=== PATIENT | male | born 1980 | race African-American/Black ===

== ENCOUNTER 2018-10-12 12:09 | Emergency (ER) | payer MEDICAID, SELFPAY ==
[2018-10-12 12:11] VITALS: BP 127/88; PULSE 78; RESP 18; TEMP 36.3; O2SAT 99; BMI 25.3
--- NOTE | 2018-10-12 12:33 | CT_ITS ---
STUDY: CT ABDOMEN AND PELVIS WITH CONTRAST REASON FOR EXAM: Male, 37 years old. Right lower quadrant pain. Diarrhea. RADIATION DOSAGE (If Supplied By Facility): CTDIvol = ( 13.66 ) mGy, DLP = ( 925.99 ) mGycm TECHNIQUE: Transaxial images were obtained from the dome of the diaphragm to the symphysis pubis with oral contrast. 100 IV/Oral Isovue 300 was administered. Sagittal and coronal images were reconstructed. Individualized dose optimization techniques were used for this CT. COMPARISON: None. FINDINGS: The visualized lung bases are unremarkable. The visualized portions of the heart are within normal limits. Normal liver. Normal gallbladder and extrahepatic biliary system. Normal spleen. Normal pancreas. Normal bilateral adrenal glands. Normal right kidney. Normal left kidney. Although oral contrast was given, only a few loops of small bowel are opacified and grossly normal. No opacification of the stomach which is grossly normal, and no opacification of the large bowel which is markedly limited in evaluation since it is not opacified. There is extensive diverticulosis as there was previously. There is an inflammatory process in the right lower quadrant primarily involving the cecum where there is probable wall thickening. The appendix is seen and is within normal limits. The findings could represent diverticulitis of the cecum. There is adjacent edema and mild fluid. Marked diverticulosis of the sigmoid colon is also noted with marked wall thickening, and low grade diverticulitis is not excluded and sigmoid. No definite abscess or perforation. Normal abdominal aorta. Normal inferior vena cava. Normal retroperitoneum. Normal urinary bladder. There is enlargement of the prostate gland. Normal abdominal wall. Normal osseous structures. CT/Abdomen/Pelvis WITH Contrast IMPRESSION: Inflammatory process in the right lower quadrant appears to be related primarily to the cecum and may be diverticulitis. The appendix is grossly normal. Marked diverticulosis and possible low-grade diverticulitis of the sigmoid. Note that evaluation of the colon is limited because it is not opacified by oral contrast. Recommend colonoscopy. Electronically Signed: Hi Gale MD at 14:38 EDT , Service support ,
--- NOTE | 2018-10-12 12:35 | ED.VISSUMM ---
- ER Visit Summary Date of Service: 10/12/18 Chief Complaint: Abdominal pain History of Present Illness: The patient is a 37 M presenting with abdominal pain. Patient states this started last Saturday. He has right lower quadrant and right lower back pain. He states he has had previous right-sided diverticulitis. He states this feels similar. He complains of nausea with no vomiting. He has had diarrhea. He denies blood in his stool. Denies fever. Denies other complaints. Physical Examination: Vitals are stable. Patient is afebrile. Alert no acute distress. HEENT exam is unremarkable. Neck is supple. Lungs are clear and equal bilaterally. Heart is regular rate and rhythm. Abdomen is soft right lower quadrant tenderness with no rebound or guarding Extremities are unremarkable. Skin is warm and dry. Remainder of exam is unremarkable. Emergency Department Course and Treatment: Patient was given IV fluids, morphine, Zofran. CBC normal except for hemoglobin 12.8. Chemistries unremarkable. Total bili 1.6. Lipase 138. Urinalysis unremarkable. CT abdomen pelvis with IV and oral contrast shows inflammatory process in the right lower quadrant appears to be related primarily to the cecum and may be diverticulitis. The appendix is grossly normal. Marked diverticulosis and possible low-grade diverticulitis of the sigmoid. Note that evaluation of the colon is limited because it is not opacified by oral contrast. Recommend colonoscopy. Patient is advised of these findings. He has had colonoscopy in the past. He is advised to follow-up with Dr. Jenkins magnetic resonance imaging coordinator for no doc. He was offered admission and declined. He was given Cipro and Flagyl. Advised return to ED for worsening complaints. Disposition: Discharge home Impression: Diverticulitis This note was generated with [employer] dictation software. It may contain incorrect words, spelling, and punctuation that were not noted in review of the chart prior to signing ED Disposition - Plan for ED Patient: Instructions: ED Diverticulitis Prescriptions: metroNIDAZOLE [Flagyl] 500 mg PO Q8H #21 tablet Ciprofloxacin [Cipro] 500 mg PO BID #14 tablet Referrals: Ludin Jenkins MD [STAFF PHYSICIAN] -
[2018-10-12 12:49] LABS: Absolute Lymphocyte Count 1.87 X10^3/ul (0.83-4.51); Absolute Neutrophil Count 6.2 X10^3/uL (2.0-7.7); Basophil# 0.02 X10^3/uL; Basophil% 0.2 % (0-1); Eosinophil# 0.23 X10^3/uL; Eosinophils% 2.6 % (0-5); Hematocrit 37.8 % (40-54); Hemoglobin 12.8 g/dl (13.0-16.5); Lymphocyte # 1.87 X10^3/ul (4.0); Lymphocyte % 21.3 % (19-41); Mean Corp Hgb Conc 33.9 g/gl (32-36); Mean Corpuscular Hgb 32.8 pg (27.0-32.0); Mean Corpuscular Volume 96.9 fL (80-94); Mean Platelet Vol. 11.7 fl (6.2-12.0); Monocyte# 0.47 X10^3/uL; Monocyte% 5.4 % (0-10); Neutrophil # 6.17 X10^3/uL (2.7-7.7); Neutrophil % 70.4 % (47-70); Platelet Count 242 K/mm3 (150-450); RBC Distribution Width CV 12.2 % (11.6-14.6); RBC Distribution Width SD 43.3 fl (35.1-43.9); White Blood Count 8.8 K/mm3 (4.4-11.0)
[2018-10-12] MEDS: Ondansetron 4 MG/2 ML Vial IV (12:49)
[2018-10-12 12:50] LABS: POSITIVE COUNT NO; POSITIVE DIFFERENTIAL NO; POSITIVE MORPHOLOGY NO
[2018-10-12] MEDS: Morphine 4 MG/ML Syringe IV (12:50)
[2018-10-12] MEDS: 0.9% Normal Saline 1,000 ML 1000 ML IV (12:50)
[2018-10-12 13:13] LABS: ALB/GLOB Ratio 0.9 RATIO (0.9-2.4); AST(SGOT) 14 U/L (15-37); Alanine Aminotransfer ALT/SGPT 34 U/L (16-61); Albumin, Serum 3.6 g/dL (3.2-5.0); Alkaline Phosphatase 88 U/L (45-117); Anion Gap 8 (5-15); BUN 11 mg/dL (7-18); BUN/Creat Ratio 10.8 RATIO (10-20); Calcium,Total 8.9 mg/dL (8.5-10.1); Chloride 106 mmol/L (98-107); Creatinine, Serum 1.02 mg/dL (0.70-1.30); EST Glomerular Filtration Rate 86 mL/min (>60); Est Glom Filt Rate - Afr Amer 104 mL/min (>60); Estimated Creatinine Clearance 106.72 ml/min; Globulin 3.8 g/dL (2.2-4.2); Glucose 104 mg/dL (74-106); Lipase 138 U/L (73-393); Potassium 3.8 mmol/L (3.5-5.1); Protein, Total 7.4 g/dL (6.4-8.2); Sodium Level 141 mmol/L (136-145)
[2018-10-12 13:58] LABS: Bacteria 0 SEEN /hpf (None Seen); Mucous, Urine 0 SEEN /hpf (<or=2+); Red Blood Cells-Urine 0 SEEN /hpf (0-5); Squamous Epithelial Cells - UA 0 SEEN /hpf (0-5); White Blood Cells 0 SEEN /hpf (0-5)
[2018-10-12 14:10] LABS: Color, Urine Yellow (Yellow); Glucose, Dipstick Normal (Normal); Ketone-Dipstick Negative (Negative); Leukocyte Esterase-Dipstick Negative /ul (Negative); Nitrite-Dipstick Negative (Negative); Occult Blood-Urine Negative /ul (Negative); Protein-Dipstick Negative (Negative); Urine Bilirubin Dipstick Negative (Negative); Urine Clarity Clear (Clear); Urine Urobilinogen Normal (Normal)
[2018-10-12 14:21] VITALS: BP 132/91; PULSE 66
--- NOTE | 2018-10-12 15:54 | ED.DEP ---
ED Disposition - Plan for ED Patient: Instructions: ED Diverticulitis Prescriptions: metroNIDAZOLE [Flagyl] 500 mg PO Q8H #21 tablet Ciprofloxacin [Cipro] 500 mg PO BID #14 tablet Referrals: Ludin Jenkins MD [STAFF PHYSICIAN] -
[2018-10-12] MEDS: metroNIDAZOLE 500 MG Tablet PO (16:08)
[2018-10-12] MEDS: HYDROmorphone 1 MG/ML Syringe IV (16:08)
[2018-10-12] MEDS: Ciprofloxacin 500 MG Tablet PO (16:08)
[2018-10-12 16:47] VITALS: BP 131/77; PULSE 81; RESP 14; O2SAT 99
== END 2018-10-12 16:48 | disposition home or self-care (01) ==
PROVIDERS: Emergency Provider Emergency Medicine
DX: K57.92 Diverticulitis of intestine, part unspecified, without perforation or abscess without bleeding (principal)
CPT/HCPCS: 74177; 80053; 81001; 83690; 85025; 96361; 96374; 96375; 99284; J7030; Q9967; A4216; J2405

== ENCOUNTER 2021-08-12 18:13 | Emergency (ER) | payer BC, MEDICAID, SELFPAY ==
[2021-08-12 18:14] VITALS: BP 131/88; PULSE 93; RESP 18; TEMP 36.9; O2SAT 98; BMI 23.7
--- NOTE | 2021-08-12 18:23 | CT_ITS ---
STUDY: CT ABDOMEN AND PELVIS WITHOUT CONTRAST REASON FOR EXAM: Male, 40 years old. Flank pain RADIATION DOSAGE (If Supplied By Facility): CTDIvol = ( 6.37 ) mGy, DLP = ( 335.63 ) mGycm TECHNIQUE: Transaxial images were obtained from the dome of the diaphragm to the symphysis pubis without oral contrast, and without intravenous contrast. Sagittal and coronal images were reconstructed. Individualized dose optimization techniques were used for this CT. COMPARISON: None. FINDINGS: The visualized lung bases are unremarkable. The visualized portions of the heart are within normal limits. Normal liver. Normal gallbladder and extrahepatic biliary system. Normal spleen. Normal pancreas. Normal bilateral adrenal glands. Normal right kidney. Normal left kidney. Normal visualized stomach. Normal small intestine. Normal colon. The appendix is visualized and appears normal. Normal abdominal aorta. Normal inferior vena cava. Normal retroperitoneum. Normal urinary bladder. Normal abdominal wall. Normal osseous structures. CT/Abdomen/Pelvis without Cont IMPRESSION: No hydronephrosis or urinary tract calcifications. Electronically Signed: Maik Hall MD (Brooks) at 19:55 EDT Reading Location ID and State: [facility] / [place] , Service support ,
[2021-08-12 18:37] LABS: Absolute Lymphocyte Count 2.65 X10^3/uL (0.83-4.51); Absolute Neutrophil Count 5.2 X10^3/uL (2.0-7.7); Basophil# 0.06 X10^3/uL; Basophil% 0.7 % (0-1); Eosinophils% 5.4 % (0-5); Hematocrit 40.5 % (40-54); Hemoglobin 13.4 g/dL (13.0-16.5); Lymphocyte # 2.65 X10^3/ul (0.83-4.51); Lymphocyte % 28.8 % (19-41); Mean Corp Hgb Conc 33.1 g/dL (32-36); Mean Corpuscular Hgb 33.7 pg (27.0-32.0); Mean Corpuscular Volume 101.8 fL (80-94); Mean Platelet Vol. 11.5 fl (6.2-12.0); Monocyte# 0.77 X10^3/uL; Monocyte% 8.4 % (0-10); NRBC Flagged by Analyzer 0 % (0-5); Neutrophil # 5.16 X10^3/uL (2.7-7.7); Neutrophil % 56.2 % (47-70); POSITIVE MORPHOLOGY YES; Platelet Count 285 K/mm3 (150-450); RBC Distribution Width SD 45.6 fl (35.1-43.9); Red Blood Count 3.98 M/mm3 (4.6-6.2); White Blood Count 9.2 K/mm3 (4.4-11.0)
[2021-08-12] MEDS: Ketorolac 30 MG/ML Syringe IV (18:39)
[2021-08-12] MEDS: Ondansetron 4 MG/2 ML Vial IV (18:39)
[2021-08-12] MEDS: 0.9% Normal Saline 1,000 ML 1000 ML IV (18:40)
[2021-08-12 18:46] LABS: Bacteria 0 SEEN /hpf (None Seen); Mucous, Urine 0 SEEN /hpf (<or=2+); Red Blood Cells-Urine 0 SEEN /hpf (0-5)
[2021-08-12 18:47] LABS: Color, Urine Yellow (Yellow); Glucose, Dipstick Normal (Normal); Ketone-Dipstick Negative (Negative); Leukocyte Esterase-Dipstick 25 /ul (Negative); Nitrite-Dipstick Negative (Negative); Occult Blood-Urine Negative /ul (Negative); Protein-Dipstick Negative (Negative); Urine Bilirubin Dipstick Negative (Negative); Urine Clarity Clear (Clear); Urine Urobilinogen Normal (Normal)
[2021-08-12 18:56] LABS: Differential Indicated SCAN CRITERIA MET
[2021-08-12 18:58] LABS: ALB/GLOB Ratio 1.1 RATIO (0.9-2.4); AST(SGOT) 14 U/L (15-37); Alanine Aminotransfer ALT/SGPT 34 U/L (16-61); Albumin, Serum 4.1 g/dL (3.2-5.0); Alkaline Phosphatase 94 U/L (45-117); Anion Gap 2 (5-15); BUN 14 mg/dL (7-18); BUN/Creat Ratio 12.3 RATIO (10-20); Calcium,Total 9.3 mg/dL (8.5-10.1); Chloride 106 mmol/L (98-107); Creatinine, Serum 1.14 mg/dL (0.70-1.30); EST Glomerular Filtration Rate 75 mL/min (>60); Est Glom Filt Rate - Afr Amer 90 mL/min (>60); Estimated Creatinine Clearance 92.65 ml/min; Globulin 3.8 g/dL (2.2-4.2); Glucose 112 mg/dL (74-106); Lipase 193 U/L (73-393); Potassium 3.9 mmol/L (3.5-5.1); Protein, Total 7.9 g/dL (6.4-8.2); Sodium Level 140 mmol/L (136-145)
[2021-08-12 19:00] LABS: Squamous Epithelial Cells - UA 0-5 SEEN /hpf (0-5); White Blood Cells 0-5 SEEN /hpf (0-5)
[2021-08-12 19:02] LABS: Hyaline Cast 0-5 SEEN /lpf (0-5)
[2021-08-12 19:13] LABS: Differential Comment SCANNED
--- NOTE | 2021-08-12 20:04 | EX.ED.DYSGE1 ---
HPI History of Present Illness Chief Complaint: Flank Pain Informant: patient Onset/Context/Timing Onset: Today Timing: Continuous Location: Left flank Current Severity: Severe Worsened by: Nothing Relieved by: Nothing Associated Symptoms Associated Symptoms: None Narrative Narrative: Patient presents for left flank pain. Pain started earlier today, suddenly at rest. No urinary symptoms. No history of his pain, kidney stones, or kidney infections. No GI symptoms or problems. No chest pain or shortness of breath. No history of heart disease, aortic disease, DVT, or PE. No recent illnesses or traumas. No recent instrumentation or surgery. Prior similar symptoms: No Recent Illness/Hospitalization: No PFSH PFSH Home Medications cyclobenzaprine 10 mg PO TID PRN #20 tablet 08/12/21 [Rx Last Taken Unknown] naproxen 500 mg PO BID #20 tab 08/12/21 [Rx Last Taken Unknown] Allergy/AdvReac Type Severity Reaction Status Date / Time tomato Allergy Hives Verified 08/12/21 18:14 Social History Smoking Status: Former smoker ROS ROS ED Constitutional Constitutional ED: Denies fever(s) Eyes Eyes: Denies change in vision ENT ENT ED: Denies ear pain Cardiovascular Cardiovascular: Denies chest pain Respiratory/Chest Respiratory/Chest: Denies dyspnea Gastrointestinal Gastrointestinal: Denies abdominal pain, constipation, diarrhea, melena, nausea or vomiting Genitourinary Genitourinary ED: Reports other Details: Left flank pain ; Denies dysuria or urinary frequency Musculoskeletal Musculoskeletal: Denies arthralgias or myalgias Integumentary Denies rash Neurologic Neurologic: Denies headache(s), paresthesias or weakness Psychiatric Psychiatric: Denies depression Endocrine Endocrinology: Denies polyuria Allergic/Immunologic Allergic/Immunologic ED: Denies urticaria EXAM Physical Exam Const Vital Signs: 08/12/21 18:14 Temperature 98.5 F Temperature Source Temporal Pulse Rate 93 Respiratory Rate 18 Blood Pressure 131/88 H Blood Pressure Mean 102 Pulse Ox 98 Oxygen Delivery Method Room Air Positive well nourished and well developed General Appearance ED: well developed HEENT Negative for trauma or tenderness Eyes EOMs intact bilaterally Neck supple Chest Wall inspection of chest normal Resp normal respiratory effort and clear to auscultation bilaterally Cardio regular rate and regular rhythm GI normal to inspection, nondistended, normoactive bowel sounds and non-tender Palpation: soft Back/Spine Negative for no CVA tenderness General Back: CVA tenderness Thoracic Spine / Upper Back: Negative for paraspinal muscle tenderness Lumbar Spine / Lower Back: Negative for lumbar spinal tenderness Extremity normal to inspection Neuro oriented x3 and no sensory deficits noted Sensorium / Orientation: alert Motor Exam: strength 5/5 throughout Psych mental status grossly normal Skin no rashes or lesions noted and no wounds MDM MDM MDM Narrative Medical decision making narrative: Patient has left flank pain. Sudden onset. No other corroborating symptoms or anything really to narrow down a diagnosis. He was treated with Toradol and fluids while awaiting results. His labs were all fairly unremarkable. Urinalysis showed no sign of infection or blood. CT was unremarkable. Patient had some improvement on reevaluation. His vitals are reassuring. He has mild hypertension 131/88. I suspect this could be myofascial pain. He has no cardiac, respiratory symptoms. No symptoms or GI symptoms. Nothing to suggest a vascular etiology. Patient will be discharged home to follow-up with primary care. Return for any new or worsening issues. Impression #1 left flank pain Disposition is discharged home in stable condition. Lab Data Attestation: I reviewed the patient's lab results. Labs: Laboratory Results - last 24 hr 08/12/21 08/12/21 08/12/21 18:30 18:30 18:35 WBC 9.2 RBC 3.98 L Hgb 13.4 Hct 40.5 MCV 101.8 H MCH 33.7 H MCHC 33.1 RDW Std Deviation 45.6 H RDW Coeff of Jamar 12.0 Plt Count 285 MPV 11.5 Immature Gran % (Auto) 0.500 Neut % (Auto) 56.2 Lymph % (Auto) 28.8 [place] % (Auto) 8.4 Eos % (Auto) 5.4 H Baso % (Auto) 0.7 Absolute Neuts (auto) 5.2 Absolute Lymphs (auto) 2.65 Nucleated RBC % 0 Differential Comment SCANNED Sodium 140 Potassium 3.9 Chloride 106 Carbon Dioxide 32.0 Anion Gap 2 L BUN 14 Creatinine 1.14 Estim Creat Clear Calc 92.65 Est GFR (MDRD) Af Amer 90 Est GFR (MDRD) Non-Af 75 BUN/Creatinine Ratio 12.3 Glucose 112 H Calcium 9.3 Total Bilirubin 0.90 AST 14 L ALT 34 Alkaline Phosphatase 94 Total Protein 7.9 Albumin 4.1 Globulin 3.8 Albumin/Globulin Ratio 1.1 Lipase 193 Urine Color Yellow Urine Clarity Clear Urine pH 5.0 Ur Specific [place] 1.020 Urine Protein Negative Urine Glucose (UA) Normal Urine Ketones Negative Urine Occult Blood Negative Urine Nitrite Negative Urine Bilirubin Negative Urine Urobilinogen Normal Ur Leukocyte Esterase 25 H Urine RBC 0 SEEN Urine WBC 0-5 SEEN Ur Squamous Epith Cells 0-5 SEEN Urine Bacteria 0 SEEN Hyaline Casts 0-5 SEEN Urine Mucus 0 SEEN Radiography Diagnostic Testing: Clinical Impression(s) from Imaging Studies Abdomen/Pelvis CT 08/12/21 18:23 IMPRESSION: No hydronephrosis or urinary tract calcifications. Electronically Signed: Maik Hall MD (Brooks) at 19:55 EDT Reading Location ID and State: [facility] / [place] , Service support , Discharge Plan Triage Chief Complaint: Flank Pain ED Provider: Santi Ferrari Dx/Rx/DC Orders Instructions: ED Flank Pain, Uncertain Cause Prescriptions: New cyclobenzaprine 10 mg tablet 10 mg PO TID PRN (Reason: Muscle Spasm) Qty: 20 RF: 0 naproxen 500 mg tablet 500 mg PO BID Qty: 20 RF: 0 Primary Care Provider: Care Physician,No Primary Referrals: Ludin Martinez DO [STAFF PHYSICIAN] - Disposition Disposition: Home, Self Care
[2021-08-12] MEDS: cycloBENZAPRine HCl 10 MG Tablet PO (20:07)
[2021-08-12 20:31] VITALS: PULSE 74; RESP 18
== END 2021-08-12 20:32 | disposition home or self-care (01) ==
PROVIDERS: Emergency Provider Emergency Medicine; Visit Provider Emergency Medicine
DX: R10.9 Unspecified abdominal pain (principal); Z87.891 Personal history of nicotine dependence
CPT/HCPCS: 74176; 80053; 81001; 83690; 85025; 96361; 96374; 96375; 99283; J7030; A4216; J2405

== ENCOUNTER 2021-08-14 15:21 | Emergency (ER) | payer BC, MEDICAID, SELFPAY ==
[2021-08-14] VITALS (7 sets, daily range): BP systolic 132–151; BP diastolic 73–95; PULSE 86–109; RESP 18–24; TEMP 37.1; O2SAT 90–98; BMI 23.7
--- NOTE | 2021-08-14 15:47 | EDS_ITS ---
HPI History of Present Illness Chief Complaint: Chest Pain Informant: patient Onset/Context/Timing Onset: Days (3) Activity at onset: gradual Timing: Continuous Quality: Positive for Sharp Location: Left Chest Worsened By: Nothing Relieved By: Nothing Associated Symptoms: Positive for Nausea and Dyspnea; Negative for Vomiting, Diaphoresis, Cough, Fever, Lightheadedness, Acid Reflux and Palpitations Narrative Narrative: Patient presents with chest pain that has been getting progressively worse over the past 3 days. Patient states it became worse again today. Patient describes his pain as sharp. Patient states the pain is over the left chest and radiates into his left shoulder. Patient states nothing makes it better nothing makes it worse. Patient admits to nausea but denies any vomiting. Patient admits to some shortness of breath where he states like he feels he cannot catch his breath. Patient denies any cough or fever. Patient denies any lightheadedness or dizziness. Patient denies any cardiac or PE risk factors. CVD Risk Factors: Negative for Hypertension, Diabetes, Hypercholesterolemia, Family History 1' </=55 and Smoking PE Risk Factors: Negative for Recent Travel/Surgery, Recent Immobilization, Prior DVT or PE, Cancer and OCP + Smoking + >/=35 PFSH PFSH Medical History Alcohol abuse Medical History no medical history no medical history Home Medications cyclobenzaprine 10 mg PO TID PRN #20 tablet 08/12/21 [Rx Last Taken Unknown] naproxen 500 mg PO BID #20 tab 08/12/21 [Rx Last Taken Unknown] azithromycin 250 mg PO DAILY #4 tablet 08/14/21 [Rx Last Taken Unknown] hydrocodone-acetaminophen 1 tab PO Q6H PRN PRN 3 Days #10 tablet 08/14/21 [Rx Last Taken Unknown] Allergy/AdvReac Type Severity Reaction Status Date / Time tomato Allergy Hives Verified 08/14/21 15:24 Surgical History no surgical history no surgical history Social History Smoking Status: Former smoker ROS ROS ED Constitutional Constitutional ED: Denies chills or fever(s) Eyes Eyes: Denies blurry vision or change in vision ENT ENT ED: Denies rhinorrhea or sore throat Cardiovascular Cardiovascular: Reports chest pain; Denies palpitations Respiratory/Chest Respiratory/Chest: Reports dyspnea; Denies cough Gastrointestinal Gastrointestinal: Reports nausea; Denies abdominal pain or vomiting Genitourinary Genitourinary ED: Denies dysuria or hematuria Musculoskeletal Musculoskeletal: Reports neck pain; Denies back pain Integumentary Denies abscess or rash Neurologic Neurologic: Denies headache(s) or weakness Allergic/Immunologic Allergic/Immunologic ED: Denies mouth swelling or urticaria EXAM Physical Exam Const Vital Signs: 08/14/21 15:21 08/14/21 15:42 08/14/21 15:51 Temperature 98.8 F Temperature Source Temporal Pulse Rate 108 H Respiratory Rate 18 Respiratory Effort Short of Breath Blood Pressure 151/93 H Blood Pressure Mean 112 Pulse Ox 96 Oxygen Delivery Method Room Air Room Air 08/14/21 16:18 08/14/21 16:35 08/14/21 16:56 Temperature Temperature Source Pulse Rate 109 H 108 H 99 Respiratory Rate Respiratory Effort Blood Pressure 137/90 H 137/95 H 134/89 H Blood Pressure Mean Pulse Ox Oxygen Delivery Method 08/14/21 17:24 08/14/21 18:53 08/14/21 19:29 Temperature Temperature Source Pulse Rate 97 91 86 Respiratory Rate 21 H 24 H 23 H Respiratory Effort Blood Pressure 132/78 H 145/75 H 135/73 H Blood Pressure Mean 96 98 93 Pulse Ox 90 97 98 Oxygen Delivery Method Room Air Room Air Positive well nourished and well developed General Appearance ED: well developed and NAD HEENT normocephalic and atraumatic Eyes PERRL and EOMs intact bilaterally Neck supple and no JVD Chest Wall Chest Narrative: There is tenderness to palpation over the left anterior chest wall. There is no bony crepitance or step-off. There is no edema or ecchymosis. Resp normal respiratory effort and clear to auscultation bilaterally Effort and Inspection: Negative for respiratory distress Cardio regular rate, regular rhythm and no murmurs GI normal to inspection, nondistended, normoactive bowel sounds, soft to palpation, non-tender and non-distended Extremity normal to inspection General Extremety ED: Negative for edema or tenderness General Extremity: Negative for edema Neuro oriented x3, CN's II-XII intact bilaterally and no sensory deficits noted Sensorium / Orientation: awake and alert Motor Exam: strength 5/5 throughout Psych mental status grossly normal Heart Score History: Slightly/Non-Suspicious ECG: Nonspecific Repolarization Age: </= 45 years Risk Factors: No Risk Factors Troponin: </= Normal Limit Score: 1 MDM MDM MDM Narrative Medical decision making narrative: EKG was obtained. On my interpretation, it showed a sinus tachycardia with a rate of 107. GA interval, QRS interval, and QTc intervals were all normal. [place] was normal. There is left ventricular hypertrophy with nonspecific ST-T wave changes. Portable 1 view chest x-ray was obtained. On my interpretation, lung le are clear. There is normal cardiac silhouette. Bony thorax shows a nondisplaced left lateral sixth rib fracture. There is no acute process noted. Radiologist also interpreted the x-ray and agrees. CBC was within normal limits. PT PT with INR and PTT were within normal limits. D-dimer was elevated at 1.13. Basic metabolic profile was within normal limits. High-sensitivity troponin was normal. Because of the elevated D-dimer, CTA scan of the chest was obtained. There is no evidence of pulmonary embolism. There is mild left lower lobar infiltrate with mild ate lectasis. This was interpreted by the radiologist and reviewed by myself. Patient was advised of his findings. Patient was given a dose of Zithromax here. Patient was given a prescription for Zithromax. Patient was also given a prescription for a short course of [place]. Patient was instructed to take 10-15 deep breaths while awake to prevent worsening pneumonia. Patient was instructed to follow-up with his primary care physician in 5 to 7 days. Patient understood and was agreeable with plan. All questions were answered. Lab Data Attestation: I reviewed the patient's lab results. Labs: Laboratory Results - last 24 hr 08/14/21 08/14/21 08/14/21 15:54 15:54 15:54 WBC 10.2 RBC 3.79 L Hgb 12.9 L Hct 39.3 L MCV 103.7 H MCH 34.0 H MCHC 32.8 RDW Std Deviation 45.1 H RDW Coeff of Jamar 11.9 Plt Count 252 MPV 12.3 H Immature Gran % (Auto) 0.400 Neut % (Auto) 73.9 H Lymph % (Auto) 15.9 L [place] % (Auto) 6.9 Eos % (Auto) 2.6 Baso % (Auto) 0.3 Absolute Neuts (auto) 7.5 Absolute Lymphs (auto) 1.63 Nucleated RBC % 0 PT 13.3 INR 1.1 APTT 34.5 D-Dimer Quant (PE/DVT) 1.13 H* Sodium 139 Potassium 3.8 Chloride 105 Carbon Dioxide 32.0 Anion Gap 2 L BUN 15 Creatinine 1.03 Estim Creat Clear Calc 102.55 Est GFR (MDRD) Af Amer 102 Est GFR (MDRD) Non-Af 84 BUN/Creatinine Ratio 14.6 Glucose 109 H Calcium 9.2 Troponin I High Sens 08/14/21 08/14/21 15:54 19:05 WBC RBC Hgb Hct MCV MCH MCHC RDW Std Deviation RDW Coeff of Jamar Plt Count MPV Immature Gran % (Auto) Neut % (Auto) Lymph % (Auto) [place] % (Auto) Eos % (Auto) Baso % (Auto) Absolute Neuts (auto) Absolute Lymphs (auto) Nucleated RBC % PT INR APTT D-Dimer Quant (PE/DVT) Sodium Potassium Chloride Carbon Dioxide Anion Gap BUN Creatinine Estim Creat Clear Calc Est GFR (MDRD) Af Amer Est GFR (MDRD) Non-Af BUN/Creatinine Ratio Glucose Calcium Troponin I High Sens < 3 L < 3 L Radiography Chest X-Ray - ED: 1 View, Read by ED Physician, Read by Radiologist, No Acute Disease and Left Rib Fx CTA PE Study: No Evidence of PE, No Evidence of Dissection and - (Left lower lobe pneumonia with atelectasis) Diagnostic Testing: Clinical Impression(s) from Imaging Studies Chest X-Ray 08/14/21 16:07 IMPRESSION: 6th left lateral rib fracture. There is no pneumothorax. Electronically Signed: Tejas Coburn MD at 16:24 EDT , Chest CTA 08/14/21 17:35 IMPRESSION: 1. Mild left lower lobe interstitial pneumonia with mild atelectasis. 2. No evidence of active cardiopulmonary disease. 3. No evidence of pulmonary thromboembolism. 4. No evidence of a thoracic aortic dissection or aneurysm. Electronically Signed: Abram Torrez MD at 18:40 EDT , EKG Initial EKG: Attestation: I personally reviewed and interpreted this EKG as follows: Interpretation: Sinus Tachycardia (107) and Non-Specific ST Changes Prior EKG tracings: not available for review Discharge Plan Triage Chief Complaint: Chest Pain Other Complaint: Back ED Provider: Edgar Avery Dx/Rx/DC Orders Clinical Impression: Pneumonia, Left rib fracture Instructions: ED Rib Fracture, ED Pneumonia (Adult) Prescriptions: New hydrocodone-acetaminophen [hydrocodone-acetaminophen] 1 TABLET tablet 1 tab PO Q6H PRN PRN (Reason: Pain) 3 Days Qty: 10 RF: 0 azithromycin [azithromycin] 250 MG tablet 250 mg PO DAILY Qty: 4 RF: 0 No Action cyclobenzaprine 10 mg tablet 10 mg PO TID PRN (Reason: Muscle Spasm) Qty: 20 RF: 0 naproxen 500 mg tablet 500 mg PO BID Qty: 20 RF: 0 Primary Care Provider: Care Physician,No Primary Referrals: Loida Washington MD [STAFF PHYSICIAN] - 5-7 Days Care Physician,No Primary [Primary Care Provider] - Disposition Disposition: Home, Self Care
--- NOTE | 2021-08-14 15:51 | EKG12_ITS ---
Test Reason : CP Blood Pressure : / mmHG Vent. Rate : 107 BPM Atrial Rate : 107 BPM P-R Int : 136 ms QRS Dur : 076 ms QT Int : 316 ms P-R-T Axes : 061 040 033 degrees QTc Int : 421 ms Sinus tachycardia Nonspecific T wave abnormality Abnormal ECG Confirmed by DILCIA DIGGS, WILFREDO ([id number]), editorial director NEHA BURKS ([id number]) on 08/16/2021 11:42:20 AM Referred By: GRIS Confirmed By:WILFREDO HA MD
[2021-08-14 16:03] LABS: Absolute Lymphocyte Count 1.63 X10^3/uL (0.83-4.51); Absolute Neutrophil Count 7.5 X10^3/uL (2.0-7.7); Basophil# 0.03 X10^3/uL; Basophil% 0.3 % (0-1); Eosinophil# 0.27 X10^3/uL; Eosinophils% 2.6 % (0-5); Hematocrit 39.3 % (40-54); Hemoglobin 12.9 g/dL (13.0-16.5); Lymphocyte # 1.63 X10^3/ul (0.83-4.51); Lymphocyte % 15.9 % (19-41); Mean Corp Hgb Conc 32.8 g/dL (32-36); Mean Corpuscular Volume 103.7 fL (80-94); Mean Platelet Vol. 12.3 fl (6.2-12.0); Monocyte# 0.71 X10^3/uL; Monocyte% 6.9 % (0-10); NRBC Flagged by Analyzer 0 % (0-5); Neutrophil # 7.54 X10^3/uL (2.7-7.7); Neutrophil % 73.9 % (47-70); Platelet Count 252 K/mm3 (150-450); RBC Distribution Width CV 11.9 % (11.6-14.6); RBC Distribution Width SD 45.1 fl (35.1-43.9); Red Blood Count 3.79 M/mm3 (4.6-6.2); White Blood Count 10.2 K/mm3 (4.4-11.0)
--- NOTE | 2021-08-14 16:07 | RAD_ITS ---
STUDY: X-RAY CHEST REASON FOR EXAM: Male, 40 years old. PT C/O BACK PAIN STARTING 2 DAYS AGO. NOW C/O CHEST PAIN X 1 HR chest pain TECHNIQUE: XR Chest 1 View COMPARISON: Yesterday FINDINGS: 6th left lateral rib fracture. There is no pneumothorax. Normal size heart. Normal mediastinum and claire. Normal visualized pulmonary arteries. Normal visualized aortic arch and descending thoracic aorta. Normal visualized thoracic spine. Normal visualized ribs, clavicles, and shoulders. There is no demonstrated abnormality of the visualized soft tissue structures of the upper abdomen. RAD/Chest 1 View (Portable) IMPRESSION: 6th left lateral rib fracture. There is no pneumothorax. Electronically Signed: Tejas Coburn MD at 16:24 EDT ,
[2021-08-14 16:15] LABS: Anion Gap 2 (5-15); BUN 15 mg/dL (7-18); BUN/Creat Ratio 14.6 RATIO (10-20); Calcium,Total 9.2 mg/dL (8.5-10.1); Chloride 105 mmol/L (98-107); Creatinine, Serum 1.03 mg/dL (0.70-1.30); EST Glomerular Filtration Rate 84 mL/min (>60); Est Glom Filt Rate - Afr Amer 102 mL/min (>60); Estimated Creatinine Clearance 102.55 ml/min; Glucose 109 mg/dL (74-106); Potassium 3.8 mmol/L (3.5-5.1); Sodium Level 139 mmol/L (136-145)
[2021-08-14] MEDS: Aspirin 81 MG TAB.CHEW 324 MG PO (16:17)
[2021-08-14] MEDS: Nitroglycerin SL (ED/IMG/CATH) 0.4 MG TABLET SL ×3 (16:18→16:56)
[2021-08-14 17:23] LABS: D-Dimer Quantitative (DVT/PE) 1.13 FEU/ug/m (0.27-0.49)
[2021-08-14 17:24] LABS: International Normalized Ratio 1.1; Partial Thromboplast Time 34.5 Seconds (24.1-36.2); Prothrombin Time (Protime)PT. 13.3 SECONDS (11.7-14.9)
--- NOTE | 2021-08-14 17:35 | CT_ITS ---
STUDY: PULMONARY AND CHEST CT ANGIOGRAPHY OF 1739 HOURS ON 08/14/2021 REASON FOR EXAM: 40-year-old male with an elevated d-dimer and chest pain. RADIATION DOSAGE (If Supplied By Facility): CTDIvol = ( 14.4 ) mGy, DLP = ( 315.48 ) mGycm TECHNIQUE: The examination was performed with the intravenous administration of IV 100mL Isovue-300. Post-processing of the angiographic images was performed, with multiplanar reformation and 3D reconstruction. Individualized dose optimization techniques were used for this CT. COMPARISON: None. FINDINGS: No cardiomegaly. No hilar or mediastinal lymphadenopathy. There is a mild left lower lobe interstitial/atelectatic process compatible with a mild left lower lobe pneumonia. There is no evidence of pulmonary thromboembolism. There is no evidence of any thoracic aortic dissection or aneurysm. The pleura is normal in appearance. The osseous and surrounding soft tissue structures are without abnormalities. CT/CTA Chest W/WO Contrast IMPRESSION: 1. Mild left lower lobe interstitial pneumonia with mild atelectasis. 2. No evidence of active cardiopulmonary disease. 3. No evidence of pulmonary thromboembolism. 4. No evidence of a thoracic aortic dissection or aneurysm. Electronically Signed: Abram Torrez MD at 18:40 EDT ,
[2021-08-14 18:39] LABS: Troponin-I HS (w/2H Reflex) < 3 pg/mL (3.0-78.0)
[2021-08-14 18:40] LABS: Reflex Troponin-HS? (from REC) Y
[2021-08-14 19:27] LABS: Troponin-I HS < 3 pg/mL (3.0-78.0)
[2021-08-14] MEDS: HYDROcodone Bitartrate/Apap 5/325 Tablet PO (20:12)
[2021-08-14] MEDS: Azithromycin 250 MG Tablet 500 MG PO (20:12)
== END 2021-08-14 20:23 | disposition home or self-care (01) ==
PROVIDERS: Emergency Provider Emergency Medicine; Visit Provider Emergency Medicine
DX: S22.32XA Fracture of one rib, left side, initial encounter for closed fracture (principal); X58.XXXA Exposure to other specified factors, initial encounter; J18.9 Pneumonia, unspecified organism; Z87.891 Personal history of nicotine dependence
CPT/HCPCS: 71045; 71275; 80048; 84484; 85025; 85379; 85610; 85730; 93005; 99285

== ENCOUNTER → 2021-10-16 | Outpatient (CLI) | payer BC, OTHER, MEDICAID, SELFPAY ==
[2021-10-16 12:11] LABS: Absolute Lymphocyte Count 2.23 X10^3/uL (0.83-4.51); Absolute Neutrophil Count 2.9 X10^3/uL (2.0-7.7); Basophil# 0.09 X10^3/uL; Basophil% 1.5 % (0-1); Eosinophil# 0.35 X10^3/uL; Eosinophils% 5.9 % (0-5); Hematocrit 40.9 % (40-54); Lymphocyte # 2.23 X10^3/ul (0.83-4.51); Lymphocyte % 37.3 % (19-41); Mean Corp Hgb Conc 31.8 g/dL (32-36); Mean Corpuscular Hgb 32.8 pg (27.0-32.0); Mean Corpuscular Volume 103.3 fL (80-94); Mean Platelet Vol. 12.2 fl (6.2-12.0); Monocyte# 0.35 X10^3/uL; Monocyte% 5.9 % (0-10); NRBC Flagged by Analyzer 0 % (0-5); Neutrophil # 2.93 X10^3/uL (2.7-7.7); Neutrophil % 48.9 % (47-70); Platelet Count 285 K/mm3 (150-450); RBC Distribution Width CV 12.5 % (11.6-14.6); RBC Distribution Width SD 47.6 fl (35.1-43.9); Red Blood Count 3.96 M/mm3 (4.6-6.2)
[2021-10-16 12:30] LABS: ALB/GLOB Ratio 1.1 RATIO (0.9-2.4); AST(SGOT) 31 U/L (15-37); Alanine Aminotransfer ALT/SGPT 43 U/L (16-61); Albumin, Serum 3.9 g/dL (3.2-5.0); Alkaline Phosphatase 72 U/L (45-117); Anion Gap 1 (5-15); BUN 16 mg/dL (7-18); BUN/Creat Ratio 14.8 RATIO (10-20); Chloride 107 mmol/L (98-107); Cholesterol 182 mg/dL (200); Creatinine, Serum 1.08 mg/dL (0.70-1.30); EST Glomerular Filtration Rate 79 mL/min (>60); Est Glom Filt Rate - Afr Amer 96 mL/min (>60); Globulin 3.4 g/dL (2.2-4.2); Glucose 96 mg/dL (74-106); High Density Lipoprotein 74 mg/dL; Potassium 4.7 mmol/L (3.5-5.1); Protein, Total 7.3 g/dL (6.4-8.2); Sodium Level 138 mmol/L (136-145); Triglycerides 71 mg/dL; Very Low Density Lipoprotein 14 mg/dL (5-40)
== END | disposition home or self-care (01) ==
LOC: BIMLAB 09:50
PROVIDERS: PCP Internal Medicine; Referring Provider Internal Medicine; Visit Provider Internal Medicine
DX: Z00.00 Encounter for general adult medical examination without abnormal findings (principal)
CPT/HCPCS: 36415; 80053; 80061; 85025

== ENCOUNTER → 2023-01-24 | Outpatient (CLI) | payer BC, OTHER, MEDICAID, SELFPAY ==
[2023-01-24 15:21] LABS: Absolute Lymphocyte Count 1.64 X10^3/uL (0.83-4.51); Basophil# 0.05 X10^3/uL; Basophil% 0.9 % (0-1); Eosinophils% 5.6 % (0-5); Hematocrit 36.9 % (40-54); Hemoglobin 12.2 g/dL (13.0-16.5); Lymphocyte # 1.64 X10^3/ul (0.83-4.51); Lymphocyte % 30.8 % (19-41); Mean Corp Hgb Conc 33.1 g/dL (32-36); Mean Corpuscular Volume 99.7 fL (80-94); Monocyte# 0.32 X10^3/uL; NRBC Flagged by Analyzer 0 % (0-5); Neutrophil # 3.01 X10^3/uL (2.7-7.7); Neutrophil % 56.5 % (47-70); Platelet Count 286 K/mm3 (150-450); RBC Distribution Width CV 11.8 % (11.6-14.6); RBC Distribution Width SD 42.9 fl (35.1-43.9); White Blood Count 5.3 K/mm3 (4.4-11.0)
[2023-01-24 15:55] LABS: ALB/GLOB Ratio 1.1 RATIO (0.9-2.4); AST(SGOT) 19 U/L (15-37); Alanine Aminotransfer ALT/SGPT 46 U/L (16-61); Albumin, Serum 3.8 g/dL (3.2-5.0); Alkaline Phosphatase 69 U/L (45-117); Anion Gap 3 (5-15); BUN 13 mg/dL (7-18); BUN/Creat Ratio 13.5 RATIO (10-20); Calcium,Total 8.5 mg/dL (8.5-10.1); Chloride 108 mmol/L (98-107); Cholesterol 163 mg/dL (200); Creatinine, Serum 0.96 mg/dL (0.70-1.30); EST Glomerular Filtration Rate 90 mL/min (>60); Est Glom Filt Rate - Afr Amer 109 mL/min (>60); Globulin 3.4 g/dL (2.2-4.2); Glucose 119 mg/dL (74-106); High Density Lipoprotein 61 mg/dL; PSA,Total - Annual Screen 0.47 ng/mL (0.00-4.00); Potassium 3.9 mmol/L (3.5-5.1); Protein, Total 7.2 g/dL (6.4-8.2); Sodium Level 139 mmol/L (136-145); Triglycerides 71 mg/dL; Very Low Density Lipoprotein 14 mg/dL (5-40)
[2023-01-25 13:23] LABS: Ferritin 189 ng/mL (26-388); Iron 70 ug/dL (65-175); Iron Binding Capacity,Total 310 ug/dL (250-450)
== END | disposition home or self-care (01) ==
LOC: BIMLAB 14:27
PROVIDERS: PCP Internal Medicine; Referring Provider Internal Medicine; Visit Provider Internal Medicine
DX: Z00.00 Encounter for general adult medical examination without abnormal findings (principal); D64.9 Anemia, unspecified
CPT/HCPCS: 36415; 80053; 80061; 82728; 83540; 83550; 84153; 85025; G0103

== ENCOUNTER → 2023-06-17 | Outpatient (CLI) | payer BC, OTHER, SELFPAY ==
--- NOTE | 2023-06-17 10:16 | RAD_ITS ---
STUDY: X-RAY - LUMBAR SPINE REASON FOR EXAM: Male, 42 years old. Low back Pain TECHNIQUE: 4 view(s) of the lumbar spine were obtained. COMPARISON: None FINDINGS: Normal lumbar lordosis. There is no substantial scoliosis. There is a normal alignment of the vertebrae. Normal vertebral bodies and endplates. Normal disc space heights. There is no demonstrated fracture. The soft tissue structures are unremarkable. RAD/L/S Spine Min 4 Views IMPRESSION: Normal x-ray examination of the lumbar spine. Electronically Signed: Hi Gale MD at 17:40 EST ,
--- OUTSIDE RECORDS SUMMARY | 2023-06-17 10:22 | XMS RPT_ITS | CCD ---
Author Name Unknown Address [id number] [place] [address] Organization [facility] Care Team Providers Care Manager Electronic Name Role Phone Unavailable Primary Care Provider KIRA Villa Referring LEIGHA Mosley Referring Unavailable Allergies Allergy Classification Reported Allergen(s) Allergy Type Date of Onset Reaction(s) Facility (1 source) tomato allergenic extract Drug Allergy 10-12-2018 [facility] Medications Current Medications Medication Drug Class(es) Dates Sig (Normalized) Sig (Original) predniSONE 20 mg oral tablet (1 source) Start: 07-05-2022 End: 07-10-2022 take 2 tablets by mouth once daily predniSONE (DELTASONE) 20 mg tablet Indications: Throat pain Take 2 tablets by mouth once daily for 5 days. 10 tablet 0 07/05/2022 07/10/2022 Active Completed/Discontinued Medications Medication Drug Class(es) Dates Sig (Normalized) Sig (Original) acetaminophen 300 mg / codeine phosphate 30 mg oral tablet (3 sources) Opioid Agonist Start: 09-16-2014 take 1 tablet by mouth every four hours as needed acetaminophen-codei ne (TYLENOL-CODEINE #3) 300-30 mg per tablet Indications: Sterilization Take 1 tablet by mouth every 4 hours as needed. 10 tablet 0 09/16/2014 Active Problems Active Problems Problem Classification Problem Date Documented Date Episodic/Chronic Diverticulosis and diverticulitis (6 sources) Diverticulitis of large intestine without perforation or abscess without bleeding; Translations: [Diverticulitis of colon (without mention of hemorrhage)] Onset: 03-14-2007 05-13-2007 Chronic Immunizations and screening for infectious disease (1 source) Exposure to Streptococcus; Translations: [Contact with and (suspected) exposure to other bacterial communicable diseases] Episodic Nonspecific chest pain (1 source) Chest pain; Translations: [Chest pain, unspecified] Episodic Other connective tissue disease (1 source) Pain in right hand; Translations: [Pain in right hand] Episodic Other upper respiratory disease (1 source) Pain in throat; Translations: [Pain in throat] Episodic Other upper respiratory infections (1 source) Acute upper respiratory infection; Translations: [Acute upper respiratory infection, unspecified] Episodic Unclassified (1 source) Encounter for screening for COVID-19; Translations: [Encounter for screening for COVID-19] Onset: 12-27-2021 Past or Other Problems Problem Classification Problem Date Documented Da te Episodic/Chronic Abdominal pain (3 sources) Right upper quadrant pain; Translations: [Right upper quadrant pain] Onset: 05-08-2007 05-08-2007 Episodic Contraceptive and procreative management (3 sources) Patient encounter status; Translations: [Encounter for sterilization] Onset: 10-08-2014 10-08-2014 Episodic Deficiency and other anemia (3 sources) Anemia; Translations: [Anemia, unspecified] Onset: 03-14-2007 03-14-2007 Episodic Other connective tissue disease (3 sources) Radicular pain; Translations: [Neuralgia and neuritis, unspecified] Onset: 07-13-2020 07-13-2020 Episodic Other connective tissue disease (1 source) Pain in right hand; Translations: [Pain of right hand] Onset: 09-11-2021 Episodic Spondylosis; intervertebral disc disorders; other back problems (9 sources) Brachial neuritis; Translations: [Radiculopathy, cervical region] Onset: 01-25-2012 01-25-2012 Episodic Results Test Name Value Interpretation Reference Range Facil ity Vital Signs Date Time Vital Sign Value Performing Clinician Polii katharina 07-05-2022 08:57-0500 Body temperature 98.71 [degF] Shashi Melara APRN.CNP Work Phone: [facility] 07-05-2022 08:57-0500 Body weight 77.38 kg Shashi Melara APRN.CNP Work Phone: [facility] 07-05-2022 08:57-0500 Diastolic blood pressure 66 mm[Hg] Shashi Melara APRN.CNP Work Phone: [facility] 07-05-2022 08:57-0500 Heart rate 78 /min Shashi Melara APRN.MAINTENANCE PARTS TECHNICIAN Work Phone: [facility] 07-05-2022 08:57-0500 Respiratory rate 16 /min Shashi Melara APRN.MAINTENANCE PARTS TECHNICIAN Work Phone: [facility] 07-05-2022 08:57-0500 SaO2% (BldA) [Mass fraction] 100 % Shashi Melara APRN.MAINTENANCE PARTS TECHNICIAN Work Phone: [facility] 07-05-2022 08:57-0500 Systolic blood pressure 122 mm[Hg] Shashi Melara COILED COIL INSPECTOR.MAINTENANCE PARTS TECHNICIAN Work Phone: [facility] 09-11-2021 08:57-0400 Body temperature 97.7 [degF] Leigha Marquez APRN.MAINTENANCE PARTS TECHNICIAN Work Phone: [facility] 09-11-2021 08:57-0400 Body weight 77.84 kg Leigha Marquez APRN.MAINTENANCE PARTS TECHNICIAN Work Phone: [facility] 09-11-2021 08:57-0400 Diastolic blood pressure 70 mm[Hg] Leigha Marquez APRN.MAINTENANCE PARTS TECHNICIAN Work Phone: [facility] 09-11-2021 08:57-0400 Heart rate 76 /min Leigha Marquez APRN.MAINTENANCE PARTS TECHNICIAN Work Phone: [facility] 09-11-2021 08:57-0400 Respiratory rate 16 /min Leigha Marquez APRN.MAINTENANCE PARTS TECHNICIAN Work Phone: [facility] 09-11-2021 08:57-0400 SaO2% (BldA) [Mass fraction] 98 % Leigha Marquez APRN.MAINTENANCE PARTS TECHNICIAN Work Phone: [facility] 09-11-2021 08:57-0400 Systolic blood pressure 126 mm[Hg] Leigha Marquez APRN.MAINTENANCE PARTS TECHNICIAN Work Phone: [facility] Encounters Encounter Date Encounter Type Care Provider Facility Start: 07-05-2022 End: 07-05-2022 [facility] Facility:[facility] Start: 07-05-2022 End: 07-05-2022 Patient encounter procedure Shashi King JAZ Work Phone: [facility] Procedures Date Procedure Procedure Detail Performing Clinician Start: 07-05-2022 STREP A MOLECULAR (POC) Shashi Melara APRN.CNP Work Phone: Start: 12-21-2015 Colonoscopy Radha Farias PA-C Work Phone: Plan of Treatment Date Care Activity Detail Author Start: 12-20-2025 Colonoscopy COLONOSCOPY [facility] Start: 12-20-2025 COLORECTAL CANCER SCREENING COLORECTAL CANCER SCREENING [facility] Start: 05-06-2022 DEPRESSION ASSESSMENT DEPRESSION ASS ESSMENT [facility] Start: 01-04-2022 Influenza vaccination INFLUENZA (Sea son Ended) [facility] Start: 03-04-2021 COVID-19 VACCINE (3 - Booster for Pfizer series) COVID-19 VACCINE (3 - Booster for Pfizer series) [facility] Start: 07-29-2016 Urine microalbumin profile DTAP,TDAP ,TD (2 - Tdap) [facility] Start: 2013 LIPID SCREEN LIPID SCREEN [facility] Start: 1996 HEPATITIS C SCREENING HEPATITIS C SC REENING [facility] Start: 1996 HIV SCREENING HIV SCREENING [facility] Start: 1990 Adult depression [facility] assessment DEPRESSION SCREENING [facility] Start: 1978 HEPATITIS B (1 of 3 - 3-dose series) HEPATITIS B (1 of 3 - 3-dose series) [facility] Immunizations Immunization Date Immunization Notes Care Provider Tianna knowles 10-02-2020 COVID-19 vaccine, ag e 12+ yr (PFIZER-BIONTECH - PURPLE TOP) Radha Farias PA-C Work Phone: [facility] 09-11-2020 COVID-19 vaccine, ag e 12+ yr (PFIZER-BIONTECH - PURPLE TOP) Radha Farias PA-C Work Phone: [facility] 07-29-2006 diphtheria and tetan us toxoids, adsorbed for pediatric use Radha Farias PA-C Work Phone: [facility] Work Phone: Payers Date Payer Category Payer Medicaid [employer] [id number] 2022-Present [phone] [address] [place] [address] Medicaid [id number] 2021 Private Health Insurance AETNA A ETNA CHOICE POS II [id number] 2021-Present [phone] [address] [place] [address] POS [id number] 2021 Private Health Insurance AETNA A ETNA CHOICE POS II [id number] 2021-Present [phone] [address] [place] [address] POS [id number] 2021 Private Health Insurance [id number] 2021 Unknown [employer]M BLUE CARD PPO OOS [id number] 2021-Present [phone] [address] [place] [address] PPO [id number] 2021 Unknown [id number] 2014 Medicaid [employer] [id number] 2014-Present [phone] [address] [place] [address] Medicaid [id number] 2014 Medicaid [id number] Social History Date Type Detail Facility Start: 12-13-2015 End: 07-05-2022 Tobacco smoking status NHIS Ex-smoker [facility] End: 11-22-2015 History of tobacco use Current smoker [facility] Start: 12-13-2015 End: 07-05-2022 Tobacco use and exposure Smokeless tobacco non-user [facility] Start: 04-03-2021 End: 07-05-2022 Alcohol intake Current drinker of alcohol (finding) [facility] Start: 08-24-2014 History SDOH Alcohol Comment socially [facility] Start: 1978 Sex Assigned At Not on file [facility] Start: 09-01-2021 End: 09-11-2021 Exposure to SARS-CoV-2 (event) Not sure [facility] Work Phone: End: 11-22-2015 History of tobacco use Cigarette Smoker [facility] Clinical Notes 08-14-2021 to 07-05-2022 Shashi Melara APRN.YAMINI - 07/05/2022 9:30 AM ESTPatient InstructionsLeigha Marquez APRN.YAMINI - 09/11/2021 9:11 AM Kelly Farias PA-C - 08/14/2021 3:13 PM EDT Note Date & Type Note Facility 07-05-2022 Note HNO ID: [id number] Author: Shashi Melara APRN.MAINTENANCE PARTS TECHNICIAN Service: ? Author Type: Nurse Practitioner Type: Progress Notes Filed: 07/05/2022 9:36 AM Note Text: Subjective HPI HPI Ammon Bower is a 41 year old male who presents today for CC of sore throat, cough, congestion. This started 2 days ago. Has tried otc medication for relief. Symptoms are worsened by nothing. Risk factors strep exposures at home. .Patient presents with: Throat Problem: Pt reported +strep exposure throat pain x2 days. PAST MEDICAL HISTORY Diagnosis Date Colovesical fistula Diverticulosis of colon (without mention of hemorrhage) PAST SURGICAL HISTORY Procedure Laterality Date COLONOSCOPY FLX DX W/COLLJ SPEC WHEN PFRMD 05/13/2007 Colonoscopy SIGMOIDOSCOPY FLX W/BIOPSY SINGLE/MULTIPLE 08/08/2016 VASECTOMY UNI/BI SPX W/POSTOP SEMEN EXAMS 09/17/14 ALLERGIES Tomato (Solanum Lycopersicum) MEDICATIONS predniSONE (DELTASONE) 20 mg tablet Take 2 tablets by mouth once daily for 5 days. LIDOCAINE VISCOUS 2 % solution Take 5-10 mL by mouth as needed. cyclobenzaprine (FLEXERIL) 10 mg tablet Take 1 tablet by mouth three times daily as needed. (Patient not taking: Reported on 09/11/2021 ) acetaminophen-codeine (TYLENOL-CODEINE #3) 300-30 mg per tablet Take 1 tablet by mouth every 4 hours as needed. (Patient not taking: Reported on 07/04/2020) No family history on file. Social History Tobacco Use Smoking status: Former Types: Cigarettes Quit date: 11/22/2015 Years since quittin.6 Smokeless tobacco: Never Substance Use Topics Alcohol use: Yes Comment: socially Drug use: No Review of Systems Constitutional: Negative for fever. HENT: Positive for congestion and sore throat. Negative for ear pain and nosebleeds. Respiratory: Positive for cough. Negative for shortness of breath and wheezing. Musculoskeletal: Negative for neck pain. Objective Blood pressure 122/66, pulse 78, temperature 37.1 ?C (98.7 ?F), temperature source Tympanic, resp. rate 16, weight 77.4 kg (170 lb 9.6 oz), SpO2 100 %. Physical Exam Constitutional: General: He is not in acute distress. Appearance: He is not toxic-appearing or diaphoretic. HENT: Head: Normocephalic and atraumatic. Right Ear: Hearing, tympanic membrane, ear canal and external ear normal. Left Ear: Hearing, tympanic membrane, ear canal and external ear normal. Nose: Nose normal. Mouth/Throat: Pharynx: Uvula midline. Posterior oropharyngeal erythema present. No pharyngeal swelling, oropharyngeal exudate or uvula swelling. Eyes: General: Lids are normal. No scleral icterus. Right eye: No discharge. Left eye: No discharge. Conjunctiva/sclera: Conjunctivae normal. Pupils: Pupils are equal, round, and reactive to light. Neck: Trachea: Trachea normal. Cardiovascular: Rate and Rhythm: Normal rate and regular rhythm. Heart sounds: Normal heart sounds. Pulmonary: Effort: Pulmonary effort is normal. Breath sounds: Normal breath sounds. Musculoskeletal: Cervical back: Normal range of motion and neck supple. Lymphadenopathy: Cervical: No cervical adenopathy. Right cervical: No superficial cervical adenopathy. Left cervical: No superficial cervical adenopathy. Skin: Findings: No rash. Neurological: Mental Status: He is alert and oriented to person, place, and time. ASSESSMENT/PLAN: 1. URI, acute - ICD9: 465.9, ICD10: J06.9 (primary diagnosis) - Discussed viral etiology and rationale for treatment. - Symptomatic treatment with prn analgesia - Supportive care with fluids and rest - Follow up in 3-5 days if symptoms persist or sooner if worsening of symptoms 2. Throat pain - ICD9: 784.1, ICD10: R07.0 Strep negative, viral - STREP A MOLECULAR (POC) - PREDNISONE 20 MG TABLET - LIDOCAINE HCL 2 % MUCOSAL SOLUTION 3. Streptococcus exposure - ICD9: V01.89, ICD10: Z20.818 As above - STREP A MOLECULAR (POC) Shashi Melara APRN.[facility] 07-05-2022 History of Presen t illness Narrative Subjective HPI HPI Ammon Bower is a 41 year old male who presents today for CC of sore throat, cough, congestion. This started 2 days ago. Has tried otc medication for relief. Symptoms are worsened by nothing. Risk factors strep exposures at home. .Patient presents with: Throat Problem: Pt reported +strep exposure throat pain x2 days. PAST MEDICAL HISTORY Diagnosis Date Colovesical fistula Diverticulosis of colon (without mention of hemorrhage) PAST SURGICAL HISTORY Procedure Laterality Date COLONOSCOPY FLX DX W/COLLJ SPEC WHEN PFRMD 05/13/2007 Colonoscopy SIGMOIDOSCOPY FLX W/BIOPSY SINGLE/MULTIPLE 08/08/2016 VASECTOMY UNI/BI SPX W/POSTOP SEMEN EXAMS 09/17/14 ALLERGIES Tomato (Solanum Lycopersicum) MEDICATIONS predniSONE (DELTASONE) 20 mg tablet Take 2 tablets by mouth once daily for 5 days. LIDOCAINE VISCOUS 2 % solution Take 5-10 mL by mouth as needed. cyclobenzaprine (FLEXERIL) 10 mg tablet Take 1 tablet by mouth three times daily as needed. (Patient not taking: Reported on 09/11/2021 ) acetaminophen-codeine (TYLENOL-CODEINE #3) 300-30 mg per tablet Take 1 tablet by mouth every 4 hours as needed. (Patient not taking: Reported on 07/04/2020) No family history on file. Social History Tobacco Use Smoking status: Former Types: Cigarettes Quit date: 11/22/2015 Years since quittin.6 Smokeless tobacco: Never Substance Use Topics Alcohol use: Yes Comment: socially Drug use: No Review of Systems Constitutional: Negative for fever. HENT: Positive for congestion and sore throat. Negative for ear pain and nosebleeds. Respiratory: Positive for cough. Negative for shortness of breath and wheezing. Musculoskeletal: Negative for neck pain. Objective Blood pressure 122/66, pulse 78, temperature 37.1 C (98.7 F), temperature source Tympanic, resp. rate 16, weight 77.4 kg (170 lb 9.6 oz), SpO2 100 %. Physical Exam Constitutional: General: He is not in acute distress. Appearance: He is not toxic-appearing or diaphoretic. HENT: Head: Normocephalic and atraumatic. Right Ear: Hearing, tympanic membrane, ear canal and external ear normal. Left Ear: Hearing, tympanic membrane, ear canal and external ear normal. Nose: Nose normal. Mouth/Throat: Pharynx: Uvula midline. Posterior oropharyngeal erythema present. No pharyngeal swelling, oropharyngeal exudate or uvula swelling. Eyes: General: Lids are normal. No scleral icterus. Right eye: No discharge. Left eye: No discharge. Conjunctiva/sclera: Conjunctivae normal. Pupils: Pupils are equal, round, and reactive to light. Neck: Trachea: Trachea normal. Cardiovascular: Rate and Rhythm: Normal rate and regular rhythm. Heart sounds: Normal heart sounds. Pulmonary: Effort: Pulmonary effort is normal. Breath sounds: Normal breath sounds. Musculoskeletal: Cervical back: Normal range of motion and neck supple. Lymphadenopathy: Cervical: No cervical adenopathy. Right cervical: No superficial cervical adenopathy. Left cervical: No superficial cervical adenopathy. Skin: Findings: No rash. Neurological: Mental Status: He is alert and oriented to person, place, and time. ASSESSMENT/PLAN: 1. URI, acute - ICD9: 465.9, ICD10: J06.9 (primary diagnosis) - Discussed viral etiology and rationale for treatment. - Symptomatic treatment with prn analgesia - Supportive care with fluids and rest - Follow up in 3-5 days if symptoms persist or sooner if worsening of symptoms 2. Throat pain - ICD9: 784.1, ICD10: R07.0 Strep negative, viral - STREP A MOLECULAR (POC) - PREDNISONE 20 MG TABLET - LIDOCAINE HCL 2 % MUCOSAL SOLUTION 3. Streptococcus exposure - ICD9: V01.89, ICD10: Z20.818 As above - STREP A MOLECULAR (POC) Shashi Melara APRN.CNP documented in this encounter [facility] 09-11-2021 Note HNO ID: [id number] Author: RT Yifan(R) Service: Nuclear Medicine Author Type: Technologist Type: Progress Notes Filed: 09/11/2021 9:41 AM Note Text: Radiology Service Progress Note PATIENT NAME: Ammon Bower DATE OF SERVICE: September 11, 2021 TIME: 9:33 AM PATIENT IDENTITY VERIFICATION COMPLETED USING TWO (2) IDENTIFIERS: Name and Date of confirmed by patient verbally. FALL SCREENING: Has the patient had 2 falls in the last year or 1 fall with injury or currently using an Ambulatory Assistive Device (Walker, Cane, Wheelchair, Crutches, etc.)? No PATIENT GENDER DATA: Male PATIENT RELEVANT IMPLANT DATA REVIEWED: Yes RADIOLOGY DEPARTMENT: General X-ray: Exam(s) Completed: Upper Extremity X-Ray(s): Wrist, right and Hand, right PERIPHERAL IV DATA: Not applicable SIGNED BY: RT Yifan(R) September 11, 2021 9:33 AM [facility] 09-11-2021 Note HNO ID: [id number] Author: Leigha Marquez APRN.CNP Service: ? Author Type: Nurse Practitioner Type: Progress Notes Filed: 09/11/2021 9:57 AM Note Text: Subjective The history is provided by the patient. No foreign languages department chair was used. Hand Injury ROS Objective Physical Exam PAST MEDICAL HISTORY Diagnosis Date - Colovesical fistula - Diverticulosis of colon (without mention of hemorrhage) PAST SURGICAL HISTORY Procedure Laterality Date - COLONOSCOPY FLX DX W/COLLJ SPEC WHEN PFRMD 05/13/2007 Colonoscopy - SIGMOIDOSCOPY FLX W/BIOPSY SINGLE/MULTIPLE 08/08/2016 - VASECTOMY UNI/BI SPX W/POSTOP SEMEN EXAMS 09/17/14 ALLERGIES Patient has no known allergies. MEDICATIONS cyclobenzaprine (FLEXERIL) 10 mg tablet Take 1 tablet by mouth three times daily as needed. acetaminophen-codeine (TYLENOL-CODEINE #3) 300-30 mg per tablet Take 1 tablet by mouth every 4 hours as needed. No family history on file. Social History Tobacco Use - Smoking status: Former Smoker Quit date: 11/22/2015 Years since quittin.8 - Smokeless tobacco: Never Used Substance Use Topics - Alcohol use: Yes Comment: socially - Drug use: No ASSESSMENT/PLAN: 1. Pain of right hand - ICD9: 729.5, ICD10: M79.641 - XR HAND GENERAL 3V PA/LAT/OBL RIGHT - XR WRIST INJURY 4V PA/LAT/OBL/SCAPH RIGHT TECHNIQUE: ? 3 view radiographic study of the right hand and 4 view radiographic study of the right wrist ? COMPARISON: ? None ? FINDINGS: ? No acute fracture or dislocation identified. Mild remote posttraumatic bowing deformity of the fifth metacarpal. Joint spaces preserved. ? IMPRESSION IMPRESSION: ? No radiographic evidence of acute osseous abnormality. ? Gear Inspector: [facility] Transcribe Date/Time: Sep 11 2021 9:44A ? Dictated by : CARMENCITA MATOS MD TECHNIQUE: ? 3 view radiographic study of the right hand and 4 view radiographic study of the right wrist ? COMPARISON: ? None ? FINDINGS: ? No acute fracture or dislocation identified. Mild remote posttraumatic bowing deformity of the fifth metacarpal. Joint spaces preserved. ? IMPRESSION IMPRESSION: ? No radiographic evidence of acute osseous abnormality. ? Gear Inspector: [facility] Transcribe Date/Time: Sep 11 2021 9:44A ? Dictated by : CARMENCITA MATOS MD Patient instructed to rest, ice and alternate ibuprofen and tylenol. patient instructed to give it several more days and follow up with PCP if it does not seem to be getting better. Patient was okay with this care plan. Leigha Marquez APRN.MAINTENANCE PARTS TECHNICIAN [facility] 09-11-2021 Instructions Leigha Marquez APRN.[facility] - 09/11/2021 9:55 AM EDT - RICE therapy - see patient instructions for further recommendations. - F/U with PCP in 5-7 days or before if worse. - Discussed Red Flag signs and when to go to ER. - Reviewed plan of care and DC papers with patient. Verbalized understanding. documented in this encounter [facility] 09-11-2021 History of Presen t illness Narrative Subjective The history is provided by the patient. No foreign languages department chair was used. Hand Injury ROS Objective Physical Exam PAST MEDICAL HISTORY Diagnosis Date Colovesical fistula Diverticulosis of colon (without mention of hemorrhage) PAST SURGICAL HISTORY Procedure Laterality Date COLONOSCOPY FLX DX W/COLLJ SPEC WHEN PFRMD 05/13/2007 Colonoscopy SIGMOIDOSCOPY FLX W/BIOPSY SINGLE/MULTIPLE 08/08/2016 VASECTOMY UNI/BI SPX W/POSTOP SEMEN EXAMS 09/17/14 ALLERGIES Patient has no known allergies. MEDICATIONS cyclobenzaprine (FLEXERIL) 10 mg tablet Take 1 tablet by mouth three times daily as needed. acetaminophen-codeine (TYLENOL-CODEINE #3) 300-30 mg per tablet Take 1 tablet by mouth every 4 hours as needed. No family history on file. Social History Tobacco Use Smoking status: Former Smoker Quit date: 11/22/2015 Years since quittin.8 Smokeless tobacco: Never Used Substance Use Topics Alcohol use: Yes Comment: socially Drug use: No ASSESSMENT/PLAN: 1. Pain of right hand - ICD9: 729.5, ICD10: M79.641 - XR HAND GENERAL 3V PA/LAT/OBL RIGHT - XR WRIST INJURY 4V PA/LAT/OBL/SCAPH RIGHT TECHNIQUE: 3 view radiographic study of the right hand and 4 view radiographic study of the right wrist COMPARISON: None FINDINGS: No acute fracture or dislocation identified. Mild remote posttraumatic bowing deformity of the fifth metacarpal. Joint spaces preserved. IMPRESSION IMPRESSION: No radiographic evidence of acute osseous abnormality. Gear Inspector: ANNA Transcribe Date/Time: Sep 11 2021 9:44A Dictated by : CARMENCITA MATOS MD TECHNIQUE: 3 view radiographic study of the right hand and 4 view radiographic study of the right wrist COMPARISON: None FINDINGS: No acute fracture or dislocation identified. Mild remote posttraumatic bowing deformity of the fifth metacarpal. Joint spaces preserved. IMPRESSION IMPRESSION: No radiographic evidence of acute osseous abnormality. Gear Inspector: ANNA Transcribe Date/Time: Sep 11 2021 9:44A Dictated by : CARMENCITA MATOS MD Patient instructed to rest, ice and alternate ibuprofen and tylenol. patient instructed to give it several more days and follow up with PCP if it does not seem to be getting better. Patient was okay with this care plan. Leigha Marquez APRN.CNP documented in this encounter [facility] 08-14-2021 Note HNO ID: [id number] Author: Radha Farias PA-C Service: ? Author Type: Physician Seed Collector Type: Progress Notes Filed: 08/14/2021 3:16 PM Note Text: Patient presents with express care triage with chest pain and back pain. He was seen in the ED 2 days ago for similar complaints and had a ct flank done which was unremarkable per patient and . He is in severe pain here, recommended he be seen again in the ED. His will take him there across the street to [facility] by personal vehicle. [facility] 08-14-2021 History of Presen t illness Narrative Patient presents with express care triage with chest pain and back pain. He was seen in the ED 2 days ago for similar complaints and had a ct flank done which was unremarkable per patient and . He is in severe pain here, recommended he be seen again in the ED. His will take him there across the street to [facility] by personal vehicle. documented in this encounter [facility] Diagnosis Pain of right hand- Primary Pain in limb [facility] Diagnosis URI, acute- Primary Acute upper respiratory infections of unspecified site Throat pain Streptococcus exposure Contact with or exposure to other communicable diseases [facility] Diagnostic Procedure Only (Urgent) - Closed Specialty Diagnoses / Procedures Referred By Christin miller Referred To Contact XR IMAGING Diagnoses Pain of right hand Procedures XR WRIST INJURY 4V PA/LAT/OBL/SCAPH RIGHT RADEX WRIST COMPLETE MINIMUM 3 VIEWS Leigha Marquez APRN.MAINTENANCE PARTS TECHNICIAN [address] [place] [address] Xr Imaging Referral ID Status Reason Start Date Expiration Date V isits Requested Visits Authorized [id number] Closed Auto-Generate d Referral 09/11/2021 10/11/2022 1 1 * Diagnostic Procedure Only (Urgent) - Closed Specialty Diagnoses / Procedures Referred By Contac t Referred To Contact XR IMAGING Diagnoses Pain of right hand Procedures XR HAND GENERAL 3V PA/LAT/OBL RIGHT RADEX HAND MINIMUM 3 VIEWS Leigha Marquez APRN.MAINTENANCE PARTS TECHNICIAN [address] [place] [address] Xr Imaging Referral ID Status Reason Start Date Expiration Date V isits Requested Visits Authorized [id number] Closed Auto-Generate d Referral 09/11/2021 10/11/2022 1 1 [facility] Advance Directives No Advanced Directives Records FoundDocuments on File Type Date Recorded Patient 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 Inserter Expl anation Advance Directive(s) 12/21/2015 5:53 AM Advance Directive(s) 12/14/2015 10:43 AM Documents on File Type Date Recorded Patient Advertising Inserter Expl anation Advance Directive(s) 12/21/2015 5:53 AM Advance Directive(s) 12/14/2015 10:43 AM Summary Purpose Family History No Family History Records Found Additional Source Comments Source Comments (unrecognize d section and content) In the event this informatio n is protected by the Federal Confidentiality of Alcohol and Drug Abuse Patient Records regulations: The Federal rules restrict any use of the information to criminally investigate or prosecute any alcohol or drug abuse patient.[facility] the event this information is protected by the Federal Confidentiality of Alcohol and Drug Abuse Patient Records regulations: The Federal rules restrict any use of the information to criminally investigate or prosecute any alcohol or drug abuse patient.[facility] the event this information is protected by the Federal Confidentiality of Alcohol and Drug Abuse Patient Records regulations: The Federal rules restrict any use of the information to criminally investigate or prosecute any alcohol or drug abuse patient.[facility] Reason for Visit (unrecogniz ed section and content) Reason Comments Throat Problem Pt reported +strep e xposure throat pain x2 days. (unrecognized sect ion and content) No Status Records Found INFORMATION SOURCE (unrecogn ized section and content) FOR RECORDS PERTAINING TO PATIENTS WHO ARE OR HAVE BEEN ENROLLED IN A CHEMICAL DEPENDENCY/SUBSTANCEABUSE PROGRAM, SOME INFORMATION MAY BE OMITTED. This clinical summary was aggregated from multiple sources. Caution should be exercised in using it in the provision of clinical care. This summary normalizes information from multiple sources, and as a consequence, information in this document may materially change the coding, format and clinical context of patient data. In addition, data may be omitted in some cases. CLINICAL DECISIONS SHOULD BE BASED ON THE PRIMARY CLINICAL RECORDS. [employer] [facility]. provides no warranty or guarantee of the accuracy or completeness of information in this document.
[2023-06-17 12:00] LABS: Erythrocyte Sedimentation Rate 10 mm/hr (0-20)
[2023-06-17 12:34] LABS: CRP < 2.90 mg/L (0.0-3.0)
== END | disposition home or self-care (01) ==
PROVIDERS: PCP Internal Medicine; Referring Provider Internal Medicine; Visit Provider Internal Medicine
DX: M54.50 Low back pain, unspecified (principal); M19.90 Unspecified osteoarthritis, unspecified site
CPT/HCPCS: 36415; 72110; 85652; 86140

== ENCOUNTER → 2024-03-20 | Outpatient (CLI) | payer BC, OTHER, SELFPAY ==
[2024-03-20 15:23] LABS: Absolute Lymphocyte Count 1.77 X10^3/uL (0.83-4.51); Absolute Neutrophil Count 3.2 X10^3/uL (2.0-7.7); Basophil# 0.07 X10^3/uL; Basophil% 1.2 % (0-1); Eosinophil# 0.31 X10^3/uL; Eosinophils% 5.5 % (0-5); Hematocrit 38.4 % (40-54); Hemoglobin 12.7 g/dL (13.0-16.5); Lymphocyte # 1.77 X10^3/ul (0.83-4.51); Lymphocyte % 31.2 % (19-41); Mean Corp Hgb Conc 33.1 g/dL (32-36); Mean Corpuscular Hgb 32.9 pg (27.0-32.0); Mean Corpuscular Volume 99.5 fL (80-94); Mean Platelet Vol. 12.7 fl (6.2-12.0); Monocyte# 0.29 X10^3/uL; Monocyte% 5.1 % (0-10); NRBC Flagged by Analyzer 0 % (0-5); Neutrophil # 3.21 X10^3/uL (2.7-7.7); Neutrophil % 56.6 % (47-70); Platelet Count 220 K/mm3 (150-450); RBC Distribution Width CV 11.8 % (11.6-14.6); RBC Distribution Width SD 43.1 fl (35.1-43.9); Red Blood Count 3.86 M/mm3 (4.6-6.2); White Blood Count 5.7 K/mm3 (4.4-11.0)
[2024-03-20 15:40] LABS: ALB/GLOB Ratio 1.4 RATIO (0.9-2.4); AST(SGOT) 25 U/L (15-37); Alanine Aminotransfer ALT/SGPT 46 U/L (16-61); Albumin, Serum 4.2 g/dL (3.2-5.0); Alkaline Phosphatase 66 U/L (45-117); Anion Gap 4 (5-15); BUN 13 mg/dL (7-18); BUN/Creat Ratio 12.3 RATIO (10-20); Calcium,Total 8.4 mg/dL (8.5-10.1); Chloride 106 mmol/L (98-107); Cholesterol 179 mg/dL (200); Creatinine, Serum 1.06 mg/dL (0.70-1.30); EST Glomerular Filtration Rate 80 mL/min (>60); Est Glom Filt Rate - Afr Amer 97 mL/min (>60); Glucose 158 mg/dL (74-106); High Density Lipoprotein 74 mg/dL; Potassium 3.9 mmol/L (3.5-5.1); Protein, Total 7.2 g/dL (6.4-8.2); Sodium Level 140 mmol/L (136-145); Triglycerides 68 mg/dL; Very Low Density Lipoprotein 14 mg/dL (5-40)
[2024-03-20 18:21] LABS: Hemoglobin A1c 4.9 % (3.8-5.6)
== END | disposition home or self-care (01) ==
LOC: BIMLAB 13:43
PROVIDERS: PCP Internal Medicine; Referring Provider Internal Medicine; Visit Provider Internal Medicine
DX: Z00.00 Encounter for general adult medical examination without abnormal findings (principal); R73.9 Hyperglycemia, unspecified
CPT/HCPCS: 36415; 80053; 80061; 83036; 84153; 85025; G0103

== ENCOUNTER 2024-06-01 09:40 | Day surgery (SDC) | payer OTHER, SELFPAY ==
--- NOTE | 2024-05-28 17:41 | PAT.ANESEVAL ---
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 When Was Last Pacemaker Check QUESTION #4 FULL TEXT: You/Your Family Experience fever (hyperthermia) with Anesthesia Last Oral Intake Last Oral intake: Last Oral Intake NPO since Meds taken in AM with sips of water? 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 Has anyone observed you stop No 05/28/24 14:43 breathing during sleep? STOP Results Negative 05/28/24 14:43 QUESTION #5 FULL TEXT : Do you snore loudly (louder than talking or can be heard through closed doors)? 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 Specify any problems Hx of Preganancy in last 3 N/A 05/28/24 14:43 Months Nurse Filling Out Transfusion [facility] 05/28/24 14:43 & Questions: Date: 05/28/24 05/28/24 14:43 Time: 14:49 05/28/24 14:43 Patient unable to answer at this time (ie. 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 up operator Hx Now Gestational Age (in weeks): EDC: Hx Hx Para Hx Section SAB PFSH Medical History Eczema Former smoker Blood glucose elevated Colon cancer screening Arthritis Low back pain Anemia Encounter to establish care Preventative health care History of pneumonia Seasonal allergies Alcohol abuse Home Medications ?Medication ?Instructions ?Recorded ?Last Taken ?Type cholecalciferol (vitamin D3) 50 50 mcg PO DAILY 09/28/21 Unknown History mcg (2,000 unit) capsule Allergy/AdvReac Type Severity Reaction Status Date / Time tomato Allergy Hives Verified 05/28/24 14:42 Family History (Updated 03/26/24 @ 12:38 by Lorin Melara) Unknown Colon polyps Father Pancreatic cancer Other Cancer Diabetes Hypertension Surgical History (Updated 05/28/24 @ 14:43 by Gertrude Weller) History of wisdom tooth extraction Hx of colonoscopy Social History (Updated 03/26/24 @ 12:38 by Lorin Melara) household members: spouse current occupational status: employed Smoking Status: Former smoker alcohol intake: current substance use type: does not use what type of physical activity do you participate in: none Audit: Pertinent Findings Pertinent Findings EKG Perinent findings: August 14, 2021. Sinus tachycardia at 107 bpm. Nonspecific T wave abnormality. Recommendation Anesthesia Recommendation Anesthesia recommendation: OPTIMIZED for anesthesia
[2024-06-01] VITALS (8 sets, daily range): BP systolic 119–136; BP diastolic 76–93; PULSE 55–76; RESP 16; TEMP 36.3–36.9; O2SAT 97–100; BMI 23.9
--- NOTE | 2024-06-01 09:56 | HP.PCM_ITS ---
HPI - General General Date of Admission: 06/01/24 Date of Service: 06/01/24 Chief Complaint: Screening colonoscopy HPI Narrative EAMON BOWER, is a 43 M who presents today for screening colonoscopy. He is not having any abdominal pain, cramping, chest pain or shortness of breath. He does not take any medicines on daily basis. Overall he is in very good health. [facility] Eczema Former smoker Blood glucose elevated Colon cancer screening Arthritis Low back pain Anemia Encounter to establish care Preventative health care History of pneumonia Seasonal allergies Alcohol abuse Home Medications ?Medication ?Instructions ?Recorded ?Last Taken ?Type cholecalciferol (vitamin D3) 50 50 mcg PO DAILY 09/28/21 Unknown History mcg (2,000 unit) capsule Allergy/AdvReac Type Severity Reaction Status Date / Time tomato Allergy Hives Verified 06/01/24 09:55 Family History Unknown Colon polyps Father Pancreatic cancer Other Cancer Diabetes Hypertension Surgical History History of wisdom tooth extraction Hx of colonoscopy Social History household members: spouse current occupational status: employed Smoking Status: Former smoker alcohol intake: current substance use type: does not use what type of physical activity do you participate in: none ROS Constitutional Constitutional: Denies fatigue, fever(s), poor appetite, weight gain or weight loss Gastrointestinal Gastrointestinal: Denies belching, bloating, change in bowel habits, change in stool character, chewing difficulty, coffee ground emesis, constipation, cramping, diarrhea, dyspepsia, dysphagia, early satiety, excessive flatus, fecal incontinence, heartburn, hematemesis, hematochezia, hemorrhoids, loose stools, melena, nausea, odynophagia, rectal bleeding, tenesmus, vomiting or weight changes Assessment & Plan Assessment/Plan (1) Colon cancer screening: PLAN: He was explained alternatives, risk and benefits including not withstanding bleeding, infection, sepsis, perforation, need for emergent urgent . He will have an ASA of 3.
--- NOTE | 2024-06-01 10:25 | PCM.PRE.AN2 ---
ASA Classification* ASA Classification ASA Classification: 1 Assessment & Plan Anesthesia* Anesthesia Assessment Anesthesia Assessment: Discussed sedation and/or anesthesia options, risks, benefits, and alternatives with patient/parents/legal guardian/POA. Questions invited. The patient/parents/legal guardian/POA seems to understand and agrees to proceed with anesthesia plan. Reviewed the physical assessment, medical history, allergy history and patient home medications list prior to surgery/procedure/anesthetic and documented any changes. Performed airway and anesthesia risk assessments. Anesthesia Type Anesthesia Type: MAC Anesthesia Focused Assessment* Temperature: 98.2 F Pulse Rate: 76 Blood Pressure: 136/80 Respiratory Rate: 16 Pulse Ox: 98 Oxygen Delivery Method: Room Air Airway Assessment Mouth opens: >3 cm Mallampati Score: I Teeth Condition: Intact Neck Range of motion (ROM): Full ROM Focused Labs Anesthesia Preop lab: CBC WBC 5.7 K/mm3 (4.4-11.0) 03/20/24 13:43 RBC 3.86 M/mm3 (4.6-6.2) L 03/20/24 13:43 Hgb 12.7 g/dL (13.0-16.5) L 03/20/24 13:43 Hct 38.4 % (40-54) L 03/20/24 13:43 Plt Count 220 K/mm3 (150-450) 03/20/24 13:43 CHEMISTRY Potassium 3.9 mmol/L (3.5-5.1) 03/20/24 13:43 Sodium 140 mmol/L (136-145) 03/20/24 13:43 BUN 13 mg/dL (7-18) 03/20/24 13:43 Creatinine 1.06 mg/dL (0.70-1.30) 03/20/24 13:43 Glucose 158 mg/dL (74-106) H 03/20/24 13:43 COAG PT 13.3 SECONDS (11.7-14.9) 08/14/21 15:54 Pre-Assessment Diagnosis/Proposed Procedure Planned Operative Procedure(s): COLONOSCOPY Anesthesia History Anesthesia History - transport medic: Anesthesia History - transport medic Hx Hospitalization No 05/28/24 14:43 Any Problems With Anesthesia No 05/28/24 14:43 Cholinesterase deficiency No 05/28/24 14:43 You/Your Family Experience No 05/28/24 14:43 fever (hyperthermia) with Relationship Recent Exposure to Contagious No 06/01/24 10:01 Disease Does patient have nerve No 05/28/24 14:43 stimulator Patient instructed to have device shut off --Does patient have Pacemaker No 06/01/24 10:01 or ICD? When Was Last Pacemaker Check QUESTION #4 FULL TEXT: You/Your Family Experience fever (hyperthermia) with Anesthesia Last Oral Intake Last Oral intake: Last Oral Intake NPO since 08:00 06/01/24 10:01 Meds taken in AM with sips of No 06/01/24 10:01 water? Meds patient instructed to take am of surgery PONV PONV - transport medic: PONV - transport medic Female No 05/28/24 14:43 HX of Motion Sickness No 05/28/24 14:43 HX of N/V After Surgery No 05/28/24 14:43 Non-Smoker Yes 05/28/24 14:43 Duration of Surgery greater No 05/28/24 14:43 than 60 minutes Number of Risk Factors 1 05/28/24 14:43 PONV Score Low Risk 05/28/24 14:43 Height & Weight Height & Weight: Anesthesia: Height & Weight Height 6 ft 06/01/24 10:01 Weight: 80 kg 06/01/24 10:01 Body Mass Index (BMI) 23.9 06/01/24 10:01 Respiratory Assessment Respiratory Assessment - transport medic: Respiratory Tract Infection Hx - transport medic Hx Respiratory Tract Infection No 05/28/24 14:43 STOP Sleep Apnea STOP Sleep Apnea - transport medic: STOP Sleep Apnea - transport medic Hx Hypertension No 05/28/24 14:43 Hx Sleep Apnea No 05/28/24 14:43 CPAP No 08/10/16 10:10 BIPAP No 08/09/16 09:01 Do you snore loudly (louder No 05/28/24 14:43 than talking or can be heard Do you often feel tired/ No 05/28/24 14:43 fatigued/ sleepy during daytime? Has anyone observed you stop No 05/28/24 14:43 breathing during sleep? STOP Results Negative 05/28/24 14:43 QUESTION #5 FULL TEXT : Do you snore loudly (louder than talking or can be heard through closed doors)? 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 Specify any problems Hx of Preganancy in last 3 N/A 05/28/24 14:43 Months Nurse Filling Out Transfusion [facility] 05/28/24 14:43 & Questions: Date: 05/28/24 05/28/24 14:43 Time: 14:49 05/28/24 14:43 Patient unable to answer at this time (ie. confused, unrespo /Reproduction History /Reproductive History - transport medic: /Reproductive Hx- transport medic Hx Now Gestational Age (in weeks): EDC: Hx Hx Para Hx Section SAB PFSH Medical History Eczema Former smoker Blood glucose elevated Colon cancer screening Arthritis Low back pain Anemia Encounter to establish care Preventative health care History of pneumonia Seasonal allergies Alcohol abuse Home Medications ?Medication ?Instructions ?Recorded ?Last Taken ?Type cholecalciferol (vitamin D3) 50 50 mcg PO DAILY 09/28/21 Unknown History mcg (2,000 unit) capsule Allergy/AdvReac Type Severity Reaction Status Date / Time tomato Allergy Hives Verified 06/01/24 09:55 Family History Unknown Colon polyps Father Pancreatic cancer Other Cancer Diabetes Hypertension Surgical History History of wisdom tooth extraction Hx of colonoscopy Social History household members: spouse current occupational status: employed Smoking Status: Former smoker alcohol intake: current substance use type: does not use what type of physical activity do you participate in: none Review of Systems (Anesthesia) ROS Narrative System reviewed and no additional complaints, except as documented.
--- NOTE | 2024-06-01 11:00 | COLBX_PTH ---
PATIENT: EAMON BOWER LOC: EN U#:[id number] AGE/SX: 43/M ROOM: RE06/01/[address]: Dr. Kentrell Isbell DO : 1980 BED: DIS: 06/01/2024 SPEC #: [id number] RECD: 06/01/24 18:08 STATUS: BARBARA REJohnnie #: [id number] NOHEMY: 06/01/24 11:[address]: Kentrell Isbell DEPT: SURGICAL PATHOLOGY RECD BY: Keke Villalba ENTERED: 06/02/24 09:44 SP TYPE: COLON BX JEANNIE DR: Dr. Jass Ching MD Tissues: A - Ileum, NOS B - Sigmoid colon biopsy Procedures: Surgery Specimen Level IV HEADER OPERATION: Colonoscopy with biopsy PRE-OP DIAGNOSIS: Colon cancer screening TISSUE SUBMITTED: A- Terminal ileum biopsy, B- Sigmoid colon biopsy MICROSCOPIC DIAGNOSIS A. Terminal ileum, biopsy: Fragments of small intestinal mucosa, no pathologic diagnosis. B. Sigmoid colon, biopsy: Fragments of colonic mucosa, no pathologic diagnosis. MIKAYLA. 06/03/2024 MICROSCOPIC DESCRIPTION Slides are reviewed. GROSS DESCRIPTION A. Received in fixative is one container labeled with the patient's name and designated Terminal ileum biopsy. The specimen consists of multiple irregular fragments of light love soft tissue that in aggregate measure 1.2 x 0.3 x 0.2 cm. The specimen is totally submitted in one cassette. B. Received in fixative is one container labeled with the patient's name and designated Sigmoid colon biopsy. The specimen consists of two irregular fragments of light love soft tissue that in aggregate measure 1.1 x 0.3 x 0.2 cm. The specimen is totally submitted in one cassette. 06/02/2024 TC:4 CPT:78054b4
--- NOTE | 2024-06-01 11:51 | OP.COLON_ITS ---
Patient Name: Ammon Billy Procedure Date: 06/01/2024 11:21 AM Date of : 1980 Age: 43 Procedure: Colonoscopy Indications: Screening for colorectal malignant neoplasm Providers: Kentrell Isbell DO Referring MD: Jass Ching MD Medicines: Monitored Anesthesia Care Patient Profile: This is a 43 year old male. Refer to note in patient chart for documentation of history and physical. Last Colonoscopy: several years ago. Complications: No immediate complications. Procedure: Pre-Anesthesia Assessment: - Prior to the procedure, a History and Physical was performed, and patient medications and allergies were reviewed. The patient is competent. The risks and benefits of the procedure and the sedation options and risks were discussed with the patient. All questions were answered and informed consent was obtained. Patient identification and proposed procedure were verified by the physician in the pre-procedure area. Mental Status Examination: alert and oriented. Airway Examination: normal oropharyngeal airway and neck mobility. Respiratory Examination: clear to auscultation. CV Examination: normal. Prophylactic Antibiotics: The patient does not require prophylactic antibiotics. Prior Anticoagulants: The patient has taken no anticoagulant or antiplatelet agents except for NSAID medication. ASA Grade Assessment: II - A patient with mild systemic disease. After reviewing the risks and benefits, the patient was deemed in satisfactory condition to undergo the procedure. The anesthesia plan was to use monitored anesthesia care (MAC). Immediately prior to administration of medications, the patient was re-assessed for adequacy to receive sedatives. The heart rate, respiratory rate, oxygen saturations, blood pressure, adequacy of pulmonary ventilation, and response to care were monitored throughout the procedure. The physical status of the patient was re-assessed after the procedure. After I obtained informed consent, the scope was passed under direct vision. Throughout the procedure, the patient's blood pressure, pulse, and oxygen saturations were monitored continuously. The Colonoscope was introduced through the anus and advanced to the terminal ileum, with identification of the appendiceal orifice and IC valve. The colonoscopy was performed without difficulty. Scope In: 11:30:36 AM Scope Withdrawal Time 0 hours 7 minutes 48 seconds Scope Out: 11:44:03 AM Total Procedure Duration Time 0 hours 13 minutes 27 seconds Findings: The perianal and digital rectal examinations were normal. Stool was found in the rectum and in the recto-sigmoid colon. Multiple small and large-mouthed diverticula were found in the entire colon. Patchy moderate inflammation characterized by congestion (edema) and erythema was found in the recto-sigmoid colon and in the sigmoid colon. Biopsies were taken with a cold forceps for histology. Verification of patient identification for the specimen was done. Estimated blood loss was minimal. Patchy mild inflammation was found in the terminal ileum. Biopsies were taken with a cold forceps for histology. Verification of patient identification for the specimen was done. Estimated blood loss was minimal. Impression: - Stool in the rectum and in the recto-sigmoid colon. - Diverticulosis in the entire examined colon. - Patchy moderate inflammation was found in the recto-sigmoid colon and in the sigmoid colon secondary to left-sided colitis. Biopsied. - Mild inflammation was found in the ileum secondary to ileitis. Biopsied. Recommendation: - Discharge patient to home. - Resume previous diet. - Continue present medications. - Await pathology results. - Repeat colonoscopy in 5 years for surveillance based on pathology results. Procedure Code(s): --- Professional --- 94359, Colonoscopy, flexible; with biopsy, single or multiple CPT copyright 2021 [employer]. All rights reserved. The codes documented in this report are preliminary and upon foamite mixer review may be revised to meet current compliance requirements. Kentrell Isbell DO 06/01/2024 11:51:25 AM This report has been signed electronically. Number of Addenda: 0 Note Initiated On: 06/01/2024 11:21 AM
--- NOTE | 2024-06-01 11:52 | OP.CCLET_ITS ---
06/01/2024 Jass Ching MD [address] [place] [address] [place] [address] Re : Colonoscopy procedure for Ammon Billy Dear Dr. Ching This procedure was performed on Saturday, June 01, 2024. My impressions and recommendations are as follows: Impressions : - Stool in the rectum and in the recto-sigmoid colon. - Diverticulosis in the entire examined colon. - Patchy moderate inflammation was found in the recto-sigmoid colon and in the sigmoid colon secondary to left-sided colitis. Biopsied. - Mild inflammation was found in the ileum secondary to ileitis. Biopsied. Recommendations : - Discharge patient to home. - Resume previous diet. - Continue present medications. - Await pathology results. - Repeat colonoscopy in 5 years for surveillance based on pathology results. My findings are described in the full procedure note, which is enclosed. If I can be of further assistance, please feel free to contact me at . Sincerely, Kentrell Isbell, 06/01/2024 11:51:25 AM This report has been signed electronically.
--- NOTE | 2024-06-01 11:53 | PCM.POST.ANE ---
Anesthesia: Postop Eval I Current Vital Signs Temperature: 98.5 F Pulse Rate: 67 Blood Pressure: 126/76 Respiratory Rate: 16 Pulse Ox: 100 Oxygen Delivery Method: Room Air Assessment Airway patent: Yes Spontaneous unlabored respirations: Yes Mental status: Awake and Calm nausea: No Vomiting: No Anesthesia Complication: No Fluid Hydration Crystalloid volume administer (ml): 40 Total IV fluid infused: 40 Progress Note Anesthesia document: Postop Eval 1 completed: Yes
--- NOTE | 2024-06-01 12:46 | PCM.POSTANE2 ---
Anesthesia Postop Eval I Sum Postop Eval Completion status Anesthesia document: Postop Eval 1 completed: Yes Anesthesia Postop Eval I Summary Anesthesia Postop Eval I Summary: Anesthesia Postop Eval I: Assessment Summary Airway patent Yes 06/01/24 11:54 [email or web address] Spontaneous unlabored Yes 06/01/24 11:54 [email or web address] respirations Mental status Awake,Calm 06/01/24 11:54 [email or web address] nausea No 06/01/24 11:54 [email or web address] Vomiting No 06/01/24 11:54 [email or web address] Anesthesia Postop Eval I: Fluid Summary Crystalloid volume administer 40 06/01/24 11:54 [email or web address] (ml) Colloids volume administered ( ml) Blood Product volume administered (ml) Total IV fluid infused 40 06/01/24 11:54 [email or web address] Anesthesia Postop Eval I: Summary Notes Anesthesia Complication No 06/01/24 11:54 [email or web address] Anesthesia Complication Comment: Post-operative progress note Anesthesia: Postop Eval II Evaluation Mental status: Awake Pain Level: 0 nausea: No Vomiting: No Complications Anesthesia Complication: No
== END 2024-06-01 12:24 | disposition home or self-care (01) ==
LOC: EN 09:41 → AC 09:43
PROVIDERS: PCP Internal Medicine; Referring Provider Internal Medicine; Visit Provider Internal Medicine Gastroenterology
PROC: 0DJD8ZZ Inspection of Lower Intestinal Tract, Via Natural or Artificial Opening Endoscopic (ICD-10-PCS; CPT 45378; principal; 2024-06-01 10:55)
DX: Z12.11 Encounter for screening for malignant neoplasm of colon (principal); K52.9 Noninfective gastroenteritis and colitis, unspecified; K63.89 Other specified diseases of intestine; K57.30 Diverticulosis of large intestine without perforation or abscess without bleeding; Z87.891 Personal history of nicotine dependence; Z80.0 Family history of malignant neoplasm of digestive organs
CPT/HCPCS: 45380; 88305; J2405

== ENCOUNTER 2025-01-17 05:41 | Emergency (ER) | payer OTHER, SELFPAY ==
[2025-01-17] VITALS (13 sets, daily range): BP systolic 128–164; BP diastolic 71–94; PULSE 61–106; RESP 16–28; TEMP 36.7–37.2; O2SAT 96–100; BMI 24.3
--- NOTE | 2025-01-17 05:54 | CT_ITS ---
PROCEDURE: BRAIN/HEAD WITHOUT CONTRAST; SPINE CERVICAL WITHOUT CONTRAS 01/17/2025 REASON FOR EXAM: FIRST TIME SEIZURE TECHNIQUE: Procedure Code: CTBR; CTSPC Modality: CT Procedure: BRAIN/HEAD WITHOUT CONTRAST; SPINE CERVICAL WITHOUT CONTRAS Coronal and Sagittal reconstruction series were provided. One or more dose reduction techniques were used (e.g., Automated exposure control, adjustment of the mA and/or kV according to patient size, use of iterative reconstruction technique. COMPARISON: None available. FINDINGS: There is no extra-axial or intra-axial intracranial hemorrhage. No mass effect or midline shift is seen. The ventricles, sulci, and cisterns are normal in size and shape for the patient's age. There is normal fuentes-white matter differentiation. The posterior fossa is grossly unremarkable. The skull is unremarkable. Visualized paranasal sinuses are clear. The mastoid air cells show normal translucency. The cervical alignment is intact. No acute cervical spine fracture is identified. The vertebral body heights are intact. No suspicious osseous lesions are identified. The craniocervical junction appears intact. There is no prevertebral soft tissue swelling. No significant degenerative changes are identified. The visualized lung apices are unremarkable. CT/Brain/Head without Contrast IMPRESSION: No intracranial hemorrhage. No mass effect or midline shift. No evidence of acute cervical spine fracture or malalignment. Reading Location[facility]
--- NOTE | 2025-01-17 05:54 | CT_ITS ---
PROCEDURE: BRAIN/HEAD WITHOUT CONTRAST; SPINE CERVICAL WITHOUT CONTRAS 01/17/2025 REASON FOR EXAM: FIRST TIME SEIZURE TECHNIQUE: Procedure Code: CTBR; CTSPC Modality: CT Procedure: BRAIN/HEAD WITHOUT CONTRAST; SPINE CERVICAL WITHOUT CONTRAS Coronal and Sagittal reconstruction series were provided. One or more dose reduction techniques were used (e.g., Automated exposure control, adjustment of the mA and/or kV according to patient size, use of iterative reconstruction technique. COMPARISON: None available. FINDINGS: There is no extra-axial or intra-axial intracranial hemorrhage. No mass effect or midline shift is seen. The ventricles, sulci, and cisterns are normal in size and shape for the patient's age. There is normal fuentes-white matter differentiation. The posterior fossa is grossly unremarkable. The skull is unremarkable. Visualized paranasal sinuses are clear. The mastoid air cells show normal translucency. The cervical alignment is intact. No acute cervical spine fracture is identified. The vertebral body heights are intact. No suspicious osseous lesions are identified. The craniocervical junction appears intact. There is no prevertebral soft tissue swelling. No significant degenerative changes are identified. The visualized lung apices are unremarkable. CT/Spine Cervical without Contras IMPRESSION: No intracranial hemorrhage. No mass effect or midline shift. No evidence of acute cervical spine fracture or malalignment.
[2025-01-17] MEDS: fentaNYL 100 MCG/2 ML Ampul 50 MCG IV ×2 (05:59→06:28)
[2025-01-17 06:07] LABS: Hematocrit 39.2 % (40-54); Hemoglobin 12.8 g/dL (13.0-16.5); Immature Granulocytes Count 0.210 X10^3/uL (0.0-0.0); Mean Corp Hgb Conc 32.7 g/dL (32-36); Mean Corpuscular Volume 103.4 fL (80-94); Mean Platelet Vol. 12.4 fl (6.2-12.0); NRBC Flagged by Analyzer 0 % (0-5); POSITIVE DIFFERENTIAL YES; Platelet Count 275 K/mm3 (150-450); RBC Distribution Width CV 11.9 % (11.6-14.6); RBC Distribution Width SD 45.4 fl (35.1-43.9); Red Blood Count 3.79 M/mm3 (4.6-6.2); White Blood Count 13.8 K/mm3 (4.4-11.0)
[2025-01-17 06:16] LABS: Differential Indicated SCAN CRITERIA MET
--- NOTE | 2025-01-17 06:23 | RAD_ITS ---
PROCEDURE: SHOULDER MIN 2 VIEWS 01/17/2025 REASON FOR EXAM: DISLOCATION TECHNIQUE: Procedure Code: RADSH Modality: DX Procedure: SHOULDER MIN 2 VIEWS Laterality: Left COMPARISON: None. FINDINGS: Bones: Negative for fractures. Scapula otherwise negative. Proximal humerus negative. Clavicle negative. Joints: Intact. No joint effusion. Soft tissues: Adjacent structures negative. Other: Remainder of the exam negative. RAD/Shoulder min 2 Views IMPRESSION: Negative left shoulder. Reading Location: [id number]
[2025-01-17 06:30] LABS: Alcohol, Blood (Medical)-Serum < 10.1 mg/dL (<=10.0)
[2025-01-17 06:31] LABS: Anion Gap 29 (5-15); BUN 16 mg/dL (4-19); BUN/Creat Ratio 13.2 RATIO (10-20); Calcium,Total 9.1 mg/dL (7.6-11.0); Carbon Dioxide 11.5 mmol/L (21.0-32.0); Chloride 100 mmol/L (98-108); Estimated Creatinine Clearance 83.04 ml/min (50-250); Glucose 181 mg/dL (70-99); Magnesium 2.1 mg/dL (1.5-2.2); Potassium 3.5 mmol/L (3.3-5.1)
[2025-01-17 06:34] LABS: Differential Comment SCANNED; Reactive Lymphocyte 2+
--- OUTSIDE RECORDS SUMMARY | 2025-01-17 06:40 | XMS RPT_ITS | CCD ---
Author Organization [facility] Care Team Providers Care Resort Host Name Role Phone Unavailable Primary Care Provider UnavailKIRA Bustamante Referring UnavailLEIGHA Hernandez Referring Unavailable Dr. Jass Ching Primary Care Provider [phone] Dr. Jass Ching Referring Provider [phone] NEERAJ Clarke Attending Provider [phone] Dr. Jass Ching Attending Provider [phone] Primary Care Provider Unavailabl e Oleghe, Efewongbe Referring Unavailable Oleghe, Efewongbe Primary Care Unavailable Friend, Kentrell Consulting Unavailable Friend, Kentrell Attending Unavailable Lorin Melara Attending Unavailable Oleghe, Efewongbe Primary Care Unavailable Oleghe, Efewongbe Attending Unavailable Oleghe, Efewongbe Referring Unavailable Oleghe, Efewongbe Primary Care Unavailable Oleghe, Efewongbe Referring Unavailable Oleghe, Efewongbe Primary Care Unavailable Friend, Kentrell Attending Unavailable Oleghe, Efewongbe Attending Unavailable Oleghe, Efewongbe Referring Unavailable Oleghe, Efewongbe Primary Care Unavailable Oleghe, Efewongbe Attending Unavailable Oleghe, Efewongbe Referring Unavailable Oleghe, Efewongbe Primary Care Unavailable Oleghe, Efewongbe Attending Unavailable Oleghe, Efewongbe Referring Unavailable Oleghe, Efewongbe Primary Care Unavailable Oleghe, Efewongbe Attending Unavailable Oleghe, Efewongbe Referring Unavailable Oleghe, Efewongbe Primary Care Unavailable Allergies Allergy Classification Reported Allergen(s) Allergy Type Date of Onset Reaction(s) Facility (4 sources) tomato allergenic extract Drug Allergy 10-12-2018 [facility] (1 source) tomato allergenic extract Drug Allergy 06-01-2024 [facility] Repository Medications Current Medications Medication Drug Class(es) Dates Sig (Normalized) Sig (Original) acetaminophen 300 mg / codeine phosphate 30 mg oral tablet (5 sources) Opioid Agonist Start: 09-16-2014 take 1 tablet by mouth every four hours as needed acetaminophen-codein e (TYLENOL-CODEINE #3) 300-30 mg per tablet Indications: Sterilization Take 1 tablet by mouth every 4 hours as needed. 10 tablet 0 09/16/2014 Active Comment on above: Take 1 tablet by aston th every 4 hours as needed. acetaminophen 325 mg / HYDROcodone bitartrate 5 mg oral tablet (2 sources) Opioid Agonist Start: 08-14-2021 End: 09-28-2021 take 1 tablet by mouth every six hours as needed Hydrocodone-Acetamin ophen Active 1 TABLET PO EVERY 6 HOURS NEEDED 10 August 14, 2021 7:54pm azithromycin 250 mg oral tablet (2 sources) Macrolide Antimicrobial Start: 08-14-2021 End: 09-28-2021 take 250 mg by mouth once daily Azithromycin Active 250 MG PO DAILY August 14, 2021 7:55pm cholecalciferol 0.05 mg oral capsule (1 source) Vitamin D Start: 09-28-2021 take 50 ug by mouth once daily Cholecalciferol (Vitamin D3) Active 50 MCG PO DAILY September 27, 2021 11:00pm cyclobenzaprine hydrochloride 10 mg oral tablet (8 sources) Muscle Relaxant Start: 07-04-2020 End: 09-28-2021 Cyclobenzaprine Active 10 MG PO BEDTIME May 10, 2023 12:00am may cause drowsniess take at night do not drive or operate machinery Comment on above: Take 1 tablet by aston th three times daily as needed. diclofenac sodium 0.01 mg/mg topical gel (1 source) Nonsteroidal Anti-inflammatory Drug Start: 05-10-2023 apply 2 g topically once daily as needed for pain Diclofenac Sodium Active 2 GM TOPICAL ONCE May 10, 2023 12:00am apply to lower back as needed once daily for back pain wash hands after use meloxicam 15 mg oral tablet (1 source) Nonsteroidal Anti-inflammatory Drug Start: 06-17-2023 Meloxicam Active 15 MG PO DAILY June 17, 2023 12:00am Take daily for 7 days then as needed. naproxen 500 mg oral tablet (3 sources) Nonsteroidal Anti-inflammatory Drug Start: 08-12-2021 End: 09-28-2021 take 500 mg by mouth twice daily Naproxen Active 500 MG PO TWICE A DAY August 12, 2021 8:02pm Completed/Discontinued Medications Medication Drug Class(es) Dates Sig (Normalized) Sig (Original) ciprofloxacin 500 mg oral tablet (3 sources) Quinolone Antimicrobial Start: 05-15-2016 End: 08-08-2016 take 500 mg by mouth twice daily Ciprofloxacin Hcl Discontinued 500 MG PO TWICE A DAY May 15, 2016 8:35pm August 08, 2016 2:56pm lidocaine hydrochloride 20 mg/ml mucous membrane topical solution (1 source) Antiarrhythmic, Amide Local Anesthetic Start: 07-05-2022 LIDOCAINE VISCOUS 2 % solution Indications: Throat pain Take 5-10 mL by mouth as needed. 100 mL 1 07/05/2022 Active Comment on above: Take 5-10 mL by mout h as needed. predniSONE 20 mg oral tablet (2 sources) Start: 05-10-2023 End: 05-15-2023 take 40 mg by mouth once daily Prednisone Discontinued 40 MG PO DAILY 10 May 10, 2023 12:00am May 15, 2023 12:05am Start: 07-05-2022 End: 07-10-2022 take 2 tablets by mouth once daily predniSONE (DELTASONE) 20 mg tablet Indications: Throat pain Take 2 tablets by mouth once daily for 5 days. 10 tablet 0 07/05/2022 07/10/2022 Active Comment on above: Take 2 tablets by mo uth once daily for 5 days. Problems Active Problems Problem Classification Problem Date Documented Date Episodic/Chronic Diverticulosis and diverticulitis (10 sources) Diverticulitis of large intestine without perforation or abscess without bleeding; Translations: [Diverticulitis of colon (without mention of hemorrhage)] Onset: 03-14-2007 05-13-2007 Chronic Genitourinary symptoms and ill-defined conditions (3 sources) Dysuria; Translations: [Dysuria] 08-06-2016 Episodic Immunizations and screening for infectious disease (2 sources) Exposure to Streptococcus; Translations: [Contact with and (suspected) exposure to other bacterial communicable diseases] Onset: 03-20-2024 Episodic Nonspecific chest pain (1 source) Chest pain; Translations: [Chest pain, unspecified] Episodic Osteoarthritis (3 sources) Arthritis; Translations: [Unspecified osteoarthritis, unspecified site] Onset: 06-17-2023 06-17-2023 Chronic Other connective tissue disease (5 sources) Radicular pain; Translations: [Neuralgia and neuritis, unspecified] Onset: 07-13-2020 07-13-2020 Episodic Other connective tissue disease (2 sources) Pain in right hand; Translations: [Pain in right hand] Episodic Other fractures (1 source) Fracture of rib; Translations: [Fracture of one rib, left side, initial encounter for closed fracture] Episodic Other fractures (1 source) Fracture of left rib; Translations: [Fracture of one rib, left side, initial encounter for closed fracture] 08-22-2021 Episodic Other male genital disorders (3 sources) Pain in penis; Translations: [Other specified disorders of penis] 08-06-2016 Chronic Other screening for suspected conditions (not mental disorders or infectious disease) (2 sources) Encounter for screening for malignant neoplasm of colon; Translations: [Encounter for screening for malignant neoplasm of colon] Onset: 06-08-2024 Episodic Other upper respiratory disease (1 source) Seasonal allergy; Translations: [Other seasonal allergic rhinitis] 09-28-2021 Chronic Other upper respiratory disease (1 source) Pain in throat; Translations: [Pain in throat] Episodic Other upper respiratory infections (1 source) Acute upper respiratory infection; Translations: [Acute upper respiratory infection, unspecified] Episodic Pneumonia (except that caused by tuberculosis or sexually transmitted disease) (2 sources) Pneumonia; Translations: [Pneumonia, unspecified organism] 08-22-2021 Episodic Spondylosis; intervertebral disc disorders; other back problems (2 sources) Inflammation of sacroiliac joint; Translations: [Sacroiliitis, not elsewhere classified] 05-10-2023 Chronic Unclassified (1 source) Encounter for screening for COVID-19; Translations: [Encounter for screening for COVID-19] Onset: 12-27-2021 Unclassified (1 source) Low back pain, unspecified; Translations: [Low back pain, unspecified] Onset: 06-21-2023 Past or Other Problems Problem Classification Problem Date Documented Da te Episodic/Chronic Abdominal pain (8 sources) Abdominal pain; Translations: [Unspecified abdominal pain] Onset: 05-08-2007 05-08-2007 Episodic Contraceptive and procreative management (6 sources) Patient encounter status; Translations: [Encounter for sterilization] Onset: 10-08-2014 10-08-2014 Episodic Deficiency and other anemia (6 sources) Anemia; Translations: [Anemia, unspecified] Onset: 03-14-2007 03-14-2007 Episodic Other connective tissue disease (1 source) Pain in right hand; Translations: [Pain of right hand] Onset: 09-11-2021 Episodic Spondylosis; intervertebral disc disorders; other back problems (20 sources) Brachial neuritis; Translations: [Radiculopathy, cervical region] Onset: 01-25-2012 01-25-2012 Episodic Results Test Name Value Interpretation Reference Range Facility Colonoscopy Reporton 025 Colonoscopy Report [facility] Medical Records Department [address] [place] [id number] Colonoscopy Report MR#: [id number] Acct: [id number] Name: AMMON BOWER Rep #: [id number] : 1980 43 From: Kentrell Isbell DO PCP: Dr. Jass Ching MD Status:[facility] Patient Name: Ammon Bower Procedure Date: 06/01/2024 11:21 AM Date of : 1980 Age: 43 Procedure: Colonoscopy Indications: Screening for colorectal malignant neoplasm Providers: Kentrell Isbell DO Referring MD: Jass Ching MD Medicines: Monitored Anesthesia Care Patient Profile: This is a 43 year old male. Refer to note in patient chart for documentation of history and physical. Last Colonoscopy: several years ago. Complications: No immediate complications. Procedure: Pre-Anesthesia Assessment: - Prior to the procedure, a History and Physical was performed, and patient medications and allergies were reviewed. The patient is competent. The risks and benefits of the procedure and the sedation options and risks were discussed with the patient. All questions were answered and informed consent was obtained. Patient identification and proposed procedure were verified by the physician in the pre-procedure area. Mental Status Examination: alert and oriented. Airway Examination: normal oropharyngeal airway and neck mobility. Respiratory Examination: clear to auscultation. CV Examination: normal. Prophylactic Antibiotics: The patient does not require prophylactic antibiotics. Prior Anticoagulants: The patient has taken no anticoagulant or antiplatelet agents except for NSAID medication. ASA Grade Assessment: II - A patient with mild systemic disease. After reviewing the risks and benefits, the patient was deemed in satisfactory condition to undergo the procedure. The anesthesia plan was to use monitored anesthesia care (MAC). Immediately prior to administration of medications, the patient was re-assessed for adequacy to receive sedatives. The heart rate, respiratory rate, oxygen saturations, blood pressure, adequacy of pulmonary ventilation, and response to care were monitored throughout the procedure. The physical status of the patient was re-assessed after the procedure. After I obtained informed consent, the scope was passed under direct vision. Throughout the procedure, the patient's blood pressure, pulse, and oxygen saturations were monitored continuously. The Colonoscope was introduced through the anus and advanced to the terminal ileum, with identification of the appendiceal orifice and IC valve. The colonoscopy was performed without difficulty. Scope In: 11:30:36 AM Scope Withdrawal Time 0 hours 7 minutes 48 seconds Scope Out: 11:44:03 AM Total Procedure Duration Time 0 hours 13 minutes 27 seconds Findings: The perianal and digital rectal examinations were normal. Stool was found in the rectum and in the recto-sigmoid colon. Multiple small and large-mouthed diverticula were found in the entire colon. Patchy moderate inflammation characterized by congestion (edema) and erythema was found in the recto-sigmoid colon and in the sigmoid colon. Biopsies were taken with a cold forceps for histology. Verification of patient identification for the specimen was done. Estimated blood loss was minimal. Patchy mild inflammation was found in the terminal ileum. Biopsies were taken with a cold forceps for histology. Verification of patient identification for the specimen was done. Estimated blood loss was minimal. Impression: - Stool in the rectum and in the recto-sigmoid colon. - Diverticulosis in the entire examined colon. - Patchy moderate inflammation was found in the recto-sigmoid colon and in the sigmoid colon secondary to left-sided colitis. Biopsied. - Mild inflammation was found in the ileum secondary to ileitis. Biopsied. Recommendation: - Discharge patient to home. - Resume previous diet. - Continue present medications. - Await pathology results. - Repeat colonoscopy in 5 years for surveillance based on pathology results. Procedure Code(s): --- Professional --- 16784, Colonoscopy, flexible; with biopsy, single or multiple CPT copyright 2021 [employer]. All rights reserved. The codes documented in this report are preliminary and upon cinder pit worker review may be revised to meet current compliance requirements. Kentrell Isbell DO 06/01/2024 11:51:25 AM This report has been signed electronically. Number of Addenda: 0 Note Initiated On: 06/01/2024 11:21 AM 06/01/24 1151 Date Kentrell Isbell DO Cosigner Signature: Date (if indicated) CC: Dr. Jass Ching MD; Kentrell Isbell DO Date Dictated: 06/01/24 1121 Date Trans (more content not included)... [facility] Medical Records Department [address] [place] [address] Anesthesia Postop Eval I 06/01/24 1153 MR#: [id number] Acct: [id number] Name: AMMON BOWER Rep #: [id number] : 1980 43 From: Brandon Morales PCP: Dr. Jass Ching MD Status:REG SDC Y Race: AA Location: [place] [address] Anesthesia: Postop Eval I Current Vital Signs Temperature: 98.5 F Pulse Rate: 67 Blood Pressure: 126/76 Respiratory Rate: 16 Pulse Ox: 100 Oxygen Delivery Method: Room Air Assessment Airway patent: Yes Spontaneous unlabored respirations: Yes Mental status: Awake and Calm nausea: No Vomiting: No Anesthesia Complication: No Fluid Hydration Crystalloid volume administer (ml): 40 Total IV fluid infused: 40 Progress Note Anesthesia document: Postop Eval 1 completed: Yes 06/01/24 1154 Date Brandon Obrien Signature: Date CC: Signed Normal [facility] MR/[id number] 06-01-2024 [facility] Medical Records Department [address] [place] [address] Anesthesia Postop Eval II 06/01/24 1246 MR#: [id number] Acct: [id number] Name: AMMON BOWER Rep #: [id number] : 1980 43 From: Calvin Dillard MD PCP: Dr. Jass Ching MD Status:[facility] Y Race: AA Location: [place] Anesthesia Postop Eval I Sum Postop Eval Completion status Anesthesia document: Postop Eval 1 completed: Yes Anesthesia Postop Eval I Summary Anesthesia Postop Eval I Summary: Anesthesia Postop Eval I: Assessment Summary Airway patent Yes 06/01/24 11:54 [email or web address] Spontaneous unlabored Yes 06/01/24 11:54 [email or web address] respirations Mental status Awake,Calm 06/01/24 11:54 [email or web address] nausea No 06/01/24 11:54 [email or web address] Vomiting No 06/01/24 11:54 [email or web address] Anesthesia Postop Eval I: Fluid Summary Crystalloid volume administer 40 06/01/24 11:54 [email or web address] (ml) Colloids volume administered ( ml) Blood Product volume administered (ml) Total IV fluid infused 40 06/01/24 11:54 [email or web address] Anesthesia Postop Eval I: Summary Notes Anesthesia Complication No 06/01/24 11:54 [email or web address] Anesthesia Complication Comment: Post-operative progress note Anesthesia: Postop Eval II Evaluation Mental status: Awake Pain Level: 0 nausea: No Vomiting: No Complications Anesthesia Complication: No 06/01/24 1247 Date Calvin Casiano Signature: Date CC: Signed Normal [facility] Surgery Specimen Level Gemini 06-01-2024 Surgery Specimen Level IV Patient Age/Sex Location Account Attending Physician AMMON BOWER/M EN [id number] Kentrell Isbell DO Specimen: [id number] Received: 06/01/24 Status: BARBARA Salazar Num: [id number] Spec Type: COLON BX Subm Dr: Kentrell Isbell DO HEADER OPERATION: Colonoscopy with biopsy PRE-OP DIAGNOSIS: Colon cancer screening TISSUE SUBMITTED: A- Terminal ileum biopsy, B- Sigmoid colon biopsy MICROSCOPIC DIAGNOSIS A. Terminal ileum, biopsy: Fragments of small intestinal mucosa, no pathologic diagnosis. B. Sigmoid colon, biopsy: Fragments of colonic mucosa, no pathologic diagnosis. 06/03/2024 MICROSCOPIC DESCRIPTION Slides are reviewed. GROSS DESCRIPTION A. Received in fixative is one container labeled with the patient's name and designated Terminal ileum biopsy. The specimen consists of multiple irregular fragments of light love soft tissue that in aggregate measure 1.2 x 0.3 x 0.2 cm. The specimen is totally submitted in one cassette. B. Received in fixative is one container labeled with the patient's name and designated Sigmoid colon biopsy. The specimen consists of two irregular fragments of light love soft tissue that in aggregate measure 1.1 x 0.3 x 0.2 cm. The specimen is totally submitted in one cassette. 06/02/2024 TC:4 CPT:68814v5 Patient Age/Sex Location Account Attending Physician AMMON BOWER 43/M EN [id number] Kentrell DO Akilah Signed (signature on file) Dr. Duran Nj MD 06/03/24 1206 Normal [facility] Comment on above: Performed By: #### P SUIV ####[facility] [id number] [place], [place], [address] /Jung 05-28-2024 MR/PAT.[facility] Medical Records Department [address] [place] [address] PAT - Anesthesia 05/28/24 1741 MR#: [id number] Acct: [id number] Name: AMMON BOWER Rep #: [id number] : 1980 43 From: Best Parker MD PCP: Dr. Jass Ching MD Status:PRE [facility] Y Race: AA Location: EN Pre-Assessment Diagnosis/Proposed Procedure Planned Operative Procedure(s): COLONOSCOPY Anesthesia History Anesthesia History - manager nc: Anesthesia History - manager nc Hx Hospitalization No 05/28/24 14:43 Any Problems With Anesthesia No 05/28/24 14:43 Cholinesterase deficiency No 05/28/24 14:43 You/Your Family Experience No 05/28/24 14:43 fever (hyperthermia) with Relationship Recent Exposure to Contagious No 08/10/16 07:49 Disease Does patient have nerve No 05/28/24 14:43 stimulator Patient instructed to have device shut off --Does patient have Pacemaker or ICD? When Was Last Pacemaker Check QUESTION #4 FULL TEXT: You/Your Family Experience fever (hyperthermia) with Anesthesia Last Oral Intake Last Oral intake: Last Oral Intake NPO since Meds taken in AM with sips of water? Meds patient instructed to take am of surgery PONV PONV - manager nc: PONV - manager nc Female No 05/28/24 14:43 HX of Motion Sickness No 05/28/24 14:43 HX of N/V After Surgery No 05/28/24 14:43 Non-Smoker Yes 05/28/24 14:43 Duration of Surgery greater No 05/28/24 14:43 than 60 minutes Number of Risk Factors 1 05/28/24 14:43 PONV Score Low Risk 05/28/24 14:43 Height Weight Height Weight: Anesthesia: Height Weight Height 6 ft 03/26/24 12:46 Respiratory Assessment Respiratory Assessment - manager nc: Respiratory Tract Infection Hx - manager nc Hx Respiratory Tract Infection No 05/28/24 14:43 STOP Sleep Apnea STOP Sleep Apnea - manager nc: STOP Sleep Apnea - manager nc Hx Hypertension No 05/28/24 14:43 Hx Sleep Apnea No 05/28/24 14:43 CPAP No 08/10/16 10:10 BIPAP No 08/09/16 09:01 Do you snore loudly (louder No 05/28/24 14:43 than talking or can be heard Do you often feel tired/ No 05/28/24 14:43 fatigued/ sleepy during daytime? Has anyone observed you stop No 05/28/24 14:43 breathing during sleep? STOP Results Negative 05/28/24 14:43 QUESTION #5 FULL TEXT : Do you snore loudly (louder than talking or can be heard through closed doors)? 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 Specify any problems Hx of Preganancy in last 3 N/A 05/28/24 14:43 Months Nurse Filling Out Transfusion [facility] 05/28/24 14:43 Questions: Date: 05/28/24 05/28/24 14:43 Time: 14:49 05/28/24 14:43 Patient unable to answer at this time (ie. confused, unrespo /Reproduction History /Reproductive History - manager nc: /Reproductive Hx- manager nc Hx Now Gestational Age (in weeks): EDC: Hx Hx Para Hx Section SAB PFSH Medical History Eczema Former smoker Blood glucose elevated Colon cancer screening Arthritis Low back pain Anemia Encounter to establish care Preventative health care History of pneumonia Seasonal allergies Alcohol abuse Home Medications ???Medication ???Instructions ???Recorded ???Last Taken ???Type cholecalciferol (vitamin D3) 50 50 mcg PO DAILY 09/28/21 Unknown History mcg (2,000 unit) capsule Allergy/AdvReac Type Severity Reaction Status Date / Time tomato Allergy Hives Verified 05/28/24 14:42 Family History (Updated 03/26/24 @ 12:38 by Lorin Melara) Unknown Colon polyps Father Pancreatic cancer Other Cancer Diabetes Hypertension Surgical History (Updated 05/28/24 @ 14:43 by Gertrude Weller) History of wisdom tooth extraction Hx of colonoscopy Social History (Updated 03/26/24 @ 12:38 by Lorin Melara) household members: sp (more content not included)... Normal [facility] CBC W/Diff, Automatedon 03-06 Absolute Lymph 1.77 X10 3/uL Normal 0.83-4.51 [facility] Comment on above: Performed By: #### L 100.0100, L500.4100, L500.4050, L501.9910 #### [facility] [address] [place], [address] Absolute Neut 3.2 X10 3/uL Normal 2.0-7.7 [facility] Comment on above: Performed By: #### L 100.0100, L500.4100, L500.4050, L501.9910 #### [facility] [address] [place], [address] Basophils/100 WBC (Bld) 1.2 % High 0-1 [facility] Comment on above: Performed By: #### L 100.0100, L500.4100, L500.4050, L501.9910 #### [facility] [address] [place], [address] Eosinophils/100 WBC (Bld) 5.5 % High 0-5 [facility] Comment on above: Performed By: #### L 100.0100, L500.4100, L500.4050, L501.9910 #### [facility] [address] [place], [address] Erythrocyte distribution width (RBC) [Ratio] 11.8 % Normal 11.6-14.6 [facility] Comment on above: Performed By: #### L 100.0100, L500.4100, L500.4050, L501.9910 #### [facility] [address] [place], [address] Hematocrit (Bld) [Volume fraction] 38.4 % Low 40-54 [facility] Comment on above: Performed By: #### L 100.0100, L500.4100, L500.4050, L501.9910 #### [facility] [address] [place], [address] Hemoglobin (Bld) [Mass/Vol] 12.7 g/dL Low 13.0-16.5 [facility] Comment on above: Performed By: #### L 100.0100, L500.4100, L500.4050, L501.9910 #### [facility] [address] [place], [address] IG% 0.400 Normal 0.0-0.9 [facility] Comment on above: Result Comment: IG% - Immature Granulocytes (promyelocytes, myelocytes and metamyelocytes) > 1% indicates that a LEFT SHIFT is Present. Performed By: #### L 100.0100, L500.4100, L500.4050, L501.9910 #### [facility] [address] [place], [address] Lymphocytes/100 WBC (Bld) 31.2 % Normal 19-41 [facility] Comment on above: Performed By: #### L 100.0100, L500.4100, L500.4050, L501.9910 #### [facility] [address] [place], [address] MCH (RBC) [Entitic mass] 32.9 pg High 27.0-32.0 [facility] Comment on above: Performed By: #### L 100.0100, L500.4100, L500.4050, L501.9910 #### [facility] [address] [place], [address] MCHC (RBC) [Mass/Vol] 33.1 g/dL Normal 32-36 [facility] Comment on above: Performed By: #### L 100.0100, L500.4100, L500.4050, L501.9910 #### [facility] [address] [place], [address] MCV (RBC) [Entitic vol] 99.5 fL High 80-94 [facility] Comment on above: Performed By: #### L 100.0100, L500.4100, L500.4050, L501.9910 #### [facility] [address] [place], [address] Monocytes/100 WBC (Bld) 5.1 % Normal 0-10 [facility] Comment on above: Performed By: #### L 100.0100, L500.4100, L500.4050, L501.9910 #### [facility] [address] [place], [address] Neutrophils/100 WBC (Bld) 56.6 % Normal 47-70 [facility] Comment on above: Performed By: #### L 100.0100, L500.4100, L500.4050, L501.9910 #### [facility] [address] [place], [address] Nucleated RBC (Bld) [#/Vol] 0 10*3/uL Normal 0-5 [facility] Comment on above: Performed By: #### L 100.0100, L500.4100, L500.4050, L501.9910 #### [facility] [address] [place], [address] Platelet mean volume (Bld) [Entitic vol] 12.7 fL High 6.2-12.0 [facility] Comment on above: Performed By: #### L 100.0100, L500.4100, L500.4050, L501.9910 #### [facility] [address] [place], [address] Platelets (Bld) [#/Vol] 220 10*3/uL Normal 150-450 [facility] Comment on above: Performed By: #### L 100.0100, L500.4100, L500.4050, L501.9910 #### [facility] [address] [place], [address] RBC (Bld) [#/Vol] 3.86 10*6/uL Low 4.6-6.2 [facility] Comment on above: Performed By: #### L 100.0100, L500.4100, L500.4050, L501.9910 #### [facility] [address] [place], [address] RDW SD 43.1 fl Normal 35.1-43.9 [facility] Comment on above: Performed By: #### L 100.0100, L500.4100, L500.4050, L501.9910 #### [facility] [address] [place], [address] WBC (Bld) [#/Vol] 5.7 10*3/uL Normal 4.4-11.0 [facility] Comment on above: Performed By: #### L 100.0100, L500.4100, L500.4050, L501.9910 #### [facility] [address] [place], [address] Comprehensive Metabolic [facility] 03-20-2024 Albumin [Mass/Vol] 4.2 g/dL Normal 3.2-5.0 [facility] Comment on above: Performed By: #### L 100.0100, L500.4100, L500.4050, L501.9910 #### [facility] [address] [place], [address] Albumin/Globulin [Mass ratio] 1.4 {ratio} Normal 0.9-2.4 [facility] Comment on above: Performed By: #### L 100.0100, L500.4100, L500.4050, L501.9910 #### [facility] [address] [place], [address] ALK P 66 U/L Normal 45-117 [facility] Comment on above: Performed By: #### L 100.0100, L500.4100, L500.4050, L501.9910 #### [facility] [address] [place], [address] ALT [Catalytic activity/Vol] 46 U/L Normal 16-61 [facility] Comment on above: Performed By: #### L 100.0100, L500.4100, L500.4050, L501.9910 #### [facility] [address] [place], [address] AST [Catalytic activity/Vol] 25 U/L Normal 15-37 [facility] Comment on above: Performed By: #### L 100.0100, L500.4100, L500.4050, L501.9910 #### [facility] [address] [place], [address] Bilirubin [Mass/Vol] 1.90 mg/dL High 0.20-1.00 [facility] Comment on above: Result Comment: For patients on eltrombopag therapy, use of Dimension [place] TBIL is not recommended. Performed By: #### L 100.0100, L500.4100, L500.4050, L501.9910 #### [facility] [address] [place], [address] BUN/CRE 12.3 RATIO Normal 10-20 [facility] Comment on above: Performed By: #### L 100.0100, L500.4100, L500.4050, L501.9910 #### [facility] [address] [place], [address] CA,Total 8.4 mg/dL Low 8.5-10.1 [facility] Comment on above: Performed By: #### L 100.0100, L500.4100, L500.4050, L501.9910 #### [facility] [address] [place], [address] Chloride [Moles/Vol] 106 mmol/L Normal 98-107 [facility] Comment on above: Performed By: #### L 100.0100, L500.4100, L500.4050, L501.9910 #### [facility] [address] [place], [address] CO2 [Moles/Vol] 30.0 mmol/L Normal 21.0-32.0 [facility] Comment on above: Performed By: #### L 100.0100, L500.4100, L500.4050, L501.9910 #### [facility] [address] [place], [address] Creatinine [Mass/Vol] 1.06 mg/dL Normal 0.70-1.30 [facility] Comment on above: Result Comment: The validity of the calculated GFR GFRAA in patients over 70 years has not been determined. Clinical correlation is essential. Performed By: #### L 100.0100, L500.4100, L500.4050, L501.9910 #### [facility] [address] [place], [address] EST GFR - AA 97 mL/min Normal >60 [facility] Comment on above: Result Comment: Afri can [place] GFR Calc Performed By: #### L 100.0100, L500.4100, L500.4050, L501.9910 #### [facility] [address] [place], [address] GAP 4 Low 5-15 [facility] Comment on above: Performed By: #### L 100.0100, L500.4100, L500.4050, L501.9910 #### [facility] [address] [place], [address] GFR/1.73 sq M.predicted among non-blacks MDRD (S/P/Bld) [Vol rate/Area] 80 mL/min/{1.73_m2} Normal >60 [facility] Comment on above: Result Comment: Non- GFR Calc Performed By: #### L 100.0100, L500.4100, L500.4050, L501.9910 #### [facility] [address] [place], [address] Globulin (S) [Mass/Vol] 3.0 g/dL Normal 2.2-4.2 [facility] Comment on above: Performed By: #### L 100.0100, L500.4100, L500.4050, L501.9910 #### [facility] [address] [place], [address] Glucose [Mass/Vol] 158 mg/dL High 74-106 [facility] Comment on above: Result Comment: Fast ing Glucose result greater than or equal to 126 mg/dL suggests DIABETES MELLITUS per A.D.A. criteria. Performed By: #### L 100.0100, L500.4100, L500.4050, L501.9910 #### [facility] [address] [place], [address] Potassium [Moles/Vol] 3.9 mmol/L Normal 3.5-5.1 [facility] Comment on above: Performed By: #### L 100.0100, L500.4100, L500.4050, L501.9910 #### [facility] [address] [place], [address] Sodium [Moles/Vol] 140 mmol/L Normal 136-145 [facility] Comment on above: Performed By: #### L 100.0100, L500.4100, L500.4050, L501.9910 #### [facility] [address] [place], [address] T PROT 7.2 g/dL Normal 6.4-8.2 [facility] Comment on above: Performed By: #### L 100.0100, L500.4100, L500.4050, L501.9910 #### [facility] [address] [place], [address] Urea nitrogen [Mass/Vol] 13 mg/dL Normal 7-18 [facility] Comment on above: Performed By: #### L 100.0100, L500.4100, L500.4050, L501.9910 #### [facility] [address] [place], [place], [id number] Hemoglobin A1con 03-20-2024 HbA1c (Bld) [Mass fraction] 4.9 % Normal 3.8-5.6 [facility] Comment on above: Result Comment: Norm al < 5.7 % Prediabetic 5.7 - 6.4 % Diabetic >or= 6.5 % Please note range changes. Performed By: #### L 540.9975 #### [facility] [address] [place], [place], [address] Internal Medicine Office Vis itoelena 03-20-2024 Internal Medicine Office Visit [facility] [address] [place], [place] [address] OFFICE VISIT Date of Service: 03/20/24 MR#: [id number] Acct: [id number] Name: AMMON BOWER Rep #: [id number] : 1980 Provider: Dr. Jass ceballos MD Age/Sex: 43/M [place] [facility] Status: Signed Intake Vital Signs 06/17/23 09:13 03/20/24 13:19 Height 6 ft 6 ft Weight: 181 lb BMI 24.5 BP 126/80 H Blood Pressure Location Lt brachial Position Sitting Respiration 16 Pulse 92 Pulse Source Monitor Temp 97.1 F L Temp Source Temporal Pulse Oximetry (%) 97 Oxygen Delivery Method room air Intake Visit Reasons: YEARLY Chief Complaint: yearly Ruling Machine Set Up Operator Required: No Accompanied by: Self Is patient in pain?: No Allergies tomato Allergy (Verified 03/20/24 13:15) Hives Medications ???Medication ???Instructions ???Recorded ???Confirmed ???Type cholecalciferol (vitamin D3) 50 50 mcg PO DAILY 09/28/21 03/20/24 History mcg (2,000 unit) capsule [place] PO 03/20/24 History PFSH Medical History Colon cancer screening Arthritis Low back pain Anemia Encounter to establish care Preventative health care History of pneumonia Seasonal allergies Alcohol abuse Family History Other Cancer Diabetes Hypertension Social History Smoking Status: Never smoker alcohol intake: current substance use type: does not use what type of physical activity do you participate in: none HPI HPI Chief Complaint: yearly Details: AMMON BOWER, is a 43 M who presents to the office today for yearly visit. No acute concerns at this time. No significant changes in personal or family history since his last visit. States that he stays active. Currently at a BMI of 24.5. Positive family history of pancreatic cancer, no known family history of colon cancer. He believes he had a colonoscopy a few years ago due to abdominal concerns. No tobacco abuse, occasional alcohol use. ROS Const Constitutional: No body ache, chills, excessive sweating, fatigue, fever(s), frequent falls, headache(s), snoring, weakness or change in appetite Eyes Eyes: No blurry vision, change in vision, bulging eyes, floaters, visual disturbances, eye pain or Light sensitivity ENT ENT: No abnormal hearing, ear or mastoid pain, tinnitus, balance problems, nosebleed/epistaxis, nasal congestion, headache(s), neck pain or sore throat Resp Respiratory: No cough, excessive phlegm production, pain on inspiration, shortness of breath, snoring or wheezing Cardio Cardiology: No chest pain at rest, chest pain with exertion, excessive sweating, dyspnea on exertion, lightheadedness, orthopnea or palpitations Gastro GI: No abdominal pain, change in bowel habits, constipation, cramping, diarrhea, nausea/dyspepsia or vomiting Genitourinary Male: No burning urination, painful urination, urinary incontinence, urinary frequency, suprapubic fullness or side pain Musc Musculoskeletal: No abnormal gait, joint pain, back pain, limited range of motion, muscle cramps, muscle weakness, neck pain or numbness Skin Skin: No dry skin, redness, excessive hair growth, yellowing of the eye, lesions, itchy eyes, rash or wounds Neuro Neurology: No abnormal gait, abnormal hearing, behavioral changes, unsteady gait/balance, weakness, frequent falls, headache(s), memory loss, numbness or visual disturbances Psych Psychiatric: No anxiety, No behavioral changes, No change in appetite, No depression, No memory loss and No Thoughts of harming yourself/Others Endo Endocrine: No cold intolerance, excessive sweating, fatigue, flushing, heat intolerance, increased thirst/drinking or increased hunger Aller/Imm Allergy/Immunologic: No itchy eyes, seasonal allergy symptoms, hives or wheezing Dave/Lymp Hematologic/Lymphatic: No easy bleeding or easy bruising Exam Const General: cooperative, comfortable and no acute distress Orientation: alert, awake and oriented x3 HENTN Head: normal to inspection, normocephalic and atraumatic Ears: hearing grossly normal bilaterally Neck Neck: normal visual inspection, full ROM, no lymphadenopathy and supple Neck mass: No Thyroid: thyroid normal Resp Effort Inspection: normal respiratory effort and able to speak in complete sentences Auscultation: Bilateral: Clear to Auscultation Cardio Rate: regular rate Rhythm: regular rhythm Heart Sounds: S1 normal and S2 normal GI Palpation: soft (Nontender, no palpable organomegaly) Neuro General: patient alert, patient awake, patient oriented x3, moves all extremities and CN's II-XI intact bilaterally Extrem General: no clubbing, cyanosis or edema Psych Appearance: grossly normal Mental (more content not included)... Normal [facility] Lipid Profileon 03-20-2024 Cholesterol [Mass/Vol] 179 mg/dL Normal 200 [facility] Comment on above: Result Comment: <200 mg/dL Desirable 200-240 mg/dL Borderline >240 mg/dL High Risk Performed By: #### L 100.0100, L500.4100, L500.4050, L501.9910 #### [facility] [address] [place], [address] Cholesterol in HDL [Mass/Vol] 74 mg/dL Normal [facility] Comment on above: Result Comment: The drugs N-Acetylcysteine and Metamizole may falsely depress this assay. Reference Range HDL <40 mg/dL Low HDL Cholesterol HDL >or= 60 mg/dL High HDL Cholesterol Performed By: #### L 100.0100, L500.4100, L500.4050, L501.9910 #### [facility] [address] [place], [address] Cholesterol in LDL [Mass/Vol] 91 mg/dL Normal 0-130 [facility] Comment on above: Performed By: #### L 100.0100, L500.4100, L500.4050, L501.9910 #### [facility] [address] [place], [address] Cholesterol in VLDL [Mass/Vol] 14 mg/dL Normal 5-40 [facility] Comment on above: Performed By: #### L 100.0100, L500.4100, L500.4050, L501.9910 #### [facility] [address] [place], [address] Triglyceride [Mass/Vol] 68 mg/dL Normal [facility] Comment on above: Result Comment: The drugs N-Acetylcysteine and Metamizole may falsely depress this assay. Serum Triglycerides Reference Interval Normal <150 mg/dL Borderline high 150 - 199 mg/dL High 200 - 499 mg/dL Very High > or = 500 mg/dL Performed By: #### L 100.0100, L500.4100, L500.4050, L501.9910 #### [facility] [address] [place], [address] PSA,Total - Annual Screenon 03-20-2024 PSA,TOT SCREEN 0.50 ng/mL Normal 0.00-4.00 [facility] Comment on above: Result Comment: This test was performed using the TPSA assay method for the [employer] chemistry system. Values obtained with different assay methods cannot be used interchangably. When changing PSA assays in the course of monitoring a patient, additional sequential testing should be carried out to confirm baseline values. Performed By: #### L 100.0100, L500.4100, L500.4050, L501.9910 #### [facility] [address] [place], [address] CRPon 06-17-2023 C-REACTIVE PROT < 2.90 Normal 0.0-3.0 [facility] Comment on above: Result Comment: C-Re active Protein (CRP) provides useful information for the diagnosis, therapy and monitoring of inflammatory processes and associated diseases. For the evaluation of Relative Risk for Cardiovascular Disease, a High Sensitivity CRP (HSCRP) should be ordered. Performed By: #### L 501.6710, L101.9900 #### [facility] [address] [place], [place], [address] Erythrocyte Sed Rateon 06-17 SED RATE 10 mm/hr Normal 0-20 [facility] Comment on above: Performed By: #### L 501.6710, L101.9900 #### [facility] [address] [place], [place], [address] Erythrocyte sedimentation ra teOrdered By: Jass Ching on 06-17-2023 ESR (Bld) [Velocity] 10 mm/h 0-20 [facility] Internal Medicine Office Vis iton 06-17-2023 Internal Medicine Office Visit [facility] [place], [place] [address] OFFICE VISIT Date of Service: 06/17/23 MR#: [id number] Acct: [id number] Name: AMMON BOWER Rep #: [id number] : 1980 Provider: Dr. Jass ceballos MD Age/Sex: 42/M Location[place] [facility] Status: Signed Intake Vital Signs 05/10/23 13:31 06/17/23 09:13 Height 6 ft 6 ft Weight: 181 lb 2 oz BMI 24.5 BP 138/80 H Blood Pressure Location Lt brachial Position Sitting Respiration 16 Pulse 87 Pulse Source Monitor Temp 97.4 F L Temp Source Temporal Pulse Oximetry (%) 97 Oxygen Delivery Method room air Intake Visit Reasons: CONTINUED BACK ISSUES Chief Complaint: LOWER BACK PAIN Ruling Machine Set Up Operator Required: No Accompanied by: Self Is patient in pain?: Yes (low back pain ) Pain scale (1-10): 9 Allergies tomato Allergy (Verified 06/17/23 09:08) Hives Medications cholecalciferol (vitamin D3) 50 mcg (2,000 unit) capsule 50 mcg PO DAILY 09/28/21 [History Confirmed 06/17/23] cyclobenzaprine 10 mg tablet 10 mg PO HS PRN muscle spasm #10 tabs 05/10/23 [Rx Confirmed 06/17/23] diclofenac sodium 1 % topical gel 2 g topical ONCE PRN back pain #100 grams 05/10/23 [Rx Confirmed 06/17/23] meloxicam 15 mg tablet 15 mg PO DAILY PRN pain #90 tabs 06/17/23 [Rx Confirmed 06/17/23] [facility] History (Updated 06/17/23 @ 12:[address] Jass Ching MD) Alcohol abuse Anemia Arthritis Encounter to establish care History of pneumonia Low back pain Preventative health care Seasonal allergies Family History Other Cancer Diabetes Hypertension Social History Smoking Status: Never smoker alcohol intake: current substance use type: does not use what type of physical activity do you participate in: none HPI HPI Chief Complaint: LOWER BACK PAIN Details: AMMON BOWER, is a 42 M who presents to the office today due to ongoing concerns. Was seen about a month ago for an acute visit due to back pain. Managed with oral steroids and muscle relaxant but symptoms have persisted. Sharp, left-sided low back pain which now cuts across both sides and radiates to both legs. He states that it started all of a sudden in the morning and the last major thing he remembers was picking his daughter up/carrying her for some time. Sharp pain radiating down but no numbness or tingling. No change in bowel or bladder habit. Has not had imaging. ROS Const Constitutional: No body ache, chills, excessive sweating, fatigue, fever(s), frequent falls, headache(s), snoring, weakness or change in appetite Eyes Eyes: No blurry vision, change in vision, bulging eyes, floaters, eye pain or Light sensitivity ENT ENT: No abnormal hearing, ear or mastoid pain, tinnitus, balance problems, nosebleed/epistaxis, nasal congestion, headache(s), neck pain or sore throat Resp Respiratory: No cough, excessive phlegm production, pain on inspiration, shortness of breath, snoring or wheezing Cardio Cardiology: No chest pain at rest, chest pain with exertion, excessive sweating, dyspnea on exertion, lightheadedness, orthopnea or palpitations Gastro GI: No abdominal pain, change in bowel habits, constipation, cramping, diarrhea, nausea/dyspepsia or vomiting Genitourinary Male: No burning urination, painful urination, urinary incontinence or urinary frequency Musc Musculoskeletal: Positive for abnormal gait, joint pain, back pain, limited range of motion and radiating pain into limb; No muscle weakness, neck pain or numbness Skin Skin: No dry skin, redness, lesions, itchy eyes, rash or wounds Neuro Neurology: Positive for abnormal gait; No abnormal hearing, behavioral changes, confusion, weakness, frequent falls, headache(s), memory loss or numbness Psych Psychiatric: No anxiety, No behavioral changes, No change in appetite, No confusion, No depression, No memory loss and No Thoughts of harming yourself/Others Endo Endocrine: No cold intolerance, excessive sweating, fatigue, flushing, heat intolerance, increased thirst/drinking or increased hunger Aller/Imm Allergy/Immunologic: No itchy eyes, seasonal allergy symptoms, hives or wheezing Dave/Lymp Hematologic/Lymphatic: No easy bleeding or easy bruising Exam Const General: cooperative, comfortable and no acute distress Orientation: alert, awake and oriented x3 HENMT Head: normal to inspection, normocephalic and atraumatic Ears: hearing grossly normal bilaterally Neck Neck: normal visual inspection, full ROM, no lymphadenopathy and supple Neck mass: No Thyroid: thyroid normal Resp Effort Inspection: normal respiratory effort and able to speak in complete sentences Auscultation: Bilateral: Clear to Auscultation Ca (more content not included)... Normal [facility] L/S Spine Min 4 Viewson 06-06 L/S Spine Min 4 Views [facility] [address] [place] [address] L/S Spine Min 4 Views MR#: [id number] Acct: [id number] Name: AMMON BOWER Rep #: [id number] : 1980 M 42 From: Hi belle MD PCP: Dr. Jass Ching MD Status: REG CLI Study: L/S Spine Min 4 Views Date of Exam: 06/17/23 Exam# [id number] Ordering [place]: [place] [id number] STUDY: X-RAY - LUMBAR SPINE REASON FOR EXAM: Male, 42 years old. Low back Pain TECHNIQUE: 4 view(s) of the lumbar spine were obtained. COMPARISON: None FINDINGS: Normal lumbar lordosis. There is no substantial scoliosis. There is a normal alignment of the vertebrae. Normal vertebral bodies and endplates. Normal disc space heights. There is no demonstrated fracture. The soft tissue structures are unremarkable. RAD/L/S Spine Min 4 Views IMPRESSION: Normal x-ray examination of the lumbar spine. Electronically Signed: Hi Gale MD at 17:40 EST , CC: Dr. Jass Ching MD Event Attendant: Signed Normal [facility] No Panel InformationOrdered By: Jass Ching on 06-17-2023 C-Reactive Protein Extended Range < 2.90 mg/L 0.0-3.0 [facility] Comment on above: C-Reactive Protein ( CRP) provides useful information for thediagnosis, therapy and monitoring of inflammatory processesand associated diseases. For the evaluation of Relative Riskfor Cardiovascular Disease, a High Sensitivity CRP (HSCRP)should be ordered. Laboratory - Chemistry and C hemistry - challengeon 05-10-2023 Bilirubin Ql (U) Negative [facility] Glucose Ql (U) Negative [facility] Ketones Ql (U) Negative [facility] pH (U) 7.5 [pH] [facility] Specific gravity (U) [Rel density] 1.010 [facility] Urobilinogen (U) [Mass/Vol] 0.3617424 mg/dL [facility] - Hematology and Cell countson 05-10-2023 Hemoglobin Ql (U) Negative [facility] - Specimen inform ationon 05-10-2023 Clarity (U) Clear [facility] Color (U) Colorless [facility] - Urinalysison Nitrite Ql (U) Negative [facility] Protein Ql (U) Negative [facility] No Panel Informationon 05-10 Urine Leukocytes Negatve [facility] Urine Non-Hemolyzed Blood [facility] CNOVon 07-05-2022 CNOV Office Visit (UCWSTR ) BOWERAMMON DODD ([id number]) 1980 M Date Time Provider Department 07/05/22 9:00 AM HUGO MELARA [facility] During your visit today, we recorded the following information about you: Temperature Pulse Respiration Blood pressure 98.7 degrees 78/minute 16/minute 122/66 Weight 77.4 kg Hugo Melara APRN.CNP 07/05/2022 9:36 AM Signed Subjective HPI HPI Ammon Avila Bower is a 41 year old male [...] As above - STREP A MOLECULAR (POC) Hugo Melara APRN.INSTALLATION COORDINATOR Allergies As of Date: 07/05/2022 Noted Allergy Reaction TOMATO (SOLANUM LYCOPERSICUM) 10/12/2018 4 - Hives Date Reviewed: 07/05/2022 Reviewed by: Hugo Melara APRN.INSTALLATION COORDINATOR - Fully Assessed Reason for Visit: Throat Problem [109] Cmt: Pt reported +strep exposure throat pain x2 days. Primary Visit Diagnosis:URI, acute [J06.9] Other Visit Diagnoses:Throat pain [R07.0] Streptococcus exposure [Z20.818] Order(s):STREP A MOLECULAR (POC) [1849205] Order #: [id number]. #:[id number] [facility]-LAB predniSONE (DELTASONE) 20 mg tabletTake 2 tablets by mouth once daily for 5 days.Disp: 10 tabletRfl: 0 LIDOCAINE VISCOUS 2 % solutionTake 5-10 mL by mouth as needed.Disp: 100 mLRfl: 1 Prescriptions as of (more content not included)... Normal [facility] STREP A MOLECULAR (POC)on Procedural Control Valid [facility] Strep A (POCT) Negative Negative [facility] SARS-CoV-2 RNA Resp Ql ALYSSA+p robeon 12-27-2021 SARS-CoV-2 (COVID-19) RNA ALYSSA+probe Ql (Resp) SARS-CoV-2 (Agent of COVID-19) Detected by RT-PCR or equivalent method. Abnormal Not Detected [facility] Comment on above: Order Comment: Speci men Type: SWAB OF INTERNAL NOSE Ordering Facility: [facility] Address: [address] [place], [place] [id number] Result Comment: This test was developed and its performance characteristics determined by [facility]'s [facility] Pathology and Laboratory Medicine [place]. This test has been authorized by FDA under an Emergency Use Authorization (EUA). This test has been validated in accordance with the FDA's Guidance Document Policy for Diagnostics Testing in Laboratories Certified to Perform High Complexity Testing under CLIA prior to Emergency use Authorization for Coronavirus Disease 2019 during the Public Health Emergency issued on July 04, 2019. Test performed by [facility], [facility] and Laboratory Medicine [place], [address] [place] [address]. Performed By: #### [id number] #### [facility] CLIA [id number] [address] [place] [address] OF [facility] CNOVon 09-11-2021 CNOV Office Visit (UCWSTR ) AMMON BOWER ([id number]) 1980 M Date Time Provider Department 09/11/21 9:15 AM LEIGHA NELSON [facility] During your visit today, we recorded the following information about you: Temperature Pulse Respiration Blood pressure 97.7 degrees 76/minute 16/minute 126/70 Weight 77.8 kg Leigha Nelson APRN.INSTALLATION COORDINATOR 09/11/2021 9:57 AM Signed Subjective The history is provided by the patient. No sign language translator was used. Hand Injury ROS Objective Physical [...] radiographic evidence of acute osseous abnormality. ? Event Attendant[facility] Transcribe Date/Time: Sep 11 2021 9:44A ? [...] radiographic evidence of acute osseous abnormality. ? Event Attendant: [facility] Transcribe Date/Time: Sep 11 2021 9:44A ? Dictated by : CARMENCITA MATOS MD Patient instructed to rest, ice and alternate ibuprofen and tylenol. patient instructed to give it several more days and follow up with PCP if it does not seem to be getting better. Patient was okay with this care plan. Leigha Nelson APRN.YAMINI Nelson APRN.CNP 09/11/2021 9:55 AM Signed - RICE therapy - see patient instructions for further recommendations. - F/U with PCP in 5-7 days or before if worse. - Discussed Red Flag signs and when to go to ER. - Reviewed plan of care and DC papers with patient. Verbalized understanding. Referring Provider: SELF [[id number]] Allergies As of Date: 09/11/2021 (No Known Allergies) Date Reviewed: 09/11/2021 Reviewed by: Karlene Hernandez - Fully Assessed Reason for Visit: Hand Injury [1974] Cmt: right, hit on dish satellite while starting mower x 1 day Primary Visit Diagnosis:Pain of right hand [M79.641] Order(s):XR HAND GENERAL 3V PA/LAT/OBL RIGHT [1221129] Order #: [id number] FUTURE XR WRIST INJURY 4V PA/LAT/OBL/SCAPH RIGHT [[id number]] Order #: [id number] FUTURE Prescriptions as of 09/11/2021 - cyclobenzaprine (FLEXERIL) 10 mg tablet Take 1 tablet by mouth three times daily as needed. - acetaminophen-codeine (TYLENOL-CODEINE #3) 300-30 mg per tablet Take 1 tablet by mouth every 4 hours as needed. Problem List As Of Date 09/11/2021 Noted Resolved DIVERTICULITIS OF COLON W/O BLEED [K57.32] 03/14/2007 ANEMIA NOS [D64.9] 03/14/2007 DIVERTICULOSIS OF COLON W/O BLEED [K57.30] ABDOMINAL PAIN RUQ [R10.11] 05/08/2007 Brachial neuritis or radiculitis NOS [M54.12] 01/25/2012 Cervicalgia [M54.2] 01/25/2012 Sterilization [Z30.2] 10/08/2014 Upper back pain on right side [M54.9] 07/13/2020 Radicular pain in right arm [M79.2] 07/13/2020 Other instructions from your clinician: - RICE therapy - see patient instructions for further recommendations. - F/U with PCP in 5-7 days or before if worse. - Discussed Red Flag signs and when to go to ER. - Reviewed plan of care and DC papers with patient. Verbalized understanding. Encounter Status:Closed by LEIGHA NELSON on 5/9/22 [facility] No Panel Informationon 09-11 IMPRESSION: No radiographic evidence of acute osseous abnormality. Event Attendant: [facility] Transcribe Date/Time: Sep 11 2021 9:44A Dictated by : CARMENCITA MATOS MD This examination was interpreted and the report reviewed and electronically signed by: CARMENCITA MATOS MD on Sep 11 2021 9:46AM EST ZZZ_DO_NOT_U SE_DIVISION OF RADIOLOGY Radiology Study observation (narrative) [facility] No Panel InformationOrdered By: Ccf Provider on 09-11-[address] [facility] XR HAND 3V PA/LAT/OBL RTon 0 09-11-2021 XR HAND 3V PA/LAT/OBL RT * * *Final Report* * * DATE OF EXAM: Sep 11 2021 9:41AM WOX 5346 - XR HAND 3V PA/LAT/OBL RT / PROCEDURE REASON: Pain of right hand * * * * Physician Interpretation * * * * CLINICAL INDICATION: Pain TECHNIQUE: 3 view radiographic study of the right hand and 4 view radiographic study of the right wrist COMPARISON: None FINDINGS: No acute fracture or dislocation identified. Mild remote posttraumatic bowing deformity of the fifth metacarpal. Joint spaces preserved. IMPRESSION: No radiographic evidence of acute osseous abnormality. Event Attendant: [facility] Transcribe Date/Time: Sep 11 2021 9:44A Dictated by : CARMENCITA MATOS MD This examination was interpreted and the report reviewed and electronically signed by: CARMENCITA MATOS MD on Sep 11 2021 9:46AM EST [id number] Normal [facility] XR Hand - right PA and Later al and Obliqueon 09-11-2021 * * *Final Report* * * DATE OF EXAM: Sep 11 2021 9:41AM WOX 5346 - XR HAND 3V PA/LAT/OBL RT / PROCEDURE REASON: Pain of right hand * * * * Physician Interpretation * * * * CLINICAL INDICATION: Pain TECHNIQUE: 3 view radiographic study of the right hand and 4 view radiographic study of the right wrist COMPARISON: None FINDINGS: No acute fracture or dislocation identified. Mild remote posttraumatic bowing deformity of the fifth metacarpal. Joint spaces preserved. ZZZ_DO_NOT_U SE_DIVISION OF RADIOLOGY [facility] * * *Final Report* * * DATE OF EXAM: Sep 11 2021 9:41AM WOX 5346 - XR HAND 3V PA/LAT/OBL RT / PROCEDURE REASON: Pain of right hand * * * * Physician Interpretation * * * * CLINICAL INDICATION: Pain TECHNIQUE: 3 view radiographic study of the right hand and 4 view radiographic study of the right wrist COMPARISON: None FINDINGS: No acute fracture or dislocation identified. Mild remote posttraumatic bowing deformity of the fifth metacarpal. Joint spaces preserved. IMPRESSION IMPRESSION: No radiographic evidence of acute osseous abnormality. Event Attendant: [facility] Transcribe Date/Time: Sep 11 2021 9:44A Dictated by : CARMENCITA MATOS MD This examination was interpreted and the report reviewed and electronically signed by: CARMENCITA MATOS MD on Sep 11 2021 9:46AM EST [facility] XR WRIST 4V PA/LAT/OBL/SCAPH RTon 09-11-2021 XR WRIST 4V PA/LAT/OBL/SCAPH RT * * *Final Report* * * DATE OF EXAM: Sep 11 2021 9:41AM WOX 5273 - XR WRIST 4V PA/LAT/OBL/SCAPH RT / PROCEDURE REASON: Pain of right hand * * * * Physician Interpretation * * * * CLINICAL INDICATION: Pain TECHNIQUE: 3 view radiographic study of the right hand and 4 view radiographic study of the right wrist COMPARISON: None FINDINGS: No acute fracture or dislocation identified. Mild remote posttraumatic bowing deformity of the fifth metacarpal. Joint spaces preserved. IMPRESSION: No radiographic evidence of acute osseous abnormality. Event Attendant: [facility] Transcribe Date/Time: Sep 11 2021 9:44A Dictated by : CARMENCITA MATOS MD This examination was interpreted and the report reviewed and electronically signed by: CARMENCITA MATOS MD on Sep 11 2021 9:46AM EST [id number] Normal [facility] XR Wrist - right 4 Viewson 0 09-11-2021 * * *Final Report* * * DATE OF EXAM: Sep 11 2021 9:41AM WOX 5273 - XR WRIST 4V PA/LAT/OBL/SCAPH RT / PROCEDURE REASON: Pain of right hand * * * * Physician Interpretation * * * * CLINICAL INDICATION: Pain TECHNIQUE: 3 view radiographic study of the right hand and 4 view radiographic study of the right wrist COMPARISON: None FINDINGS: No acute fracture or dislocation identified. Mild remote posttraumatic bowing deformity of the fifth metacarpal. Joint spaces preserved. ZZZ_DO_NOT_U _DIVISION OF RADIOLOGY Provider, [facility] - 09/11/2021 * * *Final Report* * * DATE OF EXAM: Sep 11 2021 9:41AM WOX 5273 - XR WRIST 4V PA/LAT/OBL/SCAPH RT / PROCEDURE REASON: Pain of right hand * * * * Physician Interpretation * * * * CLINICAL INDICATION: Pain TECHNIQUE: 3 view radiographic study of the right hand and 4 view radiographic study of the right wrist COMPARISON: None FINDINGS: No acute fracture or dislocation identified. Mild remote posttraumatic bowing deformity of the fifth metacarpal. Joint spaces preserved. IMPRESSION IMPRESSION: No radiographic evidence of acute osseous abnormality. Event Attendant: [facility] Transcribe Date/Time: Sep 11 2021 9:44A Dictated by : CARMENCITA MATOS MD This examination was interpreted and the report reviewed and electronically signed by: CARMENCITA MATOS MD on Sep 11 2021 9:46AM [facility] Absolute lymphocyte counton 08-14-2021 Lymphocytes Auto (Unsp spec) [#/Vol] 1.63 10*3/uL 0.83-4.51 [facility] Work Phone: Activated partial thrombopla stin time (aPTT) in platelet poor plasma by coagulation aon 08-14-2021 aPTT Coag (PPP) [Time] 34.5 s 24.1-36.2 Wo [facility] Work Phone: Basophil percentageon 2021 Basophils/100 WBC (Bld) 0.3 % 0-1 [facility] Work Phone: Chloride [Moles/Vol] 105 mmol/L 98-107 [facility] Work Phone: Eosinophils/100 WBC (Bld) 2.6 % 0-5 [facility] Work Phone: Glucose [Mass/Vol] 109 mg/dL 74-106 [facility] Work Phone: Comment on above: Fasting Glucose resu lt from 100 to 125 mg/dL suggests IMPAIRED HOMEOSTASIS per A.D.A. criteria. Neutrophils (Bld) [#/Vol] 7.5 10*3/uL 2.0-7.7 [facility] Work Phone: Neutrophils/100 WBC (Bld) 73.9 % 47-70 [facility] Work Phone: Potassium [Moles/Vol] 3.8 mmol/L 3.5-5.1 [facility] Work Phone: Sodium [Moles/Vol] 139 mmol/L 136-145 [facility] Work Phone: WBC (Bld) [#/Vol] 10.2 10*3/uL 4.4-11.0 [facility] Work Phone: Blood erythrocytes count (nu mber/volume)on 08-14-2021 RBC (Bld) [#/Vol] 3.79 10*6/uL 4.6-6.2 [facility] Work Phone: Blood hemoglobin measurement (mass/volume)on 08-14-2021 Hemoglobin (Bld) [Mass/Vol] 12.9 g/dL 13.0-16.5 [facility] Work Phone: Blood lymphocytes/100 leukoc yteson 08-14-2021 Lymphocytes/100 WBC (Bld) 15.9 % 19-41 [facility] Work Phone: Blood monocytes/100 leukocyt eson 08-14-2021 Monocytes/100 WBC (Bld) 6.9 % 0-10 [facility] Work Phone: Blood platelet mean volumeon 08-14-2021 Platelet mean volume (Bld) [Entitic vol] 12.3 fL 6.2-12.0 [facility] Work Phone: Tay 08-14-2021 CNOV Office Visit (UCWSTR ) AMMON BOWER ([id number]) 1980 M Date Time Provider Department 08/14/21 3:15 PM VICTOR HUGO GUERRERO UCWSTR During your visit today, we recorded the following information about you: Victor Hugo Guerrero PA-C 08/14/2021 3:16 PM Signed Patient presents with [facility] care triage with chest pain and back pain. He was seen in the ED 2 days ago for similar complaints and had a ct flank done which was unremarkable per patient and . He is in severe pain here, recommended he be seen again in the ED. His will take him there across the street to [facility] by personal vehicle. Referring Provider: SELF [200] Allergies As of Date: 08/14/2021 (No Known Allergies) Date Reviewed: 04/03/2021 Reviewed by: Galilea Jackson MA - Fully Assessed Primary Visit Diagnosis:Chest pain, unspecified type [R07.9] Prescriptions as of 08/14/2021 - cyclobenzaprine (FLEXERIL) 10 mg tablet Take 1 tablet by mouth three times daily as needed. - acetaminophen-codeine (TYLENOL-CODEINE #3) 300-30 mg per tablet Take 1 tablet by mouth every 4 hours as needed. Problem List As Of Date 08/14/2021 Noted Resolved DIVERTICULITIS OF COLON W/O BLEED [K57.32] 03/14/2007 ANEMIA NOS [D64.9] 03/14/2007 DIVERTICULOSIS OF COLON W/O BLEED [K57.30] ABDOMINAL PAIN RUQ [R10.11] 05/08/2007 Brachial neuritis or radiculitis NOS [M54.12] 01/25/2012 Cervicalgia [M54.2] 01/25/2012 Sterilization [Z30.2] 10/08/2014 Upper back pain on right side [M54.9] 07/13/2020 Radicular pain in right arm [M79.2] 07/13/2020 Encounter Status:Closed by VICTOR HUGO GUERRERO on 08/14/21 [facility] Determination of erythrocyte mean corpuscular volume (MCV)on 08-14-2021 MCV (RBC) [Entitic vol] 103.7 fL 80-94 [facility] Work Phone: Hematocrit Auto (Bld) [Volum e fraction]on 08-14-2021 Hematocrit (Bld) [Volume fraction] 39.3 % 40-54 [facility] Work Phone: INR in Blood by Coagulation assayon 08-14-2021 INR Coag (Bld) [Relative time] 1.1 {INR} [facility] Work Phone: Laboratory - Chemistry and C hemistry - challengeon 08-14-2021 CO2 [Moles/Vol] 32.0 mmol/L 21.0-32.0 [facility] Work Phone: Urea nitrogen/Creatinine [Mass ratio] 14.6 mg/mg 10-20 [facility] Work Phone: Laboratory - Coagulationon 0 08-14-2021 PT Coag (PPP) [Time] 13.3 s 11.7-14.9 [facility] Work Phone: Laboratory - Hematology and Cell countson 08-14-2021 Erythrocyte distribution width (RBC) [Entitic vol] 45.1 fL 35.1-43.9 [facility] Work Phone: Erythrocyte distribution width (RBC) [Ratio] 11.9 % 11.6-14.6 [facility] Work Phone: Immature granulocytes/100 WBC (Bld) 0.400 % 0.0-0.9 [facility] Work Phone: Comment on above: IG% - Immature Granu locytes (promyelocytes, myelocytes and metamyelocytes) > 1% indicates that a LEFT SHIFT is Present. MCH (RBC) [Entitic mass] 34.0 pg 27.0-32.0 [facility] Work Phone: [phone] Nucleated RBC/100 WBC (Bld) [Ratio] 0 % 0-5 [facility] Work Phone: [phone] MCHC Auto (RBC) [Mass/Vol]on 08-14-2021 MCHC (RBC) [Mass/Vol] 32.8 g/dL 32-36 [facility] Work Phone: [phone] No Panel Informationon 08-14 Troponin I High Sensitivity < 3 pg/mL 3.0-78.0 [facility] Work Phone: Comment on above: Please Note: New Leidy t Units and Gender Specific Reference Ranges. For more information see Policy Stat Procedure [place] High Sensitivity Troponin (TNIH) and attachments. D-Dimer Quantitative (PE/DVT) 1.13 FEU/ug/m 0.27-0.49 [facility] Work Phone: [phone] Comment on above: D-Dimer ELEVATED (>0 .49): Additional studies and clinicalassessments are indicated to conclude diagnosis of:Deep Vein Thrombosis (DVT) or Pulmonary Embolism (PE)CRITICAL VALUE VERIFIED. CALLED TO CAMILA RONDON08/14/21 1723 Nick Alcazar.RESULTS READ BACK BY SAME . Estimated Creatinine Clearance Calc 102.55 ml/min [facility] Work Phone: [phone] Estimated GFR (MDRD) Amer 102 mL/min >60 [facility] Work Phone: [phone] Comment on above: GFR Calc Estimated GFR (MDRD) Non-Af Amer 84 mL/min >60 [facility] Work Phone: [phone] Comment on above: Non- GFR Calc Platelets bldon 08-14-2021 Platelets (Bld) [#/Vol] 252 10*3/uL 150-450 [facility] Work Phone: [phone] Serum or plasma calcium klarissa urement (mass/volume)on 08-14-2021 Calcium [Mass/Vol] 9.2 mg/dL 8.5-10.1 [facility] Work Phone: Serum or plasma creatinine m easurement (mass/volume)on 08-14-2021 Creatinine [Mass/Vol] 1.03 mg/dL 0.70-1.30 [facility] Work Phone: Comment on above: The validity of the calculated GFR & GFRAA in patients over 70 years has not been determined. Clinical correlation is essential. Serum or plasma urea nitroge n measurement (mass/volume)on 08-14-2021 Urea nitrogen [Mass/Vol] 15 mg/dL 7-18 [facility] Work Phone: Thin prep Papanicolaou smear with manual screeningon 08-14-2021 Thin prep Papanicolaou smear with manual screening 2 5-15 [facility] Work Phone: Absolute lymphocyte counton 08-12-2021 Lymphocytes Auto (Unsp spec) [#/Vol] 2.65 10*3/uL 0.83-4.51 [facility] Work Phone: Basophil percentageon 2021 Basophil percentage 0-5 SEEN /hpf [facility] Work Phone: Basophils/100 WBC (Bld) 0.7 % 0-1 [facility] Work Phone: Bilirubin [Mass/Vol] 0.90 mg/dL 0.20-1.00 [facility] Work Phone: Comment on above: For patients on eltr ombopag therapy, use of Dimension [place] TBIL is not recommended. Chloride [Moles/Vol] 106 mmol/L 98-107 [facility] Work Phone: Eosinophils/100 WBC (Bld) 5.4 % 0-5 [facility] Work Phone: Glucose [Mass/Vol] 112 mg/dL 74-106 [facility] Work Phone: Comment on above: Fasting Glucose resu lt from 100 to 125 mg/dL suggests IMPAIRED HOMEOSTASIS per A.D.A. criteria. Neutrophils (Bld) [#/Vol] 5.2 10*3/uL 2.0-7.7 [facility] Work Phone: Neutrophils/100 WBC (Bld) 56.2 % 47-70 [facility] Work Phone: Potassium [Moles/Vol] 3.9 mmol/L 3.5-5.1 [facility] Work Phone: Protein [Mass/Vol] 7.9 g/dL 6.4-8.2 [facility] Work Phone: Sodium [Moles/Vol] 140 mmol/L 136-145 [facility] Work Phone: WBC (Bld) [#/Vol] 9.2 10*3/uL 4.4-11.0 [facility] Work Phone: [phone] Bilirubin Test strip Ql (U)o n 08-12-2021 Bilirubin Ql (U) Negative Negative [facility] Work Phone: Blood erythrocytes count (nu mber/volume)on 08-12-2021 RBC (Bld) [#/Vol] 3.98 10*6/uL 4.6-6.2 [facility] Work Phone: Blood hemoglobin measurement (mass/volume)on 08-12-2021 Hemoglobin (Bld) [Mass/Vol] 13.4 g/dL 13.0-16.5 [facility] Work Phone: Blood lymphocytes/100 leukoc yteson 08-12-2021 Lymphocytes/100 WBC (Bld) 28.8 % 19-41 [facility] Work Phone: Blood manual differential co mment interpretation (narrative result)on 08-12-2021 Manual differential comment Luis (Bld) [Interp] SCANNED [facility] Work Phone: Comment on above: AUTO DIFF OK Blood monocytes/100 leukocyt eson 08-12-2021 Monocytes/100 WBC (Bld) 8.4 % 0-10 [facility] Work Phone: Blood platelet mean volumeon 08-12-2021 Platelet mean volume (Bld) [Entitic vol] 11.5 fL 6.2-12.0 [facility] Work Phone: Determination of erythrocyte mean corpuscular volume (MCV)on 08-12-2021 MCV (RBC) [Entitic vol] 101.8 fL 80-94 [facility] Work Phone: Hematocrit Auto (Bld) [Volum e fraction]on 08-12-2021 Hematocrit (Bld) [Volume fraction] 40.5 % 40-54 [facility] Work Phone: Hyaline casts LM.LPF (Urine sed) [#/Area]on 08-12-2021 Hyaline casts (Urine sed) [#/Area] 0 /[LPF] [facility] Work Phone: Ketones Test strip Ql (U)on 08-12-2021 Ketones Ql (U) Negative Negative [facility] Work Phone: Laboratory - Chemistry and C hemistry - challengeon 08-12-2021 ALP [Catalytic activity/Vol] 94 U/L 45-117 [facility] Work Phone: ALT [Catalytic activity/Vol] 34 U/L 16-61 [facility] Work Phone: CO2 [Moles/Vol] 32.0 mmol/L 21.0-32.0 [facility] Work Phone: Globulin (S) [Mass/Vol] 3.8 g/dL 2.2-4.2 [facility] Work Phone: Lipase [Catalytic activity/Vol] 193 U/L 73-393 [facility] Work Phone: Urea nitrogen/Creatinine [Mass ratio] 12.3 mg/mg 10-20 [facility] Work Phone: Laboratory - Hematology and Cell countson 08-12-2021 Erythrocyte distribution width (RBC) [Entitic vol] 45.6 fL 35.1-43.9 [facility] Work Phone: Erythrocyte distribution width (RBC) [Ratio] 12.0 % 11.6-14.6 [facility] Work Phone: [phone] Immature granulocytes/100 WBC (Bld) 0.500 % 0.0-0.9 [facility] Work Phone: [phone] Comment on above: IG% - Immature Granu locytes (promyelocytes, myelocytes and metamyelocytes) > 1% indicates that a LEFT SHIFT is Present. MCH (RBC) [Entitic mass] 33.7 pg 27.0-32.0 [facility] Work Phone: [phone] Nucleated RBC/100 WBC (Bld) [Ratio] 0 % 0-5 [facility] Work Phone: [phone] MCHC Auto (RBC) [Mass/Vol]on 08-12-2021 MCHC (RBC) [Mass/Vol] 33.1 g/dL 32-36 [facility] Work Phone: [phone] Mucus LM Ql (Urine sed)on Mucus Ql (Urine sed) 0 SEEN /hpf [facility] Work Phone: [phone] Nitrite Test strip Ql (U)on 08-12-2021 Nitrite Ql (U) Negative Negative [facility] Work Phone: [phone] No Panel Informationon 08-12 Estimated Creatinine Clearance Calc 92.65 ml/min [facility] Work Phone: [phone] Estimated GFR (MDRD) Amer 90 mL/min >60 [facility] Work Phone: [phone] Comment on above: GFR Calc Estimated GFR (MDRD) Non-Af Amer 75 mL/min >60 [facility] Work Phone: [phone] Comment on above: Non- GFR Calc Platelets bldon 08-12-2021 Platelets (Bld) [#/Vol] 285 10*3/uL 150-450 [facility] Work Phone: [phone] Protein Test strip Ql (U)on 08-12-2021 Protein Ql (U) Negative Negative [facility] Work Phone: [phone] Serum or plasma albumin klarissa urement (mass/volume)on 08-12-2021 Albumin [Mass/Vol] 4.1 g/dL 3.2-5.0 [facility] Work Phone: Serum or plasma albumin/glob ulin mass ratioon 08-12-2021 Albumin/Globulin [Mass ratio] 1.1 {ratio} 0.9-2.4 [facility] Work Phone: Serum or plasma calcium klarissa urement (mass/volume)on 08-12-2021 Calcium [Mass/Vol] 9.3 mg/dL 8.5-10.1 [facility] Work Phone: [phone] Serum or plasma creatinine m easurement (mass/volume)on 08-12-2021 Creatinine [Mass/Vol] 1.14 mg/dL 0.70-1.30 [facility] Work Phone: Comment on above: The validity of the calculated GFR & GFRAA in patients over 70 years has not been determined. Clinical correlation is essential. Serum or plasma urea nitroge n measurement (mass/volume)on 08-12-2021 Urea nitrogen [Mass/Vol] 14 mg/dL 7-18 [facility] Work Phone: Squamous epithelial cells de tection in urine sediment by light microscopyon 08-12-2021 Epithelial cells.squamous LM Ql (Urine sed) 0-5 SEEN /hpf [facility] Work Phone: Thin prep Papanicolaou smear with manual screeningon 08-12-2021 Thin prep Papanicolaou smear with manual screening 14 U/L 15-37 [facility] Work Phone: [phone] Thin prep Papanicolaou smear with manual screening 2 5-15 [facility] Work Phone: Urine blood detectionon RBC Ql (U) Negative Negative [facility] Work Phone: [phone] RBC Ql (U) 0 SEEN /hpf [facility] Work Phone: Urine clarityon 08-12-2021 Clarity (U) Clear Clear [facility] Work Phone: Urine color determinationon 08-12-2021 Color (U) Yellow Yellow [facility] Work Phone: Urine glucose detectionon Glucose Ql (U) Normal mg/dl Normal [facility] Work Phone: Urine leukocyte esterase det ection by dipstickon 08-12-2021 Leukocyte esterase Test strip Ql (U) 25 /ul Negative [facility] Work Phone: Urine pHon 08-12-2021 pH (U) 5.0 [pH] [facility] Work Phone: Urine sediment bacteria coun t by microscopy (number/high power field)on 08-12-2021 Bacteria LM.HPF (Urine sed) [#/Area] 0 /[HPF] None Seen [facility] Work Phone: Urine specific gravity measu rementon 08-12-2021 Specific gravity (U) [Rel density] 1.020 [facility] Work Phone: Urobilinogen Auto test strip Ql (U)on 08-12-2021 Urobilinogen Ql (U) Normal mg/dl Normal [facility] Work Phone: XR Cervical spine AP and Lat eral and obliqueon 07-04-2020 IMPRESSION: Mild spondylosis of the cervical spine. Event Attendant: ANNA Transcribe Date/Time: Jul 04 2020 3:06P Dictated by : CAPO STRICKLAND MD This examination was interpreted and the report reviewed and electronically signed by: CAPO STRICKLAND MD on Jul 04 2020 3:07PM [facility] DIVISION OF RADIOLOGY * * *Final Report* * * DATE OF EXAM: Jul 04 2020 11:21AM WOX 5311 - XR CERVICAL 4V AP/LAT/OBL / PROCEDURE REASON: multiple diagnoses * * * * Physician Interpretation * * * * Cervical spine radiographs HISTORY: 39 years old Clinical information: Upper back pain on right side Radicular pain in right arm upper back, right shoulder, and neck pain after lifting a trashcan 1 week ago TECHNIQUE: Images: XR CERVICAL 4V AP/LAT/OBL Comparison: Upper back pain on right side Radicular pain in right arm. RESULT: Findings: No gross malalignment. Endplate osteophytes at multiple levels in the cervical spine. No fracture. No neural foraminal stenosis. The prevertebral soft tissues are within normal limits. Imaged lung apices are clear. DIVISION OF RADIOLOGY Provider, Luciano Connolly - 07/04/2020 * * *Final Report* * * DATE OF EXAM: Jul 04 2020 11:21AM WOX 5311 - XR CERVICAL 4V AP/LAT/OBL / PROCEDURE REASON: multiple diagnoses * * * * Physician Interpretation * * * * Cervical spine radiographs HISTORY: 39 years old Clinical information: Upper back pain on right side Radicular pain in right arm upper back, right shoulder, and neck pain after lifting a trashcan 1 week ago TECHNIQUE: Images: XR CERVICAL 4V AP/LAT/OBL Comparison: Upper back pain on right side Radicular pain in right arm. RESULT: Findings: No gross malalignment. Endplate osteophytes at multiple levels in the cervical spine. No fracture. No neural foraminal stenosis. The prevertebral soft tissues are within normal limits. Imaged lung apices are clear. IMPRESSION IMPRESSION: Mild spondylosis of the cervical spine. Event Attendant: PSCB Transcribe Date/Time: Jul 04 2020 3:06P Dictated by : CAPO STRICKLAND MD This examination was interpreted and the report reviewed and electronically signed by: CAPO STRICKLAND MD on Jul 04 2020 3:07PM EST [facility] Radiology Study observation (narrative) [facility] XR Cervical spine AP and Lat eral and obliqueOrdered By: Ccf Provider on 07-04-[address] [facility] Vital Signs Date Time Vital Sign Value Performing Clinician Facility 06-17-2023 09:13-0500 Body height 182.[address] Jass Ching Work Phone: [facility] 06-17-2023 09:130500 Body mass index (BMI) [Ratio] 24.5 kg/m2 Dr. Jass Ching Work Phone: [facility] 06-17-2023 09:13-0500 Body temperature 97.4 [degF] Dr. Jass Ching Work Phone: [facility] 06-17-2023 09:13-0500 Body weight 82.[address] Jass Ching Work Phone: [facility] 06-17-2023 09:13-0500 Diastolic blood pressure 80 mm[Hg] Dr. Jass Ching Work Phone: [facility] 06-17-2023 09:13-0500 Heart rate 87 /min Dr. Jass Ching Work Phone: [facility] 06-17-2023 09:13-0500 Respiratory rate 16 /min Dr. Jass Ching Work Phone: [facility] 06-17-2023 09:13-0500 SaO2% (BldA) [Mass fraction] 97 % Dr. Jass Ching Work Phone: [facility] 06-17-2023 09:13-0500 Systolic blood pressure 138 mm[Hg] Dr. Jass Ching Work Phone: [facility] 05-10-2023 13:31-0500 Body mass index (BMI) [Ratio] 24.8 kg/m2 Dr. Jass Ching Work Phone: [facility] 05-10-2023 13:31-0500 Body temperature 98 [degF] Dr. Jass Ching Work Phone: [facility] 05-10-2023 13:31-0500 Body weight [address] Jass Ching Work Phone: [facility] 05-10-2023 13:31-0500 Diastolic blood pressure 78 mm[Hg] Dr. Jass Ching Work Phone: [facility] 05-10-2023 13:31-0500 Heart rate 87 /min Dr. Jass Ching Work Phone: [facility] 05-10-2023 13:31-0500 Respiratory rate 16 /min Dr. Jass Ching Work Phone: [facility] 05-10-2023 13:31-0500 SaO2% (BldA) [Mass fraction] 97 % Dr. Jass Ching Work Phone: [facility] 05-10-2023 13:31-0500 Systolic blood pressure 118 mm[Hg] Dr. Jass Ching Work Phone: [facility] 07-05-2022 08:57-0500 Body temperature 98.71 [degF] Hugo Melara GUEST SERVICES OFFICER.INSTALLATION COORDINATOR Work Phone: [facility] 07-05-2022 08:57-0500 Body weight 77.38 kg Hugo Melara GUEST SERVICES OFFICER.INSTALLATION COORDINATOR Work Phone: [facility] 07-05-2022 08:57-0500 Diastolic blood pressure 66 mm[Hg] Hugo Melara GUEST SERVICES OFFICER.INSTALLATION COORDINATOR Work Phone: [facility] 07-05-2022 08:57-0500 Heart rate 78 /min Hugo Kelton GUEST SERVICES OFFICER.INSTALLATION COORDINATOR Work Phone: [facility] 07-05-2022 08:57-0500 Respiratory rate 16 /min Hugo Kelton GUEST SERVICES OFFICER.INSTALLATION COORDINATOR Work Phone: [facility] 07-05-2022 08:57-0500 SaO2% (BldA) [Mass fraction] 100 % Hugo Melara GUEST SERVICES OFFICER.INSTALLATION COORDINATOR Work Phone: [facility] 07-05-2022 08:57-0500 Systolic blood pressure 122 mm[Hg] Hugo Melara GUEST SERVICES OFFICER.INSTALLATION COORDINATOR Work Phone: [facility] 09-11-2021 08:57-0400 Body temperature 97.7 [degF] Leigha Nelson APRN.INSTALLATION COORDINATOR Work Phone: [facility] 09-11-2021 08:57-0400 Body weight 77.84 kg Leigha Nelson GUEST SERVICES OFFICER.INSTALLATION COORDINATOR Work Phone: [facility] 09-11-2021 08:57-0400 Diastolic blood pressure 70 mm[Hg] Leigha Nelson APRN.INSTALLATION COORDINATOR Work Phone: [facility] 09-11-2021 08:57-0400 Heart rate 76 /min Leigha Nelson APRN.INSTALLATION COORDINATOR Work Phone: [facility] 09-11-2021 08:57-0400 Respiratory rate 16 /min Leigha Nelson APRN.INSTALLATION COORDINATOR Work Phone: [facility] 09-11-2021 08:57-0400 SaO2% (BldA) [Mass fraction] 98 % Leigha Nelson APRN.INSTALLATION COORDINATOR Work Phone: [facility] 09-11-2021 08:57-0400 Systolic blood pressure 126 mm[Hg] Leigha Nelson APRN.INSTALLATION COORDINATOR Work Phone: [facility] 08-14-2021 19:29-0400 Diastolic blood pressure 73 mm[Hg] [facility] Work Phone: 08-14-2021 19:29-0400 Heart rate 86 /min [facility] Work Phone: 08-14-2021 19:29-0400 Respiratory rate 23 /min [facility] Work Phone: 08-14-2021 19:29-0400 SaO2% (BldA) [Mass fraction] 98 % [facility] Work Phone: 08-14-2021 19:29-0400 Systolic blood pressure 135 mm[Hg] [facility] Work Phone: 08-14-2021 15:21-0400 Body height 182.88 cm [facility] Work Phone: 08-14-2021 15:21-0400 Body mass index (BMI) [Ratio] 23.7 kg/m2 [facility] Work Phone: 08-14-2021 15:21-0400 Body temperature 98.8 [degF] [facility] Work Phone: 08-14-2021 15:21-0400 Body weight 79.37 kg [facility] Work Phone: 08-12-2021 20:31-0400 Heart rate 74 /min [facility] Work Phone: 08-12-2021 20:31-0400 Respiratory rate 18 /min [facility] Work Phone: 08-12-2021 18:14-0400 Body height 182.88 cm [facility] Work Phone: 08-12-2021 18:14-0400 Body mass index (BMI) [Ratio] 23.7 kg/m2 [facility] Work Phone: 08-12-2021 18:14-0400 Body temperature 98.5 [degF] [facility] Work Phone: 08-12-2021 18:14-0400 Body weight 79.37 kg [facility] Work Phone: 08-12-2021 18:14-0400 Diastolic blood pressure 88 mm[Hg] [facility] Work Phone: 08-12-2021 18:14-0400 SaO2% (BldA) [Mass fraction] 98 % [facility] Work Phone: 08-12-2021 18:14-0400 Systolic blood pressure 131 mm[Hg] [facility] Work Phone: Encounters Encounter Date Encounter Type Care Provider Facility Start: 06-01-2024 End: 06-01-2024 ambulatory [facility] Facility:[facility] Start: 05-01-2024 Encounter for genera l adult medical examination without abnormal findings [facility] Start: 03-26-2024 ambulatory Lorin Melara Facility:[facility] Start: 03-20-2024 End: 03-20-2024 ambulatory [facility] Facility:[facility] Start: 03-20-2024 End: 03-20-2024 ambulatory [facility] Facility:[facility] Start: 01-27-2024 ambulatory Jass Ching Facili ty:[facility] Start: 06-17-2023 End: 06-17-[address] Jass Ching Work Phone: [facility] Work Phone: Start: 06-17-2023 End: 06-17-[address] Jass Ching Work Phone: [facility] Work Phone: Start: 06-17-2023 End: 06-17-[facility] Start: 05-10-2023 End: 05-10-[address] Jass Ching Work Phone: [facility] Work Phone: Start: 07-05-2022 End: 07-05-2022 ambulatory [facility] Facility:[facility] Start: 07-05-2022 End: 07-05-2022 Patient encounter procedure Hugo Melara APRN.INSTALLATION COORDINATOR Work Phone: [facility] Comment on above: URI, acute (Primary Dx); Throat pain; Streptococcus exposure Start: 12-27-2021 End: 12-27-2021 ambulatory [facility] Tony DENTON Facility:[facility] Start: 10-16-[address] Jass Ching Work Phone: [facility] Start: 09-11-2021 End: 09-11-2021 ambulatory LEIGHA LESLIE Facility:[facility] Start: 09-11-2021 End: 09-11-2021 Subsequent hospital visit by physician Ayah [facility] Work Phone: Radiology Comment on above: Pain of right hand [ M79.641] Start: 09-11-2021 End: 09-11-2021 Patient encounter procedure Leigha Nelson APRN.INSTALLATION COORDINATOR Work Phone: [facility] Comment on above: Pain of right hand ( Primary Dx) Start: 08-14-2021 End: 08-14-2021 ambulatory KIRA PARISH Facility:[facility] Start: 08-14-2021 End: 08-14-2021 [facility] Start: 08-14-2021 End: 08-14-2021 Patient encounter procedure Victor Hugo Guerrero PA-C Work Phone: [facility] Comment on above: Chest pain, unspecif ied type (Primary Dx) Start: 08-12-2021 End: 08-12-2021 [facility] Start: 07-04-2020 End: 07-04-2020 Subsequent hospital visit by physician Xr [facility] Work Phone: Radiology Comment on above: Upper back pain on r ight side [M54.9] Procedures Date Procedure Procedure Detail Performing Clinician Start: 06-17-2023 X-ray of lumbosacral spine Dr. Jass Ching Work Phone: Start: 07-05-2022 STREP A MOLECULAR (POC) Hugo Melara APRN.INSTALLATION COORDINATOR Work Phone: Start: 09-11-2021 Radex hand minimum 3 views Leigha Nelson APRN.INSTALLATION COORDINATOR Work Phone: Start: 08-14-2021 CT angiography of ch est with contrast Start: 08-14-2021 Plain chest X-ray Start: 08-12-2021 CT of abdomen and pe lvis without contrast Start: 07-04-2020 Radex spine cervical 4 or 5 views Matthieu Clark MD Work Phone: Start: 12-21-2015 Colonoscopy Victor Hugo Guerrero PA-C Work Phone: Plan of Treatment Date Care Activity Detail Author Start: 12-20-2025 Colonoscopy COLONOSCOPY [facility] Start: 12-20-2025 COLORECTAL CANCER SCREENING COLORECTAL CANCER SCREENING [facility] Start: 12-20-2025 Screening for malign ant neoplasm of colon [facility] Start: 01-05-2024 Covid-19 Vaccine ( season) Covid-19 Vaccine ( season) [facility] Start: 01-05-2024 Influenza vaccination Influenza Vacc ine (#1) [facility] Start: 12-30-2023 Diabetes Screening Diabetes Screenin g [facility] Start: 12-30-2023 Screening for malign ant neoplasm of colon [facility] Start: 05-06-2022 DEPRESSION ASSESSMENT DEPRESSION ASS ESSMENT [facility] Start: 01-04-2022 Influenza vaccination INFLUENZ A (Season Ended) [facility] Start: 03-04-2021 COVID-19 VACCINE (3 - Booster for Pfizer series) COVID-19 VACCINE (3 - Booster for Pfizer series) [facility] Start: 07-29-2016 Urine microalbumin profile [facility] Start: 2013 Lipid panel Lipid Screening [facility] Start: 2013 LIPID SCREEN LIPID SCREEN [facility] Start: 1997 Hepatitis B Vaccine (1 of 3 - 19+ 3-dose series) Hepatitis B Vaccine (1 of 3 - 19+ 3-dose series) [facility] Start: 1996 Anxiety Screening Anxiety Screening [facility] Start: 1996 Depression Screening Depression Scre ening [facility] Start: 1996 HEPATITIS C SCREENING HEPATITIS C [facility] Start: 1996 Hepatitis C screening Hepatitis C [facility] Start: 1996 HIV SCREENING HIV SCREENING [facility] Start: 1996 HIV screening HIV Screening [facility] Start: 1990 Adult depression screening assessment DEPRESSION SCREENING [facility] Start: 1978 HEPATITIS B (1 of 3 - 3-dose series) HEPATITIS B (1 of 3 - 3-dose series) [facility] Patient Education [facility] Work Phone: Patient referral [facility] Work Phone: Immunizations Immunization Date Immunization Notes Care Provider Tianna knowles 01-24-2023 influenza, injectabl e, quadrivalent, preservative free Dr. Jass Ching Work Phone: [facility] 04-11-2022 influenza virus vaccine, unspecified formulation [facility] Work Phone: [facility] 10-02-2020 COVID-19 vaccine, ag e 12+ yr (PFIZER-BIONTECH - PURPLE TOP) Victor Hugo Guerrero PA-C Work Phone: [facility] 09-11-2020 COVID-19 vaccine, ag e 12+ yr (PFIZER-BIONTECH - PURPLE TOP) Victor Hugo Guerrero PA-C Work Phone: [facility] 07-29-2006 diphtheria and tetan us toxoids, adsorbed for pediatric use Victor Hugo Guerrero PA-C Work Phone: [facility] Work Phone: Payers Date Payer Category Payer Private Health Insurance [id number] 2023 Private Health Insurance [id number] 2023 Self-pay [id number] 2021 Private Health Insurance [id number] 2021 Private Health Insurance AETNA A ETNA CHOICE POS II [id number] 2021-Present [phone] [address] [place] [address] POS [id number] 2021 Private Health Insurance 1.2 [id number] 2021 Unknown [employer] BLUE CARD PPO OOS [id number] 2021-Present [phone] [address] [place] [address] PPO [id number] 2021 Unknown [id number] 2014 Medicaid [employer] [facility] [id number] 2014-Present [phone] [address] [place] [address] Medicaid [id number] 2014 Medicaid [id number] 2014 Unknown [id number] Unknown [id number] Unknown [id number] Unknown [id number] Unknown [id number] Unknown [id number] Unknown [id number] Unknown [id number] Unknown [id number] Social History Date Type Detail Facility Start: 08-12-2021 End: 06-17-2023 Tobacco smoking status [facility] Unknown if ever smoked [facility] Start: 1980 Sex Assigned At Male [facility] Start: 12-13-2015 End: 07-04-2020 Tobacco smoking status [facility] Ex-smoker [facility] End: 11-22-2015 History of tobacco use Current smoker [facility] Start: 12-13-2015 End: 07-04-2020 Tobacco use and exposure Smokeless tobacco non-user [facility] Start: 07-04-2020 End: 04-03-2021 Alcohol intake Current drinker of alcohol (finding) [facility] Start: 08-24-2014 History SDOH Alcohol Comment socially [facility] Start: 1980 Sex Assigned At Not on file [facility] Start: 06-04-2020 End: 09-11-2021 Exposure to SARS-CoV-2 (event) Not sure [facility] Work Phone: End: 11-22-2015 History of tobacco use Cigarette Smoker [facility] Start: 07-04-2020 End: 09-11-2021 History of Social function [facility] Start: 07-04-2020 End: 09-11-2021 Tobacco use panel [facility] National Score (1-100), lower number is lower risk Not on file [facility] Mental Status Date Assessment Result Facility 08-14-2021 Cognitive function Awake;Alert;A ppropriate;Fol lows Commands [facility] Work Phone: Clinical Notes 07-04-2020 to 06-01-2024 Hugo Melara APRN.INSTALLATION COORDINATOR - 07/05/2022 9:30 AM ESTPatient InstructionsDaRachelle curtis, RT(R) - 09/11/2021 9:30 AM EDTLeigha Nelson APRN.INSTALLATION COORDINATOR - 09/11/2021 9:11 AM EDT Note Date & Type Note Facility 06-01-2024 Note [facility] Medical Records Department [address] [place] [address] History Physical Exam 06/01/24 0956 MR#: [id number] Acct: [id number] Name: AMMON BOWER Rep #: [id number] : 1980 43 From: Kentrell Friend DO PCP: Dr. Jass Ching MD Status:[facility] Location: [place] [address] HPI - General General Date of Admission: 06/01/24 Date of Service: 06/01/24 Chief Complaint: Screening colonoscopy HPI Niyah BOWER, is a 43 M who presents today for screening colonoscopy. He is not having any abdominal pain, cramping, chest pain or shortness of breath. He does not take any medicines on daily basis. Overall he is in very good health. [facility] Medical History Eczema Former smoker Blood glucose elevated Colon cancer screening Arthritis Low back pain Anemia Encounter to establish care Preventative health care History of pneumonia Seasonal allergies Alcohol abuse Home Medications ???Medication ???Instructions ???Recorded ???Last Taken ???Type cholecalciferol (vitamin D3) 50 50 mcg PO DAILY 09/28/21 Unknown History mcg (2,000 unit) capsule Allergy/AdvReac Type Severity Reaction Status Date / Time tomato Allergy Hives Verified 06/01/24 09:55 Family History Unknown Colon polyps Father Pancreatic cancer Other Cancer Diabetes Hypertension Surgical History History of wisdom tooth extraction Hx of colonoscopy Social History household members: spouse current occupational status: employed Smoking Status: Former smoker alcohol intake: current substance use type: does not use what type of physical activity do you participate in: none ROS Constitutional Constitutional: Denies fatigue, fever(s), poor appetite, weight gain or weight loss Gastrointestinal Gastrointestinal: Denies belching, bloating, change in bowel habits, change in stool character, chewing difficulty, coffee ground emesis, constipation, cramping, diarrhea, dyspepsia, dysphagia, early satiety, excessive flatus, fecal incontinence, heartburn, hematemesis, hematochezia, hemorrhoids, loose stools, melena, nausea, odynophagia, rectal bleeding, tenesmus, vomiting or weight changes Assessment Plan Assessment/Plan (1) Colon cancer screening: PLAN: He was explained alternatives, risk and benefits including not withstanding bleeding, infection, sepsis, perforation, need for emergent urgent . He will have an ASA of 3. 06/01/24 0957 Cosigner Signature (if applicable): CC: Dr. Jass Ching MD; Kentrell Isbell DO Signed [facility] 07-05-2022 Note HNO ID: [id number] Author: Hugo Melara APRN.INSTALLATION COORDINATOR Service: ? Author Type: Nurse Practitioner Type: [...] As above - STREP A MOLECULAR (POC) Hugo Melara APRN.[facility] 07-05-2022 History of Presen t illness [...] As above - STREP A MOLECULAR (POC) Hugo Melara APRN.YAMINI documented in this encounter [facility] 09-11-2021 Note HNO ID: [id number] Author: RT Yifan(R) Service: Nuclear Medicine Author [...] RT Yifan(R) September 11, 2021 9:33 AM [facility] 09-11-2021 Note HNO ID: [id number] Author: Leigha Nelson APRN.INSTALLATION COORDINATOR Service: ? Author Type: Nurse Practitioner Type: Progress Notes Filed: 09/11/2021 9:57 AM Note Text: Subjective The history is provided by the patient. No sign language translator was used. Hand Injury ROS Objective Physical [...] radiographic evidence of acute osseous abnormality. ? Event Attendant: ANNA Transcribe Date/Time: Sep 11 2021 9:44A ? [...] radiographic evidence of acute osseous abnormality. ? Event Attendant: PSCB Transcribe Date/Time: Sep 11 2021 9:44A ? Dictated by : CARMENCITA MATOS MD Patient instructed to rest, ice and alternate ibuprofen and tylenol. patient instructed to give it several more days and follow up with PCP if it does not seem to be getting better. Patient was okay with this care plan. Leigha Nelson APRN.CNP [facility] 09-11-2021 Instructions Leigha Nelson APRN.YAMINI - 09/11/2021 9:55 AM EDT - RICE therapy - see patient instructions for further recommendations. - F/U with PCP in 5-7 days or before if worse. - Discussed Red Flag signs and when to go to ER. - Reviewed plan of care and DC papers with patient. Verbalized understanding. documented in this encounter [facility] 09-11-2021 History of Presen t illness Narrative Radiology Service Progress Note PATIENT NAME: Ammon [...] RT Yifan(R) September 11, 2021 9:33 AM documented in this encounter [facility] 09-11-2021 History of Presen t illness Narrative Subjective The history is provided by the patient. No sign language translator was used. Hand Injury ROS Objective Physical [...] No radiographic evidence of acute osseous abnormality. Event Attendant: ANNA Transcribe Date/Time: Sep 11 2021 9:44A Dictated by : CARMENCITA MATOS MD TECHNIQUE: 3 view radiographic study of the right hand and 4 view radiographic study of the right wrist COMPARISON: None FINDINGS: No acute fracture or dislocation identified. Mild remote posttraumatic bowing deformity of the fifth metacarpal. Joint spaces preserved. IMPRESSION IMPRESSION: No radiographic evidence of acute osseous abnormality. Event Attendant: [facility] Transcribe Date/Time: Sep 11 2021 9:44A Dictated by : CARMENCITA MATOS MD Patient instructed to rest, ice and alternate ibuprofen and tylenol. patient instructed to give it several more days and follow up with PCP if it does not seem to be getting better. Patient was okay with this care plan. Leigha Nelson APRN.YAMINI documented in this encounter [facility] 08-14-2021 Note HNO ID: [id number] Author: Victor Hugo Guerrero PA-C Service: ? Author Type: Physician Seamer Type: Progress Notes Filed: 08/14/2021 3:16 PM [...] take him there across the street to [facility] by personal vehicle. [facility] 08-14-2021 History of Presen t illness Narrative [...] take him there across the street to [facility] by personal vehicle. documented in this encounter [facility] 07-04-2020 History of Presen t illness Narrative Radiology Service Progress Note PATIENT NAME: Ammon Bower DATE OF SERVICE: July 04, 2020 TIME: 11:04 AM PATIENT IDENTITY VERIFICATION COMPLETED USING TWO (2) IDENTIFIERS: Name and Date of confirmed by patient verbally. FALL SCREENING: Has the patient had 2 falls in the last year or 1 fall with injury or currently using an Ambulatory Assistive Device (Walker, Cane, Wheelchair, Crutches, etc.)? No PATIENT GENDER DATA: Male PATIENT RELEVANT IMPLANT DATA REVIEWED: Not Applicable RADIOLOGY DEPARTMENT: General X-ray: Exam(s) Completed: Spine X-Ray(s): Cervical AP / LAT / OBL PERIPHERAL IV DATA: Not applicable SIGNED BY: RT Bernardo July 04, 2020 11:04 AM documented in this encounter [facility] Evaluation note No assessment inform ation available [facility] Work Phone: Evaluation note Diagnosis Chest pain, unspecified type- Primary [facility] Diagnosis Pain of right hand- Primary Pain in limb [facility] Diagnosis URI, acute- Primary Acute upper respiratory infections of unspecified site Throat pain Streptococcus exposure Contact with or exposure to other communicable diseases documented [facility] Diagnosis Onset Date Resolution Status Back pain acute SI (sacroiliac) joint inflammation acute Arthritis acute Low back pain chronic [facility] Work Phone: Evaluation note* Diagnosis Pain of right hand Pain in limb [facility] Diagnosis Upper back pain on right side Pain in thoracic spine Radicular pain in right arm Neuralgia, neuritis, and radiculitis, unspecified [facility] Diagnostic Procedure Only (Urgent) - Closed Specialty Diagnoses / Procedures Referred By Contac t Referred To Contact XR IMAGING Diagnoses Pain of right hand Procedures XR WRIST INJURY 4V PA/LAT/OBL/SCAPH RIGHT RADEX WRIST COMPLETE MINIMUM 3 VIEWS Leigha Nelson APRN.INSTALLATION COORDINATOR [address] [place] [address] Xr Imaging Referral ID Status Reason Start Date Expiration Date V isits Requested Visits Authorized [id number] Closed Auto-Generate d Referral 09/11/2021 10/11/2022 1 1 * Diagnostic Procedure Only (Urgent) - Closed Specialty Diagnoses / Procedures Referred By Contac t Referred To Contact XR IMAGING Diagnoses Pain of right hand Procedures XR HAND GENERAL 3V PA/LAT/OBL RIGHT RADEX HAND MINIMUM 3 VIEWS Leigha Nelson APRN.CNP [address] [place] [address] Xr Imaging Referral ID Status Reason Start Date Expiration Date V isits Requested Visits Authorized [id number] Closed Auto-Generate d Referral 09/11/2021 10/11/2022 1 1 [facility] for referral (narrative)* Diagnostic Procedure Only (Urgent) - Closed Specialty Diagnoses / Procedures Referred By Contac t Referred To Contact XR IMAGING Diagnoses Pain of right hand Procedures XR WRIST INJURY 4V PA/LAT/OBL/SCAPH RIGHT RADEX WRIST COMPLETE MINIMUM 3 VIEWS Leigha Nelson APRN.INSTALLATION COORDINATOR [address] [place] [address] [place] [address] Referral ID Status Reason Start Date Expiration Date V isits Requested Visits Authorized [id number] Closed Auto-Generate d Referral 09/11/2021 10/11/2022 1 1 * Diagnostic Procedure Only (Urgent) - Closed Specialty Diagnoses / Procedures Referred By Contac t Referred To Contact XR IMAGING Diagnoses Pain of right hand Procedures XR HAND GENERAL 3V PA/LAT/OBL RIGHT RADEX HAND MINIMUM 3 VIEWS Leigha Nelson APRN.INSTALLATION COORDINATOR [address] [place] [address] [place] [address] Referral ID Status Reason Start Date Expiration Date V isits Requested Visits Authorized [id number] Closed Auto-Generate d Referral 09/11/2021 10/11/2022 1 1 [facility] for visit Narrative* Diagnostic Procedure Only (Urgent) - Closed Specialty Diagnoses / Procedures Referred By Contac t Referred To Contact XR IMAGING Diagnoses Pain of right hand Procedures XR WRIST INJURY 4V PA/LAT/OBL/SCAPH RIGHT RADEX WRIST COMPLETE MINIMUM 3 VIEWS Leigha Nelson APRN.INSTALLATION COORDINATOR [address] [place] [address] [place] [address] Referral ID Status Reason Start Date Expiration Date V isits Requested Visits Authorized [id number] Closed Auto-Generate d Referral 09/11/2021 10/11/2022 [address] [facility] Chief Complaint and Reason for Visit Chief Complaint FLANK/BACK PAIN Chief Complaint FLANK/BACK PAIN BACK Chief Complaint ACUTE - LOWER BACKPA IN CONTINUED BACK ISSUES Reason for Visit Back pain SI (sacroiliac) joint inflammation Arthritis Low back pain Family History No Family History Records Found Relationship Condition Age at Onset Recorded Date/T noel Unknown Family History?No pertinent history Unkno wn August 06, 2016 10:43pm Family History?No pertinent history Unkno wn August 06, 2016 10:43pm Relationship Condition Age at Onset Recorded Date/T noel Not Specified Diabetes mellitus Unknown Malignant neoplasm Unknown Hypertension Unknown Advance Directives No Advanced Directives Records Found Advance Directive Response Recorded Date/ Time Advance Directives No May 17, 2016 8:32pm Living Will No August 12, 2021 6:25pm Power of Bracer No August 12 6:25pm Documents on File Type Date Recorded 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 Advance Directive(s) 12/21/2015 5:53 AM Advance Directive(s) 12/14/2015 10:43 AM Advance Directive Response Recorded Date/ Time Advance Directives No May 17, 2016 8:32pm Living Will No August 14, 2021 3:42pm Power of Bracer No August 14 3:42pm Documents on File Type Date Recorded 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 Advance Directive(s) 12/21/2015 5:53 AM Advance Directive(s) 12/14/2015 10:43 AM Advance Directive Response Recorded Date/ Time Advance Directives No May 17, 2016 7:32pm Living Will No August 14, 2021 2:42pm Power of Bracer No August 14 2:42pm Summary Purpose Additional Source Comments Goals (unrecognized section and content) Goals may be documented in a n alternate sectionGoals may be documented in an alternate sectionGoals may be documented in an alternate section Source Comments (unrecognize d section and content) In the event this informatio n is protected by the Federal Confidentiality of Alcohol and Drug Abuse Patient Records regulations: The Federal rules restrict any use of the information to criminally investigate or prosecute any alcohol or drug abuse patient.[facility] the event this information is protected by the Federal Confidentiality of Alcohol and Drug Abuse Patient Records regulations: The Federal rules restrict any use of the information to criminally investigate or prosecute any alcohol or drug abuse patient.[facility] the event this information is protected by the Federal Confidentiality of Alcohol and Drug Abuse Patient Records regulations: The Federal rules restrict any use of the information to criminally investigate or prosecute any alcohol or drug abuse patient.[facility] the event this information is protected by the Federal Confidentiality of Alcohol and Drug Abuse Patient Records regulations: The Federal rules restrict any use of the information to criminally investigate or prosecute any alcohol or drug abuse patient.[facility] the event this information is protected by the Federal Confidentiality of Alcohol and Drug Abuse Patient Records regulations: The Federal rules restrict any use of the information to criminally investigate or prosecute any alcohol or drug abuse patient.[facility] Reason for Visit (unrecogniz ed section and content) Reason Comments Hand Injury right, hit on dish s atellite while starting mower x 1 day Reason Comments Throat Problem Pt reported +strep e xposure throat pain x2 days. (unrecognized sect ion and content) No Status Records FoundNo Status Records Found INFORMATION SOURCE (unrecogn ized section and content) DATE CREATED AUTHOR 07/06/2022 [facility] DATE CREATED AUTHOR AUTHOR'S ORGANIZ ATION 06/09/2024 [facility] Care Teams (unrecognized sec tion and content) Team Status: Active Member Role Status Dates No Primary Care Physician Family Provider Active Dr. Jass Ching MD Primary Care Provider Active Team Status: Inactive Member Role Status Dates Dr. Jass Ching MD Primary Care Provider, Refer ring Provider Active Sara Clarke NP-C Attending Provider Active Team Status: Inactive Member Role Status Dates Dr. Jass Ching MD Primary Care Kristen molina, Attending Provider, Referring Provider Active FOR RECORDS PERTAINING TO PATIENTS WHO ARE [...] BE BASED ON THE PRIMARY CLINICAL RECORDS. [employer] provides no warranty or guarantee of the accuracy or completeness of information in this document.
[2025-01-17 07:01] LABS: CPK Total, Creatine Kinase 451 U/L (24-195)
--- NOTE | 2025-01-17 07:45 | RAD_ITS ---
PROCEDURE: SHOULDER MIN 2 VIEWS 01/17/2025 REASON FOR EXAM: POSTERIOR DISLOCATION TECHNIQUE: Procedure Code: RADSH Modality: DX Procedure: SHOULDER MIN 2 VIEWS Laterality: Left COMPARISON: Earlier today's exam. FINDINGS: Bones: Hill-Sachs defect noted in the humerus. Negative for fractures. Scapula otherwise negative. Proximal humerusotherwise negative. Clavicle negative. Joints: Humeral head is posteriorly dislocated on the axillary view. Better seen than on the previous study Soft tissues: Adjacent structures negative. Other: Remainder of the exam negative. RAD/Shoulder min 2 Views IMPRESSION: Hill-Sachs defect and probable posterior dislocation of the humerus Reading Location: [id number]
[2025-01-17 08:49] LABS: Barbiturate Urine NEGATIVE (< 200 ng/mL); Benzodiazepine Urine NEGATIVE (< 200 ng/mL); PCP Urine NEGATIVE (< 25 ng/mL); THC Urine PRESUMPTIVE POSITIVE (< 50 ng/mL)
--- NOTE | 2025-01-17 08:50 | RAD_ITS ---
PROCEDURE: SHOULDER MIN 2 VIEWS 01/17/2025 REASON FOR EXAM: POST REDUCTION TECHNIQUE: Procedure Code: RADSH Modality: DX Procedure: SHOULDER MIN 2 VIEWS Laterality: Left COMPARISON: Multiple x-rays obtained earlier same day. FINDINGS: Bones: No acute fractures. Joints: Persistent posterior subluxation of the left shoulder. The acromioclavicular joint is unremarkable. Soft tissues: Soft tissues are unremarkable. Other: Visualized lung le are clear. No pneumothorax. RAD/Shoulder min 2 Views IMPRESSION: Persistent posterior subluxation of the left shoulder. No acute fractures. Reading Location[facility]
--- NOTE | 2025-01-17 08:51 | EDS_ITS ---
HPI <Dr. Sofiya Harper MD - Last Filed: 01/18/25 23:59> History of Present Illness Chief Complaint: Seizure Narrative Narrative: Patient is a 44-year-old male presenting to the emergency department for a reported seizure by . Patient has no past medical history of seizures. He states he does not remember the seizure. When arrives she provides history and states that the patient sat up in bed and began full body shaking. States it lasted about 10 minutes. She does report that the patient drinks daily but has never had any alcohol withdrawal symptoms or seizures. States that he last drink around 1 or 2 AM. Came to bed shortly after this. Patient is alert and oriented x 3 on arrival. Is complaining of left shoulder pain. Denies any other injuries. Denies any recent head trauma, fevers. Denies any drug use other than marijuana. PFSH <Dr. Sofiya Harper MD - Last Filed: 01/18/25 23:59> PFSH Medical History Eczema Former smoker Blood glucose elevated Colon cancer screening Arthritis Low back pain Anemia Encounter to establish care Preventative health care History of pneumonia Seasonal allergies Alcohol abuse Home Medications ?Medication ?Instructions ?Recorded ?Last Taken ?Type hydrocodone-acetaminophen 5-325mg 1 tab PO Q6H PRN PRN Pain 3 days 01/17/25 Unknown Rx 5mg-325mg #10 TABLETS Allergy/AdvReac Type Severity Reaction Status Date / Time tomato Allergy Hives Verified 06/01/24 09:55 Family History Unknown Colon polyps Father Pancreatic cancer Other Cancer Diabetes Hypertension Surgical History History of wisdom tooth extraction Hx of colonoscopy Social History household members: spouse current occupational status: employed Smoking Status: Former smoker alcohol intake: current substance use type: does not use what type of physical activity do you participate in: none ROS <Dr. Sofiya Harper MD - Last Filed: 01/18/25 23:59> ROS ED ROS Narrative see HPI EXAM <Dr. Sofiya Harper MD - Last Filed: 01/18/25 23:59> Physical Exam Narrative Exam Narrative: Vital signs: Reviewed General: Alert and orientedx3. No acute distress HEENT: Head is normocephalic and atraumatic, sinuses nontender, pupils equal round and reactive. Pupils 2 mm bilaterally. Nares are patent. Oropharynx and throat exams normal. No tongue lacerations. Neck: Supple without lymphadenopathy nontender. No midline cervical spinal tenderness palpation. No step-offs or deformities. Cardiovascular: Regular rate and rhythm, no murmurs. No rubs or gallops. Normal S1 and S2 Respiratory: Clear to auscultation bilaterally. No wheezes, rales, rhonchi Abdominal: Soft and nontender. Normal bowel sounds. No guarding or rebound. Nonsurgical abdomen Extremities: Left upper extremity with deformity of the shoulder with a divot felt anteriorly. Radial pulse intact. Sensation intact specifically over the axillary nerve. Patient holding his arm in a abducted and internally rotated position. Extremities are otherwise atraumatic and nontender to palpation with normal active range of motion. Skin: No rash or redness. Neurological: Cranial nerves II through XII are grossly intact. Normal strength and sensation. Normal cerebellar function The rest of the physical exam is unremarkable Const Vital Signs: 01/17/25 05:41 01/17/25 06:38 01/17/25 07:03 Temperature 98.0 F Temperature Source Oral Pulse Rate 106 H 75 65 Pulse Rate [1 (Initial Baseline)] Pulse Rate [2] Pulse Rate [3] Respiratory Rate 18 28 H 18 Respiratory Rate [1 (Initial Baseline)] Respiratory Rate [2] Respiratory Rate [3] Blood Pressure 138/81 H 144/89 H 146/76 H Blood Pressure [1 (Initial Baseline)] Blood Pressure [2] Blood Pressure [3] Blood Pressure Mean 100 107 99 Baseline BP Pulse Ox 98 99 98 Oxygen Delivery Method Room Air Room Air Room Air Oxygen Delivery Method [1 (Initial Baseline)] Oxygen Delivery Method [3] Oxygen Flow Rate (L/min) EtCo2 - Document during CPR and with ROSC EtCo2 - Document during CPR and with ROSC [1 (Initial Baseline)] EtCo2 - Document during CPR and with ROSC [2] EtCo2 - Document during CPR and with ROSC [3] 01/17/25 07:12 01/17/25 07:12 01/17/25 07:12 Temperature 98.9 F Temperature Source Pulse Rate 87 Pulse Rate [1 (Initial Baseline)] 64 Pulse Rate [2] 87 Pulse Rate [3] Respiratory Rate 18 Respiratory Rate [1 (Initial Baseline)] 18 Respiratory Rate [2] 18 Respiratory Rate [3] Blood Pressure 138/78 H Blood Pressure [1 (Initial Baseline)] 164/81 H Blood Pressure [2] 164/81 H Blood Pressure [3] Blood Pressure Mean Baseline BP 138/78 Pulse Ox 96 Oxygen Delivery Method Room Air Oxygen Delivery Method [1 (Initial Baseline)] Room Air Oxygen Delivery Method [3] Oxygen Flow Rate (L/min) EtCo2 - Document during CPR and with ROSC 35 35 EtCo2 - Document during CPR and with ROSC [1 (Initial Baseline)] 32 EtCo2 - Document during CPR and with ROSC [2] 35 EtCo2 - Document during CPR and with ROSC [3] 01/17/25 07:45 01/17/25 07:50 01/17/25 07:55 Temperature Temperature Source Pulse Rate 87 63 78 Pulse Rate [1 (Initial Baseline)] Pulse Rate [2] Pulse Rate [3] Respiratory Rate 16 22 H 22 H Respiratory Rate [1 (Initial Baseline)] Respiratory Rate [2] Respiratory Rate [3] Blood Pressure 148/78 H 151/88 H 147/81 H Blood Pressure [1 (Initial Baseline)] Blood Pressure [2] Blood Pressure [3] Blood Pressure Mean Baseline BP Pulse Ox 98 99 96 Oxygen Delivery Method Room Air Room Air Room Air Oxygen Delivery Method [1 (Initial Baseline)] Oxygen Delivery Method [3] Oxygen Flow Rate (L/min) 98 EtCo2 - Document during CPR and with ROSC 35 32 32 EtCo2 - Document during CPR and with ROSC [1 (Initial Baseline)] EtCo2 - Document during CPR and with ROSC [2] EtCo2 - Document during CPR and with ROSC [3] 01/17/25 08:43 01/17/25 08:43 01/17/25 08:43 Temperature 98.7 F Temperature Source Pulse Rate 68 Pulse Rate [1 (Initial Baseline)] Pulse Rate [2] Pulse Rate [3] 80 Respiratory Rate 18 Respiratory Rate [1 (Initial Baseline)] Respiratory Rate [2] Respiratory Rate [3] 22 H Blood Pressure 150/94 H Blood Pressure [1 (Initial Baseline)] Blood Pressure [2] Blood Pressure [3] 143/78 H Blood Pressure Mean Baseline BP 150/94 Pulse Ox 99 Oxygen Delivery Method Room Air Oxygen Delivery Method [1 (Initial Baseline)] Oxygen Delivery Method [3] Room Air Oxygen Flow Rate (L/min) EtCo2 - Document during CPR and with ROSC 34 34 EtCo2 - Document during CPR and with ROSC [1 (Initial Baseline)] EtCo2 - Document during CPR and with ROSC [2] EtCo2 - Document during CPR and with ROSC [3] 37 01/17/25 08:50 01/17/25 08:55 01/17/25 09:02 Temperature Temperature Source Pulse Rate 67 71 64 Pulse Rate [1 (Initial Baseline)] Pulse Rate [2] Pulse Rate [3] Respiratory Rate 18 21 H 18 Respiratory Rate [1 (Initial Baseline)] Respiratory Rate [2] Respiratory Rate [3] Blood Pressure 130/81 H 132/83 H 128/78 H Blood Pressure [1 (Initial Baseline)] Blood Pressure [2] Blood Pressure [3] Blood Pressure Mean 94 Baseline BP Pulse Ox 100 100 100 Oxygen Delivery Method Room Air Room Air Room Air Oxygen Delivery Method [1 (Initial Baseline)] Oxygen Delivery Method [3] Oxygen Flow Rate (L/min) 100 EtCo2 - Document during CPR and with ROSC 36 35 EtCo2 - Document during CPR and with ROSC [1 (Initial Baseline)] EtCo2 - Document during CPR and with ROSC [2] EtCo2 - Document during CPR and with ROSC [3] 01/17/25 09:02 Temperature Temperature Source Pulse Rate 78 Pulse Rate [1 (Initial Baseline)] Pulse Rate [2] Pulse Rate [3] Respiratory Rate 22 H Respiratory Rate [1 (Initial Baseline)] Respiratory Rate [2] Respiratory Rate [3] Blood Pressure 128/78 H Blood Pressure [1 (Initial Baseline)] Blood Pressure [2] Blood Pressure [3] Blood Pressure Mean Baseline BP Pulse Ox 100 Oxygen Delivery Method Room Air Oxygen Delivery Method [1 (Initial Baseline)] Oxygen Delivery Method [3] Oxygen Flow Rate (L/min) EtCo2 - Document during CPR and with ROSC 35 EtCo2 - Document during CPR and with ROSC [1 (Initial Baseline)] EtCo2 - Document during CPR and with ROSC [2] EtCo2 - Document during CPR and with ROSC [3] NIHSS NIHSS Initial: 1a Level of Consciousness: 0 1b LOC Questions (Score 2 if aphasic/stupor): 0 1c LOC Commands (Only score 1st attempt): 0 2 Best Gaze (If aphasic, use reflexive mvmts.): 0 3 Visual: 0 4 Facial Palsy: 0 5 Motor Arm Right (UN = amputation/fusion): 0 5 Motor Arm Left: 0 6 Motor Leg Right: 0 6 Motor Leg Left: 0 7 Limb ataxia (Only + if out of proportion): 0 8 Sensory (Aphasia/stupor=0 or 1, coma=2): 0 9 Best Language: 0 10 Dysarthria (mute, coma=2, intubated=UN): 0 11 Extinction and Inattention (only scored if +): 0 Total Score: 0 <Dr. Usman Trejo MD - Last Filed: 01/17/25 11:41> Physical Exam Const Vital Signs: 01/17/25 05:41 01/17/25 06:38 01/17/25 07:03 Temperature 98.0 F Temperature Source Oral Pulse Rate 106 H 75 65 Pulse Rate [1 (Initial Baseline)] Pulse Rate [2] Pulse Rate [3] Respiratory Rate 18 28 H 18 Respiratory Rate [1 (Initial Baseline)] Respiratory Rate [2] Respiratory Rate [3] Blood Pressure 138/81 H 144/89 H 146/76 H Blood Pressure [1 (Initial Baseline)] Blood Pressure [2] Blood Pressure [3] Blood Pressure Mean 100 107 99 Baseline BP Pulse Ox 98 99 98 Oxygen Delivery Method Room Air Room Air Room Air Oxygen Delivery Method [1 (Initial Baseline)] Oxygen Delivery Method [3] Oxygen Flow Rate (L/min) EtCo2 - Document during CPR and with ROSC EtCo2 - Document during CPR and with ROSC [1 (Initial Baseline)] EtCo2 - Document during CPR and with ROSC [2] EtCo2 - Document during CPR and with ROSC [3] 01/17/25 07:12 01/17/25 07:12 01/17/25 07:12 Temperature 98.9 F Temperature Source Pulse Rate 87 Pulse Rate [1 (Initial Baseline)] 64 Pulse Rate [2] 87 Pulse Rate [3] Respiratory Rate 18 Respiratory Rate [1 (Initial Baseline)] 18 Respiratory Rate [2] 18 Respiratory Rate [3] Blood Pressure 138/78 H Blood Pressure [1 (Initial Baseline)] 164/81 H Blood Pressure [2] 164/81 H Blood Pressure [3] Blood Pressure Mean Baseline BP 138/78 Pulse Ox 96 Oxygen Delivery Method Room Air Oxygen Delivery Method [1 (Initial Baseline)] Room Air Oxygen Delivery Method [3] Oxygen Flow Rate (L/min) EtCo2 - Document during CPR and with ROSC 35 35 EtCo2 - Document during CPR and with ROSC [1 (Initial Baseline)] 32 EtCo2 - Document during CPR and with ROSC [2] 35 EtCo2 - Document during CPR and with ROSC [3] 01/17/25 07:45 01/17/25 07:50 01/17/25 07:55 Temperature Temperature Source Pulse Rate 87 63 78 Pulse Rate [1 (Initial Baseline)] Pulse Rate [2] Pulse Rate [3] Respiratory Rate 16 22 H 22 H Respiratory Rate [1 (Initial Baseline)] Respiratory Rate [2] Respiratory Rate [3] Blood Pressure 148/78 H 151/88 H 147/81 H Blood Pressure [1 (Initial Baseline)] Blood Pressure [2] Blood Pressure [3] Blood Pressure Mean Baseline BP Pulse Ox 98 99 96 Oxygen Delivery Method Room Air Room Air Room Air Oxygen Delivery Method [1 (Initial Baseline)] Oxygen Delivery Method [3] Oxygen Flow Rate (L/min) 98 EtCo2 - Document during CPR and with ROSC 35 32 32 EtCo2 - Document during CPR and with ROSC [1 (Initial Baseline)] EtCo2 - Document during CPR and with ROSC [2] EtCo2 - Document during CPR and with ROSC [3] 01/17/25 08:43 01/17/25 08:43 01/17/25 08:43 Temperature 98.7 F Temperature Source Pulse Rate 68 Pulse Rate [1 (Initial Baseline)] Pulse Rate [2] Pulse Rate [3] 80 Respiratory Rate 18 Respiratory Rate [1 (Initial Baseline)] Respiratory Rate [2] Respiratory Rate [3] 22 H Blood Pressure 150/94 H Blood Pressure [1 (Initial Baseline)] Blood Pressure [2] Blood Pressure [3] 143/78 H Blood Pressure Mean Baseline BP 150/94 Pulse Ox 99 Oxygen Delivery Method Room Air Oxygen Delivery Method [1 (Initial Baseline)] Oxygen Delivery Method [3] Room Air Oxygen Flow Rate (L/min) EtCo2 - Document during CPR and with ROSC 34 34 EtCo2 - Document during CPR and with ROSC [1 (Initial Baseline)] EtCo2 - Document during CPR and with ROSC [2] EtCo2 - Document during CPR and with ROSC [3] 37 01/17/25 08:50 01/17/25 08:55 01/17/25 09:02 Temperature Temperature Source Pulse Rate 67 71 64 Pulse Rate [1 (Initial Baseline)] Pulse Rate [2] Pulse Rate [3] Respiratory Rate 18 21 H 18 Respiratory Rate [1 (Initial Baseline)] Respiratory Rate [2] Respiratory Rate [3] Blood Pressure 130/81 H 132/83 H 128/78 H Blood Pressure [1 (Initial Baseline)] Blood Pressure [2] Blood Pressure [3] Blood Pressure Mean 94 Baseline BP Pulse Ox 100 100 100 Oxygen Delivery Method Room Air Room Air Room Air Oxygen Delivery Method [1 (Initial Baseline)] Oxygen Delivery Method [3] Oxygen Flow Rate (L/min) 100 EtCo2 - Document during CPR and with ROSC 36 35 EtCo2 - Document during CPR and with ROSC [1 (Initial Baseline)] EtCo2 - Document during CPR and with ROSC [2] EtCo2 - Document during CPR and with ROSC [3] 01/17/25 09:02 Temperature Temperature Source Pulse Rate 78 Pulse Rate [1 (Initial Baseline)] Pulse Rate [2] Pulse Rate [3] Respiratory Rate 22 H Respiratory Rate [1 (Initial Baseline)] Respiratory Rate [2] Respiratory Rate [3] Blood Pressure 128/78 H Blood Pressure [1 (Initial Baseline)] Blood Pressure [2] Blood Pressure [3] Blood Pressure Mean Baseline BP Pulse Ox 100 Oxygen Delivery Method Room Air Oxygen Delivery Method [1 (Initial Baseline)] Oxygen Delivery Method [3] Oxygen Flow Rate (L/min) EtCo2 - Document during CPR and with ROSC 35 EtCo2 - Document during CPR and with ROSC [1 (Initial Baseline)] EtCo2 - Document during CPR and with ROSC [2] EtCo2 - Document during CPR and with ROSC [3] NIHSS NIHSS Initial: Total Score: 0 [facility] <Dr. Sofiya Harper MD - Last Filed: 01/18/25 23:59> [facility] Narrative Medical decision making narrative: Patient is a 44-year-old male presenting to the emergency department for a witnessed seizure at home by his . Patient was seen and examined. Vitals are stable. Patient resting bed comfortably no acute distress. Neurologically intact. Alert and oriented x 3. Given this is a first-time seizure, lab work and CT imaging of the brain will be ordered. X-ray of the left shoulder was ordered to evaluate for possible posterior dislocation given the physical exam findings. CBC with mild leukocytosis 13.8 and hemoglobin of 12.8. Lactate of 7.2. Anion gap of 29, bicarb of 11.5, consistent with a seizure. Glucose of 181. Initial x-ray of the left shoulder was read by radiology as negative. Given clinical concern for posterior shoulder dislocation, informed consent obtained for sedation and reduction. Patient initially given 10 mg of etomidate with little to no effect. Propofol then used for sedation and shoulder was reduced. Reduction x-rays were obtained and during this the shoulder dislocated again, repeat imaging showing a posterior dislocation. Conscious sedation was completed again with propofol and shoulder was reduced. Placed in a sling and swath. radial pulse intact after reduction. Sensation specifically over axillary nerve intact after reduction. Postreduction x-rays ordered. In terms of the patient's seizure I do not think this is alcohol withdrawal seizure. He drinks daily however last drink around 1 or 2 AM. Patient has had no seizures while here. CT brain and cervical spine pending. Patient signed out to Dr. Trejo pending CT imaging results and post reduction shoulder x-ray. Patient will likely be discharged home if CT imaging negative and no further seizures here. Clinical impression: first time seizure posterior shoulder dislocation History & Record Review Discussion w/independent historian: Patient and Family Lab Data Attestation: I reviewed the patient's lab results. Labs: Laboratory Results - last 24 hr 01/17/25 01/17/25 01/17/25 05:26 06:02 06:05 WBC 13.8 H RBC 3.79 L Hgb 12.8 L Hct 39.2 L MCV 103.4 H MCH 33.8 H MCHC 32.7 RDW Std Deviation 45.4 H RDW Coeff of Jamar 11.9 Plt Count 275 MPV 12.4 H Immature Gran % (Auto) 1.500 H Neut % (Auto) 47.3 Lymph % (Auto) 39.6 Loup % (Auto) 6.8 Eos % (Auto) 4.2 Baso % (Auto) 0.6 Absolute Neuts (auto) 6.5 Absolute Lymphs (auto) 5.44 H Nucleated RBC % 0 Differential Comment SCANNED Reactive Lymphocytes 2+ Sodium 140 Potassium 3.5 Chloride 100 Carbon Dioxide 11.5 L Anion Gap 29 H BUN 16 Creatinine 1.22 H Estim Creat Clear Calc 83.04 Est GFR (MDRD) Non-Af 74 BUN/Creatinine Ratio 13.2 Glucose 181 H Lactic Acid 7.2 H* Calcium 9.1 Magnesium 2.1 Total Creatine Kinase 451 H Urine Opiates Screen U Buprenorphine Qual Ur Oxycodone Screen Urine Methadone Screen Urine Fentanyl Screen Ur Barbiturates Screen Ur Phencyclidine Scrn Ur Amphetamines Screen U Benzodiazepines Scrn Urine Cocaine Screen U Cannabinoids Screen Ethyl Alcohol < 10.1 POC Glucose 169 H 01/17/25 01/17/25 07:43 10:18 WBC RBC Hgb Hct MCV MCH MCHC RDW Std Deviation RDW Coeff of Jamar Plt Count MPV Immature Gran % (Auto) Neut % (Auto) Lymph % (Auto) Loup % (Auto) Eos % (Auto) Baso % (Auto) Absolute Neuts (auto) Absolute Lymphs (auto) Nucleated RBC % Differential Comment Reactive Lymphocytes Sodium Potassium Chloride Carbon Dioxide Anion Gap BUN Creatinine Estim Creat Clear Calc Est GFR (MDRD) Non-Af BUN/Creatinine Ratio Glucose Lactic Acid 1.1 Calcium Magnesium Total Creatine Kinase Urine Opiates Screen NEGATIVE U Buprenorphine Qual NEGATIVE Ur Oxycodone Screen NEGATIVE Urine Methadone Screen NEGATIVE Urine Fentanyl Screen PRESUMPTIVE POSITIVE Ur Barbiturates Screen NEGATIVE Ur Phencyclidine Scrn NEGATIVE Ur Amphetamines Screen NEGATIVE U Benzodiazepines Scrn NEGATIVE Urine Cocaine Screen NEGATIVE U Cannabinoids Screen PRESUMPTIVE POSITIVE Ethyl Alcohol POC Glucose Radiography Diagnostic Testing: Clinical Impression(s) from Imaging Studies Brain CT 01/17/25 05:54 IMPRESSION: No intracranial hemorrhage. No mass effect or midline shift. No evidence of acute cervical spine fracture or malalignment. Reading Location: [facility] Cervical Spine CT 01/17/25 05:54 IMPRESSION: No intracranial hemorrhage. No mass effect or midline shift. No evidence of acute cervical spine fracture or malalignment. Reading Location: [facility] Shoulder X-Ray 01/17/25 06:23 IMPRESSION: Negative left shoulder. Reading Location: [facility] Shoulder X-Ray 01/17/25 07:45 IMPRESSION: Hill-Sachs defect and probable posterior dislocation of the humerus Reading Location: [facility] Shoulder X-Ray 01/17/25 08:50 IMPRESSION: Persistent posterior subluxation of the left shoulder. No acute fractures. Reading Location: [facility] Upper Extremity CT 01/17/25 10:33 IMPRESSION: 1. Adequate alignment of the left shoulder status post reduction. 2. Cortical depression of the anteromedial left humeral head compatible with compression fracture from recent posterior shoulder dislocation. 3. No acute new fractures. 4. Small left shoulder joint effusion. Reading Location: [facility] <Dr. Usman Trejo MD - Last Filed: 01/17/25 11:41> [facility] Lab Data Labs: Laboratory Results - last 24 hr 01/17/25 01/17/25 01/17/25 05:26 06:02 06:05 WBC 13.8 H RBC 3.79 L Hgb 12.8 L Hct 39.2 L MCV 103.4 H MCH 33.8 H MCHC 32.7 RDW Std Deviation 45.4 H RDW Coeff of Jamar 11.9 Plt Count 275 MPV 12.4 H Immature Gran % (Auto) 1.500 H Neut % (Auto) 47.3 Lymph % (Auto) 39.6 Loup % (Auto) 6.8 Eos % (Auto) 4.2 Baso % (Auto) 0.6 Absolute Neuts (auto) 6.5 Absolute Lymphs (auto) 5.44 H Nucleated RBC % 0 Differential Comment SCANNED Reactive Lymphocytes 2+ Sodium 140 Potassium 3.5 Chloride 100 Carbon Dioxide 11.5 L Anion Gap 29 H BUN 16 Creatinine 1.22 H Estim Creat Clear Calc 83.04 Est GFR (MDRD) Non-Af 74 BUN/Creatinine Ratio 13.2 Glucose 181 H Lactic Acid 7.2 H* Calcium 9.1 Magnesium 2.1 Total Creatine Kinase 451 H Urine Opiates Screen U Buprenorphine Qual Ur Oxycodone Screen Urine Methadone Screen Urine Fentanyl Screen Ur Barbiturates Screen Ur Phencyclidine Scrn Ur Amphetamines Screen U Benzodiazepines Scrn Urine Cocaine Screen U Cannabinoids Screen Ethyl Alcohol < 10.1 POC Glucose 169 H 01/17/25 01/17/25 07:43 10:18 WBC RBC Hgb Hct MCV MCH MCHC RDW Std Deviation RDW Coeff of Jamar Plt Count MPV Immature Gran % (Auto) Neut % (Auto) Lymph % (Auto) Loup % (Auto) Eos % (Auto) Baso % (Auto) Absolute Neuts (auto) Absolute Lymphs (auto) Nucleated RBC % Differential Comment Reactive Lymphocytes Sodium Potassium Chloride Carbon Dioxide Anion Gap BUN Creatinine Estim Creat Clear Calc Est GFR (MDRD) Non-Af BUN/Creatinine Ratio Glucose Lactic Acid 1.1 Calcium Magnesium Total Creatine Kinase Urine Opiates Screen NEGATIVE U Buprenorphine Qual NEGATIVE Ur Oxycodone Screen NEGATIVE Urine Methadone Screen NEGATIVE Urine Fentanyl Screen PRESUMPTIVE POSITIVE Ur Barbiturates Screen NEGATIVE Ur Phencyclidine Scrn NEGATIVE Ur Amphetamines Screen NEGATIVE U Benzodiazepines Scrn NEGATIVE Urine Cocaine Screen NEGATIVE U Cannabinoids Screen PRESUMPTIVE POSITIVE Ethyl Alcohol POC Glucose Radiography Diagnostic Testing: Clinical Impression(s) from Imaging Studies Brain CT 01/17/25 05:54 IMPRESSION: No intracranial hemorrhage. No mass effect or midline shift. No evidence of acute cervical spine fracture or malalignment. Reading Location: [facility] Cervical Spine CT 01/17/25 05:54 IMPRESSION: No intracranial hemorrhage. No mass effect or midline shift. No evidence of acute cervical spine fracture or malalignment. Reading Location: [facility] Shoulder X-Ray 01/17/25 06:23 IMPRESSION: Negative left shoulder. Reading Location: [facility] Shoulder X-Ray 01/17/25 07:45 IMPRESSION: Hill-Sachs defect and probable posterior dislocation of the humerus Reading Location: [facility] Shoulder X-Ray 01/17/25 08:50 IMPRESSION: Persistent posterior subluxation of the left shoulder. No acute fractures. Reading Location: [facility] Upper Extremity CT 01/17/25 10:33 IMPRESSION: 1. Adequate alignment of the left shoulder status post reduction. 2. Cortical depression of the anteromedial left humeral head compatible with compression fracture from recent posterior shoulder dislocation. 3. No acute new fractures. 4. Small left shoulder joint effusion. Reading Location: [facility] Management Discussion w/another healthcare provider: [employer] (Ofelia-Funmilayo) Treatment and Re-Evaluation Comments:: Patient checked out to me see above. With the second sedation and shoulder reduction that I assisted with, we confirmed clinically that the patient appears to be reduced. He woke up from sedation feeling much better without shoulder discomfort while in sling/swath. However we obtained post reduction AP and scapular Y views of the left shoulder with my interpretation appears to be showing successfully reduced posterior dislocation, however radiology is reading as persistent dislocation. I discussed with orthopedics Dr. Gilbert who reviewed the images and is in agreement with me, but given the fact that he has a Hill-Sachs lesion and possibly reverse Bankart, states that a CT would be recommended to look at these as an outpatient anyway and now would be indicated urgently to confirm that he is reduced. Therefore that was done, I reviewed the images and the report which I agree with now, confirming the Hill- Sachs compression fracture as well as confirming successful reduction. Given that I will offer to the patient prescription for analgesics, I do not think he needs to be put on antiepileptics at this time, and he can follow-up with neurology and orthopedics as an outpatient. The does state that he works at [employer] and recently was switching from night shifts back to morning shifts, it is possible that the sleep deprivation which he had recently since he was not able to sleep just after the switch, and I do not think this is an alcohol withdrawal seizure. She confirms that he does drink nightly, but it does not sound like a lot of alcohol, she suggests it is a beer or 2 and a little bit of tequila most nights. Discharge Plan Triage Chief Complaint: Seizure ED Provider: Sofiya Harper Dx/Rx/DC Orders Clinical Impression: Seizure, Closed posterior dislocation of left shoulder Instructions: ED Dislocation: Shoulder (Reduced), ED Sling and Swathe, ED Seizure New [facility] Adult Prescriptions: New hydrocodone-acetaminophen 5-325 mg tablet 1 tab PO Q6H PRN PRN (Reason: Pain) 3 Days Qty: 10 0RF Primary Care Provider: Jass Ching Referrals: Ralph Gilbert DO [Med Staff - Active Staff] - 3-5 Days Baddour,Medardo, MD [Non-Staff -Ordering Privileges] - As soon as possible Activity Restrictions/Additional Instructions: Wear the sling at all times. Follow up with the orthopedic doctor below in the next week. No driving until cleared by neurology. If you have another seizure prior to following up with neurology, return to the ER. Print Language: Cameroonian Disposition Disposition: Home, Self Care Discharge Date/Time: 01/17/25 12:05
[2025-01-17 10:05] LABS: Reflex Lactate? Y
--- NOTE | 2025-01-17 10:33 | CT_ITS ---
PROCEDURE: EXTREMITY UPPER WITHOUT CONTRA 01/17/2025 REASON FOR EXAM: SHOULDER INJURY POST REDUCTION TECHNIQUE: Procedure Code: CTEUWO Modality: CT Procedure: EXTREMITY UPPER WITHOUT CONTRA Coronal and Sagittal reconstruction series were provided. One or more dose reduction techniques were used (e.g., Automated exposure control, adjustment of the mA and/or kV according to patient size, use of iterative reconstruction technique. COMPARISON: Multiple shoulder x-rays obtained earlier same day. FINDINGS: Bones: The left humeral head appears anatomically aligned with the glenoid fossa status post reduction. Cortical depression of the anteromedial aspect of the humeral head compatible with an compression fracture from recent posterior shoulder dislocation. Tiny bony flake is noted between the humeral head and glenoid process with no significant bony injury to the glenoid process itself. No acute fractures identified. Joints: Small left shoulder joint effusion. No significant degenerative changes. Soft Tissues: No large hematoma. Muscles and tendons appear unremarkable. Visualized chest: Lung le are clear. No definite pneumothorax. CT/Extremity Upper without Contra IMPRESSION: 1. Adequate alignment of the left shoulder status post reduction. 2. Cortical depression of the anteromedial left humeral head compatible with co mpression fracture from recent posterior shoulder dislocation. 3. No acute new fractures. 4. Small left shoulder joint effusion. Reading Location: [facility]
== END 2025-01-17 12:05 | disposition home or self-care (01) ==
PROVIDERS: Emergency Provider Student in an Organized Health Care Education/Training Program; PCP Internal Medicine; Visit Provider Student in an Organized Health Care Education/Training Program
DX: S43.022A Posterior subluxation of left humerus, initial encounter (principal); R56.9 Unspecified convulsions; X58.XXXA Exposure to other specified factors, initial encounter; Z87.891 Personal history of nicotine dependence; F10.10 Alcohol abuse, uncomplicated
CPT/HCPCS: 23650; 70450; 72125; 73030; 73200; 80048; 80307; 82077; 82550; 82962; 83605; 83735; 85025; 96374; 96375; 96376; 99152; 99285; A4216

== ENCOUNTER 2025-02-26 21:04 | Observation (INO) | payer OTHER, SELFPAY ==
[2025-02-26 21:05] VITALS: BP 157/83; PULSE 83; RESP 16; TEMP 36.7; O2SAT 99; BMI 23.8
--- NOTE | 2025-02-26 21:14 | EX.ED.DYSGE1 ---
HPI History of Present Illness Chief Complaint: GI Bleed Detail of Chief Complaint: Dark red-black stool Informant: patient Onset/Context/Timing Onset: Days (First noted 2 to 3 days ago) Context: Sudden Onset Timing: Continuous Quality: Soft watery dark black stool Location: GI bleed due to ibuprofen Current Severity: Moderate Maximum Severity: Moderate Worsened by: Patient states he has been "taking a lot of ibuprofen". Relieved by: Not applicable Associated Symptoms Associated Symptoms: Lightheadedness Narrative Narrative: Patient is a 44-year-old male. He has been take ibuprofen due to a left AC separation. This occurred mid January. He denies history of peptic ulcers, reflux or hiatal hernia. He denies hematemesis or coffee-ground emesis. He denies vomiting. He reports dark black maroon-colored stool that he first noted to maybe 3 days ago. He does endorse lightheadedness with standing quickly. He denies bruising easily. He is on no anticoagulant. He has no significant past medical history. He denies tobacco use. He does not have an alcoholic beverage in greater than a month. He does smoke marijuana. Prior similar symptoms: No Recent Illness/Hospitalization: No PFSH PFSH Medical History Eczema Former smoker Blood glucose elevated Colon cancer screening Arthritis Low back pain Anemia Encounter to establish care Preventative health care History of pneumonia Seasonal allergies Alcohol abuse Home Medications Medication Instructions Recorded Last Taken Type ibuprofen 800 mg tablet 800 mg PO Q8H PRN PRN pain 02/26/25 02/26/25 History Allergy/AdvReac Type Severity Reaction Status Date / Time tomato Allergy Hives Verified 02/26/25 21:05 Family History Unknown Colon polyps Father Pancreatic cancer Other Cancer Diabetes Hypertension Surgical History History of wisdom tooth extraction Hx of colonoscopy Social History household members: spouse current occupational status: employed Smoking Status: Former smoker alcohol intake: current substance use type: does not use what type of physical activity do you participate in: none ROS ROS ED Constitutional Constitutional ED: Denies chills, fever(s), subjective or sweats Eyes Eyes: Denies blurry vision or change in vision ENT ENT ED: Denies ear pain, rhinorrhea or sore throat Cardiovascular Cardiovascular: Denies chest pain, orthopnea, palpitations, paroxysmal nocturnal dyspnea or racing heartbeat Respiratory/Chest Respiratory/Chest: Denies cough, dyspnea, dyspnea on exertion, orthopnea or paroxysmal nocturnal dyspnea Gastrointestinal Gastrointestinal: Reports melena; Denies abdominal pain, constipation, diarrhea, nausea or vomiting Genitourinary Genitourinary ED: Denies dysuria, hematuria or urinary frequency Musculoskeletal Musculoskeletal: Denies arthralgias or myalgias Integumentary Denies rash Neurologic Neurologic: Denies paresthesias or weakness Endocrine Endocrinology: Denies cold intolerance or heat intolerance Hematologic/Lymphatic Hematologic/Lymphatic: Reports systems reviewed and no addt'l complaints, except as documented EXAM Physical Exam Const Vital Signs: 02/26/25 21:05 02/26/25 21:23 Temperature 98.1 F Temperature Source Oral Pulse Rate 83 Pulse Rate [Lying] 72 Pulse Rate [Sitting (for 1 minute prior to obtaining)] 73 Pulse Rate [Standing (for 1 minute prior to obtaining)] 78 Respiratory Rate 16 Blood Pressure 157/83 H Blood Pressure [Lying] 126/80 H Blood Pressure [Sitting (for 1 minute prior to obtaining)] 121/84 H Blood Pressure [Standing (for 1 minute prior to obtaining)] 127/95 H Blood Pressure Mean 107 Blood Pressure Mean [Lying] 95 Blood Pressure Mean [Sitting (for 1 minute prior to obtaining)] 96 Blood Pressure Mean [Standing (for 1 minute prior to obtaining)] 105 Pulse Ox 99 Oxygen Delivery Method Room Air Positive well nourished and well developed General Appearance ED: well developed and NAD; Negative for cyanotic, diaphoretic or pallor HEENT Reports moist mucous membranes HEENT Narrative: Head is atraumatic normocephalic. Ears normal. Nares patent. Posterior pharynx is normal. Eyes PERRL and EOMs intact bilaterally General Eye ED: Negative for pale conjunctiva or scleral icterus Neck no lymphadenopathy, supple and no JVD Resp normal respiratory effort and clear to auscultation bilaterally Cardio regular rate, regular rhythm, S1 normal heart sound, S2 normal heart sound and no murmurs GI normal to inspection, nondistended, normoactive bowel sounds, non-tender, non-distended and no masses; Negative for hepatosplenomegaly GI Narrative: Rectal exam reveals no fissures, fistulas or hemorrhoids. Prostate is normal size. Patient has dark maroon and black stool. Back/Spine no CVA tenderness Extremity normal to inspection General Extremety ED: Negative for edema or tenderness General Extremity: Negative for edema Neuro oriented x3, CN's II-XII intact bilaterally and no sensory deficits noted Neuro Narrative: Gait is normal. Sensorium / Orientation: alert Motor Exam: strength 5/5 throughout Psych mental status grossly normal Skin no rashes or lesions noted, no wounds and skin turgor normal General Skin Exam: elasticity normal; Negative for jaundice or pallor MDM MDM MDM Narrative Medical decision making narrative: Based on history and physical patient has in all likelihood upper GI bleed due to ibuprofen use. He was typed and screened. Appropriate blood work was obtained. Orthostatic vital signs were obtained. Once laboratory tests are back we will contact hospitalist for admission. Dr. Isbell is on-call for no doc. History & Record Review Additional record(s) reviewed:: Prior outpatient record (Internal medicine office visit for preventative health and screening exam October 16, 2022.) and Prior ED visit (ED visit January 17. He had a closed posterior dislocation of his left shoulder not an AC separation. He had a visit August 2021 for left rib fracture.) Lab Data Attestation: I reviewed the patient's lab results. Lab results narrative: H&H 11.1 and 31.7. This is approximately 1.5 g drop from prior. Basic metabolic panel is unremarkable. CO2 and anion gap are normal. BUN to creatinine ratio is within normal limits at approximately 19-1. Patient has O+ blood. Labs: Laboratory Results - last 24 hr 02/26/25 02/26/25 21:31 21:32 WBC 10.1 RBC 3.21 L Hgb 11.1 L Hct 31.4 L MCV 97.8 H MCH 34.6 H MCHC 35.4 RDW Std Deviation 42.5 RDW Coeff of Jamar 11.9 Plt Count 270 MPV 11.7 Immature Gran % (Auto) 0.400 Neut % (Auto) 64.8 Lymph % (Auto) 24.4 [place] % (Auto) 4.9 Eos % (Auto) 4.9 Baso % (Auto) 0.6 Absolute Neuts (auto) 6.5 Absolute Lymphs (auto) 2.46 Nucleated RBC % 0 Sodium 139 Potassium 3.7 Chloride 105 Carbon Dioxide 23.0 Anion Gap 11 BUN 17 Creatinine 0.93 Estim Creat Clear Calc 108.94 Est GFR (MDRD) Non-Af 103 BUN/Creatinine Ratio 18.8 Glucose 173 H Lactic Acid 1.2 Calcium 8.7 Blood Type O POSITIVE Antibody Screen NEGATIVE Management Discussion w/another healthcare provider: Hospitalist (Hospitalist was paged for admission for acute GI bleed, 2019. Case discussed with Dr. Hutson. He requested admission to PCU) Treatment and Re-Evaluation :: Orthostatic vital signs were negative. Feel patient can be safely admitted to [facility]. Discharge Plan Dx/Rx/DC Orders Clinical Impression: GI bleed due to NSAIDs, Anemia due to blood loss, acute, Nondiabetic hyperglycemia, Elevated blood pressure reading without diagnosis of hypertension Disposition Disposition: Acute Care Hospital [facility]
--- OUTSIDE RECORDS SUMMARY | 2025-02-26 21:18 | XMS RPT_ITS | CCD ---
Author Organization [facility] Care Team Providers Care Literacy Coach Name Role Phone Unavailable Primary Care Provider Dr. Jass Hagen Primary Care Provider [phone] Dr. Jass Ching Referring Provider [phone] NEERAJ Clarke Attending Provider [phone] Dr. Jass Ching Attending Provider [phone] Unavailable Primary Care Provider Mark Ching MD, Dr. Regan Primary Care Provider Meredith DIGGS, Dr. Arriaza Emergency Provider Unavailab le Oleghe, Efewongbe Primary Care Unavailable Oleghe, Efewongbe Attending Unavailable Oleghe, Efewongbe Referring Unavailable Oleghe, Efewongbe Primary Care Unavailable Lorin Melara Attending Unavailable Oleghe, Efewongbe Primary Care Unavailable Oleghe, Efewongbe Attending Unavailable Oleghe, Efewongbe Referring Unavailable Friend, Kentrell Consulting Unavailable Friend, Kentrell Attending Unavailable Oleghe, Efewongbe Referring Unavailable Oleghe, Efewongbe Primary Care Unavailable Oleghe, Efewongbe Primary Care Unavailable Oleghe, Efewongbe Attending Unavailable Oleghe, Efewongbe Referring Unavailable Sofiya Harper Attending Unavailable Oleghe, Efewongbe Primary Care Unavailable Friend, Kentrell Attending Unavailable Oleghe, Efewongbe Referring Unavailable Oleghe, Efewongbe Primary Care Unavailable SELF Referring Unavailable VETOVITZ, KELLI Attending Unavailable VETOVITZ, KELLI Referring Unavailable VETOVITZ, KELLI Attending Unavailable Allergies Allergy Classification Reported Allergen(s) Allergy Type Date of Onset Reaction(s) Facility (5 sources) tomato allergenic extract Drug Allergy 10-12-2018 [facility] (1 source) tomato allergenic extract Drug Allergy 06-01-2024 [facility] Repository (1 source) tomato allergenic extract; Translations: [TOMATO (SOLANUM LYCOPERSICUM)] Drug Allergy 10-12-2018 [facility] Repository Medications Current Medications Medication Drug Class(es) [...] / HYDROcodone bitartrate 5 mg oral tablet (4 sources) Opioid Agonist Start: 01-17-2025 take 1 tablet by mouth every six hours as needed for pain Hydrocodone-Acetami nophen 5-325 mg tablet Active 1 {tbl} PO EVERY 6 HOURS NEEDED as needed for Pain 10 3 0 January 17, 2025 Closed posterior dislocation of left shoulder Posterior dislocation of left humerus, initial encounter Start: 08-14-2021 End: 09-28-2021 take 1 tablet by mouth every six hours as needed for pain Hydrocodone-Acetaminophen 1 TABLET table t Discontinued 1 {tbl} PO EVERY 6 HOURS NEEDED as needed for Pain 10 3 0 August 14, 2021 September 28, 2021 9:07am Fracture of rib of left side Fracture of one rib, left side, initial encounter for closed fracture Start: 08-14-2021 End: 09-28-2021 take 1 tablet by mouth every six hours as needed Hydrocodone-Acetaminophen Active 1 TABLE T PO EVERY 6 HOURS NEEDED 10 3 August 14, 2021 7:54pm Completed/Discontinued Medications Medication Drug Class(es) Dates Sig (Normalized) Sig (Original) azithromycin 250 mg oral tablet (3 sources) Macrolide Antimicrobial Start: 08-14-2021 End: 09-28-2021 take 1 tablet by mouth once daily Azithromycin 250 MG tablet Discontinued 250 mg PO DAILY 4 0 August 14, 2021 12:00am September 28, 2021 9:07am cholecalciferol 0.05 mg oral capsule (2 sources) Vitamin D Start: 09-28-2021 End: 01-17-2025 take 1 capsule by mouth once daily Cholecalciferol (Vitamin D3) 50 mcg (2,000 unit) capsule Discontinued 50 ug PO DAILY September 28, 2021 12:00am January 17, 2025 5:49am ciprofloxacin 500 mg oral tablet (4 sources) Quinolone Antimicrobial Start: 05-15-2016 End: 08-08-2016 take 1 tablet by mouth twice daily Ciprofloxacin Hcl 500 MG tablet Discontinued 500 mg PO TWICE A DAY 20 May 15, 2016 1:00am August 08, 2016 2:56pm cyclobenzaprine hydrochloride 10 mg oral tablet (10 sources) Muscle Relaxant Start: 05-10-2023 End: 03-20-2024 Cyclobenzaprine 10 mg tablet Discontinued 10 mg PO BEDTIME as needed for muscle spasm 10 May 10, 2023 1:00am March 20, 2024 2:18pm Back pain Dorsalgia, unspecified may cause drowsniess take at night do not drive or operate machinery Start: 07-04-2020 End: 09-28-2021 take 1 tablet by mouth three times daily as needed for muscle spasms Cyclobenzaprine 10 mg tablet Discontinued 10 mg PO THREE TIMES A DAY as needed for Muscle Spasm August 12, 2021 12:00am September 28, 2021 9:07am Comment on above: Take 1 tablet by aston three times daily as needed. diclofenac sodium 0.01 mg/mg topical gel (2 sources) Nonsteroidal Anti-inflammatory Drug Start: 05-10-19 End: 03-20-20 apply 2 g topically once daily as needed for pain Diclofenac Sodium 1 % gel Discontinued 2 g TOPICAL ONCE as needed for back pain 100 0 May 10, 2023 1:00am March 20, 2024 2:19pm Back pain Dorsalgia, unspecified apply to lower back as needed once daily for back pain wash hands after use Start: 05-10-2023 apply 2 g topically once daily as needed for pain Diclofenac Sodium Active 2 GM TOPICAL ONCE May 10, 2023 12:00am apply to lower back as needed once daily for back pain wash hands after use lidocaine hydrochloride 20 mg/ml mucous membrane topical solution (1 source) Antiarrhythmic, Amide Local Anesthetic Start: 07-05-2022 LIDOCAINE VISCOUS 2 % solution Indications: Throat pain Take 5-10 mL by mouth as needed. 100 mL 1 07/05/2022 Active Comment on above: Take 5-10 mL by mout h as needed. meloxicam 15 mg oral tablet (2 sources) Nonsteroidal Anti-inflammatory Drug Start: 06-17-2023 End: 03-20-2024 Meloxicam 15 mg tablet Discontinued 15 mg PO DAILY as needed for pain 90 June 17, 2023 1:00am March 20, 2024 2:19pm Take daily for 7 days then as needed. naproxen 500 mg oral tablet (4 sources) Nonsteroidal Anti-inflammatory Drug Start: 08-12-2021 End: 09-28-2021 take 1 tablet by mouth twice daily Naproxen 500 mg tablet Discontinued 500 mg PO TWICE A DAY 20 August 12, 2021 12:00am September 28, 2021 9:07am predniSONE 20 mg oral tablet (3 sources) Start: 05-10-2023 End: 05-15-2023 take 2 tablets by mouth once daily Prednisone 20 mg tablet Discontinued 40 mg PO DAILY 10 May 10, 2023 1:00am May 14, 2023 1:00am May 15, 2023 1:05am Inflammation of sacroiliac joint Sacroiliitis, not elsewhere classified Start: 05-10-2023 End: 05-15-2023 take 40 mg [...] mo uth once daily for 5 days. SEA GRANDE (1 source) Start: 03-20-2024 End: 05-28-2024 SEA GRANDE Discontinued PO March 20, 2024 1:00am May 28, 2024 3:42pm CAPS Problems Active Problems Problem Classification Problem Date Documented Date Episodic/Chronic Abdominal pain (9 sources) Abdominal pain; Translations: [Unspecified abdominal pain] Onset: 05-08-2007 05-08-2007 Episodic Administrative/social admission (1 source) First encounter by subject; Translations: [Persons encountering health services in other specified circumstances] 10-16-2021 Episodic Contraceptive and procreative management (7 sources) Patient encounter status; Translations: [Encounter for sterilization] Onset: 10-08-2014 10-08-2014 Episodic Deficiency and other anemia (7 sources) Anemia; Translations: [Anemia, unspecified] Onset: 03-14-2007 03-14-2007 Episodic Diabetes mellitus without complication (1 source) Hyperglycemia; Translations: [Hyperglycemia, unspecified] 03-20-2024 Episodic Diverticulosis and diverticulitis (10 sources) Diverticulitis of large intestine without perforation or abscess without bleeding; Translations: [Diverticulitis of colon (without mention of hemorrhage)] Onset: 03-14-2007 05-13-2007 Chronic Epilepsy; convulsions (1 source) Seizure; Translations: [Unspecified convulsions] 01-17-2025 Episodic Genitourinary symptoms and ill-defined conditions (4 sources) Dysuria; Translations: [Dysuria] 08-06-2016 Episodic Joint disorders and dislocations; trauma-related (2 sources) Posterior dislocation of left humerus, initial encounter; Translations: [Closed posterior dislocation of left shoulder] Onset: 02-08-2025 01-17-2025 Episodic Nonspecific chest pain (1 source) Chest pain; Translations: [Chest pain, unspecified] Episodic Osteoarthritis (3 sources) Arthritis; Translations: [Unspecified osteoarthritis, unspecified site] 06-17-2023 Chronic Other connective tissue disease (5 sources) Radicular pain; Translations: [Neuralgia and neuritis, unspecified] Onset: 07-13-2020 07-13-2020 Episodic Other connective tissue disease (2 sources) Pain in right hand; Translations: [Pain in right hand] Episodic Other fractures (1 source) Fracture of rib; Translations: [Fracture of one rib, left side, initial encounter for closed fracture] Episodic Other fractures (2 sources) Fracture of left rib; Translations: [Fracture of one rib, left side, initial encounter for closed fracture] 08-22-2021 Episodic Other male genital disorders (4 sources) Pain in penis; Translations: [Other specified disorders of penis] 08-06-2016 Chronic Other non-traumatic joint disorders (1 source) Pain in left shoulder; Translations: [Pain in left shoulder] Onset: 01-21-2025 Episodic Other upper respiratory disease (2 sources) Seasonal allergy; Translations: [Other seasonal allergic rhinitis] 09-28-2021 Chronic Other upper respiratory disease (1 source) Pain in throat; Translations: [Pain in throat] Episodic Other upper respiratory infections (1 source) Acute upper respiratory infection; Translations: [Acute upper respiratory infection, unspecified] Episodic Pneumonia (except that caused by tuberculosis or sexually transmitted disease) (3 sources) Pneumonia; Translations: [Pneumonia, unspecified organism] 08-22-2021 Episodic Spondylosis; intervertebral disc disorders; other back problems (3 sources) Inflammation of sacroiliac joint; Translations: [Sacroiliitis, not elsewhere classified] 05-10-2023 Chronic Spondylosis; intervertebral disc disorders; other back problems (20 sources) Brachial neuritis; Translations: [Radiculopathy, cervical region] Onset: 01-25-2012 01-25-2012 Episodic Comment on above: Tenderness on palpat ion to Right SI joint region without evidence of sciatica symptomsno red flag sx history of diverticulitis-states sx were previously to RLQ , no abdominal tenderness on exam and no GI sx, suscipion for recurrent diverticulitis is low at this time Unclassified (1 source) New Onset: 01-21-2025 Past or Other Problems Problem Classification Problem Date Documented Da te Episodic/Chronic Immunizations and screening for infectious disease (2 sources) Exposure to Streptococcus; Translations: [Contact with and (suspected) exposure to other bacterial communicable diseases] Onset: 03-20-2024 Episodic Other screening for suspected conditions (not mental disorders or infectious disease) (2 sources) Encounter for screening for malignant neoplasm of colon; Translations: [Encounter for screening for malignant neoplasm of colon] Onset: 06-08-2024 Episodic Results Test Name Value Interpretation Reference Range Facility CNOVon 02-08-2025 CNOV Office Visit (ORTHWS ) -------- AMMON BOWER ([id number]) 1980 M Date Time Provider Department 02/08/25 3:00 PM KELLI POPE During your visit today, we recorded the following information about you: Trista Quevedo MA 02/08/2025 3:17 PM Signed AMB ROOMING INTAKE FLOWSHEET DATA Pain Pain Level: 7 Pain Location: Shoulder-Left Description: Sharp, Radiating Duration Amount of Time: 3 Duration Units: Weeks Frequency: Intermittent Intervention/Comfort measure: Heat Kelli Pope PA-C 02/08/2025 3:17 PM Signed Kelli Pope PA-C Department of Orthopaedics Orthopaedics [address] [facility] [address] Dept: [phone] Dept February 08, 2025 CHIEF COMPLAINT: Shoulder dislocation Shoulder Dislocation: - Initial dislocation occurred 3 weeks ago, seizure in his sleep. - Reports improved mobility but still experiences stiffness and discomfort, particularly in the anterior shoulder. - Currently using a sling for support. - Taking ibuprofen 400 mg BID for pain management. - Denies attending neurology appointment due to financial constraints. Seizure: - Recent seizure event occurred during sleep. - Has not yet seen a neurologist due to high cost of appointment. ASSESSMENT: S43.005D Dislocation of left shoulder joint, subsequent encounter (primary encounter diagnosis) PLAN: 1. Dislocation of left shoulder joint, subsequent encounter (S43.005D) - 3 weeks post-initial dislocation; improved range of motion but significant stiffness and discomfort on exam. - Educated on high risk of re-dislocation in the first two weeks post-injury; now transitioning to gradual mobilization. - Advised to discontinue sling use except for light activities; avoid heavy lifting, pushing, or pulling. - Instructed on gentle home stretching exercises (table slides, wall walks) to perform several times daily to reduce stiffness and improve mobility. - Start ibuprofen 800 mg PO TID for pain and inflammation. - Physical therapy order placed. - Remain off work until February 14; then light duty for one month with restrictions: no lifting over 10 lbs, no overhead activity, restrictions in place for the next month. - If no improvement in mobility, will consider MRI of the shoulder. - Follow-up as needed for reassessment. Will continue to monitor patient for Dislocation of left shoulder joint, subsequent encounter (primary encounter diagnosis), patient to schedule visit as per follow up discussed. Mr. Ammon Bower was advised as to contrast therapies and/or to take analgesics/anti-inflamma tories as needed and all contraindications were reviewed. OBJECTIVE: Mr. Ammon Bower is a pleasant 44 year old in no apparent distress. Gen:There were no vitals taken for this visit. nl development, non obese, no deformities ENT: Normocephalic, normal hearing, moist mucosa CV: Pulses:Radial= 2+ and symmetric, capillary refill < 2 secs, no peripheral edema/varicosities Skin: no rash, bruising or lesions. Good turgor. Psych: cooperative and appropriate, alert and oriented x 3, good mood and affect. Musculoskeletal: Left shoulder with discomfort to palpation over the anterior aspect of the shoulder, biceps region and lateral clavicle. No tenderness posteriorly. Active forward elevation of about 80 degrees, passive forward elevation of about 140 degrees, range of motion limited by pain, passive external rotation of 50 degrees, limited by pain. No special testing or strength testing was performed. Imaging: Deferred today Supporting Subjective Information Below: Past Surgical History: PAST SURGICAL HISTORY Procedure Laterality Date COLONOSCOPY FLX DX W/COLLJ SPEC WHEN PFRMD 05/13/2007 Colonoscopy SIGMOIDOSCOPY FLX W/BIOPSY SINGLE/MULTIPLE 08/08/2016 VASECTOMY UNI/BI SPX W/POSTOP SEMEN EXAMS 09/17/14 Medications: Current Outpatient Medications Medication Sig ibuprofen (MOTRIN) 800 mg tablet Take 1 tablet by mouth every 8 hours as needed (for pain.). No current facility-administered medications for this visit. Allergies: Tomato (Solanum Lycopersicum) ROS: General (negative for fatigue, malaise, weight loss/gain) HEENT (negative for headache, earache, recent vision changes, sinus pain, sore throat) Respiratory (no recent shortness of breath, hemoptysis) CV (negative for chest tightness, palpitations) Musculoskeletal (see HPI) Psych (no depression, anxiety) This note was partially generated using [employer] voice recognition system, and there may be some incorrect words, spellings, and punctuation that were not noted in checking the note before saving. Kelli Pope PA-C Referring Provider: SELF [[id number]] Allergies As of Date: 02/08/2025 Noted Allergy Reaction TOMATO (SOLANUM LYCOPERSICUM) 10/12/2018 4 - Hives Date Reviewed: 02/08/2025 Reviewe (more content not included)... Normal [facility] 01-29-2025 CNPN Telephone (ORTHWS) -------- CHELIAMMON Gramajo ([id number]) 1980 M Date Time Provider Department 01/29/25 KELLI POPE During your visit today, we recorded the following information about you: Taryn Alvares MA 01/29/2025 3:26 PM Signed Type of form: FMLA Form received via walk in on 01/28/2025 When form is completed, Fax form to [employer] at [phone] Form has been completed and waiting for physician signature. Patient needs to come in and sign release so we can send information to [employer]. ZAHEER Cabello Amy M, MA 02/01/2025 4:06 PM Signed Forms signed and faxed back to [employer]. Confirmation received. Copy sent for scanning. Allergies As of Date: 01/29/2025 Noted Allergy Reaction TOMATO (SOLANUM LYCOPERSICUM) 10/12/2018 4 - Hives Date Reviewed: 01/21/2025 Reviewed by: Brianna Rucker MA - Fully Assessed Reason for Visit: FMLA Paperwork [3639] Prescriptions as of 02/01/2025 - LIDOCAINE VISCOUS 2 % solution Take 5-10 mL by mouth as needed. - cyclobenzaprine (FLEXERIL) 10 mg tablet Take 1 tablet by mouth three times daily as needed. - acetaminophen-codeine (TYLENOL-CODEINE #3) 300-30 mg per tablet Take 1 tablet by mouth every 4 hours as needed. Problem List As Of Date 01/29/2025 Noted Resolved DIVERTICULITIS OF COLON W/O BLEED [K57.32] 03/14/2007 ANEMIA NOS [D64.9] 03/14/2007 DIVERTICULOSIS OF COLON W/O BLEED [K57.30] ABDOMINAL PAIN RUQ [R10.11] 05/08/2007 Brachial neuritis or radiculitis NOS [M54.12] 01/25/2012 Cervicalgia [M54.2] 01/25/2012 Sterilization [Z30.2] 10/08/2014 Upper back pain on right side [M54.9] 07/13/2020 Radicular pain in right arm [M79.2] 07/13/2020 Encounter Status:Closed by TARYN ALVARES on 02/01/25 Normal [facility] CNCONon 01-22-2025 CNCON Consults (NE50MN) -------- AMMON BOWER ([id number]) 1980 M Date Time Provider Department 01/22/25 RAFAEL MADDEN NE50MN During your visit today, we recorded the following information about you: Luis Enrique Woo, MALACHI.MANAGER STATISTICAL PROGRAMMING 01/22/2025 2:12 PM Signed [facility] Review of Records Patient: Ammon Bower Address: [address] [place], [place] [id number] Impression: Review of records for Ammon Bower, a 44 year old male, being referred by [facility] [[facility]] to Any Epileptologist for further evaluation and treatment. Patient has previously diagnosed new onset seizure. EEG and MRI have not been reported. Patient has trialed 0 AEDs. Muna start with a long EEG and consultation with an Epileptologist. -- Summary: Onset: 01/16/2025 Recent Seizure Frequency: 1st and only episode Seizure Description(s) Available: Type A: No warning, occurred in sleep, shaking, foaming of the mouth, tongue bite, dislocated shoulder Duration: 15-30 minutes Current AED(s): None Previous AED(s): None PMH: eczema, pneumonia, arthritis, anemia, seasonal allergies, former smoker, ETOH abuse PRIOR EVALUATIONS: [address] [place] [address] EEG (-): MRI brain wo/w contrast (-): -- CINDY Recommendations: - Long EEG, consult with an Epileptologist - Additional testing to be considered by epilepsy clinicians Signed: Luis Enrique Woo APRN.CNP January 22, [address] Madden for review and recommendations. - Recommendations (as discussed with Dr. Madden): - Routine EEG and visit with an Epileptologist Allergies As of Date: 01/22/2025 Noted Allergy Reaction TOMATO (SOLANUM LYCOPERSICUM) 10/12/2018 4 - Hives Date Reviewed: 01/21/2025 Reviewed by: Brianna Rucker MA - Fully Assessed Primary Visit Diagnosis:New onset seizure (HCC) [R56.9] Order(s):EPIL EEG ROUTINE [[id number]] Order #: [id number]: 1 Prescriptions as of 01/22/2025 - HYDROcodone-acetaminophe n (NORCO) 5-325 mg per tablet Take 1 tablet by mouth every 8 hours as needed for pain for up to 7 days. - LIDOCAINE VISCOUS 2 % solution Take 5-10 mL by mouth as needed. - cyclobenzaprine (FLEXERIL) 10 mg tablet Take 1 tablet by mouth three times daily as needed. - acetaminophen-codeine (TYLENOL-CODEINE #3) 300-30 mg per tablet Take 1 tablet by mouth every 4 hours as needed. Problem List As Of Date 01/22/2025 Noted Resolved DIVERTICULITIS OF COLON W/O BLEED [K57.32] 03/14/2007 ANEMIA NOS [D64.9] 03/14/2007 DIVERTICULOSIS OF COLON W/O BLEED [K57.30] ABDOMINAL PAIN RUQ [R10.11] 05/08/2007 Brachial neuritis or radiculitis NOS [M54.12] 01/25/2012 Cervicalgia [M54.2] 01/25/2012 Sterilization [Z30.2] 10/08/2014 Upper back pain on right side [M54.9] 07/13/2020 Radicular pain in right arm [M79.2] 07/13/2020 Encounter Status:Closed by LUIS ENRIQUE WOO on 01/22/25 [facility] CNOVholly 01-21-2025 CNOV Office Visit (ORNA ) -------- AMMON BOWER ([id number]) 1980 M Date Time Provider Department 01/21/25 11:00 AM KELLI POPE During your visit today, we recorded the following information about you: Kelli Pope PA-C 01/21/2025 3:24 PM Signed Kelli Pope PA-C Department of Orthopaedics Orthopaedics [address] [address] Dept: [phone] January 21, 2025 CHIEF COMPLAINT: New and Pain of the Left Shoulder Left Shoulder Pain: - Severe left shoulder pain following a seizure on Saturday night, jake was sleeping. - Shoulder was dislocated during the seizure; Ammon was taken to the ER by EMS. - Shoulder was reduced in the ER but reportedly dislocated again during an x-ray. - Currently in a sling; experiencing pain on the outside of the shoulder. - No visible bruising noted. - Completed a 10-day course of Vicodin, with the last dose taken this morning. - Entire body is sore post-seizure, with pain in muscles and wrist. - Ammon is right-handed and has started a leave of absence from work at [employer] due to the injury. ASSESSMENT: S43.005A Dislocation of left shoulder joint, initial encounter (primary encounter diagnosis) PLAN: 1. Dislocation of left shoulder joint, initial encounter (S43.005A) - Acute left shoulder dislocation secondary to seizure on Saturday; reduction performed in ED. - CT scan post-reduction shows no fracture, shoulder joint well reduced. - Continue sling immobilization for 2 weeks to allow soft tissue healing. - Advised patient on safe removal of sling for comfort during sleep and to prevent elbow stiffness, with strict instructions to avoid shoulder movement. - Plan for light physical therapy after 2 weeks to restore strength and prevent stiffness. - Will order MRI if persistent pain or dysfunction to assess for rotator cuff or other soft tissue injury. - Provided prescription for additional Vicodin for pain management. - Discussed work restrictions and provided guidance on FMLA/short-term disability paperwork. 2. Seizure (HCC) (R56.9) - First seizure event on Saturday; witnessed by . - Referred to neurology for further evaluation. Will continue to monitor patient for Dislocation of left shoulder joint, initial encounter (primary encounter diagnosis) Seizure (hcc), patient to schedule visit as per follow up discussed. Mr. Ammon Bower was advised as to contrast therapies and/or to take analgesics/anti-inflamma tories as needed and all contraindications were reviewed. OBJECTIVE: Mr. Ammon Bower is a pleasant 44 year old in no apparent distress. Gen:There were no vitals taken for this visit. nl development, non obese, no deformities ENT: Normocephalic, normal hearing, moist mucosa CV: Pulses:Radial= 2+ and symmetric, capillary refill < 2 secs, no peripheral edema/varicosities Skin: no rash, bruising or lesions. Good turgor. Psych: cooperative and appropriate, alert and oriented x 3, good mood and affect. Musculoskeletal: Left shoulder is diffusely tender to palpation, range of motion of the shoulder was not tested. Patient is able to gently flex and extend the left elbow, sensation is intact to the left forearm and hand. Imaging: CT scan right upper extremity [facility] January 17, 2025 Adequate alignment of the left shoulder status post reduction. Cortical depression of the anterior medial humeral head compatible with a compression fracture from recent posterior shoulder dislocation. Supporting Subjective Information Below: Past Surgical History: PAST SURGICAL HISTORY Procedure Laterality Date COLONOSCOPY FLX DX W/COLLJ SPEC WHEN PFRMD 05/13/2007 Colonoscopy SIGMOIDOSCOPY FLX W/BIOPSY SINGLE/MULTIPLE 08/08/2016 VASECTOMY UNI/BI SPX W/POSTOP SEMEN EXAMS 09/17/14 Medications: Current Outpatient Medications Medication Sig HYDROcodone-acetaminophe n (NORCO) 5-325 mg per tablet Take 1 tablet by mouth every 8 hours as needed for pain for up to 7 days. LIDOCAINE VISCOUS 2 % solution Take 5-10 mL by mouth as needed. (Patient not taking: Reported on 01/21/2025) cyclobenzaprine (FLEXERIL) 10 mg tablet Take 1 tablet by mouth three times daily as needed. (Patient not taking: Reported on 01/21/2025) acetaminophen-codeine (TYLENOL-CODEINE #3) 300-30 mg per tablet Take 1 tablet by mouth every 4 hours as needed. (Patient not taking: Reported on 01/21/2025) No current facility-administered medications for this visit. Allergies: Tomato (Solanum Lycopersicum) ROS: General (negative for fatigue, malaise, weight loss/gain) HEENT (negative for headache, earache, recent vision changes, sinus pain, sore throat) Respiratory (no recent shortness of breath, hemoptysis) CV (negative for chest tightness, palpitations) Musculoskeletal (see HPI) Psych (n (more content not included)... Normal [facility] Absolute lymphocyte countOrd ered By: Sofiya Harper on 01-17-2025 Lymphocytes Auto (Unsp spec) [#/Vol] 5.44 10*3/uL High 0.83-4.51 [facility] Absolute neutrophil countOrd ered By: Sofiya Harper on 01-17-2025 Neutrophils (Bld) [#/Vol] 6.5 10*3/uL 2.0-7.7 [facility] Alcohol, Blood (Medical)-Ser umon 01-17-2025 SERUM ETOH < 10.1 Normal <=10.0 [facility] Comment on above: Result Comment: This test is for medical purposes only. The legal definition of intoxication varies according to local law. Performed By: #### L 503.6005, L500.2500, L505.5000, L501.9100, L100.0100, L501.5200, L501.3620 #### [facility] [address] [place] [address]. [place], [place], [address] Amphetamine detection with 1 000 ng/mL as cutoffOrdered By: Sofiya Harper on 01-17-2025 Amphetamines Screen method >1000 ng/mL Ql (U) Negative < 200 ng/mL [facility] Anion gap in Serum or Plasma Ordered By: Sofiya Harper on 01-17-2025 Anion gap [Moles/Vol] 29 mmol/L High 5-15 [facility] Automated lymphocyte count a s percentage of total leukocytesOrdered By: Sofiya Harper on 01-17-2025 Lymphocytes/100 WBC Auto (Unsp spec) 39.6 % 19- [facility] BUN/creatinine ratioOrdered By: Sofiya Harper on 01-17-2025 Urea nitrogen/Creatinine [Mass ratio] 13.2 mg/mg - [facility] Basic Metabolic Profile (BMP )on 01-17-2025 BUN/CRE 13.2 RATIO Normal 02-22 [facility] Comment on above: Performed By: #### L 503.6005, L500.2500, L505.5000, L501.9100, L100.0100, L501.5200, L501.3620 #### [facility] [address] [place], [address] Calcium [Mass/Vol] 9.1 mg/dL Normal 7.6-11.0 [facility] Comment on above: Performed By: #### L 503.6005, L500.2500, L505.5000, L501.9100, L100.0100, L501.5200, L501.3620 #### [facility] [address] [place], [address] Chloride [Moles/Vol] 100 mmol/L Normal 98-108 [facility] Comment on above: Performed By: #### L 503.6005, L500.2500, L505.5000, L501.9100, L100.0100, L501.5200, L501.3620 #### [facility] [address] [place], [address] CO2 [Moles/Vol] 11.5 mmol/L Low 21.0-32.0 [facility] Comment on above: Performed By: #### L 503.6005, L500.2500, L505.5000, L501.9100, L100.0100, L501.5200, L501.3620 #### [facility] [address] [place], [address] Creatinine [Mass/Vol] 1.22 mg/dL High 0.70-1.20 [facility] Comment on above: Performed By: #### L 503.6005, L500.2500, L505.5000, L501.9100, L100.0100, L501.5200, L501.3620 #### [facility] [address] [place], [address] ECRCL 83.04 ml/min Normal 50-250 [facility] Comment on above: Performed By: #### L 503.6005, L500.2500, L505.5000, L501.9100, L100.0100, L501.5200, L501.3620 #### [facility] [address] [place], [address] GAP 29 High 5-15 [facility] Comment on above: Performed By: #### L 503.6005, L500.2500, L505.5000, L501.9100, L100.0100, L501.5200, L501.3620 #### [facility] [address] [place], [address] GFR/1.73 sq M.predicted among non-blacks MDRD (S/P/Bld) [Vol rate/Area] 74 mL/min/{1.73_m2} Normal >60 [facility] Comment on above: Result Comment: mL/m in/1.73m2 CKD-EPI Creatinine Equation (2020) Performed By: #### L 503.6005, L500.2500, L505.5000, L501.9100, L100.0100, L501.5200, L501.3620 #### [facility] [address] [place], [address] Glucose [Mass/Vol] 181 mg/dL High 70-99 [facility] Comment on above: Performed By: #### L 503.6005, L500.2500, L505.5000, L501.9100, L100.0100, L501.5200, L501.3620 #### [facility] [address] [place], [address] Potassium [Moles/Vol] 3.5 mmol/L Normal 3.3-5.1 [facility] Comment on above: Performed By: #### L 503.6005, L500.2500, L505.5000, L501.9100, L100.0100, L501.5200, L501.3620 #### [facility] [address] [place], [address] Sodium [Moles/Vol] 140 mmol/L Normal 133-145 [facility] Comment on above: Performed By: #### L 503.6005, L500.2500, L505.5000, L501.9100, L100.0100, L501.5200, L501.3620 #### [facility] [address] [place], [address] Urea nitrogen [Mass/Vol] 16 mg/dL Normal 4-19 [facility] Comment on above: Performed By: #### L 503.6005, L500.2500, L505.5000, L501.9100, L100.0100, L501.5200, L501.3620 #### [facility] [address] [place], [address] Basophil percentageOrdered B y: Sofiya Harper on 01-17-2025 Basophils/100 WBC (Bld) 0.6 % 0-1 [facility] Bedside Glucoseon 01-17-2025 FINGERSTICK GLU 169 mg/dL High 74-106 [facility] Comment on above: Result Comment: ROBERT GEMENT OF PATIENT CARE PER NURSING PROTOCOL Performed By: #### L 501.080 ####[facility] [id number] [place], [address] Blood manual differential co mment interpretation (narrative result)Ordered By: Sofiya Harper on 01-17-2025 Manual differential comment Luis (Bld) [Interp] SCANNED [facility] Comment on above: LYMPHOCYTOSIS PRESEN T Brain/Head without Contrasto n 01-17-2025 Brain/Head without Contrast [facility] Imaging Services [address] [place] [address] Brain/Head without Contrast MR#: [id number] Acct: [id number] Name: AMMON BOWER Rep #: [id number] : 1980 M 44 From: Loi Garrett MD PCP: Dr. Jass Ching MD Status: REG ER Study: Brain/Head without Contrast Date of Exam: 01/04 08/28 Exam# [id number] Ordering Dr: Sofiya Harper MD PROCEDURE: BRAIN/HEAD WITHOUT CONTRAST; SPINE CERVICAL WITHOUT CONTRAS 01/17/2025 REASON FOR EXAM: FIRST TIME SEIZURE TECHNIQUE: Procedure Code: CTBR; CTSPC Modality: CT Procedure: BRAIN/HEAD WITHOUT CONTRAST; SPINE CERVICAL WITHOUT CONTRAS Coronal and Sagittal reconstruction series were provided. One or more dose reduction techniques were used (e.g., Automated exposure control, adjustment of the mA and/or kV according to patient size, use of iterative reconstruction technique. COMPARISON: None available. FINDINGS: There is no extra-axial or intra-axial intracranial hemorrhage. No mass effect or midline shift is seen. The ventricles, sulci, and cisterns are normal in size and shape for the patient's age. There is normal fuentes-white matter differentiation. The posterior fossa is grossly unremarkable. The skull is unremarkable. Visualized paranasal sinuses are clear. The mastoid air cells show normal translucency. The cervical alignment is intact. No acute cervical spine fracture is identified. The vertebral body heights are intact. No suspicious osseous lesions are identified. The craniocervical junction appears intact. There is no prevertebral soft tissue swelling. No significant degenerative changes are identified. The visualized lung apices are unremarkable. CT/Brain/Head without Contrast IMPRESSION: No intracranial hemorrhage. No mass effect or midline shift. No evidence of acute cervical spine fracture or malalignment. Reading Location: [facility] CC: Dr. Jass Ching MD; Dr. Sofiya Harper MD Skiving Machine Operator: Signed Normal [facility] CBC W/Diff, Automatedon 01-04 REACTIVE LYMPH 2+ Normal [facility] Comment on above: Performed By: #### L 503.6005, L500.2500, L505.5000, L501.9100, L100.0100, L501.5200, L501.3620 #### [facility] [address] [place], [place], [address] SMEAR COMMENT SCANNED Normal [facility] Comment on above: Result Comment: LYMP HOCYTOSIS PRESENT Performed By: #### L 503.6005, L500.2500, L505.5000, L501.9100, L100.0100, L501.5200, L501.3620 #### [facility] [address] [place], [address] CPK Total, Creatine Kinaseon 01-17-2025 CPK TOTAL 451 U/L High 24-195 [facility] Comment on above: Performed By: #### L 503.6005, L500.2500, L505.5000, L501.9100, L100.0100, L501.5200, L501.3620 ####[facility] [address] [place], [address] Carbon dioxide, total [Moles /volume] in Central venous bloodOrdered By: Sofiya Harper on 01-17-2025 CO2 [Moles/Vol] 11.5 mmol/L Low 21.0-32.0 [facility] Chloride assayOrdered By: Jose Harper on 01-17-2025 Chloride [Moles/Vol] 100 mmol/L 98-108 [facility] Emergency Department Summary on 01-17-2025 Emergency Department Summary [facility] Medical Records Department [address] [place] [address] Emergency Department Summary 01/17/25 MR#: [id number] Acct: [id number] Name: AMMON BOWER Rep #: [id number] : 1980 44 From: Sofiya Harper MD PCP: Dr. Jass Ching MD Status:DEP ER Location: ED HPI History of Present Illness Chief Complaint: Seizure Narrative Narrative: Patient is a 44-year-old male presenting to the emergency department for a reported seizure by . Patient has no past medical history of seizures. He states he does not remember the seizure. When arrives she provides history and states that the patient sat up in bed and began full body shaking. States it lasted about 10 minutes. She does report that the patient drinks daily but has never had any alcohol withdrawal symptoms or seizures. States that he last drink around 1 or 2 AM. Came to bed shortly after this. Patient is alert and oriented x 3 on arrival. Is complaining of left shoulder pain. Denies any other injuries. Denies any recent head trauma, fevers. Denies any drug use other than marijuana. PFSH PFSH Medical History Eczema Former smoker Blood glucose elevated Colon cancer screening Arthritis Low back pain Anemia Encounter to establish care Preventative health care History of pneumonia Seasonal allergies Alcohol abuse Home Medications ???Medication ???Instructions ???Recorded ???Last Taken ???Type hydrocodone-acetaminophe n 5-325mg 1 tab PO Q6H PRN PRN Pain 3 days 01/17/25 Unknown Rx 5mg-325mg #10 TABLETS Allergy/AdvReac Type Severity Reaction Status Date / [...] activity do you participate in: none ROS ROS ED ROS Narrative see HPI EXAM Physical Exam Narrative Exam Narrative: Vital signs: Reviewed General: Alert and orientedx3. No acute distress HEENT: Head is normocephalic and atraumatic, sinuses nontender, pupils equal round and reactive. Pupils 2 mm bilaterally. Nares are patent. Oropharynx and throat exams normal. No tongue lacerations. Neck: Supple without lymphadenopathy nontender. No midline cervical spinal tenderness palpation. No step-offs or deformities. Cardiovascular: Regular rate and rhythm, no murmurs. No rubs or gallops. Normal S1 and S2 Respiratory: Clear to auscultation bilaterally. No wheezes, rales, rhonchi Abdominal: Soft and nontender. Normal bowel sounds. No guarding or rebound. Nonsurgical abdomen Extremities: Left upper extremity with deformity of the shoulder with a divot felt anteriorly. Radial pulse intact. Sensation intact specifically over the axillary nerve. Patient holding his arm in a abducted and internally rotated position. Extremities are otherwise atraumatic and nontender to palpation with normal active range of motion. Skin: No rash or redness. Neurological: Cranial nerves II through XII are grossly intact. Normal strength and sensation. Normal cerebellar function The rest of the physical exam is unremarkable Const Vital Signs: 01/17/25 05:41 01/17/25 06:38 01/17/25 07:03 Temperature 98.0 F Temperature Source Oral Pulse Rate 106 H 75 65 Pulse Rate [1 (Initial Baseline)] Pulse Rate [2] Pulse Rate [3] Respiratory Rate 18 28 H 18 Respiratory Rate [1 (Initial Baseline)] Respiratory Rate [2] Respiratory Rate [3] Blood Pressure 138/81 H 144/89 H 146/76 H Blood Pressure [1 (Initial Baseline)] Blood Pressure [2] Blood Pressure [3] Blood Pressure Mean 100 107 99 Baseline BP Pulse Ox 98 99 98 Oxygen Delivery Method Room Air Room Air Room Air Oxygen Delivery Method [1 (Initial Baseline)] Oxygen Delivery Method [3] Oxygen Flow Rate (L/min) EtCo2 - Document during CPR and with ROSC EtCo2 - Document during CPR and with ROSC [1 (Initial Baseline)] EtCo2 - Document during CPR and with ROSC [2] EtCo2 - Document during CPR and with ROSC [3] 01/17/25 07:12 01/17/25 07:12 01/17/25 07:12 Temperature 98.9 F Temperature Source Pulse Rate 87 Pulse Rate [1 (Initial Baseline)] 64 Pulse Rate [2] 87 Pulse Rate [3] Respiratory Rate 18 Respiratory Rate [1 (Initial Baseline)] 18 Respiratory Rate [2] 18 Respiratory Rate [3] Blood P (more content not included)... Normal [facility] Eosinophil percentageOrdered By: Sofiya Harper on 01-17-2025 Eosinophils/100 WBC (Bld) 4.2 % 0-5 [facility] Erythrocyte distribution wid th ratioOrdered By: Sofiya Harper on 01-17-2025 Erythrocyte distribution width (RBC) [Ratio] 11.9 % 11.6-14.6 [facility] Erythrocyte distribution wid th standard deviationOrdered By: Sofiya Harper on 01-17-2025 Erythrocyte distribution width (RBC) [Ratio] 45.4 fl High 35.1-43.9 [facility] Extremity Upper without Cont raon 01-17-2025 Extremity Upper without [facility] Imaging Services [address] [address] Extremity Upper without Contra MR#: [id number] Acct: [id number] Name: AMMON BOWER Rep #: [id number] : 1980 M 44 From: Loi Garrett MD PCP: Dr. Jass Ching MD Status: REG ER Study: Extremity Upper without Contra Date of Exam: 0 01/17/25 Exam# [id number] Ordering Dr: Usman Trejo MD PROCEDURE: EXTREMITY UPPER WITHOUT CONTRA 01/17/2025 REASON FOR EXAM: SHOULDER INJURY POST REDUCTION TECHNIQUE: Procedure Code: CTEUWO Modality: CT Procedure: EXTREMITY UPPER WITHOUT CONTRA Coronal and Sagittal reconstruction series were provided. One or more dose reduction techniques were used (e.g., Automated exposure control, adjustment of the mA and/or kV according to patient size, use of iterative reconstruction technique. COMPARISON: Multiple shoulder x-rays obtained earlier same day. FINDINGS: Bones: The left humeral head appears anatomically aligned with the glenoid fossa status post reduction. Cortical depression of the anteromedial aspect of the humeral head compatible with an compression fracture from recent posterior shoulder dislocation. Tiny bony flake is noted between the humeral head and glenoid process with no significant bony injury to the glenoid process itself. No acute fractures identified. Joints: Small left shoulder joint effusion. No significant degenerative changes. Soft Tissues: No large hematoma. Muscles and tendons appear unremarkable. Visualized chest: Lung le are clear. No definite pneumothorax. CT/Extremity Upper without Contra IMPRESSION: 1. Adequate alignment of the left shoulder status post reduction. 2. Cortical depression of the anteromedial left humeral head compatible with compression fracture from recent posterior shoulder dislocation. 3. No acute new fractures. 4. Small left shoulder joint effusion. Reading Location: [facility] CC: Dr. Usman Trejo MD; Dr. Jass Ching MD Skiving Machine Operator: Signed Normal [facility] Glomerular filtration rate ( GFR) estimation/1.73 sq m using serum, plasma, or whole bOrdered By: Sofiya Harper on 01-17-2025 GFR/1.73 sq M.predicted among non-blacks MDRD (S/P/Bld) [Vol rate/Area] 74 mL/min/{1.73_m2} >60 [facility] Comment on above: mL/min/1.73m2 CKD-EP I Creatinine Equation (2020) [facility] deOrdered By: Sofiya Harper on 01-17-2025 Glucose [Mass/Vol] 169 mg/dL High 74-106 [facility] Comment on above: MANAGEMENT OF PATIEN T CARE PER NURSING PROTOCOL Hematocrit Auto (Bld) [Volum e fraction]Ordered By: Sofiya Harper on 01-17-2025 Hematocrit (Bld) [Volume fraction] 39.2 % Low 40-54 [facility] Hemoglobin measurementOrdere d By: Sofiya Harper on 01-17-2025 Hemoglobin (Bld) [Mass/Vol] 12.8 g/dL Low 13.0-16.5 [facility] Immature granulocytes/100 WB C Auto (Bld)Ordered By: Sofiya Harper on 01-17-2025 Immature granulocytes/100 WBC (Bld) 1.500 % High 0.0-0.9 [facility] Comment on above: IG% - Immature Granu locytes (promyelocytes, myelocytes and metamyelocytes) > 1% indicates that a LEFT SHIFT is Present. Lactic Acidon 01-17-2025 Lactate [Moles/Vol] 1.1 mmol/L Normal 0.0-2.0 [facility] Comment on above: Performed By: #### L 503.6005 ####[facility] [id number] [place], [place], [id number] Lactate [Moles/Vol] 7.2 mmol/L Invalid Interpretation Code 0.0-2.0 [facility] Comment on above: Order Comment: Y Result Comment: Crit ical Result(s) Called at 01/17/2025-06:40 by Jimmy Crooks to Rosina Truong.??Results read back by same. Performed By: #### L 503.6005, L500.2500, L505.5000, L501.9100, L100.0100, L501.5200, L501.3620 ####[facility] [address] [place], [place], [address] Lactic acid measurementOrder ed By: Sofiya Harper on 01-17-2025 Lactate [Moles/Vol] 1.1 mmol/L 0.0-2.0 [facility] MCV (mean corpuscular volume ) determinationOrdered By: Sofiya Harper on 01-17-2025 MCV (RBC) [Entitic vol] 103.4 fL High 80-94 [facility] Magnesiumon 01-17-2025 Magnesium [Mass/Vol] 2.1 mg/dL Normal 1.5-2.2 [facility] Comment on above: Performed By: #### L 503.6005, L500.2500, L505.5000, L501.9100, L100.0100, L501.5200, L501.3620 #### [facility] Laboratory [address] [place], [place], [address] Magnesium measurement (mass/ volume)Ordered By: Sofiya Harper on 01-17-2025 Magnesium (Unsp spec) [Mass/Vol] 2.1 mg/dL 1.5-2.2 [facility] Mean corpuscular hemoglobin (MCH) determinationOrdered By: Sofiya Harper on 01-17-2025 MCH (RBC) [Entitic mass] 33.8 pg High 27.0-32.0 [facility] Mean corpuscular hemoglobin concentration (MCHC) determinationOrdered By: Sofiya Harper on 01-17-2025 MCHC (RBC) [Mass/Vol] 32.7 g/dL 32-36 [facility] Mean platelet volume determi nationOrdered By: Sofiya Harper on 01-17-2025 Platelet mean volume (Bld) [Entitic vol] 12.4 fL High 6.2-12.0 [facility] Monocyte percentageOrdered B y: Sofiya Harper on 01-17-2025 Monocytes/100 WBC (Bld) 6.8 % 0-10 [facility] Neutrophil percentageOrdered By: Sofiya Harper on 01-17-2025 Neutrophils/100 WBC (Bld) 47.3 % 47-70 [facility] No Panel InformationOrdered By: Sofiya Campbeller on 01-17-2025 Urine Buprenorphine Qualitative Negative < 200 ng/mL [facility] Urine Oxycodone Screen Negative < 100 ng/mL [facility] Nucleated red blood cell per centageOrdered By: Sofiya Campbeller on 01-17-2025 Nucleated RBC/100 WBC (Bld) [Ratio] 0 % 0-5 [facility] Platelet countOrdered By: Jose Campbeller on 01-17-2025 Platelets (Bld) [#/Vol] 275 10*3/uL 150-450 [facility] Potassium measurement (mass/ volume)Ordered By: Sofiya Campbeller on 01-17-2025 Potassium (Unsp spec) [Mass/Vol] 3.5 mmol/L 3.3-5.1 [facility] Quantitative urine opiates m easurementOrdered By: Sofiya Meredith on 01-17-2025 Opiates Ql (U) Negative < 300 ng/mL [facility] RBC Auto (Bld) [#/Vol]Ordere d By: Sofiya Campbeller on 01-17-2025 RBC (Bld) [#/Vol] 3.79 10*6/uL Low 4.6-6.2 [facility] Screening urine fentanyl lacy surementOrdered By: Sofiya Campbeller on 01-17-2025 fentaNYL Screen Ql (U) Positive <5 ng/mL [facility] Comment on above: CONFIRMATORY TESTING FOR ALL POSITIVE URINE DRUG SCREENRESULTS WILL ONLY BE SENT OUT UPON PHYSICIAN ORDER. [facility] [employer] Urine Drug Screen methods provide only preliminaryanalytical test results. A more specific alternate chemicalmethod must be used in order to obtain a confirmedanalytical result. Gas chromatography/mass spectrometery(GC/MS) is the preferred confirmatory method. Clinicalconsideration and professional judgement should be appliedto any drug of abuse test result, particularly whenpreliminary positive results are used. Urine TCA testing must be ordered separately. Use test mnemonic: UTCA If confirmation testing is needed, a separate order will be required to send out testing to the reference laboratory. Serum creatinine measurement (mass/volume)Ordered By: Sofiya Meredith on 01-17-2025 Creatinine [Mass/Vol] 1.22 mg/dL High 0.70-1.20 [facility] Serum glucose measurement (m ass/volume)Ordered By: Sofiya Harper on 01-17-2025 Glucose [Mass/Vol] 181 mg/dL High 70-99 [facility] Serum or plasma calcium klarissa urement (mass/volume)Ordered By: Sofiya Harper on 01-17-2025 Calcium [Mass/Vol] 9.1 mg/dL 7.6-11.0 [facility] Serum or plasma creatine kin ase activityOrdered By: Sofiya Harper on 01-17-2025 CK [Catalytic activity/Vol] 451 U/L High 24-195 [facility] Serum or plasma ethanol klarissa urement (mass/volume)Ordered By: Sofiya Harper on 01-17-2025 Ethanol [Mass/Vol] mg/dL <10.1 [facility] Comment on above: This test is for med ical purposes only. The legal definition of intoxication varies according to local law. Serum or plasma urea nitroge n measurement (mass/volume)Ordered By: Sofiya Harper on 01-17-2025 Urea nitrogen [Mass/Vol] 16 mg/dL 4-19 [facility] Shoulder min 2 Viewson 01-17 Shoulder min 2 Views [facility] Imaging Services [address] [place], [place] [address] Shoulder min 2 Views MR#: [id number] Acct: [id number] Name: AMMON BOWER Rep #: [id number] : 1980 M 44 From: Loi Garrett MD PCP: Dr. Jass Ching MD Status: REG ER Study: Shoulder min 2 Views Date of Exam: 01/17/25 Exam# [id number] Ordering Dr: Sofiya Harper MD PROCEDURE: SHOULDER MIN 2 VIEWS 01/17/2025 REASON FOR EXAM: POST REDUCTION TECHNIQUE: Procedure Code: RADSH Modality: DX Procedure: SHOULDER MIN 2 VIEWS Laterality: Left COMPARISON: Multiple x-rays obtained earlier same day. FINDINGS: Bones: No acute fractures. Joints: Persistent posterior subluxation of the left shoulder. The acromioclavicular joint is unremarkable. Soft tissues: Soft tissues are unremarkable. Other: Visualized lung le are clear. No pneumothorax. RAD/Shoulder min 2 Views IMPRESSION: Persistent posterior subluxation of the left shoulder. No acute fractures. Reading [facility] CC: Dr. Jass Ching MD; Dr. Sofiya Harper MD Skiving Machine Operator: Signed Normal [facility] Shoulder min 2 Views [facility] Imaging Services [address] [place] [address] Shoulder min 2 Views MR#: [id number] Acct: [id number] Name: AMMON BOWER Rep #: [id number] : 1980 M 44 From: Janes Browne MD PCP: Dr. Jass Ching MD Status: [facility] ER Study: Shoulder min 2 Views Date of Exam: 01/17/25 Exam# [id number] Ordering Dr: Sofiya Harper MD PROCEDURE: SHOULDER MIN 2 VIEWS 01/17/2025 REASON FOR EXAM: POSTERIOR DISLOCATION TECHNIQUE: Procedure Code: [facility] Modality: DX Procedure: SHOULDER MIN 2 VIEWS Laterality: Left COMPARISON: Earlier today's exam. FINDINGS: Bones: Hill-Sachs defect noted in the humerus. Negative for fractures. Scapula otherwise negative. Proximal humerusotherwise negative. Clavicle negative. Joints: Humeral head is posteriorly dislocated on the axillary view. Better seen than on the previous study Soft tissues: Adjacent structures negative. Other: Remainder of the exam negative. RAD/Shoulder min 2 Views IMPRESSION: Hill-Sachs defect and probable posterior dislocation of the humerus Reading Location: [id number] CC: Dr. Jass Ching MD; Dr. Sofiya Harper MD Skiving Machine Operator: Signed Normal [facility] Shoulder min 2 Views [facility] Imaging Services [address] [place], [place] [id number] Shoulder min 2 Views MR#: [id number] Acct: [id number] Name: AMMON BOWER Rep #: [id number] : 1980 M 44 From: Janes Browne MD PCP: Dr. Jass Ching MD Status: REG ER Study: Shoulder min 2 Views Date of Exam: 01/17/25 Exam# [id number] Ordering Dr: Sofiya Harper MD PROCEDURE: SHOULDER MIN 2 VIEWS 01/17/2025 REASON FOR EXAM: DISLOCATION TECHNIQUE: Procedure Code: RADSH Modality: DX Procedure: SHOULDER MIN 2 VIEWS Laterality: Left COMPARISON: None. FINDINGS: Bones: Negative for fractures. Scapula otherwise negative. Proximal humerus negative. Clavicle negative. Joints: Intact. No joint effusion. Soft tissues: Adjacent structures negative. Other: Remainder of the exam negative. RAD/Shoulder min 2 Views IMPRESSION: Negative left shoulder. Reading Location: [id number] CC: Dr. Jass Ching MD; Dr. Sofiya Harper MD Skiving Machine Operator: Signed Normal [facility] Sodium levelOrdered By: Edgar Harper on 01-17-2025 Sodium [Moles/Vol] 140 mmol/L 133-145 [facility] Spine Cervical without Contr ason 01-17-2025 Spine Cervical without Contras [facility] Imaging Services [address] [place] [address] [id number] Spine Cervical without Contras MR#: [id number] Acct: [id number] Name: AMMON BOWER Rep #: [id number] : 1980 M 44 From: Loi Garrett MD PCP: Dr. Jass Ching MD Status: REG ER Study: Spine Cervical without Contras Date of Exam: 0 01/17/25 Exam# [id number] Ordering Dr: Sofiya Harper MD PROCEDURE: BRAIN/HEAD WITHOUT CONTRAST; SPINE CERVICAL WITHOUT CONTRAS 01/17/2025 REASON FOR EXAM: FIRST TIME SEIZURE TECHNIQUE: Procedure Code: CTBR; CTSPC Modality: CT Procedure: BRAIN/HEAD WITHOUT CONTRAST; SPINE CERVICAL WITHOUT CONTRAS Coronal and Sagittal reconstruction series were provided. One or more dose reduction techniques were used (e.g., Automated exposure control, adjustment of the mA and/or kV according to patient size, use of iterative reconstruction technique. COMPARISON: None available. FINDINGS: There is no extra-axial or intra-axial intracranial hemorrhage. No mass effect or midline shift is seen. The ventricles, sulci, and cisterns are normal in size and shape for the patient's age. There is normal fuentes-white matter differentiation. The posterior fossa is grossly unremarkable. The skull is unremarkable. Visualized paranasal sinuses are clear. The mastoid air cells show normal translucency. The cervical alignment is intact. No acute cervical spine fracture is identified. The vertebral body heights are intact. No suspicious osseous lesions are identified. The craniocervical junction appears intact. There is no prevertebral soft tissue swelling. No significant degenerative changes are identified. The visualized lung apices are unremarkable. CT/Spine Cervical without Contras IMPRESSION: No intracranial hemorrhage. No mass effect or midline shift. No evidence of acute cervical spine fracture or malalignment. Reading Location: [facility] CC: Dr. Jass Ching MD; Dr. Sofiya Harper MD Skiving Machine Operator: Signed Normal [facility] Urine Drug Screen (VISTA)on 01-17-2025 AMPHETAMINES Negative Normal <1000 ng/mL [facility] Comment on above: Performed By: #### L 503.6005, L500.2500, L505.5000, L501.9100, L100.0100, L501.5200, L501.3620 ####[facility] [address] [place], [address] BARBITIURATES Negative Normal < 200 ng/mL [facility] Comment on above: Performed By: #### L 503.6005, L500.2500, L505.5000, L501.9100, L100.0100, L501.5200, L501.3620 ####[facility] [address] [place], [address] BENZODIAZIPINE Negative Normal < 200 ng/mL [facility] Comment on above: Performed By: #### L 503.6005, L500.2500, L505.5000, L501.9100, L100.0100, L501.5200, L501.3620 ####[facility] [address] [place], [address] BUP Ur Drug Scr Negative Normal < 200 ng/mL [facility] Comment on above: Performed By: #### L 503.6005, L500.2500, L505.5000, L501.9100, L100.0100, L501.5200, L501.3620 ####[facility] [address] [place], [address] COCAINE Negative Normal < 300 ng/mL [facility] Comment on above: Performed By: #### L 503.6005, L500.2500, L505.5000, L501.9100, L100.0100, L501.5200, L501.3620 ####[facility] [address] [place], [place], [id number] Fentanyl Positive Normal <5 ng/mL [facility] Comment on above: Result Comment: CONF IRMATORY TESTING FOR ALL POSITIVE URINE DRUG SCREEN RESULTS WILL ONLY BE SENT OUT UPON PHYSICIAN ORDER. Naiya Pro Urine Drug Screen methods provide only preliminary analytical test results. A more specific alternate chemical method must be used in order to obtain a confirmed analytical result. Gas chromatography/mass spectrometery (GC/MS) is the preferred confirmatory method. Clinical consideration and professional judgement should be applied to any drug of abuse test result, particularly when preliminary positive results are used. Urine TCA testing must be ordered separately. Use test mnemonic: UTCA If confirmation testing is needed, a separate order will be required to send out testing to the reference laboratory. Performed By: #### L 503.6005, L500.2500, L505.5000, L501.9100, L100.0100, L501.5200, L501.3620 ####[facility] [address] [place], [place], [id number] METHADONE Negative Normal < 300 ng/mL [facility] Comment on above: Performed By: #### L 503.6005, L500.2500, L505.5000, L501.9100, L100.0100, L501.5200, L501.3620 ####[facility] [address] [place], [address] OPIATES Negative Normal < 300 ng/mL [facility] Comment on above: Performed By: #### L 503.6005, L500.2500, L505.5000, L501.9100, L100.0100, L501.5200, L501.3620 ####[facility] [address] [place], [address] OXYCODONE Negative Normal < 100 ng/mL [facility] Comment on above: Performed By: #### L 503.6005, L500.2500, L505.5000, L501.9100, L100.0100, L501.5200, L501.3620 ####[facility] [address] [place], [address] PCP Negative Normal < 25 ng/mL [facility] Comment on above: Performed By: #### L 503.6005, L500.2500, L505.5000, L501.9100, L100.0100, L501.5200, L501.3620 ####[facility] [address] [place], [address] THC Positive Normal < 50 ng/mL [facility] Comment on above: Result Comment: If c onfirmation testing is needed, a separate order will be required to send out testing to the reference laboratory. Performed By: #### L 503.6005, L500.2500, L505.5000, L501.9100, L100.0100, L501.5200, L501.3620 ####[facility] [address] [place], [address] Urine benzodiazepine levelOr dered By: Sofiya Harper on 01-17-2025 Benzodiazepines Ql (U) Negative < 200 ng/mL [facility] Urine cocaine levelOrdered B y: Sofiya Harper on 01-17-2025 Cocaine Ql (U) Negative < 300 ng/mL [facility] Urine hsxlf-9-ktusvosnsenbsq abinol (THC) measurementOrdered By: Sofiya Harper on 01-17-2025 Cannabinoids Screen Ql (U) Positive < 50 ng/mL [facility] Comment on above: If confirmation test ing is needed, a separate order will be required to send out testing to the reference laboratory. Urine phencyclidine (PCP) de tectionOrdered By: Sofiya Harper on 01-17-2025 Phencyclidine Ql (U) Negative < 25 ng/mL [facility] White blood cell (WBC) count Ordered By: Sofiya Harper on 01-17-2025 WBC (Bld) [#/Vol] 13.8 10*3/uL High 4.4-11.0 [facility] Colonoscopy Reporton 025 Colonoscopy Report [facility] Medical Records Department [address] [place] [address] Colonoscopy Report MR#: [id number] Acct: [id number] Name: AMMON BOWER Rep #: [id number] : 1980 43 From: Kentrell Isbell DO PCP: Dr. Jass Ching MD Status:[facility] Patient Name: Ammon Bower Procedure Date: 06/01/2024 [...] pathology results. Procedure Code(s): --- Professional --- 34541, Colonoscopy, flexible; with biopsy, single or multiple CPT copyright 2021 [employer]. All rights reserved. The codes documented in this report are preliminary and upon medical record coder review may be revised to meet current compliance requirements. Kentrell Isbell DO 06/01/2024 11:51:25 AM This report has been signed electronically. Number of Addenda: 0 Note Initiated On: 06/01/2024 11:21 AM 06/01/24 1151 Date Kentrell Izaguirreignjose Signature: Date (if indicated) CC: Dr. Jass Ching MD; Kentrell Isbell DO Date Dictated: 06/01/24 1121 Date Trans (more content not included)... [facility] MR/POSTOP.STAS 06-01-2024 MR/POSTOP.[facility] Medical Records Department [address] [place] [address] Anesthesia Postop Eval I 06/01/24 1153 MR#: [id number] Acct: [id number] Name: AMMON BOWER Rep #: [id number] : 1980 43 From: Brandon Morales PCP: Dr. Jass Ching MD Status:REG SDC Y Race: AA Location: [place] [address] Anesthesia: Postop Eval I Current Vital Signs [...] Brandon Obrien Signature: Date CC: Signed Normal [facility] MR/MYANORZF8sl 06-01-2024 MR/POSTOPAN2 [facility] Medical Records Department [address] [place] [address] Anesthesia Postop Eval II 06/01/24 1246 MR#: [id number] Acct: [id number] Name: AMMON BOWER Rep #: [id number] : 1980 43 From: Calvin Dillard MD PCP: Dr. Jass Ching MD Status:[facility] Y Race: AA Location: EN Anesthesia Postop [...] Anesthesia Complication: No 06/01/24 1247 Date Calvin Obrien Signature: Date CC: Signed Normal [facility] Surgery Specimen Level Gemini 06-01-2024 Surgery Specimen Level IV Patient Age/Sex Location Account Attending Physician AMMON BOWER/M EN [id number] Kentrell Isbell DO Specimen: [id number] Received: 06/01/24 Status: BARBARA Salaazr Num: [id number] Spec Type: COLON BX Subm Dr: Kentrell Isbell, DO HEADER OPERATION: Colonoscopy with biopsy PRE-OP DIAGNOSIS: Colon cancer screening TISSUE SUBMITTED: A- Terminal ileum biopsy, B- Sigmoid colon biopsy MICROSCOPIC DIAGNOSIS A. Terminal ileum, biopsy: Fragments of small intestinal mucosa, no pathologic diagnosis. B. Sigmoid colon, biopsy: Fragments of colonic mucosa, no pathologic diagnosis. . 06/03/2024 MICROSCOPIC DESCRIPTION Slides are reviewed. GROSS [...] specimen is totally submitted in one cassette. Laine 06/02/2024 TC:4 CPT:85504u5 Patient Age/Sex Location Account Attending Physician AMMON BOWER/Marcos EN [id number] Kentrell Friend, DO Signed (signature on file) Dr. Duran Nj MD 06/03/24 1206 Normal [facility] Comment on above: Performed By: #### P SUIV ####[facility] [address] [place], [place], [address] MR/Jung 05-28-2024 MR/[facility] Medical Records Department [address] [place] [address] PAT - Anesthesia 05/28/24 1741 MR#: [id number] Acct: [id number] Name: AMMON BOWER Rep #: [id number] : 1980 43 From: Best Parker MD PCP: Dr. Jass Ching MD Status:PRE [facility] [place] Y Race: AA Location: EN Pre-Assessment Diagnosis/Proposed Procedure Planned Operative Procedure(s): COLONOSCOPY Anesthesia History Anesthesia History - web operations administrator: Anesthesia History - web operations administrator Hx Hospitalization No 05/28/24 14:43 Any Problems [...] take am of surgery PONV PONV - web operations administrator: PONV - web operations administrator Female No 05/28/24 14:43 HX of Motion Sickness No 05/28/24 14:43 HX of N/V After Surgery No 05/28/24 14:43 Non-Smoker Yes 05/28/24 14:43 Duration of Surgery greater No 05/28/24 14:43 than 60 minutes Number of Risk Factors 1 05/28/24 14:43 PONV Score Low Risk 05/28/24 14:43 Height Weight Height Weight: Anesthesia: Height Weight Height 6 ft 03/26/24 12:46 Respiratory Assessment Respiratory Assessment - web operations administrator: Respiratory Tract Infection Hx - web operations administrator Hx Respiratory Tract Infection No 05/28/24 14:43 STOP Sleep Apnea STOP Sleep Apnea - web operations administrator: STOP Sleep Apnea - web operations administrator Hx Hypertension No 05/28/24 14:43 Hx Sleep [...] Tobacco Use History Tobacco Use History - web operations administrator: Tobacco Use History - web operations administrator Tobacco Use Smoking Status Former smoker 05/28/24 14:43 Hx Tobacco Use No 05/28/24 14:43 Years Smoking Packs Smoked per Day Smoking Cessation Date was Yes - quit smoking within 15 05/28/24 14:43 within the last 15 years years Hx Smoking Cessation Date 05/06/21 05/28/24 14:43 Hx Smoking Cessation Counseling Hematologic Medial History Hematologic Hx - web operations administrator: Hematologic Medical Hx - bundler seasonal greenery Hx of Blood Transfusion No 05/28/24 14:43 Hx of Transfusion in last 3 No 05/28/24 14:43 Months Date of Last Transfusion (if within last 3 months) Ever experience any problems No 05/28/24 14:43 with transfusion(s)? Specify any problems Hx of Preganancy in last 3 N/A 05/28/24 14:43 Months Nurse Filling Out Transfusion [facility] 05/28/24 14:43 Questions: Date: 05/28/24 05/28/24 14:43 Time: 14:49 05/28/24 14:43 Patient unable to answer at this time (ie. confused, unrespo /Reproduction History /Reproductive History - web operations administrator: /Reproductive Hx- web operations administrator Hx Now Gestational Age (in weeks): EDC: [...] members: sp (more content not included)... Normal [facility] CBC W/Diff, Automatedon 03-06 Absolute Lymph 1.77 X10 3/uL Normal 0.83-4.51 [facility] Comment on above: Performed By: #### L 500.4050, L501.9910, L100.0100, L500.4100 ####[facility] [address] [place], [address] Absolute Neut 3.2 X10 3/uL Normal 2.0-7.7 [facility] Comment on above: Performed By: #### L 500.4050, L501.9910, L100.0100, L500.4100 ####[facility] [address] [place], [address] Basophils/100 WBC (Bld) 1.2 % High 0-1 [facility] Comment on above: Performed By: #### L 500.4050, L501.9910, L100.0100, L500.4100 ####[facility] [address] [place], [address] Eosinophils/100 WBC (Bld) 5.5 % High 0-5 [facility] Comment on above: Performed By: #### L 500.4050, L501.9910, L100.0100, L500.4100 ####[facility] [address] [place], [address] Erythrocyte distribution width (RBC) [Ratio] 11.8 % Normal 11.6-14.6 [facility] Comment on above: Performed By: #### L 500.4050, L501.9910, L100.0100, L500.4100 ####[facility] [address] [place], [address] Hematocrit (Bld) [Volume fraction] 38.4 % Low 40-54 [facility] Comment on above: Performed By: #### L 500.4050, L501.9910, L100.0100, L500.4100 ####[facility] [address] [place], [address] Hemoglobin (Bld) [Mass/Vol] 12.7 g/dL Low 13.0-16.5 [facility] Comment on above: Performed By: #### L 500.4050, L501.9910, L100.0100, L500.4100 ####[facility] [address] [place], [address] IG% 0.400 Normal 0.0-0.9 [facility] Comment on above: Result Comment: IG% - Immature Granulocytes (promyelocytes, myelocytes and metamyelocytes) > 1% indicates that a LEFT SHIFT is Present. Performed By: #### L 500.4050, L501.9910, L100.0100, L500.4100 ####[facility] [address] [place], [address] Lymphocytes/100 WBC (Bld) 31.2 % Normal 19-41 [facility] Comment on above: Performed By: #### L 500.4050, L501.9910, L100.0100, L500.4100 ####[facility] [address] [place], [address] MCH (RBC) [Entitic mass] 32.9 pg High 27.0-32.0 [facility] Comment on above: Performed By: #### L 500.4050, L501.9910, L100.0100, L500.4100 ####[facility] [address] [place], [address] MCHC (RBC) [Mass/Vol] 33.1 g/dL Normal 32-36 [facility] Comment on above: Performed By: #### L 500.4050, L501.9910, L100.0100, L500.4100 ####[facility] [address] [place], [address] MCV (RBC) [Entitic vol] 99.5 fL High 80-94 [facility] Comment on above: Performed By: #### L 500.4050, L501.9910, L100.0100, L500.4100 ####[facility] [address] [place], [address] Monocytes/100 WBC (Bld) 5.1 % Normal 0-10 [facility] Comment on above: Performed By: #### L 500.4050, L501.9910, L100.0100, L500.4100 ####[facility] [address] [place], [address] Neutrophils/100 WBC (Bld) 56.6 % Normal 47-70 [facility] Comment on above: Performed By: #### L 500.4050, L501.9910, L100.0100, L500.4100 ####[facility] [address] [place], [address] Nucleated RBC (Bld) [#/Vol] 0 10*3/uL Normal 0-5 [facility] Comment on above: Performed By: #### L 500.4050, L501.9910, L100.0100, L500.4100 ####[facility] [address] [place], [address] Platelet mean volume (Bld) [Entitic vol] 12.7 fL High 6.2-12.0 [facility] Comment on above: Performed By: #### L 500.4050, L501.9910, L100.0100, L500.4100 ####[facility] [address] [place], [address] Platelets (Bld) [#/Vol] 220 10*3/uL Normal 150-450 [facility] Comment on above: Performed By: #### L 500.4050, L501.9910, L100.0100, L500.4100 ####[facility] [address] [place], [address] RBC (Bld) [#/Vol] 3.86 10*6/uL Low 4.6-6.2 [facility] Comment on above: Performed By: #### L 500.4050, L501.9910, L100.0100, L500.4100 ####[facility] [address] [place], [address] RDW SD 43.1 fl Normal 35.1-43.9 [facility] Comment on above: Performed By: #### L 500.4050, L501.9910, L100.0100, L500.4100 ####[facility] [address] [place], [address] WBC (Bld) [#/Vol] 5.7 10*3/uL Normal 4.4-11.0 [facility] Comment on above: Performed By: #### L 500.4050, L501.9910, L100.0100, L500.4100 ####[facility] [address] [place], [address] Comprehensive Metabolic [facility] 03-20-2024 Albumin [Mass/Vol] 4.2 g/dL Normal 3.2-5.0 [facility] Comment on above: Performed By: #### L 500.4050, L501.9910, L100.0100, L500.4100 ####[facility] [address] [place], [address] Albumin/Globulin [Mass ratio] 1.4 {ratio} Normal 0.9-2.4 [facility] Comment on above: Performed By: #### L 500.4050, L501.9910, L100.0100, L500.4100 ####[facility] [address] [place], [address] ALK P 66 U/L Normal 45-117 [facility] Comment on above: Performed By: #### L 500.4050, L501.9910, L100.0100, L500.4100 ####[facility] [address] [place], [address] ALT [Catalytic activity/Vol] 46 U/L Normal 16-61 [facility] Comment on above: Performed By: #### L 500.4050, L501.9910, L100.0100, L500.4100 ####[facility] [address] [place], [address] AST [Catalytic activity/Vol] 25 U/L Normal 15-37 [facility] Comment on above: Performed By: #### L 500.4050, L501.9910, L100.0100, L500.4100 ####[facility] [address] [place], [address] Bilirubin [Mass/Vol] 1.90 mg/dL High 0.20-1.00 [facility] Comment on above: Result Comment: For patients on eltrombopag therapy, use of Dimension [place] TBIL is not recommended. Performed By: #### L 500.4050, L501.9910, L100.0100, L500.4100 ####[facility] [address] [place], [address] BUN/CRE 12.3 RATIO Normal 10-20 [facility] Comment on above: Performed By: #### L 500.4050, L501.9910, L100.0100, L500.4100 ####[facility] [address] [place], [address] CA,Total 8.4 mg/dL Low 8.5-10.1 [facility] Comment on above: Performed By: #### L 500.4050, L501.9910, L100.0100, L500.4100 ####[facility] [address] [place], [address] Chloride [Moles/Vol] 106 mmol/L Normal 98-107 [facility] Comment on above: Performed By: #### L 500.4050, L501.9910, L100.0100, L500.4100 ####[facility] [address] [place], [address] CO2 [Moles/Vol] 30.0 mmol/L Normal 21.0-32.0 [facility] Comment on above: Performed By: #### L 500.4050, L501.9910, L100.0100, L500.4100 ####[facility] [address] [place], [address] Creatinine [Mass/Vol] 1.06 mg/dL Normal 0.70-1.30 [facility] Comment on above: Result Comment: The validity of the calculated GFR GFRAA in patients over 70 years has not been determined. Clinical correlation is essential. Performed By: #### L 500.4050, L501.9910, L100.0100, L500.4100 ####[facility] [address] [place], [address] EST GFR - AA 97 mL/min Normal >60 [facility] Comment on above: Result Comment: Afri can [place] GFR Calc Performed By: #### L 500.4050, L501.9910, L100.0100, L500.4100 ####[facility] [address] [place], [address] GAP 4 Low 5-15 [facility] Comment on above: Performed By: #### L 500.4050, L501.9910, L100.0100, L500.4100 ####[facility] [address] [place], [address] GFR/1.73 sq M.predicted among non-blacks MDRD (S/P/Bld) [Vol rate/Area] 80 mL/min/{1.73_m2} Normal >60 [facility] Comment on above: Result Comment: Non- GFR Calc Performed By: #### L 500.4050, L501.9910, L100.0100, L500.4100 ####[facility] [address] [place], [address] Globulin (S) [Mass/Vol] 3.0 g/dL Normal 2.2-4.2 [facility] Comment on above: Performed By: #### L 500.4050, L501.9910, L100.0100, L500.4100 ####[facility] [address] [place], [address] Glucose [Mass/Vol] 158 mg/dL High 74-106 [facility] Comment on above: Result Comment: Fast ing Glucose result greater than or equal to 126 mg/dL suggests DIABETES MELLITUS per A.D.A. criteria. Performed By: #### L 500.4050, L501.9910, L100.0100, L500.4100 ####[facility] [address] [place], [address] Potassium [Moles/Vol] 3.9 mmol/L Normal 3.5-5.1 [facility] Comment on above: Performed By: #### L 500.4050, L501.9910, L100.0100, L500.4100 ####[facility] [address] [place], [address] Sodium [Moles/Vol] 140 mmol/L Normal 136-145 [facility] Comment on above: Performed By: #### L 500.4050, L501.9910, L100.0100, L500.4100 ####[facility] [address] [place], [address] T PROT 7.2 g/dL Normal 6.4-8.2 [facility] Comment on above: Performed By: #### L 500.4050, L501.9910, L100.0100, L500.4100 ####[facility] [address] [place], [address] Urea nitrogen [Mass/Vol] 13 mg/dL Normal 7-18 [facility] Comment on above: Performed By: #### L 500.4050, L501.9910, L100.0100, L500.4100 ####[facility] [address] [place], [address] Hemoglobin A1con 03-20-2024 HbA1c (Bld) [Mass fraction] 4.9 % Normal 3.8-5.6 [facility] Comment on above: Result Comment: Norm al < 5.7 % Prediabetic 5.7 - 6.4 % Diabetic >or= 6.5 % Please note range changes. Performed By: #### L 340.9929 ####[facility] [address] [place], [address] Internal Medicine Office Vis iton 03-20-2024 Internal Medicine Office Visit [facility] [address] [place], [place] [address] OFFICE VISIT Date of Service: 03/20/24 MR#: [id number] Acct: [id number] Name: AMMON BOWER Rep #: [id number] Provider: Dr. 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 Normal [facility] Lipid Profileon 03-20-2024 Cholesterol [Mass/Vol] 179 mg/dL Normal 200 [facility] Comment on above: Result Comment: <200 mg/dL Desirable 200-240 mg/dL Borderline >240 mg/dL High Risk Performed By: #### L 500.4050, L501.9910, L100.0100, L500.4100 ####[facility] [address] [place], [place], [id number] Cholesterol in HDL [Mass/Vol] 74 mg/dL Normal [facility] Comment on above: Result Comment: The drugs N-Acetylcysteine and Metamizole may falsely depress this assay. Reference Range HDL <40 mg/dL Low HDL Cholesterol HDL >or= 60 mg/dL High HDL Cholesterol Performed By: #### L 500.4050, L501.9910, L100.0100, L500.4100 ####[facility] [address] [place], [address] Cholesterol in LDL [Mass/Vol] 91 mg/dL Normal 0-130 [facility] Comment on above: Performed By: #### L 500.4050, L501.9910, L100.0100, L500.4100 ####[facility] [address] [place], [address] Cholesterol in VLDL [Mass/Vol] 14 mg/dL Normal 5-40 [facility] Comment on above: Performed By: #### L 500.4050, L501.9910, L100.0100, L500.4100 ####[facility] [address] [place], [address] Triglyceride [Mass/Vol] 68 mg/dL Normal [facility] Comment on above: Result Comment: The drugs N-Acetylcysteine and Metamizole may falsely depress this assay. Serum Triglycerides Reference Interval Normal <150 mg/dL Borderline high 150 - 199 mg/dL High 200 - 499 mg/dL Very High > or = 500 mg/dL Performed By: #### L 500.4050, L501.9910, L100.0100, L500.4100 ####[facility] [address] [place], [address] PSA,Total - Annual Screenon 03-20-2024 PSA,TOT SCREEN 0.50 ng/mL Normal 0.00-4.00 [facility] Comment on above: Result Comment: This test was performed using the TPSA assay method for the [employer] chemistry system. Values obtained with different assay methods cannot be used interchangably. When changing PSA assays in the course of monitoring a patient, additional sequential testing should be carried out to confirm baseline values. Performed By: #### L 500.4050, L501.9910, L100.0100, L500.4100 ####[facility] [address] [place], [address] Erythrocyte sedimentation ra teOrdered By: Jass Ching on 06-17-2023 ESR (Bld) [Velocity] 10 mm/h 0-20 [facility] No Panel InformationOrdered By: Jass Ching on 06-17-2023 C-Reactive Protein Extended Range < 2.90 mg/L 0.0-3.0 [facility] Comment on above: C-Reactive Protein ( CRP) provides useful information for thediagnosis, therapy and monitoring of inflammatory processesand associated diseases. For the evaluation of Relative Riskfor Cardiovascular Disease, a High Sensitivity CRP (HSCRP)should be ordered. Laboratory - Chemistry and C hemistry - challengeon 05-10-2023 Bilirubin Ql (U) Negative [facility] Glucose Ql (U) Negative [facility] Ketones Ql (U) Negative [facility] pH (U) 7.5 [pH] [facility] Specific gravity (U) [Rel density] 1.010 [facility] Urobilinogen (U) [Mass/Vol] 0.0106402 mg/dL [facility] Laboratory - Hematology and Cell countson 05-10-2023 Hemoglobin Ql (U) Negative [facility] Laboratory - Specimen inform ationon 05-10-2023 Clarity (U) Clear [facility] Color (U) Colorless [facility] Laboratory - Urinalysison Nitrite Ql (U) Negative [facility] Protein Ql (U) Negative [facility] No Panel Informationon 05-10 Urine Leukocytes Negatve [facility] Urine Non-Hemolyzed Blood [facility] STREP A MOLECULAR (POC)on Procedural Control Valid [facility] Strep A (POCT) Negative Negative [facility] No Panel Informationon 09-11 IMPRESSION: No radiographic evidence of acute osseous abnormality. Skiving Machine Operator: PSCB Transcribe Date/Time: Sep 11 2021 9:44A Dictated by : CARMENCITA MATOS MD This examination was interpreted and the report reviewed and electronically signed by: CARMENCITA MATOS MD on Sep 11 2021 9:46AM EST ZZZ_DO_NOT_ USE_DIVISIO N OF RADIOLOGY Radiology Study observation (narrative) Luis Angel merchant [facility] No Panel InformationOrdered By: Ccf Provider on 09-11-2021 [facility] XR Hand - right PA and Later [...] of the fifth metacarpal. Joint spaces preserved. ZZZ_DO_NOT_ USE_DIVISIO N OF RADIOLOGY Provider, [facility] César crandall [place] - 09/11/2021 * * *Final Report* * [...] No radiographic evidence of acute osseous abnormality. Skiving Machine Operator: ANNA Transcribe Date/Time: Sep 11 2021 9:44A Dictated by : CARMENCITA MATOS MD This examination was interpreted and the report reviewed and electronically signed by: CARMENCITA MATOS MD on Sep 11 2021 9:46AM EST [facility] XR Wrist - right 4 Viewson 0 [...] of the fifth metacarpal. Joint spaces preserved. ZZZ_DO_NOT_ USE_DIVISIO N OF RADIOLOGY Provider, [facility] César crandall [place] - 09/11/2021 * * *Final Report* * [...] No radiographic evidence of acute osseous abnormality. Skiving Machine Operator: [facility] Transcribe Date/Time: Sep 11 2021 9:44A Dictated by : CARMENCITA MATOS MD This examination was interpreted and the report reviewed and electronically signed by: CARMENCITA MATOS MD on Sep 11 2021 9:46AM [facility] Absolute lymphocyte counton 08-14-2021 Lymphocytes Auto (Unsp spec) [#/Vol] 1.63 10*3/uL 0.83-4.51 [facility] Work Phone: [phone] Activated partial thrombopla stin time (aPTT) in platelet poor plasma by coagulation aon 08-14-2021 aPTT Coag (PPP) [Time] 34.5 s 24.1-36.2 [facility] Work Phone: Basophil percentageon 2021 Basophils/100 WBC (Bld) 0.3 % 0-1 [facility] Work Phone: Chloride [Moles/Vol] 105 mmol/L 98-107 [facility] Work Phone: Eosinophils/100 WBC (Bld) 2.6 % 0-5 [facility] Work Phone: [phone] Glucose [Mass/Vol] 109 mg/dL 74-106 [facility] Work Phone: [phone] Comment on above: Fasting Glucose resu lt from 100 to 125 mg/dL suggests IMPAIRED HOMEOSTASIS per A.D.A. criteria. Neutrophils (Bld) [#/Vol] 7.5 10*3/uL 2.0-7.7 [facility] Work Phone: Neutrophils/100 WBC (Bld) 73.9 % 47-70 [facility] Work Phone: [phone] Potassium [Moles/Vol] 3.8 mmol/L 3.5-5.1 [facility] Work Phone: Sodium [Moles/Vol] 139 mmol/L 136-145 [facility] Work Phone: WBC (Bld) [#/Vol] 10.2 10*3/uL 4.4-11.0 [facility] Work Phone: Blood erythrocytes count (nu mber/volume)on 08-14-2021 RBC (Bld) [#/Vol] 3.79 10*6/uL 4.6-6.2 [facility] Work Phone: Blood hemoglobin measurement (mass/volume)on 08-14-2021 Hemoglobin (Bld) [Mass/Vol] 12.9 g/dL 13.0-16.5 [facility] Work Phone: Blood lymphocytes/100 leukoc yteson 08-14-2021 Lymphocytes/100 WBC (Bld) 15.9 % 19-41 [facility] Work Phone: Blood monocytes/100 leukocyt eson 08-14-2021 Monocytes/100 WBC (Bld) 6.9 % 0-10 [facility] Work Phone: Blood platelet mean volumeon 08-14-2021 Platelet mean volume (Bld) [Entitic vol] 12.3 fL 6.2-12.0 [facility] Work Phone: Determination of erythrocyte mean corpuscular volume (MCV)on 08-14-2021 MCV (RBC) [Entitic vol] 103.7 fL 80-94 [facility] Work Phone: Hematocrit Auto (Bld) [Volum e fraction]on 08-14-2021 Hematocrit (Bld) [Volume fraction] 39.3 % 40-54 [facility] Work Phone: INR in Blood by Coagulation assayon 08-14-2021 INR Coag (Bld) [Relative time] 1.1 {INR} [facility] Work Phone: Laboratory - Chemistry and C hemistry - challengeon 08-14-2021 CO2 [Moles/Vol] 32.0 mmol/L 21.0-32.0 [facility] Work Phone: Urea nitrogen/Creatinine [Mass ratio] 14.6 mg/mg 10-20 [facility] Work Phone: Laboratory - Coagulationon 0 08-14-2021 PT Coag (PPP) [Time] 13.3 s 11.7-14.9 [facility] Work Phone: Laboratory - Hematology and Cell countson 08-14-2021 Erythrocyte distribution width (RBC) [Entitic vol] 45.1 fL 35.1-43.9 [facility] Work Phone: Erythrocyte distribution width (RBC) [Ratio] 11.9 % 11.6-14.6 [facility] Work Phone: Immature granulocytes/100 WBC (Bld) 0.400 % 0.0-0.9 [facility] Work Phone: Comment on above: IG% - Immature Granu locytes (promyelocytes, myelocytes and metamyelocytes) > 1% indicates that a LEFT SHIFT is Present. MCH (RBC) [Entitic mass] 34.0 pg 27.0-32.0 [facility] Work Phone: Nucleated RBC/100 WBC (Bld) [Ratio] 0 % 0-5 [facility] Work Phone: MCHC Auto (RBC) [Mass/Vol]on 08-14-2021 MCHC (RBC) [Mass/Vol] 32.8 g/dL 32-36 [facility] Work Phone: No Panel Informationon 08-14 Troponin I High Sensitivity < 3 pg/mL 3.0-78.0 [facility] Work Phone: Comment on above: Please Note: New Leidy t Units and Gender Specific Reference Ranges. For more information see Policy Stat Procedure [place] High Sensitivity Troponin (TNIH) and attachments. D-Dimer Quantitative (PE/DVT) 1.13 FEU/ug/m 0.27-0.49 [facility] Work Phone: Comment on above: D-Dimer ELEVATED (>0 .49): Additional studies and clinicalassessments are indicated to conclude diagnosis of:Deep Vein Thrombosis (DVT) or Pulmonary Embolism (PE)CRITICAL VALUE VERIFIED. CALLED TO CAMILA RONDON08/14/21 1723 Nick Alcazar.RESULTS READ BACK BY SAME . Estimated Creatinine Clearance Calc 102.55 ml/min [facility] Work Phone: Estimated GFR (MDRD) Amer 102 mL/min >60 [facility] Work Phone: Comment on above: GFR Calc Estimated GFR (MDRD) Non-Af Amer 84 mL/min >60 [facility] Work Phone: Comment on above: Non- GFR Calc Platelets bldon 08-14-2021 Platelets (Bld) [#/Vol] 252 10*3/uL 150-450 [facility] Work Phone: Serum or plasma calcium klarissa urement (mass/volume)on 08-14-2021 Calcium [Mass/Vol] 9.2 mg/dL 8.5-10.1 [facility] Work Phone: Serum or plasma creatinine m easurement (mass/volume)on 08-14-2021 Creatinine [Mass/Vol] 1.03 mg/dL 0.70-1.30 [facility] ster [facility] Work Phone: Comment on above: The validity of the calculated GFR & GFRAA in patients over 70 years has not been determined. Clinical correlation is essential. Serum or plasma urea nitroge n measurement (mass/volume)on 08-14-2021 Urea nitrogen [Mass/Vol] 15 mg/dL 7-18 [facility] Work Phone: Thin prep Papanicolaou smear with manual screeningon 08-14-2021 Thin prep Papanicolaou smear with manual screening 2 5-15 [facility] Work Phone: Absolute lymphocyte counton 08-12-2021 Lymphocytes Auto (Unsp spec) [#/Vol] 2.65 10*3/uL 0.83-4.51 [facility] Work Phone: Basophil percentageon 2021 Basophil percentage 0-5 SEEN /hpf [facility] Work Phone: Basophils/100 WBC (Bld) 0.7 % 0-1 [facility] Work Phone: Bilirubin [Mass/Vol] 0.90 mg/dL 0.20-1.00 [facility] Work Phone: Comment on above: For patients on eltr ombopag therapy, use of Dimension [place] TBIL is not recommended. Chloride [Moles/Vol] 106 mmol/L 98-107 [facility] Work Phone: Eosinophils/100 WBC (Bld) 5.4 % 0-5 [facility] Work Phone: Glucose [Mass/Vol] 112 mg/dL 74-106 [facility] Work Phone: Comment on above: Fasting Glucose resu lt from 100 to 125 mg/dL suggests IMPAIRED HOMEOSTASIS per A.D.A. criteria. Neutrophils (Bld) [#/Vol] 5.2 10*3/uL 2.0-7.7 [facility] Work Phone: Neutrophils/100 WBC (Bld) 56.2 % 47-70 [facility] Work Phone: Potassium [Moles/Vol] 3.9 mmol/L 3.5-5.1 [facility] Work Phone: Protein [Mass/Vol] 7.9 g/dL 6.4-8.2 [facility] Work Phone: Sodium [Moles/Vol] 140 mmol/L 136-145 [facility] Work Phone: WBC (Bld) [#/Vol] 9.2 10*3/uL 4.4-11.0 [facility] Work Phone: Bilirubin Test strip Ql (U)o n 08-12-2021 Bilirubin Ql (U) Negative Negative [facility] Work Phone: Blood erythrocytes count (nu mber/volume)on 08-12-2021 RBC (Bld) [#/Vol] 3.98 10*6/uL 4.6-6.2 [facility] Work Phone: Blood hemoglobin measurement (mass/volume)on 08-12-2021 Hemoglobin (Bld) [Mass/Vol] 13.4 g/dL 13.0-16.5 [facility] Work Phone: Blood lymphocytes/100 leukoc yteson 08-12-2021 Lymphocytes/100 WBC (Bld) 28.8 % 19-41 [facility] Work Phone: Blood manual differential co mment interpretation (narrative result)on 08-12-2021 Manual differential comment Luis (Bld) [Interp] SCANNED [facility] Work Phone: Comment on above: AUTO DIFF [place] Blood monocytes/100 leukocyt eson 08-12-2021 Monocytes/100 WBC (Bld) 8.4 % 0-10 [facility] Work Phone: Blood platelet mean volumeon 08-12-2021 Platelet mean volume (Bld) [Entitic vol] 11.5 fL 6.2-12.0 [facility] Work Phone: Determination of erythrocyte mean corpuscular volume (MCV)on 08-12-2021 MCV (RBC) [Entitic vol] 101.8 fL 80-94 [facility] Work Phone: Hematocrit Auto (Bld) [Volum e fraction]on 08-12-2021 Hematocrit (Bld) [Volume fraction] 40.5 % 40-54 [facility] Work Phone: Hyaline casts LM.LPF (Urine sed) [#/Area]on 08-12-2021 Hyaline casts (Urine sed) [#/Area] 0 /[LPF] [facility] Work Phone: Ketones Test strip Ql (U)on 08-12-2021 Ketones Ql (U) Negative Negative [facility] Work Phone: Laboratory - Chemistry and C hemistry - challengeon 08-12-2021 ALP [Catalytic activity/Vol] 94 U/L 45-117 [facility] Work Phone: ALT [Catalytic activity/Vol] 34 U/L 16-61 [facility] Work Phone: CO2 [Moles/Vol] 32.0 mmol/L 21.0-32.0 [facility] Work Phone: Globulin (S) [Mass/Vol] 3.8 g/dL 2.2-4.2 [facility] Work Phone: Lipase [Catalytic activity/Vol] 193 U/L 73-393 [facility] Work Phone: Urea nitrogen/Creatinine [Mass ratio] 12.3 mg/mg 10-20 [facility] Work Phone: Laboratory - Hematology and Cell countson 08-12-2021 Erythrocyte distribution width (RBC) [Entitic vol] 45.6 fL 35.1-43.9 [facility] Work Phone: Erythrocyte distribution width (RBC) [Ratio] 12.0 % 11.6-14.6 [facility] Work Phone: Immature granulocytes/100 WBC (Bld) 0.500 % 0.0-0.9 [facility] Work Phone: Comment on above: IG% - Immature Granu locytes (promyelocytes, myelocytes and metamyelocytes) > 1% indicates that a LEFT SHIFT is Present. MCH (RBC) [Entitic mass] 33.7 pg 27.0-32.0 [facility] Work Phone: Nucleated RBC/100 WBC (Bld) [Ratio] 0 % 0-5 [facility] Work Phone: MCHC Auto (RBC) [Mass/Vol]on 08-12-2021 MCHC (RBC) [Mass/Vol] 33.1 g/dL 32-36 [facility] Work Phone: Mucus LM Ql (Urine sed)on Mucus Ql (Urine sed) 0 SEEN /hpf [facility] Work Phone: Nitrite Test strip Ql (U)on 08-12-2021 Nitrite Ql (U) Negative Negative [facility] Work Phone: No Panel Informationon 08-12 Estimated Creatinine Clearance Calc 92.65 ml/min [facility] Work Phone: Estimated GFR (MDRD) Amer 90 mL/min >60 [facility] Work Phone: Comment on above: GFR Calc Estimated GFR (MDRD) Non-Af Amer 75 mL/min >60 [facility] Work Phone: Comment on above: Non- GFR Calc Platelets bldon 08-12-2021 Platelets (Bld) [#/Vol] 285 10*3/uL 150-450 [facility] Work Phone: Protein Test strip Ql (U)on 08-12-2021 Protein Ql (U) Negative Negative [facility] Work Phone: Serum or plasma albumin klarissa urement (mass/volume)on 08-12-2021 Albumin [Mass/Vol] 4.1 g/dL 3.2-5.0 [facility] Work Phone: Serum or plasma albumin/glob ulin mass ratioon 08-12-2021 Albumin/Globulin [Mass ratio] 1.1 {ratio} 0.9-2.4 [facility] Work Phone: Serum or plasma calcium klarissa urement (mass/volume)on 08-12-2021 Calcium [Mass/Vol] 9.3 mg/dL 8.5-10.1 [facility] Work Phone: Serum or plasma creatinine m easurement (mass/volume)on 08-12-2021 Creatinine [Mass/Vol] 1.14 mg/dL 0.70-1.30 [facility] Work Phone: Comment on above: The validity of the calculated GFR & GFRAA in patients over 70 years has not been determined. Clinical correlation is essential. Serum or plasma urea nitroge n measurement (mass/volume)on 08-12-2021 Urea nitrogen [Mass/Vol] 14 mg/dL 7-18 [facility] Work Phone: Squamous epithelial cells de tection in urine sediment by light microscopyon 08-12-2021 Epithelial cells.squamous LM Ql (Urine sed) 0-5 SEEN /hpf [facility] Work Phone: Thin prep Papanicolaou smear with manual screeningon 08-12-2021 Thin prep Papanicolaou smear with manual screening 14 U/L 15-37 [facility] Work Phone: Thin prep Papanicolaou smear with manual screening 2 5-15 [facility] Work Phone: Urine blood detectionon 04-0 RBC Ql (U) Negative Negative [facility] Work Phone: RBC Ql (U) 0 SEEN /hpf [facility] Work Phone: Urine clarityon 08-12-2021 Clarity (U) Clear Clear [facility] Work Phone: Urine color determinationon 08-12-2021 Color (U) Yellow Yellow [facility] Work Phone: Urine glucose detectionon Glucose Ql (U) Normal mg/dl Normal [facility] Work Phone: Urine leukocyte esterase det ection by dipstickon 08-12-2021 Leukocyte esterase Test strip Ql (U) 25 /ul Negative [facility] Work Phone: Urine pHon 08-12-2021 pH (U) 5.0 [pH] [facility] Work Phone: Urine sediment bacteria coun t by microscopy (number/high power field)on 08-12-2021 Bacteria LM.HPF (Urine sed) [#/Area] 0 /[HPF] None Seen [facility] Work Phone: Urine specific gravity measu rementon 08-12-2021 Specific gravity (U) [Rel density] 1.020 [facility] Work Phone: Urobilinogen Auto test strip Ql (U)on 08-12-2021 Urobilinogen Ql (U) Normal mg/dl Normal [facility] Work Phone: XR Cervical spine AP and Lat eral and obliqueon 07-04-2020 IMPRESSION: Mild spondylosis of the cervical spine. Skiving Machine Operator: PSCJenny Transcribe Date/Time: Jul 04 2020 3:06P Dictated by : CAPO STRICKLAND MD This examination was interpreted and the report reviewed and electronically signed by: CAPO STRICKLAND MD on Jul 04 2020 3:07PM [facility] [place] DIVISION OF RADIOLOGY * * *Final Report* [...] apices are clear. DIVISION OF RADIOLOGY Provider, Janie César Connolly - 07/04/2020 * * *Final Report* [...] IMPRESSION: Mild spondylosis of the cervical spine. Skiving Machine Operator: ANNA Transcribe Date/Time: Jul 04 2020 3:06P Dictated by : CAPO STRICKLAND MD This examination was interpreted and the report reviewed and electronically signed by: CAPO STRICKLAND MD on Jul 04 2020 3:07PM EST [facility] Radiology Study observation (narrative) [facility] XR Cervical spine AP and Lat eral and obliqueOrdered By: Ccf Provider on 07-04-2020 [facility] Vital Signs Date Time Vital Sign Value Performing Clinician Facility 01-17-2025 12:04-0400 Body temperature 98.7 [degF] Dr. Jass Ching MD Work Phone: [facility] 01-17-2025 12:04-0400 Diastolic blood pressure 71 mm[Hg] Dr. Jass Ching MD Work Phone: [facility] 01-17-2025 12:04-0400 Heart rate 61 /min Dr. Jass Ching MD Work Phone: [facility] 01-17-2025 12:04-0400 Respiratory rate 18 /min Dr. Jass Ching MD Work Phone: [facility] 01-17-2025 12:04-0400 SaO2% (BldA) [Mass fraction] 99 % Dr. Jass Ching MD Work Phone: [facility] 01-17-2025 12:04-0400 Systolic blood pressure 134 mm[Hg] Dr. Jass Ching MD Work Phone: [facility] 01-17-2025 08:55-0400 Inhaled oxygen flow rate 100 L/min Dr. Jass Ching MD Work Phone: [facility] 01-17-2025 05:41-0400 Body height 182.[address] Jass Ching MD Work Phone: [facility] 01-17-2025 05:41-0400 Body mass index (BMI) [Ratio] 24.3 kg/m2 Dr. Jass Ching MD Work Phone: [facility] 01-17-2025 05:41-0400 Body weight 81.[address] Jass Ching MD Work Phone: [facility] 06-17-2023 09:13-0500 Body height 182.[address] Jass Ching Work Phone: [facility] 06-17-2023 09:13-0500 Body mass index (BMI) [Ratio] 24.5 kg/m2 Dr. Jass Ching Work Phone: [facility] 06-17-2023 09:13-0500 Body temperature 97.4 [degF] Dr. Jass Ching Work Phone: [facility] 06-17-2023 09:13-0500 Body weight 82.[address] Jass Ching Work Phone: [facility] 06-17-2023 09:13-0500 Diastolic blood pressure 80 mm[Hg] Dr. Jass Ching Work Phone: [facility] 06-17-2023 09:13-0500 Heart rate 87 /min Dr. Jass Ching Work Phone: [facility] 06-17-2023 09:13-0500 Respiratory rate 16 /min Dr. Jass Ching Work Phone: [facility] 06-17-2023 09:13-0500 SaO2% (BldA) [Mass fraction] 97 % Dr. Jass Ching Work Phone: [facility] 06-17-2023 09:13-0500 Systolic blood pressure 138 mm[Hg] Dr. Jass Ching Work Phone: [facility] 05-10-2023 13:31-0500 Body mass index (BMI) [Ratio] 24.8 kg/m2 Dr. Jass Ching Work Phone: [facility] 05-10-2023 13:31-0500 Body temperature 98 [degF] Dr. Jass Ching Work Phone: [facility] 05-10-2023 13:31-0500 Body weight [address] Jass Ching Work Phone: [facility] 05-10-2023 13:31-0500 Diastolic blood pressure 78 mm[Hg] Dr. Jass Ching Work Phone: [facility] 05-10-2023 13:31-0500 Heart rate 87 /min Dr. Jass Ching Work Phone: [facility] 05-10-2023 13:31-0500 Respiratory rate 16 /min Dr. Jass Ching Work Phone: [facility] 05-10-2023 13:31-0500 SaO2% (BldA) [Mass fraction] 97 % Dr. Jass Ching Work Phone: [facility] 05-10-2023 13:31-0500 Systolic blood pressure 118 mm[Hg] Dr. Jass Ching Work Phone: [facility] 07-05-2022 08:57-0500 Body temperature 98.71 [degF] Shashi Melara APRN.MANAGER STATISTICAL PROGRAMMING Work Phone: [facility] 07-05-2022 08:57-0500 Body weight 77.38 kg Shashi Kelton FLASH DRIER OPERATOR.MANAGER STATISTICAL PROGRAMMING Work Phone: [facility] 07-05-2022 08:57-0500 Diastolic blood pressure 66 mm[Hg] Shashi Melara FLASH DRIER OPERATOR.MANAGER STATISTICAL PROGRAMMING Work Phone: [facility] 07-05-2022 08:57-0500 Heart rate 78 /min Shashi Melara FLASH DRIER OPERATOR.MANAGER STATISTICAL PROGRAMMING Work Phone: [facility] 07-05-2022 08:57-0500 Respiratory rate 16 /min Shashi Melara FLASH DRIER OPERATOR.MANAGER STATISTICAL PROGRAMMING Work Phone: [facility] 07-05-2022 08:57-0500 SaO2% (BldA) [Mass fraction] 100 % Shashi Melara FLASH DRIER OPERATOR.MANAGER STATISTICAL PROGRAMMING Work Phone: [facility] 07-05-2022 08:57-0500 Systolic blood pressure 122 mm[Hg] Shashi Melara FLASH DRIER OPERATOR.MANAGER STATISTICAL PROGRAMMING Work Phone: [facility] 09-11-2021 08:57-0400 Body temperature 97.7 [degF] Leigha Marquez FLASH DRIER OPERATOR.MANAGER STATISTICAL PROGRAMMING Work Phone: [facility] 09-11-2021 08:57-0400 Body weight 77.84 kg Leigha Marquez APRN.MANAGER STATISTICAL PROGRAMMING Work Phone: [facility] 09-11-2021 08:57-0400 Diastolic blood pressure 70 mm[Hg] Leigha Marquez FLASH DRIER OPERATOR.MANAGER STATISTICAL PROGRAMMING Work Phone: [facility] 09-11-2021 08:57-0400 Heart rate 76 /min Leigha Marquez FLASH DRIER OPERATOR.MANAGER STATISTICAL PROGRAMMING Work Phone: [facility] 09-11-2021 08:57-0400 Respiratory rate 16 /min Leigha Marquez FLASH DRIER OPERATOR.MANAGER STATISTICAL PROGRAMMING Work Phone: [facility] 09-11-2021 08:57-0400 SaO2% (BldA) [Mass fraction] 98 % Leigha Marquez FLASH DRIER OPERATOR.MANAGER STATISTICAL PROGRAMMING Work Phone: [facility] 09-11-2021 08:57-0400 Systolic blood pressure 126 mm[Hg] Leigha Marquez APRN.[facility] Work Phone: [facility] 08-14-2021 19:29-0400 Diastolic blood pressure 73 mm[Hg] [facility] Work Phone: 08-14-2021 19:29-0400 Heart rate 86 /min [facility] Work Phone: 08-14-2021 19:29-0400 Respiratory rate 23 /min [facility] Work Phone: 08-14-2021 19:29-0400 SaO2% (BldA) [Mass fraction] 98 % [facility] Work Phone: 08-14-2021 19:29-0400 Systolic blood pressure 135 mm[Hg] [facility] Work Phone: 08-14-2021 15:21-0400 Body height 182.88 cm [facility] Work Phone: 08-14-2021 15:21-0400 Body mass index (BMI) [Ratio] 23.7 kg/m2 [facility] Work Phone: 08-14-2021 15:21-0400 Body temperature 98.8 [degF] [facility] Work Phone: 08-14-2021 15:21-0400 Body weight 79.37 kg [facility] Work Phone: 08-12-2021 20:31-0400 Heart rate 74 /min [facility] Work Phone: 08-12-2021 20:31-0400 Respiratory rate 18 /min [facility] Work Phone: 08-12-2021 18:14-0400 Body height 182.88 cm [facility] Work Phone: 08-12-2021 18:14-0400 Body mass index (BMI) [Ratio] 23.7 kg/m2 [facility] Work Phone: 08-12-2021 18:14-0400 Body temperature 98.5 [degF] [facility] Work Phone: 08-12-2021 18:14-0400 Body weight 79.37 kg [facility] Work Phone: 08-12-2021 18:14-0400 Diastolic blood pressure 88 mm[Hg] [facility] Work Phone: 08-12-2021 18:14-0400 SaO2% (BldA) [Mass fraction] 98 % [facility] Work Phone: 08-12-2021 18:14-0400 Systolic blood pressure 131 mm[Hg] [facility] Work Phone: Encounters Encounter Date Encounter Type Care Provider Facility Start: 02-08-2025 End: 02-08-2025 ambulatory SELF Facility:[facility] Start: 01-21-2025 End: 01-21-2025 ambulatory KELLI POPE Facility:[facility] Start: 01-17-2025 End: 01-17-2025 Emergency department patient visit Dr. Jass Ching MD Work Phone: -Emergency Department Work Phone: Start: 06-01-2024 End: 06-01-2024 ambulatory Kentrell Isbell Facility:[facility] Start: 05-01-2024 Encounter for genera l adult medical examination without abnormal findings Jass Ching [facility] Start: 03-26-2024 ambulatory Jass Ching Facili ty:[facility] Start: 03-20-2024 End: 03-20-2024 ambulatory Jass Ching [place] Start: 03-20-2024 End: 03-20-2024 ambulatory Jass Ching Facility:[facility] Start: 01-27-2024 ambulatory Jass Ching Facili ty:[facility] Start: 06-17-2023 End: 06-17-[address] Jass Ching Work Phone: [facility] Work Phone: Start: 06-17-2023 End: 06-17-[address] Jass Ching Work Phone: [facility] Work Phone: Start: 05-10-2023 End: 05-10-[address] Jass Ching Work Phone: [facility] Work Phone: Start: 07-05-2022 End: 07-05-2022 Patient encounter procedure Shashi Melara APRN.MANAGER STATISTICAL PROGRAMMING Work Phone: [facility] Comment on above: URI, acute (Primary Dx); Throat pain; Streptococcus exposure Start: 10-16-[address] Jass Ching Work Phone: [facility] Start: 09-11-2021 End: 09-11-2021 Subsequent hospital visit by physician Ayah [facility] Work Phone: Radiology Comment on above: Pain of right hand [ M79.641] Start: 09-11-2021 End: 09-11-2021 Patient encounter procedure Leigha Marquez APRN.MANAGER STATISTICAL PROGRAMMING Work Phone: [facility] Comment on above: Pain of right hand ( Primary Dx) Start: 08-14-2021 End: 08-14-2021 [facility] Start: 08-14-2021 End: 08-14-2021 Patient encounter procedure Radha Farias PA-C Work Phone: [facility] Comment on above: Chest pain, unspecif ied type (Primary Dx) Start: 08-12-2021 End: 08-12-2021 [facility] Start: 07-04-2020 End: 07-04-2020 Subsequent hospital visit by physician Ayah [facility] Work Phone: Radiology Comment on above: Upper back pain on r ight side [M54.9] Procedures Date Procedure Procedure Detail Performing Clinician Start: 01-17-2025 CT of upper limb wit hout contrast Dr. Jass Ching MD Work Phone: Start: 01-17-2025 Plain X-ray of shoulder Dr. Jass Ching MD Work Phone: Start: 01-17-2025 Plain X-ray of shoulder Dr. Jass Ching MD Work Phone: Start: 01-17-2025 Methadone measuremen t, urine Dr. Jass Ching MD Work Phone: Start: 01-17-2025 Plain X-ray of shoulder Dr. Jass Ching MD Work Phone: Start: 01-17-2025 CT cervical spine wi thout contrast Dr. Jass Ching MD Work Phone: Start: 01-17-2025 CT of head without contrast Dr. Jass Ching MD Work Phone: Start: 01-17-[address] Jass Ching MD Work Phone: Start: 01-17-[address] Jass Ching MD Work Phone: Start: 06-17-2023 X-ray of lumbosacral spine Dr. Jass Ching Work Phone: Start: 07-05-2022 STREP A MOLECULAR (POC) Shashi Melara FLASH DRIER OPERATOR.MANAGER STATISTICAL PROGRAMMING Work Phone: Start: 09-11-2021 Radex hand minimum 3 views Leigha Marquez FLASH DRIER OPERATOR.MANAGER STATISTICAL PROGRAMMING Work Phone: Start: 08-14-2021 CT angiography of ch est with contrast Start: 08-14-2021 Plain chest X-ray Start: 08-12-2021 CT of abdomen and pe lvis without contrast Start: 07-04-2020 Radex spine cervical 4 or 5 views Matthieu Clark MD Work Phone: Start: 08-17-2016 Lorie Farias PA-C Work Phone: Plan of Treatment Date Care Activity Detail Author Start: 12-20-2025 Colonoscopy COLONOSCOPY [facility] Start: 12-20-2025 COLORECTAL CANCER SCREENING COLORECTAL CANCER SCREENING [facility] Start: 12-20-2025 Screening for malign ant neoplasm of colon [facility] Start: 01-17-2025 Catarino Adams [facility] Start: 01-17-2025 Seizure precautions [facility] Start: 01-05-2024 Covid-19 Vaccine ( season) Covid-19 Vaccine ( season) [facility] Start: 01-05-2024 Influenza vaccination Influenza Vacc ine (#1) [facility] Start: 12-30-2023 Diabetes Screening Diabetes Screenin g [facility] Start: 12-30-2023 Screening for malign ant neoplasm of colon [facility] Start: 05-06-2022 DEPRESSION ASSESSMENT DEPRESSION ASS ESSMENT [facility] Start: 01-04-2022 Influenza vaccination INFLUENZ A (Season Ended) [facility] Start: 03-04-2021 COVID-19 VACCINE (3 - Booster for Pfizer series) COVID-19 VACCINE (3 - Booster for Pfizer series) [facility] Start: 07-29-2016 Urine microalbumin profile [facility] Start: 2013 Lipid panel Lipid Screening [facility] Start: 2013 LIPID SCREEN LIPID SCREEN [facility] Start: 1997 Hepatitis B Vaccine (1 of 3 - 19+ 3-dose series) Hepatitis B Vaccine (1 of 3 - 19+ 3-dose series) [facility] Start: 1996 Anxiety Screening Anxiety Screening [facility] Start: 1996 Depression Screening Depression Scre ening [facility] Start: 1996 HEPATITIS C SCREENING HEPATITIS C [facility] Start: 1996 Hepatitis C screening Hepatitis C [facility] Start: 1996 HIV SCREENING HIV SCREENING [facility] Start: 1996 HIV screening HIV Screening [facility] Start: 1990 Adult depression screening assessment DEPRESSION SCREENING [facility] Start: 1978 HEPATITIS B (1 of 3 - 3-dose series) HEPATITIS B (1 of 3 - 3-dose series) [facility] Patient Education [facility] Work Phone: Patient referral [facility] Work Phone: Immunizations Immunization Date Immunization Notes Care Provider Tianna knowles 03-20-2024 influenza, injectabl e, madin eran canine kidney, preservative free Dr. Jass Ching MD Work Phone: [facility] 01-24-2023 influenza, injectabl e, quadrivalent, preservative free Dr. Jass Ching Work Phone: [facility] 04-11-2022 influenza virus vaccine, unspecified formulation [facility] Work Phone: [facility] 10-02-2020 COVID-19 vaccine, ag e 12+ yr (PFIZER-BIONTECH - PURPLE TOP) Radha Farias [employer] Work Phone: [facility] 09-11-2020 COVID-19 vaccine, ag e 12+ yr (PFIZER-BIONTECH - PURPLE TOP) Radha [employer] Work Phone: [facility] 07-29-2006 diphtheria and tetan us toxoids, adsorbed for pediatric use Radha [employer] Work Phone: [facility] Work Phone: Payers Date Payer Category Payer Private Health Insurance [id number] 2024 Private Health Insurance [id number] 2023 Private Health Insurance [id number] 2023 Self-pay [id number] 2023 Unknown [id number] 2021 Private Health Insurance AETNA A ETNA CHOICE POS II [id number] 2021-Present [phone] [address] [place] [address] POS [id number] 2021 Private Health Insurance [id number] 2021 Unknown [employer] BLUE CARD PPO OOS [id number] 2021-Present [phone] [address] [place] [address] PPO [id number] 2016 Unknown [id number] 2014 Medicaid [employer] A[employer] MEDICAID [id number] 2014-Present [phone] [address] [place] [address] Medicaid [id number] 2014 Medicaid [id number] Unknown [id number] Unknown [id number] Unknown [id number] Unknown [id number] Unknown [id number] Unknown [id number] Unknown [id number] Social History Date Type Detail Facility Start: 08-12-2021 End: 06-17-2023 Tobacco smoking status PRIS Unknown if ever smoked [facility] Start: 1980 Sex Assigned At Male [facility] Start: 12-13-2015 End: 01-17-2025 Tobacco smoking status NHIS Ex-smoker [facility] End: 11-22-2015 History of tobacco use Current smoker [facility] Start: 12-13-2015 End: 07-04-2020 Tobacco use and exposure Smokeless tobacco non-user [facility] Start: 07-04-2020 End: 04-03-2021 Alcohol intake Current drinker of alcohol (finding) [facility] Start: 08-24-2014 History SDOH Alcohol Comment socially [facility] Start: 1980 Sex Assigned At Not on file [facility] Start: 06-04-2020 End: 09-11-2021 Exposure to SARS-CoV-2 (event) Not sure [facility] Work Phone: End: 11-22-2015 History of tobacco use Cigarette Smoker [facility] Start: 07-04-2020 End: 09-11-2021 History of Social function [facility] Start: 07-04-2020 End: 09-11-2021 Tobacco use panel [facility] National Score (1-100), lower number is lower risk Not on file [facility] Mental Status Date Assessment Result Facility 01-17-2025 Cognitive function Drowsy [facility] Work Phone: 01-17-2025 Cognitive function Arousable To Voice/Nam e [facility] Work Phone: 08-14-2021 Cognitive function Awake;Alert;A ppropriate;Foll ows Commands [facility] Work Phone: Clinical Notes 07-04-2020 to 02-08-2025 Shashi Melara APRN.MANAGER STATISTICAL PROGRAMMING - 07/05/2022 9:30 AM ESTPatient Rachelle Matta, RT(R) - 09/11/2021 9:30 AM Evaristo Marquez APRN.MANAGER STATISTICAL PROGRAMMING - 09/11/2021 9:11 AM EDT Note Date & Type Note Facility 02-08-2025 Note HNO ID: [id number] Author: KELLI POPE PA-C Service: ? Author Type: Physician Hvac Designer Type: Progress Notes Filed: 02/08/2025 15:17 Note Text: Kelli Pope PA-C Department of Orthopaedics Orthopaedics [address] [facility] [address] Dept: [phone] Dept February 08, 2025 CHIEF COMPLAINT: Shoulder dislocation Shoulder Dislocation: - Initial dislocation occurred 3 weeks ago, seizure in his sleep. - Reports improved mobility but still experiences stiffness and discomfort, particularly in the anterior shoulder. - Currently using a sling for support. - Taking ibuprofen 400 mg BID for pain management. - Denies attending neurology appointment due to financial constraints. Seizure: - Recent seizure event occurred during sleep. - Has not yet seen a neurologist due to high cost of appointment. ASSESSMENT: S43.005D Dislocation of left shoulder joint, subsequent encounter (primary encounter diagnosis) PLAN: 1. Dislocation of left shoulder joint, subsequent encounter (S43.005D) - 3 weeks post-initial dislocation; improved range of motion but significant stiffness and discomfort on exam. - Educated on high risk of re-dislocation in the first two weeks post-injury; now transitioning to gradual mobilization. - Advised to discontinue sling use except for light activities; avoid heavy lifting, pushing, or pulling. - Instructed on gentle home stretching exercises (table slides, wall walks) to perform several times daily to reduce stiffness and improve mobility. - Start ibuprofen 800 mg PO TID for pain and inflammation. - Physical therapy order placed. - Remain off work until February 14; then light duty for one month with restrictions: no lifting over 10 lbs, no overhead activity, restrictions in place for the next month. - If no improvement in mobility, will consider MRI of the shoulder. - Follow-up as needed for reassessment. Will continue to monitor patient for Dislocation of left shoulder joint, subsequent encounter (primary encounter diagnosis), patient to schedule visit as per follow up discussed. Mr. Ammon Bower was advised as to contrast therapies and/or to take analgesics/anti-inflammatories as needed and all contraindications were reviewed. OBJECTIVE: Mr. Ammon Bower is a pleasant 44 year old in no apparent distress. Gen:There were no vitals taken for this visit. nl development, non obese, no deformities ENT: Normocephalic, normal hearing, moist mucosa CV: Pulses:Radial= 2+ and symmetric, capillary refill < 2 secs, no peripheral edema/varicosities Skin: no rash, bruising or lesions. Good turgor. Psych: cooperative and appropriate, alert and oriented x 3, good mood and affect. Musculoskeletal: Left shoulder with discomfort to palpation over the anterior aspect of the shoulder, biceps region and lateral clavicle. No tenderness posteriorly. Active forward elevation of about 80 degrees, passive forward elevation of about 140 degrees, range of motion limited by pain, passive external rotation of 50 degrees, limited by pain. No special testing or strength testing was performed. Imaging: Deferred today Supporting Subjective Information Below: Past Surgical History: PAST SURGICAL HISTORY Procedure Laterality Date COLONOSCOPY FLX DX W/COLLJ SPEC WHEN PFRMD 05/13/2007 Colonoscopy SIGMOIDOSCOPY FLX W/BIOPSY SINGLE/MULTIPLE 08/08/2016 VASECTOMY UNI/BI SPX W/POSTOP SEMEN EXAMS 09/17/14 Medications: Current Outpatient Medications Medication Sig ibuprofen (MOTRIN) 800 mg tablet Take 1 tablet by mouth every 8 hours as needed (for pain.). No current facility-administered medications for this visit. Allergies: Tomato (Solanum Lycopersicum) ROS: General (negative for fatigue, malaise, weight loss/gain) HEENT (negative for headache, earache, recent vision changes, sinus pain, sore throat) Respiratory (no recent shortness of breath, hemoptysis) CV (negative for chest tightness, palpitations) Musculoskeletal (see HPI) Psych (no depression, anxiety) This note was partially generated using [employer] voice recognition system, and there may be some incorrect words, spellings, and punctuation that were not noted in checking the note before saving. Kelli Pope PA-C [facility] 02-08-2025 Note HNO ID: [id number] Author: TRISTA QUEVEDO MA Service: ? Author Type: Waste Management Engineer Type: Progress Notes Filed: 02/08/2025 15:17 Note Text: AMB ROOMING INTAKE FLOWSHEET DATA Pain Pain Level: 7 Pain Location: Shoulder-Left Description: Sharp, Radiating Duration Amount of Time: 3 Duration Units: Weeks Frequency: Intermittent Intervention/Comfort measure: Heat [facility] 01-22-2025 Note HNO ID: [id number] Author: LUIS ENRIQUE WOO APRN.MANAGER STATISTICAL PROGRAMMING Service: ? Author Type: Nurse Practitioner Type: Progress Notes Filed: 01/22/2025 14:12 Note Text: [facility] Review of Records Patient: Ammon Bower Address: [address] [place], [place] [id number] Impression: Review of records for Ammon Bower, a 44 year old male, being referred by [facility] [[facility]] to Any Epileptologist for further evaluation and treatment. Patient has previously diagnosed new onset seizure. EEG and MRI have not been reported. Patient has trialed 0 AEDs. Muna start with a long EEG and consultation with an Epileptologist. -------- Summary: Onset: 01/16/2025 Recent Seizure Frequency: 1st and only episode Seizure Description(s) Available: Type A: No warning, occurred in sleep, shaking, foaming of the mouth, tongue bite, dislocated shoulder Duration: 15-30 minutes Current AED(s): None Previous AED(s): None PMH: eczema, pneumonia, arthritis, anemia, seasonal allergies, former smoker, ETOH abuse PRIOR EVALUATIONS: [place] [address] [place] [address] EEG (-): MRI brain wo/w contrast (-): -------- CINDY Recommendations: - Long EEG, consult with an Epileptologist - Additional testing to be considered by epilepsy clinicians Signed: Luis Enrique Woo APRN.MANAGER STATISTICAL PROGRAMMING January 22, [address] Madden for review and recommendations. ------- MD Recommendations (as discussed with Dr. Madden): - Routine EEG and visit with an Epileptologist [facility] 01-21-2025 Note HNO ID: [id number] Author: KELLI POPE PA-C Service: ? Author Type: Physician Hvac Designer Type: Progress Notes Filed: 01/21/2025 15:24 Note Text: Kelli Pope PA-C Department of Orthopaedics Orthopaedics [address] [place] [address] Dept: [phone] January 21, 2025 CHIEF COMPLAINT: New and Pain of the Left Shoulder Left Shoulder Pain: - Severe left shoulder pain following a seizure on Saturday night, jake was sleeping. - Shoulder was dislocated during the seizure; Ammon was taken to the ER by EMS. - Shoulder was reduced in the ER but reportedly dislocated again during an x-ray. - Currently in a sling; experiencing pain on the outside of the shoulder. - No visible bruising noted. - Completed a 10-day course of Vicodin, with the last dose taken this morning. - Entire body is sore post-seizure, with pain in muscles and wrist. - Ammon is right-handed and has started a leave of absence from work at [employer] due to the injury. ASSESSMENT: S43.005A Dislocation of left shoulder joint, initial encounter (primary encounter diagnosis) PLAN: 1. Dislocation of left shoulder joint, initial encounter (S43.005A) - Acute left shoulder dislocation secondary to seizure on Saturday night; reduction performed in ED. - CT scan post-reduction shows no fracture, shoulder joint well reduced. - Continue sling immobilization for 2 weeks to allow soft tissue healing. - Advised patient on safe removal of sling for comfort during sleep and to prevent elbow stiffness, with strict instructions to avoid shoulder movement. - Plan for light physical therapy after 2 weeks to restore strength and prevent stiffness. - Will order MRI if persistent pain or dysfunction to assess for rotator cuff or other soft tissue injury. - Provided prescription for additional Vicodin for pain management. - Discussed work restrictions and provided guidance on FMLA/short-term disability paperwork. 2. Seizure (HCC) (R56.9) - First seizure event on Saturday night; witnessed by . - Referred to neurology for further evaluation. Will continue to monitor patient for Dislocation of left shoulder joint, initial encounter (primary encounter diagnosis) Seizure (hcc), patient to schedule visit as per follow up discussed. Mr. Ammon Bower was advised as to contrast therapies and/or to take analgesics/anti-inflammatories as needed and all contraindications were reviewed. OBJECTIVE: Mr. Ammon Bower is a pleasant 44 year old in no apparent distress. Gen:There were no vitals taken for this visit. nl development, non obese, no deformities ENT: Normocephalic, normal hearing, moist mucosa CV: Pulses:Radial= 2+ and symmetric, capillary refill < 2 secs, no peripheral edema/varicosities Skin: no rash, bruising or lesions. Good turgor. Psych: cooperative and appropriate, alert and oriented x 3, good mood and affect. Musculoskeletal: Left shoulder is diffusely tender to palpation, range of motion of the shoulder was not tested. Patient is able to gently flex and extend the left elbow, sensation is intact to the left forearm and hand. Imaging: CT scan right upper extremity [facility] January 17, 2025 Adequate alignment of the left shoulder status post reduction. Cortical depression of the anterior medial humeral head compatible with a compression fracture from recent posterior shoulder dislocation. Supporting Subjective Information Below: Past Surgical History: PAST SURGICAL HISTORY Procedure Laterality Date COLONOSCOPY FLX DX W/COLLJ SPEC WHEN PFRMD 05/13/2007 Colonoscopy SIGMOIDOSCOPY FLX W/BIOPSY SINGLE/MULTIPLE 08/08/2016 VASECTOMY UNI/BI SPX W/POSTOP SEMEN EXAMS 09/17/14 Medications: Current Outpatient Medications Medication Sig HYDROcodone-acetaminophen (NORCO) 5-325 mg per tablet Take 1 tablet by mouth every 8 hours as needed for pain for up to 7 days. LIDOCAINE VISCOUS 2 % solution Take 5-10 mL by mouth as needed. (Patient not taking: Reported on 01/21/2025) cyclobenzaprine (FLEXERIL) 10 mg tablet Take 1 tablet by mouth three times daily as needed. (Patient not taking: Reported on 01/21/2025) acetaminophen-codeine (TYLENOL-CODEINE #3) 300-30 mg per tablet Take 1 tablet by mouth every 4 hours as needed. (Patient not taking: Reported on 01/21/2025) No current facility-administered medications for this visit. Allergies: Tomato (Solanum Lycopersicum) ROS: General (negative for fatigue, malaise, weight loss/gain) HEENT (negative for headache, earache, recent vision changes, sinus pain, sore throat) Respiratory (no recent shortness of breath, hemoptysis) CV (negative for chest tightness, palpitations) Musculoskeletal (see HPI) Psych (no depression, anxiety) This note was partially generated using FirstRain voice recognition system, and there may be some incorrect words, spellings, and punctuation that were not noted in (more content not included)... [facility] 01-17-2025 Radiology Diagnostic study note [facility] Imaging Services [address] [place] [address] Extremity Upper without Contra MR#: [id number] Acct: [id number] Name: AMMON BOWER Rep #: [id number] : 1980 M 44 From: Loi Garrett MD PCP: Dr. Jass Ching MD Status: [facility] ER Study:Extremity Upper without Contra Date of Exam: 01/17/25 Exam# [id number] Ordering Dr: Jenny Trejo MD PROCEDURE: EXTREMITY UPPER WITHOUT CONTRA 01/17/2025 REASON FOR EXAM: SHOULDER INJURY POST REDUCTION TECHNIQUE: Procedure Code: CTEUWO Modality: CT Procedure: EXTREMITY UPPER WITHOUT CONTRA Coronal and Sagittal reconstruction series were provided. One or more dose reduction techniques were used (e.g., Automated exposure control, adjustment of the mA and/or kV according to patient size, use of iterative reconstruction technique. COMPARISON: Multiple shoulder x-rays obtained earlier same day. FINDINGS: Bones: The left humeral head appears anatomically aligned with the glenoid fossastatus post reduction. Cortical depression of the anteromedial aspect of the humeral head compatible with an compression fracture from recent posterior shoulder dislocation. Tiny bony flake is noted between the humeral head and glenoid process with no significant bony injury to the glenoid process itself. No acute fractures identified. Joints: Small left shoulder joint effusion. No significant degenerative changes. Soft Tissues: No large hematoma. Muscles and tendons appear unremarkable. Visualized chest: Lung le are clear. No definite pneumothorax. CT/Extremity Upper without Contra IMPRESSION: 1. Adequate alignment of the left shoulder status post reduction. 2. Cortical depression of the anteromedial left humeral head compatible with compression fracture from recent posterior shoulder dislocation. 3. No acute new fractures. 4. Small left shoulder joint effusion. Reading Location: [facility] CC: Dr. Usman Trejo MD; Dr. Jass Ching MD ~ Skiving Machine Operator: Signed [facility] 01-17-2025 Radiology Diagnostic study note [facility] Imaging Services [address] [place], [place] [id number] Shoulder min 2 Views MR#: [id number] Acct: [id number] Name: AMMON BOWER Rep #: [id number] : 1980 M 44 From: Loi Garrett MD PCP: Dr. Jass Ching MD Status: R ER Study:Shoulder min 2 Views Date of Exam: 01/17/25 Exam# [id number] Ordering Dr: Jose Harper MD PROCEDURE: SHOULDER MIN 2 VIEWS 01/17/2025 REASON FOR EXAM: POST REDUCTION TECHNIQUE: Procedure Code: RADSH Modality: DX Procedure: SHOULDER MIN 2 VIEWS Laterality: Left COMPARISON: Multiple x-rays obtained earlier same day. FINDINGS: Bones: No acute fractures. Joints: Persistent posterior subluxation of the left shoulder. The acromioclavicular joint is unremarkable. Soft tissues: Soft tissues are unremarkable. Other: Visualized lung le are clear. No pneumothorax. RAD/Shoulder min 2 Views IMPRESSION: Persistent posterior subluxation of the left shoulder. No acute fractures. Reading Location: [facility] CC: Dr. Jass Ching MD; Dr. Sofiya Harper MD ~ Skiving Machine Operator: Signed [facility] 01-17-2025 Radiology Diagnostic study note [facility] Imaging Services [address] [place] [address] Brain/Head without Contrast MR#: [id number] Acct: [id number] Name: AMMON BOWER Rep #: [id number] : 1980 M 44 From: Loi Garrett MD PCP: Dr. Jass Ching MD Status: R EG ER Study:Brain/Head without Contrast Date of Exa m: 01/17/25 Exam# [id number] Ordering Dr: Jose Harper MD PROCEDURE: BRAIN/HEAD WITHOUT CONTRAST; SPINE CERVICAL WITHOUT CONTRAS 01/17/2025 REASON FOR EXAM: FIRST TIME SEIZURE TECHNIQUE: Procedure Code: CTBR; CTSPC Modality: CT Procedure: BRAIN/HEAD WITHOUT CONTRAST;SPINE CERVICAL WITHOUT CONTRAS Coronal and Sagittal reconstruction series were provided. One or more dose reduction techniques were used (e.g., Automated exposure control, adjustment of the mA and/or kV according to patient size, use of iterative reconstruction technique. COMPARISON: None available. FINDINGS: There is no extra-axial or intra-axial intracranial hemorrhage. No mass effect or midline shift is seen. The ventricles, sulci, and cisterns are normal in size and shape for the patient's age. There is normalgray-white matter differentiation. The posterior fossa is grossly unremarkable. The skull is unremarkable. Visualized paranasal sinuses are clear. The mastoid air cells show normal translucency. The cervical alignment is intact. No acute cervical spine fracture is identified. The vertebral body heights are intact. No suspicious osseous lesions are identified. The craniocervical junction appears intact. There is no prevertebral soft tissue swelling. No significant degenerative changes are identified. The visualized lung apices are unremarkable. CT/Brain/Head without Contrast IMPRESSION: No intracranial hemorrhage. No mass effect or midline shift. No evidence of acute cervical spine fracture or malalignment. Reading Location: [facility] CC: Dr. Jass Ching MD; Dr. Sofiya Harper MD ~ Skiving Machine Operator: Signed [facility] 01-17-2025 Radiology Diagnostic study note [facility] Imaging Services [address] [id number] Spine Cervical without Contras MR#: [id number] Acct: [id number] Name: AMMON BOWER Rep #: [id number] : 1980 M 44 From: Loi Garrett MD PCP: Dr. Jass Ching MD Status: R EG ER Study:Spine Cervical without Contras Date of Exam: 01/17/25 Exam# [id number] Ordering Dr: Jose Harper MD PROCEDURE: BRAIN/HEAD WITHOUT CONTRAST; SPINE CERVICAL WITHOUT CONTRAS 01/17/2025 REASON FOR EXAM: FIRST TIME SEIZURE TECHNIQUE: Procedure Code: CTBR; CTSPC Modality: CT Procedure: BRAIN/HEAD WITHOUT CONTRAST;SPINE CERVICAL WITHOUT CONTRAS Coronal and Sagittal reconstruction series were provided. One or more dose reduction techniques were used (e.g., Automated exposure control, adjustment of the mA and/or kV according to patient size, use of iterative reconstruction technique. COMPARISON: None available. FINDINGS: There is no extra-axial or intra-axial intracranial hemorrhage. No mass effect or midline shift is seen. The ventricles, sulci, and cisterns are normal in size and shape for the patient's age. There is normalgray-white matter differentiation. The posterior fossa is grossly unremarkable. The skull is unremarkable. Visualized paranasal sinuses are clear. The mastoid air cells show normal translucency. The cervical alignment is intact. No acute cervical spine fracture is identified. The vertebral body heights are intact. No suspicious osseous lesions are identified. The craniocervical junction appears intact. There is no prevertebral soft tissue swelling. No significant degenerative changes are identified. The visualized lung apices are unremarkable. CT/Spine Cervical without Contras IMPRESSION: No intracranial hemorrhage. No mass effect or midline shift. No evidence of acute cervical spine fracture or malalignment. Reading Location: [facility] CC: Dr. Jass Ching MD; Dr. Sofiya Harper MD ~ Skiving Machine Operator: Signed [facility] 01-17-2025 Radiology Diagnostic study note [facility] Imaging Services [address] [facility] [place], [place] [id number] Shoulder min 2 Views MR#: [id number] Acct: [id number] Name: AMMON BOWER Rep #: [id number] : 1980 M 44 From: Mohsen Browne MD PCP: Dr. Jass Ching MD Status: R EG ER Study:Shoulder min 2 Views Date of Exam: 01/17/25 Exam# [id number] Ordering Dr: Jose Harper MD PROCEDURE: SHOULDER MIN 2 VIEWS 01/17/2025 REASON FOR EXAM: POSTERIOR DISLOCATION TECHNIQUE: Procedure Code: RAD Modality: DX Procedure: SHOULDER MIN 2 VIEWS Laterality: Left COMPARISON: Earlier today's exam. FINDINGS: Bones: Hill-Sachs defect noted in the humerus. Negative for fractures. Scapula otherwise negative. Proximal humerusotherwise negative. Clavicle negative. Joints: Humeral head is posteriorly dislocated on the axillary view. Better seen than on the previous study Soft tissues: Adjacent structures negative. Other: Remainder of the exam negative. RAD/Shoulder min 2 Views IMPRESSION: Hill-Sachs defect and probable posterior dislocation of the humerus Reading Location: [facility] CC: Dr. Jass Ching MD; Dr. Sofiya Harper MD ~ Skiving Machine Operator: Signed [facility] 01-17-2025 Radiology Diagnostic study note [facility] Imaging Services [address] [place], [place] [address] Shoulder min 2 Views MR#: [id number] Acct: [id number] Name: AMMON BOWER Rep #: [id number] : 1980 M 44 From: Mohsen Browne MD PCP: Dr. Jass Ching MD Status: R EG ER Study:Shoulder min 2 Views Date of Exam: 01/17/25 Exam# [id number] Ordering Dr: Jose Harper MD PROCEDURE: SHOULDER MIN 2 VIEWS 01/17/2025 REASON FOR EXAM: DISLOCATION TECHNIQUE: Procedure Code: [facility] Modality: DX Procedure: SHOULDER MIN 2 VIEWS Laterality: Left COMPARISON: None. FINDINGS: Bones: Negative for fractures. Scapula otherwise negative. Proximal humerus negative. Clavicle negative. Joints: Intact. No joint effusion. Soft tissues: Adjacent structures negative. Other: Remainder of the exam negative. RAD/Shoulder min 2 Views IMPRESSION: Negative left shoulder. Reading Location: [id number] CC: Dr. Jass Ching MD; Dr. Sofiya Harper MD ~ Skiving Machine Operator: Signed [facility] 06-01-2024 Note [facility] Medical Records Department [address] [place] [address] History Physical Exam 06/01/24 0956 MR#: [id number] Acct: [id number] Name: AMMON BOWER Rep #: [id number] : 1980 43 From: Kentrell Isbell DO PCP: Dr. Jass Ching MD Status:[facility] Location: [place] [address] HPI - General General Date of Admission: 06/01/24 Date of Service: 06/01/24 Chief Complaint: Screening colonoscopy HPI Narrative AMMON BOWER, is a 43 M who presents today for screening colonoscopy. He is not having any abdominal pain, cramping, chest pain or shortness of breath. He does not take any medicines on daily basis. Overall he is in very good health. [facility] Medical History Eczema Former smoker Blood glucose [...] Jass Ching MD; Kentrell Isbell DO Signed [facility] 07-05-2022 History of Present illness Narrative Subjective HPI HPI Ammon Bower [...] - STREP A MOLECULAR (POC) Shashi Melara APRN.YAMINI documented in this encounter [facility] 09-11-2021 Instructions Leigha Marquez APRN.YAMINI - 09/11/2021 9:55 AM EDT - RICE therapy - see patient instructions for further recommendations. - F/U with PCP in 5-7 days or before if worse. - Discussed Red Flag signs and when to go to ER. - Reviewed plan of care and DC papers with patient. Verbalized understanding. documented in this encounter [facility] 09-11-2021 History of Present illness Narrative Radiology Service Progress Note PATIENT [...] 2021 9:33 AM documented in this encounter [facility] 09-11-2021 History of Present illness Narrative Subjective The history is provided by the patient. 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 Hand Injury ROS Objective Physical [...] No radiographic evidence of acute osseous abnormality. Skiving Machine Operator: ANNA Transcribe Date/Time: Sep 11 2021 9:44A Dictated by : CARMENCITA MATOS MD TECHNIQUE: 3 view radiographic study of the right hand and 4 view radiographic study of the right wrist COMPARISON: None FINDINGS: No acute fracture or dislocation identified. Mild remote posttraumatic bowing deformity of the fifth metacarpal. Joint spaces preserved. IMPRESSION IMPRESSION: No radiographic evidence of acute osseous abnormality. Skiving Machine Operator: ANNA Transcribe Date/Time: Sep 11 2021 9:44A Dictated by : CARMENCITA MATOS MD Patient instructed to rest, ice and alternate ibuprofen and tylenol. patient instructed to give it several more days and follow up with PCP if it does not seem to be getting better. Patient was okay with this care plan. Leigha Marquez APRN.CNP documented in this encounter [facility] 08-14-2021 History of Present illness Narrative [facility] with chest pain and back pain. He was seen in the ED 2 days ago for similar complaints and had a ct flank done which was unremarkable per patient and . He is in severe pain here, recommended he be seen again in the ED. His will take him there across the street to [facility] by personal vehicle. documented in this encounter [facility] 07-04-2020 History of Present illness Narrative Radiology Service Progress Note PATIENT [...] 2020 11:04 AM documented in this encounter [facility] Evaluation note No assessment inform ation available [facility] Work Phone: Evaluation note Diagnosis Chest pain, unspecified type- Primary [facility] Diagnosis Pain of right hand- Primary Pain in limb documented in this encounter [facility] note* Diagnosis URI, acute- Primary Acute upper respiratory infections of unspecified site Throat pain Streptococcus exposure Contact with or exposure to other communicable diseases [facility] Diagnosis Onset Date Resolution Status Back pain acute SI (sacroiliac) joint inflammation acute Arthritis acute Low back pain chronic [facility] Work Phone: Evaluation note* Diagnosis Pain of right hand Pain in limb [facility] Diagnosis Upper back pain on right side Pain in thoracic spine Radicular pain in right arm Neuralgia, neuritis, and radiculitis, unspecified [facility] Instructions Wear the sling at all times. Follow up with the orthopedic doctor below in the next week. No driving until cleared by neurology. If you have another seizure prior to following up with neurology, return to the ER.[facility] Work Phone: Reason for referral (narrative)* Diagnostic Procedure Only (Urgent) - Closed Specialty Diagnoses / Procedures Referred By Christin miller Referred To Contact XR IMAGING Diagnoses Pain of right hand Procedures XR WRIST INJURY 4V PA/LAT/OBL/SCAPH RIGHT RADEX WRIST COMPLETE MINIMUM 3 VIEWS Leigha Marquez APRN.MANAGER STATISTICAL PROGRAMMING [address] [place] [address] Xr Imaging Referral ID Status Reason Start Date Expiration Date V isits Requested Visits Authorized [id number] Closed Auto-Generate d Referral 09/11/2021 10/11/2022 1 1 * Diagnostic Procedure Only (Urgent) - Closed Specialty Diagnoses / Procedures Referred By Contac t Referred To Contact XR IMAGING Diagnoses Pain of right hand Procedures XR HAND GENERAL 3V PA/LAT/OBL RIGHT RADEX HAND MINIMUM 3 VIEWS Leigha Marquez APRN.MANAGER STATISTICAL PROGRAMMING [address] [place] [address] Xr Imaging Referral ID Status Reason Start Date Expiration Date V isits Requested Visits Authorized [id number] Closed Auto-Generate d Referral 09/11/2021 10/11/2022 1 1 [facility] for referral (narrative)* Diagnostic Procedure Only (Urgent) - Closed Specialty Diagnoses / Procedures Referred By Contac t Referred To Contact XR IMAGING Diagnoses Pain of right hand Procedures XR WRIST INJURY 4V PA/LAT/OBL/SCAPH RIGHT RADEX WRIST COMPLETE MINIMUM 3 VIEWS Leigha Marquez APRN.MANAGER STATISTICAL PROGRAMMING [address] [place] [address] [place] [address] Referral ID Status Reason Start Date Expiration Date V isits Requested Visits Authorized [id number] Closed Auto-Generate d Referral 09/11/2021 10/11/2022 1 1 * Diagnostic Procedure Only (Urgent) - Closed Specialty Diagnoses / Procedures Referred By Contac t Referred To Contact XR IMAGING Diagnoses Pain of right hand Procedures XR HAND GENERAL 3V PA/LAT/OBL RIGHT RADEX HAND MINIMUM 3 VIEWS Leigha Marquez APRN.MANAGER STATISTICAL PROGRAMMING [address] [place] [address] [place] [address] Referral ID Status Reason Start Date Expiration Date V isits Requested Visits Authorized [id number] Closed Auto-Generate d Referral 09/11/2021 10/11/2022 1 1 [facility] for referral (narrative)No reason for referral information [facility] Work Phone: Reizlh for visit Narrative* Diagnostic Procedure Only (Urgent) - Closed Specialty Diagnoses / Procedures Referred By Contac t Referred To Contact XR IMAGING Diagnoses Pain of right hand Procedures XR WRIST INJURY 4V PA/LAT/OBL/SCAPH RIGHT RADEX WRIST COMPLETE MINIMUM 3 VIEWS Leigha Marquez APRN.MANAGER STATISTICAL PROGRAMMING [address] [place] [address] [place] [id number] Referral ID Status Reason Start Date Expiration Date V isits Requested Visits Authorized [id number] Closed Auto-Generate d Referral 09/11/2021 10/11/2022 1 1 [facility] Chief Complaint and Reason for Visit Chief Complaint FLANK/BACK PAIN Chief Complaint FLANK/BACK PAIN BACK Chief Complaint ACUTE - LOWER BACKPA IN CONTINUED BACK ISSUES Reason for Visit Back pain SI (sacroiliac) joint inflammation Arthritis Low back pain Chief Complaint Admit Date seizure January 17, 2025 5:41am Family History No Family History Records Found Relationship Condition Age at Onset Recorded Date/T noel Unknown Family History?No pertinent history Unkno wn August 06, 2016 10:43pm Family History?No pertinent history Unkno wn August 06, 2016 10:43pm Relationship Condition Age at Onset Recorded Date/T noel Not Specified Diabetes mellitus Unknown Malignant neoplasm Unknown Hypertension Unknown Relationship Condition Age at Onset Recorded Date/T noel Not Specified Diabetes mellitus Unknown Malignant neoplasm Unknown Hypertension Unknown unrelated friend Polyp of colon Unknown father Malignant neoplasm of pancreas Unknown Advance Directives No Advanced Directives Records Found Advance Directive Response Recorded Date/ Time Advance Directives No May 17, 2016 8:32pm Living Will No August 12, 2021 6:25pm Power of Channeler Insole No August 12 6:25pm Documents on File Type Date Recorded Patient Recovery Analyst Expl anation Advance Directive(s) 12/21/2015 5:53 AM Advance Directive(s) 12/14/2015 10:43 AM Advance Directive Response Recorded Date/ Time Advance Directives No May 17, 2016 8:32pm Living Will No August 14, 2021 3:42pm Power of Channeler Insole No August 14 3:42pm Documents on File Type Date Recorded Patient Recovery Analyst Expl anation Advance Directive(s) 12/21/2015 5:53 AM Advance Directive(s) 12/14/2015 10:43 AM Advance Directive Response Recorded Date/ Time Advance Directives No May 17, 2016 7:32pm Living Will No August 14, 2021 2:42pm Power of Channeler Insole No August 14 2:42pm Advance Directive Response Recorded Date/ Time Do you have a Healthcare Power of Channeler Insole? No January 17, 2025 5:46am Advance Directives No May 17, 2016 8:32pm Summary Purpose Additional Source Comments Goals (unrecognized [...] or prosecute any alcohol or drug abuse patient.[facility] the event this information is protected by the Federal Confidentiality of Alcohol and Drug Abuse Patient Records regulations: The Federal rules restrict any use of the information to criminally investigate or prosecute any alcohol or drug abuse patient.[facility] the event this information is protected by the Federal Confidentiality of Alcohol and Drug Abuse Patient Records regulations: The Federal rules restrict any use of the information to criminally investigate or prosecute any alcohol or drug abuse patient.[facility] the event this information is protected by the Federal Confidentiality of Alcohol and Drug Abuse Patient Records regulations: The Federal rules restrict any use of the information to criminally investigate or prosecute any alcohol or drug abuse patient.[facility] the event this information is protected by the Federal Confidentiality of Alcohol and Drug Abuse Patient Records regulations: The Federal rules restrict any use of the information to criminally investigate or prosecute any alcohol or drug abuse patient.[facility] Reason for Visit (unrecogniz ed section and content) Reason Comments Hand Injury right, hit on dish s atellite while starting mower x 1 day Reason Comments Throat Problem Pt reported +strep e xposure throat pain x2 days. Care Teams (unrecognized sec tion and content) [...] Dr. Jass Ching MD Primary Care Kristen molina Attending Provider, Referring Provider Active Team Status: Active Member Role/Relationship Status Dates Dr. Jass Ching MD Primary Care Provider Active Team Status: Inactive Member Role/Relationship Status Dates Dr. Jass Ching MD Primary Care Provider Active Start: January 17, 2025 End: January 17, 2025 Dr. Sofiya Harper MD Emergency Provider Active S tart: January 17, 2025 End: January 17, 2025 (unrecognized sect ion and content) No Status Records FoundNo Status Records Found INFORMATION SOURCE (unrecogn ized section and content) DATE CREATED AUTHOR 01/23/2025 [facility] DATE CREATED AUTHOR AUTHOR'S WENDY HARRIS 02/11/2025 [facility] FOR RECORDS PERTAINING TO PATIENTS WHO ARE [...] BE BASED ON THE PRIMARY CLINICAL RECORDS. [facility]. provides no warranty or guarantee of the accuracy or completeness of information in this document.
[2025-02-26 21:23] VITALS: BP 121/84; BP 126/80; BP 127/95; PULSE 72; PULSE 73; PULSE 78
[2025-02-26] MEDS: 0.9% Normal Saline (250mL Bag) 250 ML 15 ML IV (21:48)
[2025-02-26] MEDS: Pantoprazole Sodium 80 MG in 0.9% Normal Saline (50mL Bag) 15 ML 420 MG IV BOLUS (21:49)
[2025-02-26 22:10] LABS: Hematocrit 31.4 % (40-54); Hemoglobin 11.1 g/dL (13.0-16.5); Immature Granulocytes Count 0.040 X10^3/uL (0.0-0.0); Mean Corp Hgb Conc 35.4 g/dL (32-36); Mean Corpuscular Volume 97.8 fL (80-94); Mean Platelet Vol. 11.7 fl (6.2-12.0); NRBC Flagged by Analyzer 0 % (0-5); Platelet Count 270 K/mm3 (150-450); RBC Distribution Width CV 11.9 % (11.6-14.6); RBC Distribution Width SD 42.5 fl (35.1-43.9); Red Blood Count 3.21 M/mm3 (4.6-6.2); White Blood Count 10.1 K/mm3 (4.4-11.0)
[2025-02-26 22:11] LABS: Anion Gap 11 (5-15); BUN 17 mg/dL (4-19); BUN/Creat Ratio 18.8 RATIO (10-20); Calcium,Total 8.7 mg/dL (7.6-11.0); Carbon Dioxide 23.0 mmol/L (21.0-32.0); Chloride 105 mmol/L (98-108); Estimated Creatinine Clearance 108.94 ml/min (50-250); Glucose 173 mg/dL (70-99); Potassium 3.7 mmol/L (3.3-5.1)
--- NOTE | 2025-02-26 22:34 | HP.PCM.HOS_ITS ---
[facility] - General General Date of Admission: 02/26/25 Date of Service: 02/26/25 Chief Complaint: Dark Stools after NSAID overuse. HPI Narrative EAMON BOWER, is a 44 M with a past medical history of former tobacco abuse (quit ~2021), history of EtOH abuse, history of pneumonia, eczema, history of colitis; s/p colonoscopy done by Dr. Isbell of gastroenterology June 01, 2024 that revealed patchy moderate inflammation in the rectosigmoid colon with Left- sided colitis and mild inflammation found in the ileum due to ileitis in addition to diverticulosis in the entire examined colon and recent Left AC joint separation on January 17, 2025 due to alleged seizure activity in the setting of EtOH abuse; with patient taking several doses of ibuprofen daily who presents to [facility] ER complaining of dark stools. Mr. Bower reports his symptoms began ~2-3 days prior to admission when he first noted dark maroon-colored stool with lightheadedness when standing up quickly. He states he has not been drinking alcohol in more than a month but he does smoke cannabis. He denies a history of coffee-ground emesis, hematemesis, peptic ulcer disease, GERD or hiatal hernia. There was no report of associated fever, chills, changes in vision, discharge from eyes, runny nose, sore throat, ear pain, chest pain, palpitations, heart racing, lower extremity edema, shortness of breath, cough, dysuria, hematuria, headache or rash. In the ER he was noted to have relative anemia with a hemoglobin of 11.1 g/dL (down from previous baseline of 12.8 g/dL on January 17, 2025) with a slightly elevated MCV of 97.8 fL in the setting of suspected Upper GI Bleed with Melanotic Stools due to Adverse Drug Reaction to overuse of ibuprofen complicated by additional laboratory evidence of Hyperglycemia of 173 mg/dL present on admission. He was then admitted to the PCU for ongoing care for stated is expected to extend beyond 2 midnights. [facility] Medical History Eczema Former smoker Blood glucose elevated Colon cancer screening Arthritis Low back pain Anemia Encounter to establish care Preventative health care History of pneumonia Seasonal allergies Alcohol abuse Home Medications Medication Instructions Recorded Last Taken Type ibuprofen 800 mg tablet 800 mg PO Q8H PRN PRN pain 1 0/24/25 10/24/25 History Allergy/AdvReac Type Severity Reaction Status Date / Time tomato Allergy Hives Verified 02/26/25 21:05 Family History Unknown Colon polyps Father Pancreatic cancer Other Cancer Diabetes Hypertension Surgical History History of wisdom tooth extraction Hx of colonoscopy Social History household members: spouse current occupational status: employed Smoking Status: Former smoker alcohol intake: current substance use type: does not use what type of physical activity do you participate in: none ROS ROS Narrative Review of Systems: Constitutional: Patient denies fever or chills. Eyes: Patient denies changes in vision or discharge from eyes. ENT: Patient denies runny nose, sore throat or ear pain. Resp: Patient denies shortness of breath or cough. CV: Patient denies chest pain, palpitations, heart racing or lower extremity edema. GI: Patient admits to melanotic stools but he denies abdominal pain, constipation, diarrhea, nausea or vomiting. : Patient denies dysuria or hematuria. MSK: Patient admits to chronic pain from his relatively recent Left AC separation as per HPI. Skin: Patient denies rash, abscess, wounds or jaundice. Psych: Patient denies symptoms of uncontrolled depression or anxiety. Neuro: Patient denies headache, paresthesias, seizures or focal neurologic deficits. Allergy: Patient denies lip swelling, tongue swelling or urticaria. Hematology: Patient admits to melanotic stools after heavy NSAID use as per HPI. Endocrinology: Patient denies polyuria, polydipsia, polyphagia or heat/cold intolerance. 14 point ROS otherwise negative except for positives noted above in HPI. Vital Signs Vital Signs Vital Signs: 02/26/25 21:05 02/26/25 21:23 Temperature 98.1 F Temperature Source Oral Pulse Rate 83 Pulse Rate [Lying] 72 Pulse Rate [Sitting (for 1 minute prior to obtaining)] 73 Pulse Rate [Standing (for 1 minute prior to obtaining)] 78 Respiratory Rate 16 Blood Pressure 157/83 H Blood Pressure [Lying] 126/80 H Blood Pressure [Sitting (for 1 minute prior to obtaining)] 121/84 H Blood Pressure [Standing (for 1 minute prior to obtaining)] 127/95 H Blood Pressure Mean 107 Blood Pressure Mean [Lying] 95 Blood Pressure Mean [Sitting (for 1 minute prior to obtaining)] 96 Blood Pressure Mean [Standing (for 1 minute prior to obtaining)] 105 Pulse Ox 99 Oxygen Delivery Method Room Air Weight Weight: 175 lb 4.8 oz Body Mass Index (BMI) 23.8 Physical Exam Const alert, oriented x3, no apparent distress, average body habitus and healthy appearing General Appearance: cooperative HEENT normocephalic, head/scalp atraumatic, hearing grossly normal bilaterally and moist oral mucous membranes Eyes PERRL, EOMs intact bilaterally and conjunctivae normal Neck no lymphadenopathy, supple and no JVD Resp normal respiratory effort, no retractions, no use of accessory muscles and clear to auscultation bilaterally Cardio regular rate and regular rhythm GI normal to inspection, nondistended, normoactive bowel sounds, soft to palpation, non-tender and non-distended Extremity Extremity Narrative: LUE with deformity of shoulder with an anterior divot with sensation intact and with normal ROM. Skin Skin Narrative: Patient has no evidence of rash. Neuro oriented x3, CN's II-XII intact bilaterally, moves all extremities and no focal motor deficits Sensorium / Orientation: awake, alert, oriented to person, oriented to place and oriented to time Speech: speech normal Psych affect normal Results Medical Records Data Attestation: I reviewed the patient's medical records Lab / Micro Data Attestation: I reviewed the patient's lab results. 02/26/25 21:32 02/26/25 21:32 Labs: Laboratory Results - last 24 hr 02/26/25 21:31: Lactic Acid 1.2 02/26/25 21:32: WBC 10.1, RBC 3.21 L, Hgb 11.1 L, Hct 31.4 L, MCV 97.8 H, MCH 34.6 H, MCHC 35.4, RDW Std Deviation 42.5, RDW Coeff of Jamar 11.9, Plt Count 270, MPV 11.7, Immature Gran % (Auto) 0.400, Neut % (Auto) 64.8, Lymph % (Auto) 24.4, [place] % (Auto) 4.9, Eos % (Auto) 4.9, Baso % (Auto) 0.6, Absolute Neuts (auto) 6.5, Absolute Lymphs (auto) 2.46, Nucleated RBC % 0, Sodium 139, Potassium 3.7, Chloride 105, Carbon Dioxide 23.0, Anion Gap 11, BUN 17, Creatinine 0.93, Estim Creat Clear Calc 108.94, Est GFR (MDRD) Non-Af 103, BUN/Creatinine Ratio 18.8, G lucose 173 H, Calcium 8.7, Blood Type O POSITIVE, Antibody Screen NEGATIVE Assessment & Plan Assessment/Plan (1) Upper GI bleed: (2) Melanotic stools: (3) Adverse drug reaction: QUALIFIERS: Encounter type: initial encounter Qualified Code(s): T50.905A - Adverse effect of unspecified drugs, medicaments and biological substances, initial encounter (4) Hyperglycemia: PLAN: Plan 1. Upper GI Bleed with Melanotic Stools - Admit to PCU. Keep strict NPO. Continue IV pantoprazole begun in the ER. Blood already typed & screened with plan to transfuse for hemoglobin <7 g/dL. Give ondansetron IV prn for nausea and vomiting. Give acetaminophen MD prn for [id number] (level 1-5/10) pain or fever. Give morphine IV prn for severe (level 6-10/10) pain. Finally, we will consult gastroenterology to see this patient on-rounds in the AM for further recommendations regarding EGD this admission with help appreciated in advance. 2. Adverse Drug Reaction to overuse of ibuprofen likely causing #1 - Stop ibuprofen. Patient educated on the dangers of NSAID overuse. 3. Hyperglycemia of 173 mg/dL present on admission complicating #1 & #2 - Check HgbA1c to screen for DM-2. 4. Recent Left AC joint separation on January 17, 2025 due to alleged seizure activity in the setting of EtOH abuse; with patient taking several doses of ibuprofen daily - Patient states he quit drinking EtOH since that time. 5. History of colitis; s/p colonoscopy done by Dr. Isbell of gastroenterology June 01, 2024 that revealed patchy moderate inflammation in the rectosigmoid colon with Left-sided colitis and mild inflammation found in the ileum due to ileitis in addition to diverticulosis in the entire examined colon - Noted. 7. Former tobacco abuse (quit ~2021) - Noted. 8. History of pneumonia - Noted with no evidence of recurrence at this time. 9. History of eczema - Stable. 10. DVT prophylaxis - SCD's only in light of recent bleeding outlined in #1 contraindicating chemoprophylaxis. Total time: Approximately (but not less than) 55 minutes. Charges/Coding Visit Charges Inpatient E&M: 68151 Init Hosp L2
--- NOTE | 2025-02-26 22:50 | ED.RN ---
Patient was asked about ETOH abuse history. Patient states he has been sober last event when he dislocated his shoulder. Patients states that the last time he had a drink as stopped since then. Dr. Lucero made aware.
[2025-02-26 22:52] VITALS: BP 126/86; PULSE 76; RESP 16; TEMP 37.1; O2SAT 98
--- OUTSIDE RECORDS SUMMARY | 2025-02-26 22:53 | XMS RPT_ITS | CCD ---
Author Organization [facility] Care Team Providers Care Sales Clerk Name Role Phone Unavailable Primary Care Provider Dr. Jass Hagen Primary Care Provider [phone] Dr. Jass Ching Referring Provider [phone] NEERAJ Clarke Attending Provider [phone] Dr. Jass Ching Attending Provider [phone] Unavailable [...] sources) tomato allergenic extract Drug Allergy 10-12-2018 [facility] (1 source) tomato allergenic extract Drug Allergy 06-01-2024 [facility] Repository (1 source) tomato allergenic extract; Translations: [TOMATO (SOLANUM LYCOPERSICUM)] Drug Allergy 10-12-2018 [facility] Repository Medications Current Medications Medication Drug [...] Office Visit (ORTHWS ) -------- AMMON BOWER ([id number]) 1980 M Date Time Provider Department 02/08/25 [...] PA-C Department of Orthopaedics Orthopaedics [address] [facility] [address] Dept: [phone] Dept February 08, 2025 CHIEF COMPLAINT: Shoulder [...] anxiety) This note was partially generated using [employer] voice recognition system, and there may be some incorrect words, spellings, and punctuation that were not noted in checking the note before saving. Kelli Pope PA-C Referring Provider: SELF [200] Allergies As of Date: 02/08/2025 Noted Allergy Reaction TOMATO (SOLANUM LYCOPERSICUM) 10/12/2018 4 - Hives Date Reviewed: 02/08/2025 Reviewe (more content not included)... Normal [facility] 01-29-2025 CNPN Telephone (ORTHWS) -------- CHELIAMMON Gramajo ([id number]) 1980 M Date Time Provider Department 01/29/25 KELLI POPE During your visit today, we recorded the following information about you: Taryn Alvares MA 01/29/2025 3:26 PM Signed Type of form: FMLA Form received via walk in on 01/28/2025 When form is completed, Fax form to [employer] at [phone] Form has been completed and waiting for physician signature. Patient needs to come in and sign release so we can send information to [employer]. ZAHEER Cabello Amy M, MA 02/01/2025 4:06 PM Signed Forms signed and faxed back to [employer]. Confirmation received. Copy sent for scanning. Allergies As of Date: 01/29/2025 Noted Allergy Reaction TOMATO (SOLANUM LYCOPERSICUM) 10/12/2018 4 - Hives Date Reviewed: 01/21/2025 Reviewed by: Brianna Rucker MA - Fully Assessed Reason for Visit: FMLA Paperwork [[id number]] Prescriptions as of 02/01/2025 - LIDOCAINE VISCOUS [...] Status:Closed by TARYN ALVARES on 02/01/25 Normal [facility] CNCONon 01-22-2025 CNCON Consults (NE50MN) -------- AMMON BOWER ([id number]) 1980 M Date Time Provider Department 01/22/25 RAFAEL MADDEN NE50MN During your visit today, we recorded the following information about you: Luis Enrique Woo, MALACHI.GATE MORTISER OPERATOR 01/22/2025 2:12 PM Signed [facility] Review of Records Patient: Ammon Bower Address: [address] [place], [place] [id number] Impression: Review of records for Ammon Bower, a 44 year old male, being referred by [facility] [[facility]] to Any Epileptologist for further [...] allergies, former smoker, ETOH abuse PRIOR EVALUATIONS: [address] [place] [address] EEG (-): MRI brain wo/w contrast (-): [...] onset seizure (HCC) [R56.9] Order(s):EPIL EEG ROUTINE [[id number]] Order #: [id number]: 1 Prescriptions as of 01/22/2025 - HYDROcodone-acetaminophe [...] Status:Closed by LUIS ENRIQUE WOO on 01/22/25 [facility] CNOVholly 01-21-2025 CNOV Office Visit (ORNA ) -------- AMMON BOWER ([id number]) 1980 M Date Time Provider Department 01/21/25 11:00 AM KELLI POPE During your visit today, we recorded the following information about you: Kelli Pope PA-C 01/21/2025 3:24 PM Signed Kelli Pope PA-C Department of Orthopaedics Orthopaedics [address] [address] Dept: [phone] January 21, 2025 CHIEF COMPLAINT: New and [...] a leave of absence from work at [employer] due to the injury. ASSESSMENT: S43.005A Dislocation [...] hand. Imaging: CT scan right upper extremity [facility] January 17, 2025 Adequate alignment [...] Psych (n (more content not included)... Normal [facility] Absolute lymphocyte countOrd ered By: Sofiya Harper on 01-17-2025 Lymphocytes Auto (Unsp spec) [#/Vol] 5.44 10*3/uL High 0.83-4.51 [facility] Absolute neutrophil countOrd ered By: Sofiya Harper on 01-17-2025 Neutrophils (Bld) [#/Vol] 6.5 10*3/uL 2.0-7.7 [facility] Alcohol, Blood (Medical)-Ser umon 01-17-2025 SERUM ETOH < 10.1 Normal <=10.0 [facility] Comment on above: Result Comment: This test is for medical purposes only. The legal definition of intoxication varies according to local law. Performed By: #### L 503.6005, L500.2500, L505.5000, L501.9100, L100.0100, L501.5200, L501.3620 #### [facility] Laboratory [address] [place] [address]. [place], [place], [address] Amphetamine detection with 1 000 ng/mL as cutoffOrdered By: Sofiya Harper on 01-17-2025 Amphetamines Screen method >1000 ng/mL Ql (U) Negative < 200 ng/mL [facility] Anion gap in Serum or Plasma Ordered By: Sofiya Harper on 01-17-2025 Anion gap [Moles/Vol] 29 mmol/L High 5-15 [facility] Automated lymphocyte count a s percentage of total leukocytesOrdered By: Sofiya Harper on 01-17-2025 Lymphocytes/100 WBC Auto (Unsp spec) 39.6 % 19- [facility] BUN/creatinine ratioOrdered By: Sofiya Harper on 01-17-2025 Urea nitrogen/Creatinine [Mass ratio] 13.2 mg/mg - [facility] Basic Metabolic Profile (BMP )on 01-17-2025 BUN/CRE 13.2 RATIO Normal 02-22 [facility] Comment on above: Performed By: #### L 503.6005, L500.2500, L505.5000, L501.9100, L100.0100, L501.5200, L501.3620 #### [facility] Laboratory [address] [place], [address] Calcium [Mass/Vol] 9.1 mg/dL Normal 7.6-11.0 [facility] Comment on above: Performed By: #### L 503.6005, L500.2500, L505.5000, L501.9100, L100.0100, L501.5200, L501.3620 #### [facility] [address] [place], [address] Chloride [Moles/Vol] 100 mmol/L Normal 98-108 [facility] Comment on above: Performed By: #### L 503.6005, L500.2500, L505.5000, L501.9100, L100.0100, L501.5200, L501.3620 #### [facility] [address] [place], [address] CO2 [Moles/Vol] 11.5 mmol/L Low 21.0-32.0 [facility] Comment on above: Performed By: #### L 503.6005, L500.2500, L505.5000, L501.9100, L100.0100, L501.5200, L501.3620 #### [facility] [address] [place], [address] Creatinine [Mass/Vol] 1.22 mg/dL High 0.70-1.20 [facility] Comment on above: Performed By: #### L 503.6005, L500.2500, L505.5000, L501.9100, L100.0100, L501.5200, L501.3620 #### [facility] [address] [place], [address] ECRCL 83.04 ml/min Normal 50-250 [facility] Comment on above: Performed By: #### L 503.6005, L500.2500, L505.5000, L501.9100, L100.0100, L501.5200, L501.3620 #### [facility] [address] [place], [address] GAP 29 High 5-15 [facility] Comment on above: Performed By: #### L 503.6005, L500.2500, L505.5000, L501.9100, L100.0100, L501.5200, L501.3620 #### [facility] [address] [place], [address] GFR/1.73 sq M.predicted among non-blacks MDRD (S/P/Bld) [Vol rate/Area] 74 mL/min/{1.73_m2} Normal >60 [facility] Comment on above: Result Comment: mL/m in/1.73m2 CKD-EPI Creatinine Equation (2020) Performed By: #### L 503.6005, L500.2500, L505.5000, L501.9100, L100.0100, L501.5200, L501.3620 #### [facility] [address] [place], [address] Glucose [Mass/Vol] 181 mg/dL High 70-99 [facility] Comment on above: Performed By: #### L 503.6005, L500.2500, L505.5000, L501.9100, L100.0100, L501.5200, L501.3620 #### [facility] [address] [place], [address] Potassium [Moles/Vol] 3.5 mmol/L Normal 3.3-5.1 [facility] Comment on above: Performed By: #### L 503.6005, L500.2500, L505.5000, L501.9100, L100.0100, L501.5200, L501.3620 #### [facility] [address] [place], [address] Sodium [Moles/Vol] 140 mmol/L Normal 133-145 [facility] Comment on above: Performed By: #### L 503.6005, L500.2500, L505.5000, L501.9100, L100.0100, L501.5200, L501.3620 #### [facility] [address] [place], [address] Urea nitrogen [Mass/Vol] 16 mg/dL Normal 4-19 [facility] Comment on above: Performed By: #### L 503.6005, L500.2500, L505.5000, L501.9100, L100.0100, L501.5200, L501.3620 #### [facility] [address] [place], [address] Basophil percentageOrdered B y: Sofiya Harper on 01-17-2025 Basophils/100 WBC (Bld) 0.6 % 0-1 [facility] Bedside Glucoseon 01-17-2025 FINGERSTICK GLU 169 mg/dL High 74-106 [facility] Comment on above: Result Comment: ROBERT GEMENT OF PATIENT CARE PER NURSING PROTOCOL Performed By: #### L 501.080 ####[facility] [address] [place], [address] Blood manual differential co mment interpretation (narrative result)Ordered By: Sofiya Harper on 01-17-2025 Manual differential comment Luis (Bld) [Interp] SCANNED [facility] Comment on above: LYMPHOCYTOSIS PRESEN T Brain/Head without Contrasto n 01-17-2025 Brain/Head without Contrast [facility] Imaging Services [address] [place] [address] Brain/Head without Contrast MR#: [id number] Acct: [id number] Name: AMMON BOWER Rep #: [id number] : 1980 M 44 From: Loi Garrett MD PCP: Dr. Jass Ching MD Status: REG ER Study: Brain/Head without Contrast Date of Exam: 01/04 08/28 Exam# [id number] Ordering Dr: Sofiya Harper MD PROCEDURE: BRAIN/HEAD [...] cervical spine fracture or malalignment. Reading Location: [facility] CC: Dr. Jass Ching MD; Dr. Sofiya Harper MD Line Supervisor: Signed Normal [facility] CBC W/Diff, Automatedon 01-04 REACTIVE LYMPH 2+ Normal [facility] Comment on above: Performed By: #### L 503.6005, L500.2500, L505.5000, L501.9100, L100.0100, L501.5200, L501.3620 #### [facility] Laboratory [address] [place], [place], [address] SMEAR COMMENT SCANNED Normal [facility] Comment on above: Result Comment: LYMP HOCYTOSIS PRESENT Performed By: #### L 503.6005, L500.2500, L505.5000, L501.9100, L100.0100, L501.5200, L501.3620 #### [facility] Laboratory [address] [place], [address] CPK Total, Creatine Kinaseon 01-17-2025 CPK TOTAL 451 U/L High 24-195 [facility] Comment on above: Performed By: #### L 503.6005, L500.2500, L505.5000, L501.9100, L100.0100, L501.5200, L501.3620 ####[facility] [address] [place], [address] Carbon dioxide, total [Moles /volume] in Central venous bloodOrdered By: Sofiya Harper on 01-17-2025 CO2 [Moles/Vol] 11.5 mmol/L Low 21.0-32.0 [facility] Chloride assayOrdered By: Jose Harper on 01-17-2025 Chloride [Moles/Vol] 100 mmol/L 98-108 [facility] Emergency Department Summary on 01-17-2025 Emergency Department Summary [facility] Medical Records Department [address] [place] [address] Emergency Department Summary 01/17/25 MR#: [id number] Acct: [id number] Name: AMMON BOWER Rep #: [id number] : 1980 44 From: Sofiya Harper MD [...] Blood P (more content not included)... Normal [facility] Eosinophil percentageOrdered By: Sofiya Harper on 01-17-2025 Eosinophils/100 WBC (Bld) 4.2 % 0-5 [facility] Erythrocyte distribution wid th ratioOrdered By: Sofiya Harper on 01-17-2025 Erythrocyte distribution width (RBC) [Ratio] 11.9 % 11.6-14.6 [facility] Erythrocyte distribution wid th standard deviationOrdered By: Sofiya Harper on 01-17-2025 Erythrocyte distribution width (RBC) [Ratio] 45.4 fl High 35.1-43.9 [facility] Extremity Upper without Cont raon 01-17-2025 Extremity Upper without [facility] Imaging Services [address] [place] [address] Extremity Upper without Contra MR#: [id number] Acct: [id number] Name: AMMON BOWER Rep #: [id number] : 1980 M 44 From: Loi Garrett MD PCP: Dr. Jass Ching MD Status: REG ER Study: Extremity Upper without Contra Date of Exam: 0 01/17/25 Exam# [id number] Ordering Dr: Usman Trejo MD PROCEDURE: EXTREMITY [...] Small left shoulder joint effusion. Reading Location: [facility] CC: Dr. Usman Trejo MD; Dr. Jass Ching MD Line Supervisor: Signed Normal [facility] Glomerular filtration rate ( GFR) estimation/1.73 sq m using serum, plasma, or whole bOrdered By: Sofiya Harper on 01-17-2025 GFR/1.73 sq M.predicted among non-blacks MDRD (S/P/Bld) [Vol rate/Area] 74 mL/min/{1.73_m2} >60 [facility] Comment on above: mL/min/1.73m2 CKD-EP I Creatinine Equation (2020) [facility] deOrdered By: Sofiya Harper on 01-17-2025 Glucose [Mass/Vol] 169 mg/dL High 74-106 [facility] Comment on above: MANAGEMENT OF PATIEN T CARE PER NURSING PROTOCOL Hematocrit Auto (Bld) [Volum e fraction]Ordered By: Sofiya Harper on 01-17-2025 Hematocrit (Bld) [Volume fraction] 39.2 % Low 40-54 [facility] Hemoglobin measurementOrdere d By: Sofiya Harper on 01-17-2025 Hemoglobin (Bld) [Mass/Vol] 12.8 g/dL Low 13.0-16.5 [facility] Immature granulocytes/100 WB C Auto (Bld)Ordered By: Sofiya Harper on 01-17-2025 Immature granulocytes/100 WBC (Bld) 1.500 % High 0.0-0.9 [facility] Comment on above: IG% - Immature Granu locytes (promyelocytes, myelocytes and metamyelocytes) > 1% indicates that a LEFT SHIFT is Present. Lactic Acidon 01-17-2025 Lactate [Moles/Vol] 1.1 mmol/L Normal 0.0-2.0 [facility] Comment on above: Performed By: #### L 503.6005 ####[facility] [address] [place], [place], [address] Lactate [Moles/Vol] 7.2 mmol/L Invalid Interpretation Code 0.0-2.0 [facility] Comment on above: Order Comment: Y Result Comment: Crit ical Result(s) Called at 01/17/2025-06:40 by Jimmy Crooks to Rosina Truong.??Results read back by same. Performed By: #### L 503.6005, L500.2500, L505.5000, L501.9100, L100.0100, L501.5200, L501.3620 ####[facility] [address] [place], [place], [address] Lactic acid measurementOrder ed By: Sofiya Harper on 01-17-2025 Lactate [Moles/Vol] 1.1 mmol/L 0.0-2.0 [facility] MCV (mean corpuscular volume ) determinationOrdered By: Sofiya Harper on 01-17-2025 MCV (RBC) [Entitic vol] 103.4 fL High 80-94 [facility] Magnesiumon 01-17-2025 Magnesium [Mass/Vol] 2.1 mg/dL Normal 1.5-2.2 [facility] Comment on above: Performed By: #### L 503.6005, L500.2500, L505.5000, L501.9100, L100.0100, L501.5200, L501.3620 #### [facility] Laboratory [address] [place], [place], [address] Magnesium measurement (mass/ volume)Ordered By: Sofiya Harper on 01-17-2025 Magnesium (Unsp spec) [Mass/Vol] 2.1 mg/dL 1.5-2.2 [facility] Mean corpuscular hemoglobin (MCH) determinationOrdered By: Sofiya Harper on 01-17-2025 MCH (RBC) [Entitic mass] 33.8 pg High 27.0-32.0 [facility] Mean corpuscular hemoglobin concentration (MCHC) determinationOrdered By: Sofiya Harper on 01-17-2025 MCHC (RBC) [Mass/Vol] 32.7 g/dL 32-36 [facility] Mean platelet volume determi nationOrdered By: Sofiya Harper on 01-17-2025 Platelet mean volume (Bld) [Entitic vol] 12.4 fL High 6.2-12.0 [facility] Monocyte percentageOrdered B y: Sofiya Harper on 01-17-2025 Monocytes/100 WBC (Bld) 6.8 % 0-10 [facility] Neutrophil percentageOrdered By: Sofiya Harper on 01-17-2025 Neutrophils/100 WBC (Bld) 47.3 % 47-70 [facility] No Panel InformationOrdered By: Sofiya Campbeller on 01-17-2025 Urine Buprenorphine Qualitative Negative < 200 ng/mL [facility] Urine Oxycodone Screen Negative < 100 ng/mL [facility] Nucleated red blood cell per centageOrdered By: Sofiya Campbeller on 01-17-2025 Nucleated RBC/100 WBC (Bld) [Ratio] 0 % 0-5 [facility] Platelet countOrdered By: Jose Campbeller on 01-17-2025 Platelets (Bld) [#/Vol] 275 10*3/uL 150-450 [facility] Potassium measurement (mass/ volume)Ordered By: Sofiya Campbeller on 01-17-2025 Potassium (Unsp spec) [Mass/Vol] 3.5 mmol/L 3.3-5.1 [facility] Quantitative urine opiates m easurementOrdered By: Sofiya Meredith on 01-17-2025 Opiates Ql (U) Negative < 300 ng/mL [facility] RBC Auto (Bld) [#/Vol]Ordere d By: Sofiya Campbeller on 01-17-2025 RBC (Bld) [#/Vol] 3.79 10*6/uL Low 4.6-6.2 [facility] Screening urine fentanyl lacy surementOrdered By: Sofiya Campbeller on 01-17-2025 fentaNYL Screen Ql (U) Positive <5 ng/mL [facility] Comment on above: CONFIRMATORY TESTING FOR ALL [...] 01-17-2025 Creatinine [Mass/Vol] 1.22 mg/dL High 0.70-1.20 [facility] Serum glucose measurement (m ass/volume)Ordered By: Sofiya Harper on 01-17-2025 Glucose [Mass/Vol] 181 mg/dL High 70-99 [facility] Serum or plasma calcium klarissa urement (mass/volume)Ordered By: Sofiya Harper on 01-17-2025 Calcium [Mass/Vol] 9.1 mg/dL 7.6-11.0 [facility] Serum or plasma creatine kin ase activityOrdered By: Sofiya Harper on 01-17-2025 CK [Catalytic activity/Vol] 451 U/L High 24-195 [facility] Serum or plasma ethanol klarissa urement (mass/volume)Ordered By: Sofiya Harper on 01-17-2025 Ethanol [Mass/Vol] mg/dL <10.1 [facility] Comment on above: This test is for med ical purposes only. The legal definition of intoxication varies according to local law. Serum or plasma urea nitroge n measurement (mass/volume)Ordered By: Sofiya Harper on 01-17-2025 Urea nitrogen [Mass/Vol] 16 mg/dL 4-19 [facility] Shoulder min 2 Viewson 01-17 Shoulder min 2 Views [facility] Imaging Services [address] [place], [place] [address] Shoulder min 2 Views MR#: [id number] Acct: [id number] Name: AMMON BOWER Rep #: [id number] : 1980 M 44 From: Loi Garrett MD PCP: Dr. Jass Ching MD Status: REG ER Study: Shoulder min 2 Views Date of Exam: 01/17/25 Exam# [id number] Ordering Dr: Sofiya Harper MD PROCEDURE: SHOULDER [...] left shoulder. No acute fractures. Reading [facility] CC: Dr. Jass Ching MD; Dr. Sofiya Harper MD Line Supervisor: Signed Normal [facility] Shoulder min 2 Views [facility] Imaging Services [address] [place] [address] Shoulder min 2 Views MR#: [id number] Acct: [id number] Name: AMMON BOWER Rep #: [id number] : 1980 M 44 From: Janes Browne MD PCP: Dr. Jass Ching MD Status: [facility] ER Study: Shoulder min 2 Views Date of Exam: 01/17/25 Exam# [id number] Ordering Dr: Sofiya Harper MD PROCEDURE: SHOULDER MIN 2 VIEWS 01/17/2025 REASON FOR EXAM: POSTERIOR DISLOCATION TECHNIQUE: Procedure Code: [facility] Modality: DX Procedure: SHOULDER MIN 2 [...] posterior dislocation of the humerus Reading Location: [id number] CC: Dr. Jass Ching MD; Dr. Sofiya Harper MD Line Supervisor: Signed Normal [facility] Shoulder min 2 Views [facility] Imaging Services [address], [place] [address] Shoulder min 2 Views MR#: [id number] Acct: [id number] Name: AMMON BOWER Rep #: [id number] : 1980 M 44 From: Janes Browne MD PCP: Dr. Jass Ching MD Status: REG ER Study: Shoulder min 2 Views Date of Exam: 01/17/25 Exam# [id number] Ordering Dr: Sofiya Harper MD PROCEDURE: SHOULDER [...] Views IMPRESSION: Negative left shoulder. Reading Location: [id number] CC: Dr. Jass Ching MD; Dr. Sofiya Harper MD Line Supervisor: Signed Normal [facility] Sodium levelOrdered By: Edgar Harper on 01-17-2025 Sodium [Moles/Vol] 140 mmol/L 133-145 [facility] Spine Cervical without Contr ason 01-17-2025 Spine Cervical without Contras [facility] Imaging Services [address] [place] [id number] Spine Cervical without Contras MR#: [id number] Acct: [id number] Name: AMMON BOWER Rep #: [id number] : 1980 M 44 From: Loi Garrett MD PCP: Dr. Jass Ching MD Status: REG ER Study: Spine Cervical without Contras Date of Exam: 0 01/17/25 Exam# [id number] Ordering Dr: Sofiya Harper MD PROCEDURE: BRAIN/HEAD [...] cervical spine fracture or malalignment. Reading Location: [facility] CC: Dr. Jass Ching MD; Dr. Sofiya Harper MD Line Supervisor: Signed Normal [facility] Urine Drug Screen (VISTA)on 01-17-2025 AMPHETAMINES Negative Normal <1000 ng/mL [facility] Comment on above: Performed By: #### L 503.6005, L500.2500, L505.5000, L501.9100, L100.0100, L501.5200, L501.3620 ####[facility] [address] [place], [address] BARBITIURATES Negative Normal < 200 ng/mL [facility] Comment on above: Performed By: #### L 503.6005, L500.2500, L505.5000, L501.9100, L100.0100, L501.5200, L501.3620 ####[facility] [address] [place], [address] BENZODIAZIPINE Negative Normal < 200 ng/mL [facility] Comment on above: Performed By: #### L 503.6005, L500.2500, L505.5000, L501.9100, L100.0100, L501.5200, L501.3620 ####[facility] [address] [place], [address] BUP Ur Drug Scr Negative Normal < 200 ng/mL [facility] Comment on above: Performed By: #### L 503.6005, L500.2500, L505.5000, L501.9100, L100.0100, L501.5200, L501.3620 ####[facility] [address] [place], [address] COCAINE Negative Normal < 300 ng/mL [facility] Comment on above: Performed By: #### L 503.6005, L500.2500, L505.5000, L501.9100, L100.0100, L501.5200, L501.3620 ####[facility] [address] [place], [place], [address] Fentanyl Positive Normal <5 ng/mL [facility] Comment on above: Result Comment: [...] 503.6005, L500.2500, L505.5000, L501.9100, L100.0100, L501.5200, L501.3620 ####[facility] [address] [place], [place], [address] METHADONE Negative Normal < 300 ng/mL [facility] Comment on above: Performed By: #### L 503.6005, L500.2500, L505.5000, L501.9100, L100.0100, L501.5200, L501.3620 ####[facility] [address] [place], [address] OPIATES Negative Normal < 300 ng/mL [facility] Comment on above: Performed By: #### L 503.6005, L500.2500, L505.5000, L501.9100, L100.0100, L501.5200, L501.3620 ####[facility] [address] [place], [address] OXYCODONE Negative Normal < 100 ng/mL [facility] Comment on above: Performed By: #### L 503.6005, L500.2500, L505.5000, L501.9100, L100.0100, L501.5200, L501.3620 ####[facility] [address] [place], [address] PCP Negative Normal < 25 ng/mL [facility] Comment on above: Performed By: #### L 503.6005, L500.2500, L505.5000, L501.9100, L100.0100, L501.5200, L501.3620 ####[facility] [address] [place], [address] THC Positive Normal < 50 ng/mL [facility] Comment on above: Result Comment: If c onfirmation testing is needed, a separate order will be required to send out testing to the reference laboratory. Performed By: #### L 503.6005, L500.2500, L505.5000, L501.9100, L100.0100, L501.5200, L501.3620 ####[facility] [address] [place], [address] Urine benzodiazepine levelOr dered By: Sofiya Harper on 01-17-2025 Benzodiazepines Ql (U) Negative < 200 ng/mL [facility] Urine cocaine levelOrdered B y: Sofiya Harper on 01-17-2025 Cocaine Ql (U) Negative < 300 ng/mL [facility] Urine gpaow-8-zldphssrbbjoib abinol (THC) measurementOrdered By: Sofiya Harper on 01-17-2025 Cannabinoids Screen Ql (U) Positive < 50 ng/mL [facility] Comment on above: If confirmation test ing is needed, a separate order will be required to send out testing to the reference laboratory. Urine phencyclidine (PCP) de tectionOrdered By: Sofiya Harper on 01-17-2025 Phencyclidine Ql (U) Negative < 25 ng/mL [facility] White blood cell (WBC) count Ordered By: Sofiya Harper on 01-17-2025 WBC (Bld) [#/Vol] 13.8 10*3/uL High 4.4-11.0 [facility] Colonoscopy Reporton 025 Colonoscopy Report [facility] Medical Records Department [address] [place] [address] Colonoscopy Report MR#: [id number] Acct: [id number] Name: AMMON BOWER Rep #: [id number] : 1980 43 From: Kentrell Isbell DO PCP: Dr. Jass Ching MD Status:[facility] Patient Name: Ammon Bower Procedure Date: [...] pathology results. Procedure Code(s): --- Professional --- 79179, Colonoscopy, flexible; with biopsy, single or multiple CPT copyright 2021 [employer]. All rights reserved. The codes documented in this report are preliminary and upon auditing coder review may be revised to meet current compliance requirements. Kentrell Isbell DO 06/01/2024 11:51:25 AM This report has been signed electronically. Number of Addenda: 0 Note Initiated On: 06/01/2024 11:21 AM 06/01/24 1151 Date Kentrell Izaguirreignjose Signature: Date (if indicated) CC: Dr. Jass Ching MD; Kentrell Isbell DO Date Dictated: 06/01/24 1121 Date Trans (more content not included)... [facility] MR/POSTOP.STAS 06-01-2024 MR/POSTOP.[facility] Medical Records Department [address] [place] [address] Anesthesia Postop Eval I 06/01/24 1153 MR#: [id number] Acct: [id number] Name: AMMON BOWER Rep #: [id number] : 1980 43 From: Brandon Morales PCP: Dr. Jass Ching MD Status:REG SDC Y Race: AA Location: [place] [address] Anesthesia: Postop Eval I Current Vital Signs [...] Brandon Obrien Signature: Date CC: Signed Normal [facility] MR/[id number] 06-01-2024 MR/POSTOPAN2 [facility] Medical Records Department [address] [place] [address] Anesthesia Postop Eval II 06/01/24 1246 MR#: [id number] Acct: [id number] Name: AMMON BOWER Rep #: [id number] : 1980 43 From: Calvin Dillard MD PCP: Dr. Jass Ching MD Status:[facility] Y Race: AA Location: EN Anesthesia Postop [...] Calvin Obrien Signature: Date CC: Signed Normal [facility] Surgery Specimen Level Gemini 06-01-2024 Surgery Specimen Level IV Patient Age/Sex Location Account Attending Physician AMMON BOWER/M EN [id number] Kentrell Isbell DO Specimen: [id number] Received: 06/01/24 Status: BARBARA Salazar Num: [id number] Spec Type: COLON BX Subm Dr: Kentrell [...] submitted in one cassette. Laine 06/02/2024 TC:4 CPT:94817b4 Patient Age/Sex Location Account Attending Physician AMMON BOWER/Marcos EN [id number] Kentrell Friend, DO Signed (signature on file) Dr. Duran Nj MD 06/03/24 1206 Normal [facility] Comment on above: Performed By: #### P SUIV ####[facility] [address] [place], [place], [address] MR/Jung 05-28-2024 MR/[facility] Medical Records Department [address] [place] [address] PAT - Anesthesia 05/28/24 1741 MR#: [id number] Acct: [id number] Name: AMMON BOWER Rep #: [id number] : 1980 43 From: Best Parker MD PCP: Dr. 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 Hx Hospitalization No 05/28/24 14:43 Any Problems [...] take am of surgery PONV PONV - federal appellate law clerk: PONV - federal appellate law clerk Female No 05/28/24 14:43 HX of Motion Sickness No 05/28/24 14:43 HX of N/V After Surgery No 05/28/24 14:43 Non-Smoker Yes 05/28/24 14:43 Duration of Surgery greater No 05/28/24 14:43 than 60 minutes Number of Risk Factors 1 05/28/24 14:43 PONV Score Low Risk 05/28/24 14:43 Height Weight Height Weight: Anesthesia: Height Weight Height 6 ft 03/26/24 12:46 Respiratory Assessment Respiratory Assessment - federal appellate law clerk: Respiratory Tract Infection Hx - federal appellate law clerk Hx Respiratory Tract Infection No 05/28/24 14:43 STOP Sleep Apnea STOP Sleep Apnea - federal appellate law clerk: STOP Sleep Apnea - federal appellate law clerk Hx Hypertension No 05/28/24 14:43 Hx Sleep [...] Tobacco Use History Tobacco Use History - federal appellate law clerk: Tobacco Use History - federal appellate law clerk Tobacco Use Smoking Status Former smoker 05/28/24 14:43 Hx Tobacco Use No 05/28/24 14:43 Years Smoking Packs Smoked per Day Smoking Cessation Date was Yes - quit smoking within 15 05/28/24 14:43 within the last 15 years years Hx Smoking Cessation Date 05/06/21 05/28/24 14:43 Hx Smoking Cessation Counseling Hematologic Medial History Hematologic Hx - federal appellate law clerk: Hematologic Medical Hx - malariologist Hx of Blood Transfusion No 05/28/24 14:43 Hx of Transfusion in last 3 No 05/28/24 14:43 Months Date of Last Transfusion (if within last 3 months) Ever experience any problems No 05/28/24 14:43 with transfusion(s)? Specify any problems Hx of Preganancy in last 3 N/A 05/28/24 14:43 Months Nurse Filling Out Transfusion [facility] 05/28/24 14:43 Questions: Date: 05/28/24 05/28/24 14:43 Time: 14:49 05/28/24 14:43 Patient unable to answer at this time (ie. confused, unrespo /Reproduction History /Reproductive History - federal appellate law clerk: /Reproductive Hx- federal appellate law clerk Hx Now Gestational Age (in weeks): EDC: [...] members: sp (more content not included)... Normal [facility] CBC W/Diff, Automatedon 03-06 Absolute Lymph 1.77 X10 3/uL Normal 0.83-4.51 [facility] Comment on above: Performed By: #### L 500.4050, L501.9910, L100.0100, L500.4100 ####[facility] [address] [place], [address] Absolute Neut 3.2 X10 3/uL Normal 2.0-7.7 [facility] Comment on above: Performed By: #### L 500.4050, L501.9910, L100.0100, L500.4100 ####[facility] [address] [place], [address] Basophils/100 WBC (Bld) 1.2 % High 0-1 [facility] Comment on above: Performed By: #### L 500.4050, L501.9910, L100.0100, L500.4100 ####[facility] [address] [place], [address] Eosinophils/100 WBC (Bld) 5.5 % High 0-5 [facility] Comment on above: Performed By: #### L 500.4050, L501.9910, L100.0100, L500.4100 ####[facility] [address] [place], [address] Erythrocyte distribution width (RBC) [Ratio] 11.8 % Normal 11.6-14.6 [facility] Comment on above: Performed By: #### L 500.4050, L501.9910, L100.0100, L500.4100 ####[facility] [address] [place], [address] Hematocrit (Bld) [Volume fraction] 38.4 % Low 40-54 [facility] Comment on above: Performed By: #### L 500.4050, L501.9910, L100.0100, L500.4100 ####[facility] [address] [place], [address] Hemoglobin (Bld) [Mass/Vol] 12.7 g/dL Low 13.0-16.5 [facility] Comment on above: Performed By: #### L 500.4050, L501.9910, L100.0100, L500.4100 ####[facility] [address] [place], [address] IG% 0.400 Normal 0.0-0.9 [facility] Comment on above: Result Comment: IG% - Immature Granulocytes (promyelocytes, myelocytes and metamyelocytes) > 1% indicates that a LEFT SHIFT is Present. Performed By: #### L 500.4050, L501.9910, L100.0100, L500.4100 ####[facility] [address] [place], [address] Lymphocytes/100 WBC (Bld) 31.2 % Normal 19-41 [facility] Comment on above: Performed By: #### L 500.4050, L501.9910, L100.0100, L500.4100 ####[facility] [address] [place], [address] MCH (RBC) [Entitic mass] 32.9 pg High 27.0-32.0 [facility] Comment on above: Performed By: #### L 500.4050, L501.9910, L100.0100, L500.4100 ####[facility] [address] [place], [address] MCHC (RBC) [Mass/Vol] 33.1 g/dL Normal 32-36 [facility] Comment on above: Performed By: #### L 500.4050, L501.9910, L100.0100, L500.4100 ####[facility] [address] [place], [address] MCV (RBC) [Entitic vol] 99.5 fL High 80-94 [facility] Comment on above: Performed By: #### L 500.4050, L501.9910, L100.0100, L500.4100 ####[facility] [address] [place], [address] Monocytes/100 WBC (Bld) 5.1 % Normal 0-10 [facility] Comment on above: Performed By: #### L 500.4050, L501.9910, L100.0100, L500.4100 ####[facility] [address] [place], [address] Neutrophils/100 WBC (Bld) 56.6 % Normal 47-70 [facility] Comment on above: Performed By: #### L 500.4050, L501.9910, L100.0100, L500.4100 ####[facility] [address] [place], [address] Nucleated RBC (Bld) [#/Vol] 0 10*3/uL Normal 0-5 [facility] Comment on above: Performed By: #### L 500.4050, L501.9910, L100.0100, L500.4100 ####[facility] [address] [place], [address] Platelet mean volume (Bld) [Entitic vol] 12.7 fL High 6.2-12.0 [facility] Comment on above: Performed By: #### L 500.4050, L501.9910, L100.0100, L500.4100 ####[facility] [address] [place], [address] Platelets (Bld) [#/Vol] 220 10*3/uL Normal 150-450 [facility] Comment on above: Performed By: #### L 500.4050, L501.9910, L100.0100, L500.4100 ####[facility] [address] [place], [address] RBC (Bld) [#/Vol] 3.86 10*6/uL Low 4.6-6.2 [facility] Comment on above: Performed By: #### L 500.4050, L501.9910, L100.0100, L500.4100 ####[facility] [address] [place], [address] RDW SD 43.1 fl Normal 35.1-43.9 [facility] Comment on above: Performed By: #### L 500.4050, L501.9910, L100.0100, L500.4100 ####[facility] [address] [place], [address] WBC (Bld) [#/Vol] 5.7 10*3/uL Normal 4.4-11.0 [facility] Comment on above: Performed By: #### L 500.4050, L501.9910, L100.0100, L500.4100 ####[facility] [address] [place], [address] Comprehensive Metabolic [facility] 03-20-2024 Albumin [Mass/Vol] 4.2 g/dL Normal 3.2-5.0 [facility] Comment on above: Performed By: #### L 500.4050, L501.9910, L100.0100, L500.4100 ####[facility] [address] [place], [address] Albumin/Globulin [Mass ratio] 1.4 {ratio} Normal 0.9-2.4 [facility] Comment on above: Performed By: #### L 500.4050, L501.9910, L100.0100, L500.4100 ####[facility] [address] [place], [address] ALK P 66 U/L Normal 45-117 [facility] Comment on above: Performed By: #### L 500.4050, L501.9910, L100.0100, L500.4100 ####[facility] [address] [place], [address] ALT [Catalytic activity/Vol] 46 U/L Normal 16-61 [facility] Comment on above: Performed By: #### L 500.4050, L501.9910, L100.0100, L500.4100 ####[facility] [address] [place], [address] AST [Catalytic activity/Vol] 25 U/L Normal 15-37 [facility] Comment on above: Performed By: #### L 500.4050, L501.9910, L100.0100, L500.4100 ####[facility] [address] [place], [address] Bilirubin [Mass/Vol] 1.90 mg/dL High 0.20-1.00 [facility] Comment on above: Result Comment: For patients on eltrombopag therapy, use of Dimension [place] TBIL is not recommended. Performed By: #### L 500.4050, L501.9910, L100.0100, L500.4100 ####[facility] [address] [place], [address] BUN/CRE 12.3 RATIO Normal 10-20 [facility] Comment on above: Performed By: #### L 500.4050, L501.9910, L100.0100, L500.4100 ####[facility] [address] [place], [address] CA,Total 8.4 mg/dL Low 8.5-10.1 [facility] Comment on above: Performed By: #### L 500.4050, L501.9910, L100.0100, L500.4100 ####[facility] [address] [place], [address] Chloride [Moles/Vol] 106 mmol/L Normal 98-107 [facility] Comment on above: Performed By: #### L 500.4050, L501.9910, L100.0100, L500.4100 ####[facility] [address] [place], [address] CO2 [Moles/Vol] 30.0 mmol/L Normal 21.0-32.0 [facility] Comment on above: Performed By: #### L 500.4050, L501.9910, L100.0100, L500.4100 ####[facility] [address] [place], [address] Creatinine [Mass/Vol] 1.06 mg/dL Normal 0.70-1.30 [facility] Comment on above: Result Comment: The validity of the calculated GFR GFRAA in patients over 70 years has not been determined. Clinical correlation is essential. Performed By: #### L 500.4050, L501.9910, L100.0100, L500.4100 ####[facility] [address] [place], [address] EST GFR - AA 97 mL/min Normal >60 [facility] Comment on above: Result Comment: Afri can [place] GFR Calc Performed By: #### L 500.4050, L501.9910, L100.0100, L500.4100 ####[facility] [address] [place], [address] GAP 4 Low 5-15 [facility] Comment on above: Performed By: #### L 500.4050, L501.9910, L100.0100, L500.4100 ####[facility] [address] [place], [address] GFR/1.73 sq M.predicted among non-blacks MDRD (S/P/Bld) [Vol rate/Area] 80 mL/min/{1.73_m2} Normal >60 [facility] Comment on above: Result Comment: Non- GFR Calc Performed By: #### L 500.4050, L501.9910, L100.0100, L500.4100 ####[facility] [address] [place], [address] Globulin (S) [Mass/Vol] 3.0 g/dL Normal 2.2-4.2 [facility] Comment on above: Performed By: #### L 500.4050, L501.9910, L100.0100, L500.4100 ####[facility] [address] [place], [address] Glucose [Mass/Vol] 158 mg/dL High 74-106 [facility] Comment on above: Result Comment: Fast ing Glucose result greater than or equal to 126 mg/dL suggests DIABETES MELLITUS per A.D.A. criteria. Performed By: #### L 500.4050, L501.9910, L100.0100, L500.4100 ####[facility] [address] [place], [address] Potassium [Moles/Vol] 3.9 mmol/L Normal 3.5-5.1 [facility] Comment on above: Performed By: #### L 500.4050, L501.9910, L100.0100, L500.4100 ####[facility] [address] [place], [address] Sodium [Moles/Vol] 140 mmol/L Normal 136-145 [facility] Comment on above: Performed By: #### L 500.4050, L501.9910, L100.0100, L500.4100 ####[facility] [address] [place], [address] T PROT 7.2 g/dL Normal 6.4-8.2 [facility] Comment on above: Performed By: #### L 500.4050, L501.9910, L100.0100, L500.4100 ####[facility] [address] [place], [address] Urea nitrogen [Mass/Vol] 13 mg/dL Normal 7-18 [facility] Comment on above: Performed By: #### L 500.4050, L501.9910, L100.0100, L500.4100 ####[facility] [address] [place], [address] Hemoglobin A1con 03-20-2024 HbA1c (Bld) [Mass fraction] 4.9 % Normal 3.8-5.6 [facility] Comment on above: Result Comment: Norm al < 5.7 % Prediabetic 5.7 - 6.4 % Diabetic >or= 6.5 % Please note range changes. Performed By: #### L 001.9952 ####[facility] [address] [place], [address] Internal Medicine Office Vis iton 03-20-2024 Internal Medicine Office Visit [facility] [address] [place], [place] [address] OFFICE VISIT Date of Service: 03/20/24 MR#: [id number] Acct: [id number] Name: AMMON BOWER Rep #: [id number] : 1980 Provider: Dr. Jass ceballos MD Age/Sex: 43/M [place] [facility] [place] Status: Signed Intake Vital Signs 06/17/23 09:13 03/20/24 13:19 Height 6 ft 6 ft Weight: 181 lb BMI 24.5 BP 126/80 H Blood Pressure Location Lt brachial Position Sitting Respiration 16 Pulse 92 Pulse Source Monitor Temp 97.1 F L Temp Source Temporal Pulse Oximetry (%) 97 Oxygen Delivery Method room air Intake Visit Reasons: YEARLY Chief Complaint: yearly Spring Tester Required: No Accompanied by: Self Is patient [...] distress Orientation: alert, awake and oriented x3 [facility] Head: normal to inspection, normocephalic and atraumatic [...] normal Mental (more content not included)... Normal [facility] Lipid Profileon 03-20-2024 Cholesterol [Mass/Vol] 179 mg/dL Normal 200 [facility] Comment on above: Result Comment: <200 mg/dL Desirable 200-240 mg/dL Borderline >240 mg/dL High Risk Performed By: #### L 500.4050, L501.9910, L100.0100, L500.4100 ####[facility] [address] [place], [place], [address] Cholesterol in HDL [Mass/Vol] 74 mg/dL Normal [facility] Comment on above: Result Comment: The drugs N-Acetylcysteine and Metamizole may falsely depress this assay. Reference Range HDL <40 mg/dL Low HDL Cholesterol HDL >or= 60 mg/dL High HDL Cholesterol Performed By: #### L 500.4050, L501.9910, L100.0100, L500.4100 ####[facility] [address] [place], [address] Cholesterol in LDL [Mass/Vol] 91 mg/dL Normal 0-130 [facility] Comment on above: Performed By: #### L 500.4050, L501.9910, L100.0100, L500.4100 ####[facility] [address] [place], [address] Cholesterol in VLDL [Mass/Vol] 14 mg/dL Normal 5-40 [facility] Comment on above: Performed By: #### L 500.4050, L501.9910, L100.0100, L500.4100 ####[facility] [address] [place], [address] Triglyceride [Mass/Vol] 68 mg/dL Normal [facility] Comment on above: Result Comment: The drugs N-Acetylcysteine and Metamizole may falsely depress this assay. Serum Triglycerides Reference Interval Normal <150 mg/dL Borderline high 150 - 199 mg/dL High 200 - 499 mg/dL Very High > or = 500 mg/dL Performed By: #### L 500.4050, L501.9910, L100.0100, L500.4100 ####[facility] [address] [place], [address] PSA,Total - Annual Screenon 03-20-2024 PSA,TOT SCREEN 0.50 ng/mL Normal 0.00-4.00 [facility] Comment on above: Result Comment: This test was performed using the TPSA assay method for the [employer] chemistry system. Values obtained with different assay methods cannot be used interchangably. When changing PSA assays in the course of monitoring a patient, additional sequential testing should be carried out to confirm baseline values. Performed By: #### L 500.4050, L501.9910, L100.0100, L500.4100 ####[facility] [address] [place], [address] Erythrocyte sedimentation ra teOrdered By: Jass Ching on 06-17-2023 ESR (Bld) [Velocity] 10 mm/h 0-20 [facility] No Panel InformationOrdered By: Jass Ching on 06-17-2023 C-Reactive Protein Extended Range < 2.90 mg/L 0.0-3.0 [facility] Comment on above: C-Reactive Protein ( CRP) provides useful information for thediagnosis, therapy and monitoring of inflammatory processesand associated diseases. For the evaluation of Relative Riskfor Cardiovascular Disease, a High Sensitivity CRP (HSCRP)should be ordered. Laboratory - Chemistry and C hemistry - challengeon 05-10-2023 Bilirubin Ql (U) Negative [facility] Glucose Ql (U) Negative [facility] Ketones Ql (U) Negative [facility] pH (U) 7.5 [pH] [facility] Specific gravity (U) [Rel density] 1.010 [facility] Urobilinogen (U) [Mass/Vol] 0.9614467 mg/dL [facility] Laboratory - Hematology and Cell countson 05-10-2023 Hemoglobin Ql (U) Negative [facility] Laboratory - Specimen inform ationon 05-10-2023 Clarity (U) Clear [facility] Color (U) Colorless [facility] Laboratory - Urinalysison Nitrite Ql (U) Negative [facility] Protein Ql (U) Negative [facility] No Panel Informationon 05-10 Urine Leukocytes Negatve [facility] Urine Non-Hemolyzed Blood [facility] STREP A MOLECULAR (POC)on Procedural Control Valid [facility] Strep A (POCT) Negative Negative [facility] No Panel Informationon 09-11 IMPRESSION: No radiographic evidence of acute osseous abnormality. Line Supervisor: PSCB Transcribe Date/Time: Sep 11 2021 9:44A Dictated by : CARMENCITA MATOS MD This examination was interpreted and the report reviewed and electronically signed by: CARMENCITA MATOS MD on Sep 11 2021 9:46AM EST ZZZ_DO_NOT_ USE_DIVISIO N OF RADIOLOGY Radiology Study observation (narrative) Luis Angel [facility] No Panel InformationOrdered By: Ccf Provider on 09-11-2021 [facility] XR Hand - right PA and [...] preserved. ZZZ_DO_NOT_ USE_DIVISIO N OF RADIOLOGY Provider, [facility] César crandall [place] - 09/11/2021 * * *Final Report* * [...] No radiographic evidence of acute osseous abnormality. Line Supervisor: ANNA Transcribe Date/Time: Sep 11 2021 9:44A Dictated by : CARMENCITA MATOS MD This examination was interpreted and the report reviewed and electronically signed by: CARMENCITA MATOS MD on Sep 11 2021 9:46AM EST [facility] XR Wrist - right 4 Viewson [...] N OF RADIOLOGY Provider, [facility] César crandall [place] - 09/11/2021 * * *Final Report* * [...] No radiographic evidence of acute osseous abnormality. Line Supervisor: [facility] Transcribe Date/Time: Sep 11 2021 9:44A Dictated by : CARMENCITA MATOS MD This examination was interpreted and the report reviewed and electronically signed by: CARMENCITA MATOS MD on Sep 11 2021 9:46AM [facility] Absolute lymphocyte counton 08-14-2021 Lymphocytes Auto (Unsp spec) [#/Vol] 1.63 10*3/uL 0.83-4.51 [facility] Work Phone: Activated partial thrombopla stin time (aPTT) in platelet poor plasma by coagulation aon 08-14-2021 aPTT Coag (PPP) [Time] 34.5 s 24.1-36.2 [facility] Work Phone: Basophil percentageon 2021 Basophils/100 WBC (Bld) 0.3 % 0-1 [facility] Work Phone: Chloride [Moles/Vol] 105 mmol/L 98-107 [facility]: Eosinophils/100 WBC (Bld) 2.6 % 0-5 [facility] Work Phone: Glucose [Mass/Vol] 109 mg/dL 74-106 [facility] Work Phone: Comment on above: Fasting Glucose resu lt from 100 to 125 mg/dL suggests IMPAIRED HOMEOSTASIS per A.D.A. criteria. Neutrophils (Bld) [#/Vol] 7.5 10*3/uL 2.0-7.7 [facility] Work Phone: Neutrophils/100 WBC (Bld) 73.9 % 47-70 [facility] Work Phone: Potassium [Moles/Vol] 3.8 mmol/L 3.5-5.1 [facility] Work Phone: Sodium [Moles/Vol] 139 mmol/L 136-145 [facility] Work Phone: WBC (Bld) [#/Vol] 10.2 10*3/uL 4.4-11.0 [facility]: Blood erythrocytes count (nu mber/volume)on 08-14-2021 RBC (Bld) [#/Vol] 3.79 10*6/uL 4.6-6.2 [facility] Work Phone: Blood hemoglobin measurement (mass/volume)on 08-14-2021 Hemoglobin (Bld) [Mass/Vol] 12.9 g/dL 13.0-16.5 [facility] Work Phone: [phone] Blood lymphocytes/100 leukoc yteson 08-14-2021 Lymphocytes/100 WBC (Bld) 15.9 % 19-41 [facility] Work Phone: Blood monocytes/100 leukocyt eson 08-14-2021 Monocytes/100 WBC (Bld) 6.9 % 0-10 [facility] Work Phone: [phone] Blood platelet mean volumeon 08-14-2021 Platelet mean volume (Bld) [Entitic vol] 12.3 fL 6.2-12.0 [facility] Work Phone: Determination of erythrocyte mean corpuscular volume (MCV)on 08-14-2021 MCV (RBC) [Entitic vol] 103.7 fL 80-94 [facility] Work Phone: Hematocrit Auto (Bld) [Volum e fraction]on 08-14-2021 Hematocrit (Bld) [Volume fraction] 39.3 % 40-54 [facility] Work Phone: INR in Blood by Coagulation assayon 08-14-2021 INR Coag (Bld) [Relative time] 1.1 {INR} [facility] Work Phone: Laboratory - Chemistry and C hemistry - challengeon 08-14-2021 CO2 [Moles/Vol] 32.0 mmol/L 21.0-32.0 [facility] Work Phone: Urea nitrogen/Creatinine [Mass ratio] 14.6 mg/mg 10-20 [facility] Work Phone: Laboratory - Coagulationon 0 08-14-2021 PT Coag (PPP) [Time] 13.3 s 11.7-14.9 [facility] Work Phone: Laboratory - Hematology and Cell countson 08-14-2021 Erythrocyte distribution width (RBC) [Entitic vol] 45.1 fL 35.1-43.9 [facility] Work Phone: Erythrocyte distribution width (RBC) [Ratio] 11.9 % 11.6-14.6 [facility] Work Phone: Immature granulocytes/100 WBC (Bld) 0.400 % 0.0-0.9 [facility] Work Phone: Comment on above: IG% - Immature Granu locytes (promyelocytes, myelocytes and metamyelocytes) > 1% indicates that a LEFT SHIFT is Present. MCH (RBC) [Entitic mass] 34.0 pg 27.0-32.0 [facility] Work Phone: Nucleated RBC/100 WBC (Bld) [Ratio] 0 % 0-5 [facility] Work Phone: MCHC Auto (RBC) [Mass/Vol]on 08-14-2021 MCHC (RBC) [Mass/Vol] 32.8 g/dL 32-36 [facility] Work Phone: No Panel Informationon 08-14 Troponin I High Sensitivity < 3 pg/mL 3.0-78.0 [facility] Work Phone: Comment on above: Please Note: New Leidy t Units and Gender Specific Reference Ranges. For more information see Policy Stat Procedure [place] High Sensitivity Troponin (TNIH) and attachments. D-Dimer Quantitative (PE/DVT) 1.13 FEU/ug/m 0.27-0.49 [facility] Work Phone: Comment on above: D-Dimer ELEVATED (>0 .49): Additional studies and clinicalassessments are indicated to conclude diagnosis of:Deep Vein Thrombosis (DVT) or Pulmonary Embolism (PE)CRITICAL VALUE VERIFIED. CALLED TO CAMILA RONDON08/14/21 1723 Nick Alcazar.RESULTS READ BACK BY SAME . Estimated Creatinine Clearance Calc 102.55 ml/min [facility] Work Phone: Estimated GFR (MDRD) Amer 102 mL/min >60 [facility] Work Phone: Comment on above: GFR Calc Estimated GFR (MDRD) Non-Af Amer 84 mL/min >60 [facility] Work Phone: Comment on above: Non- GFR Calc Platelets bldon 08-14-2021 Platelets (Bld) [#/Vol] 252 10*3/uL 150-450 [facility] Work Phone: Serum or plasma calcium klarissa urement (mass/volume)on 08-14-2021 Calcium [Mass/Vol] 9.2 mg/dL 8.5-10.1 [facility] Work Phone: Serum or plasma creatinine m easurement (mass/volume)on 08-14-2021 Creatinine [Mass/Vol] 1.03 mg/dL 0.70-1.30 [facility] Work Phone: Comment on above: The validity of the calculated GFR & GFRAA in patients over 70 years has not been determined. Clinical correlation is essential. Serum or plasma urea nitroge n measurement (mass/volume)on 08-14-2021 Urea nitrogen [Mass/Vol] 15 mg/dL 7-18 [facility] Work Phone: Thin prep Papanicolaou smear with manual screeningon 08-14-2021 Thin prep Papanicolaou smear with manual screening 2 5-15 [facility] Work Phone: Absolute lymphocyte counton 08-12-2021 Lymphocytes Auto (Unsp spec) [#/Vol] 2.65 10*3/uL 0.83-4.51 [facility] Work Phone: Basophil percentageon 2021 Basophil percentage 0-5 SEEN /hpf [facility] Work Phone: Basophils/100 WBC (Bld) 0.7 % 0-1 [facility] Work Phone: Bilirubin [Mass/Vol] 0.90 mg/dL 0.20-1.00 [facility] Work Phone: Comment on above: For patients on eltr ombopag therapy, use of Dimension [place] TBIL is not recommended. Chloride [Moles/Vol] 106 mmol/L 98-107 [facility] Work Phone: Eosinophils/100 WBC (Bld) 5.4 % 0-5 [facility] Work Phone: Glucose [Mass/Vol] 112 mg/dL 74-106 [facility] Work Phone: Comment on above: Fasting Glucose resu lt from 100 to 125 mg/dL suggests IMPAIRED HOMEOSTASIS per A.D.A. criteria. Neutrophils (Bld) [#/Vol] 5.2 10*3/uL 2.0-7.7 [facility] Work Phone: Neutrophils/100 WBC (Bld) 56.2 % 47-70 [facility] Work Phone: [phone] Potassium [Moles/Vol] 3.9 mmol/L 3.5-5.1 [facility] Work Phone: Protein [Mass/Vol] 7.9 g/dL 6.4-8.2 [facility] Work Phone: Sodium [Moles/Vol] 140 mmol/L 136-145 [facility] Work Phone: [phone] WBC (Bld) [#/Vol] 9.2 10*3/uL 4.4-11.0 [facility] Work Phone: Bilirubin Test strip Ql (U)o n 08-12-2021 Bilirubin Ql (U) Negative Negative [facility] Work Phone: Blood erythrocytes count (nu mber/volume)on 08-12-2021 RBC (Bld) [#/Vol] 3.98 10*6/uL 4.6-6.2 [facility] Work Phone: Blood hemoglobin measurement (mass/volume)on 08-12-2021 Hemoglobin (Bld) [Mass/Vol] 13.4 g/dL 13.0-16.5 [facility] Work Phone: Blood lymphocytes/100 leukoc yteson 08-12-2021 Lymphocytes/100 WBC (Bld) 28.8 % 19-41 [facility] Work Phone: Blood manual differential co mment interpretation (narrative result)on 08-12-2021 Manual differential comment Luis (Bld) [Interp] SCANNED [facility] Work Phone: Comment on above: AUTO DIFF OK Blood monocytes/100 leukocyt eson 08-12-2021 Monocytes/100 WBC (Bld) 8.4 % 0-10 [facility] Work Phone: Blood platelet mean volumeon 08-12-2021 Platelet mean volume (Bld) [Entitic vol] 11.5 fL 6.2-12.0 [facility] Work Phone: Determination of erythrocyte mean corpuscular volume (MCV)on 08-12-2021 MCV (RBC) [Entitic vol] 101.8 fL 80-94 [facility] Work Phone: Hematocrit Auto (Bld) [Volum e fraction]on 08-12-2021 Hematocrit (Bld) [Volume fraction] 40.5 % 40-54 [facility] Work Phone: Hyaline casts LM.LPF (Urine sed) [#/Area]on 08-12-2021 Hyaline casts (Urine sed) [#/Area] 0 /[LPF] [facility] Work Phone: Ketones Test strip Ql (U)on 08-12-2021 Ketones Ql (U) Negative Negative [facility] Work Phone: Laboratory - Chemistry and C hemistry - challengeon 08-12-2021 ALP [Catalytic activity/Vol] 94 U/L 45-117 [facility] Work Phone: [phone] ALT [Catalytic activity/Vol] 34 U/L 16-61 [facility] Work Phone: CO2 [Moles/Vol] 32.0 mmol/L 21.0-32.0 [facility] Work Phone: Globulin (S) [Mass/Vol] 3.8 g/dL 2.2-4.2 [facility] Work Phone: Lipase [Catalytic activity/Vol] 193 U/L 73-393 [facility] Work Phone: Urea nitrogen/Creatinine [Mass ratio] 12.3 mg/mg 10-20 [facility] Work Phone: Laboratory - Hematology and Cell countson 08-12-2021 Erythrocyte distribution width (RBC) [Entitic vol] 45.6 fL 35.1-43.9 [facility] Work Phone: Erythrocyte distribution width (RBC) [Ratio] 12.0 % 11.6-14.6 [facility] Work Phone: Immature granulocytes/100 WBC (Bld) 0.500 % 0.0-0.9 [facility] Work Phone: Comment on above: IG% - Immature Granu locytes (promyelocytes, myelocytes and metamyelocytes) > 1% indicates that a LEFT SHIFT is Present. MCH (RBC) [Entitic mass] 33.7 pg 27.0-32.0 [facility] Work Phone: [phone] Nucleated RBC/100 WBC (Bld) [Ratio] 0 % 0-5 [facility] Work Phone: MCHC Auto (RBC) [Mass/Vol]on 08-12-2021 MCHC (RBC) [Mass/Vol] 33.1 g/dL 32-36 [facility] Work Phone: Mucus LM Ql (Urine sed)on Mucus Ql (Urine sed) 0 SEEN /hpf [facility] Work Phone: Nitrite Test strip Ql (U)on 08-12-2021 Nitrite Ql (U) Negative Negative [facility] Work Phone: No Panel Informationon 08-12 Estimated Creatinine Clearance Calc 92.65 ml/min [facility] Work Phone: Estimated GFR (MDRD) Amer 90 mL/min >60 [facility] Work Phone: Comment on above: GFR Calc Estimated GFR (MDRD) Non-Af Amer 75 mL/min >60 [facility] Work Phone: Comment on above: Non- GFR Calc Platelets bldon 08-12-2021 Platelets (Bld) [#/Vol] 285 10*3/uL 150-450 [facility] Work Phone: Protein Test strip Ql (U)on 08-12-2021 Protein Ql (U) Negative Negative [facility] Work Phone: Serum or plasma albumin klarissa urement (mass/volume)on 08-12-2021 Albumin [Mass/Vol] 4.1 g/dL 3.2-5.0 [facility] Work Phone: Serum or plasma albumin/glob ulin mass ratioon 08-12-2021 Albumin/Globulin [Mass ratio] 1.1 {ratio} 0.9-2.4 [facility] Work Phone: Serum or plasma calcium klarissa urement (mass/volume)on 08-12-2021 Calcium [Mass/Vol] 9.3 mg/dL 8.5-10.1 [facility] Work Phone: Serum or plasma creatinine m easurement (mass/volume)on 08-12-2021 Creatinine [Mass/Vol] 1.14 mg/dL 0.70-1.30 [facility] Work Phone: Comment on above: The validity of the calculated GFR & GFRAA in patients over 70 years has not been determined. Clinical correlation is essential. Serum or plasma urea nitroge n measurement (mass/volume)on 08-12-2021 Urea nitrogen [Mass/Vol] 14 mg/dL 7-18 [facility] Work Phone: Squamous epithelial cells de tection in urine sediment by light microscopyon 08-12-2021 Epithelial cells.squamous LM Ql (Urine sed) 0-5 SEEN /hpf [facility] Work Phone: Thin prep Papanicolaou smear with manual screeningon 08-12-2021 Thin prep Papanicolaou smear with manual screening 14 U/L 15-37 [facility] Work Phone: Thin prep Papanicolaou smear with manual screening 2 5-15 [facility] Work Phone: Urine blood detectionon 04-0 RBC Ql (U) Negative Negative [facility] Work Phone: RBC Ql (U) 0 SEEN /hpf [facility] Work Phone: Urine clarityon 08-12-2021 Clarity (U) Clear Clear [facility] Work Phone: Urine color determinationon 08-12-2021 Color (U) Yellow Yellow [facility] Work Phone: Urine glucose detectionon Glucose Ql (U) Normal mg/dl Normal [facility] Work Phone: Urine leukocyte esterase det ection by dipstickon 08-12-2021 Leukocyte esterase Test strip Ql (U) 25 /ul Negative [facility] Work Phone: Urine pHon 08-12-2021 pH (U) 5.0 [pH] [facility] Work Phone: Urine sediment bacteria coun t by microscopy (number/high power field)on 08-12-2021 Bacteria LM.HPF (Urine sed) [#/Area] 0 /[HPF] None Seen [facility] Work Phone: Urine specific gravity measu rementon 08-12-2021 Specific gravity (U) [Rel density] 1.020 [facility] Work Phone: Urobilinogen Auto test strip Ql (U)on 08-12-2021 Urobilinogen Ql (U) Normal mg/dl Normal [facility] Work Phone: XR Cervical spine AP and Lat eral and obliqueon 07-04-2020 IMPRESSION: Mild spondylosis of the cervical spine. Line Supervisor: PSCJenny Transcribe Date/Time: Jul 04 2020 3:06P Dictated by : CAPO STRICKLAND MD This examination was interpreted and the report reviewed and electronically signed by: CAPO STRICKLAND MD on Jul 04 2020 3:07PM [facility] DIVISION OF RADIOLOGY * * *Final Report* [...] IMPRESSION: Mild spondylosis of the cervical spine. Line Supervisor: ANNA Transcribe Date/Time: Jul 04 2020 3:06P Dictated by : CAPO STRICKLAND MD This examination was interpreted and the report reviewed and electronically signed by: CAPO STRICKLAND MD on Jul 04 2020 3:07PM EST [facility] Radiology Study observation (narrative) [facility] XR Cervical spine AP and Lat eral and obliqueOrdered By: Ccf Provider on 07-04-2020 [facility] Vital Signs Date Time Vital Sign Value Performing Clinician Facility 01-17-2025 12:04-0400 Body temperature 98.7 [degF] Dr. Jass Ching MD Work Phone: [facility] 01-17-2025 12:04-0400 Diastolic blood pressure 71 mm[Hg] Dr. Jass Ching MD Work Phone: [facility] 01-17-2025 12:04-0400 Heart rate 61 /min Dr. Jass Ching MD Work Phone: [facility] 01-17-2025 12:04-0400 Respiratory rate 18 /min Dr. Jass Ching MD Work Phone: [facility] 01-17-2025 12:04-0400 SaO2% (BldA) [Mass fraction] 99 % Dr. Jass Ching MD Work Phone: [facility] 01-17-2025 12:04-0400 Systolic blood pressure 134 mm[Hg] Dr. Jass Ching MD Work Phone: [facility] 01-17-2025 08:55-0400 Inhaled oxygen flow rate 100 L/min Dr. Jass Ching MD Work Phone: [facility] 01-17-2025 05:41-0400 Body height 182.[address] Jass Ching MD Work Phone: [facility] 01-17-2025 05:41-0400 Body mass index (BMI) [Ratio] 24.3 kg/m2 Dr. Jass Ching MD Work Phone: [facility] 01-17-2025 05:41-0400 Body weight 81.[address] Jass Ching MD Work Phone: [facility] 06-17-2023 09:13-0500 Body height 182.[address] Jass Ching Work Phone: [facility] 06-17-2023 09:13-0500 Body mass index (BMI) [Ratio] 24.5 kg/m2 Dr. Jass Ching Work Phone: [facility] 06-17-2023 09:13-0500 Body temperature 97.4 [degF] Dr. Jass Ching Work Phone: [facility] 06-17-2023 09:13-0500 Body weight 82.[address] Jass Ching Work Phone: [facility] 06-17-2023 09:13-0500 Diastolic blood pressure 80 mm[Hg] Dr. Jass Ching Work Phone: [facility] 06-17-2023 09:13-0500 Heart rate 87 /min Dr. Jass Ching Work Phone: [facility] 06-17-2023 09:13-0500 Respiratory rate 16 /min Dr. Jass Ching Work Phone: [facility] 06-17-2023 09:13-0500 SaO2% (BldA) [Mass fraction] 97 % Dr. Jass Ching Work Phone: [facility] 06-17-2023 09:13-0500 Systolic blood pressure 138 mm[Hg] Dr. Jass Ching Work Phone: [facility] 05-10-2023 13:31-0500 Body mass index (BMI) [Ratio] 24.8 kg/m2 Dr. Jass Ching Work Phone: [facility] 05-10-2023 13:31-0500 Body temperature 98 [degF] Dr. Jass Ching Work Phone: [facility] 05-10-2023 13:31-0500 Body weight [address] Jass Ching Work Phone: [facility] 05-10-2023 13:31-0500 Diastolic blood pressure 78 mm[Hg] Dr. Jass Ching Work Phone: [facility] 05-10-2023 13:31-0500 Heart rate 87 /min Dr. Jass Ching Work Phone: [facility] 05-10-2023 13:31-0500 Respiratory rate 16 /min Dr. Jass Ching Work Phone: [facility] 05-10-2023 13:31-0500 SaO2% (BldA) [Mass fraction] 97 % Dr. Jass Ching Work Phone: [facility] 05-10-2023 13:31-0500 Systolic blood pressure 118 mm[Hg] Dr. Jass Ching Work Phone: [facility] 07-05-2022 08:57-0500 Body temperature 98.71 [degF] Shashi Melara APRN.[employer] OPERATOR Work Phone: [facility] 07-05-2022 08:57-0500 Body weight 77.38 kg Shashi Kelton MOISTURE MACHINE TENDER.[employer]ISER OPERATOR Work Phone: [facility] 07-05-2022 08:57-0500 Diastolic blood pressure 66 mm[Hg] Shashi Mealra MOISTURE MACHINE TENDER.[employer]ATE M[employer]ISER OPERATOR Work Phone: [facility] 07-05-2022 08:57-0500 Heart rate 78 /min Shashi Melara MOISTURE MACHINE TENDER.[employer]ATE M[employer]ISER OPERATOR Work Phone: [facility] 07-05-2022 08:57-0500 Respiratory rate 16 /min Shashi Melara MOISTURE MACHINE TENDER.[employer]ATE M[employer]ISER OPERATOR Work Phone: [facility] 07-05-2022 08:57-0500 SaO2% (BldA) [Mass fraction] 100 % Shashi Melara MOISTURE MACHINE TENDER.[employer] M[employer]IS[employer] OPERATOR Work Phone: [facility] 07-05-2022 08:57-0500 Systolic blood pressure 122 mm[Hg] Shashi Melara MOISTURE MACHINE TENDER.[employer]ATE M[employer]ISER OPERATOR Work Phone: [facility] 09-11-2021 08:57-0400 Body temperature 97.7 [degF] Leigha Marquez MOISTURE MACHINE TENDER.[employer] M[employer]ISER OPERATOR Work Phone: [facility] 09-11-2021 08:57-0400 Body weight 77.84 kg Leigha Marquez APRN.[employer] OPERATOR Work Phone: [facility] 09-11-2021 08:57-0400 Diastolic blood pressure 70 mm[Hg] Leigha Marquez MOISTURE MACHINE TENDER.[employer] M[employer] OPERATOR Work Phone: [facility] 09-11-2021 08:57-0400 Heart rate 76 /min Leigha Marquez MOISTURE MACHINE TENDER.[employer] M[employer]ISER OPERATOR Work Phone: [facility] 09-11-2021 08:57-0400 Respiratory rate 16 /min Leigha Marquez MOISTURE MACHINE TENDER.[employer]ATE M[employer]ISER OPERATOR Work Phone: [facility] 09-11-2021 08:57-0400 SaO2% (BldA) [Mass fraction] 98 % Leigha Marquez MOISTURE MACHINE TENDER.[employer] OPERATOR Work Phone: [facility] 09-11-2021 08:57-0400 Systolic blood pressure 126 mm[Hg] Leigha Marquez APRN.[facility] Work Phone: [facility] 08-14-2021 19:29-0400 Diastolic blood pressure 73 mm[Hg] [facility] Work Phone: 08-14-2021 19:29-0400 Heart rate 86 /min [facility] Work Phone: 08-14-2021 19:29-0400 Respiratory rate 23 /min [facility] Work Phone: 08-14-2021 19:29-0400 SaO2% (BldA) [Mass fraction] 98 % [facility] Work Phone: 08-14-2021 19:29-0400 Systolic blood pressure 135 mm[Hg] [facility] Work Phone: 08-14-2021 15:21-0400 Body height 182.88 cm [facility] Work Phone: 08-14-2021 15:21-0400 Body mass index (BMI) [Ratio] 23.7 kg/m2 [facility] Work Phone: 08-14-2021 15:21-0400 Body temperature 98.8 [degF] [facility] Work Phone: 08-14-2021 15:21-0400 Body weight 79.37 kg [facility] Work Phone: 08-12-2021 20:31-0400 Heart rate 74 /min [facility] Work Phone: 08-12-2021 20:31-0400 Respiratory rate 18 /min [facility] Work Phone: 08-12-2021 18:14-0400 Body height 182.88 cm [facility] Work Phone: 08-12-2021 18:14-0400 Body mass index (BMI) [Ratio] 23.7 kg/m2 [facility] Work Phone: 08-12-2021 18:14-0400 Body temperature 98.5 [degF] [facility] Work Phone: 08-12-2021 18:14-0400 Body weight 79.37 kg [facility] Work Phone: 08-12-2021 18:14-0400 Diastolic blood pressure 88 mm[Hg] [facility] Work Phone: 08-12-2021 18:14-0400 SaO2% (BldA) [Mass fraction] 98 % [facility] Work Phone: 08-12-2021 18:14-0400 Systolic blood pressure 131 mm[Hg] [facility] Work Phone: Encounters Encounter Date Encounter Type Care Provider Facility Start: 02-08-2025 End: 02-08-2025 ambulatory SELF Facility:[facility] Start: 01-21-2025 End: 01-21-2025 ambulatory KELLI POPE Facility:[facility] Start: 01-17-2025 End: 01-17-2025 Emergency department patient visit Dr. Jass Ching MD Work Phone: -Emergency Department Work Phone: Start: 06-01-2024 End: 06-01-2024 ambulatory Kentrell Isbell Facility:[facility] Start: 05-01-2024 Encounter for genera l adult medical examination without abnormal findings Jass Ching [facility] Start: 03-26-2024 ambulatory Jass Ching Facili ty:[facility] Start: 03-20-2024 End: 03-20-2024 ambulatory Jass Ching [place] [place]: 03-20-2024 End: 03-20-2024 ambulatory Jass Ching Facility:[facility] Start: 01-27-2024 ambulatory Jass Ching Facili ty:[facility] Start: 06-17-2023 End: 06-17-[address] Jass Ching Work Phone: [facility] Work Phone: Start: 06-17-2023 End: 06-17-[address] Jass Ching Work Phone: [facility] Work Phone: Start: 05-10-2023 End: 05-10-[address] Jass Ching Work Phone: [facility] Work Phone: Start: 07-05-2022 End: 07-05-2022 Patient encounter procedure Shashi Melara APRN.[employer] OPERATOR Work Phone: [facility] Comment on above: URI, acute (Primary Dx); Throat pain; Streptococcus exposure Start: 10-16-[address] Jass Ching Work Phone: [facility] Start: 09-11-2021 End: 09-11-2021 Subsequent hospital visit by physician [facility] Work Phone: Radiology Comment on above: Pain of right hand [ [id number]] Start: 09-11-2021 End: 09-11-2021 Patient encounter procedure Leigha Marquez APRN.[employer] M[employer]ISER OPERATOR Work Phone: [facility] Comment on above: Pain of right hand ( Primary Dx) Start: 08-14-2021 End: 08-14-2021 [facility] Start: 08-14-2021 End: 08-14-2021 Patient encounter procedure Radha Farias PA-C Work Phone: [facility] Comment on above: Chest pain, unspecif ied type (Primary Dx) Start: 08-12-2021 End: 08-12-2021 [facility] Start: 07-04-2020 End: 07-04-2020 Subsequent hospital visit by physician [facility] Work Phone: Radiology Comment on above: Upper [...] 07-05-2022 STREP A MOLECULAR (POC) Shashi Melara MOISTURE MACHINE TENDER.[employer] M[employer]IS[employer] OPERATOR Work Phone: Start: 09-11-2021 Radex hand minimum 3 views Leigha Marquez MOISTURE MACHINE TENDER.GATE MORTISER OPERATOR Work Phone: Start: 08-14-2021 CT angiography of ch est with contrast Start: 08-14-2021 Plain chest X-ray Start: 08-12-2021 CT of abdomen and pe lvis without contrast Start: 07-04-2020 Radex spine cervical 4 or 5 views Matthieu Clark MD Work Phone: Start: 08-17-2016 Lorie Farias PA-C Work Phone: Plan of Treatment Date Care Activity Detail Author Start: 12-20-2025 Colonoscopy COLONOSCOPY [facility] Start: 12-20-2025 COLORECTAL CANCER SCREENING COLORECTAL CANCER SCREENING [facility] Start: 12-20-2025 Screening for malign ant neoplasm of colon [facility] Start: 01-17-2025 Catar[facility] Start: 01-17-2025 Seizure precautions [facility] Start: 01-05-2024 Covid-19 Vaccine ( season) Covid-19 Vaccine ( season) [facility] Start: 01-05-2024 Influenza vaccination Influenza Vacc ine (#1) [facility] Start: 12-30-2023 Diabetes Screening Diabetes Screenin g [facility] Start: 12-30-2023 Screening for malign ant neoplasm of colon [facility] Start: 05-06-2022 DEPRESSION ASSESSMENT DEPRESSION ASS ESSMENT [facility] Start: 01-04-2022 Influenza vaccination INFLUENZ A (Season Ended) [facility] Start: 03-04-2021 COVID-19 VACCINE (3 - Booster for Pfizer series) COVID-19 VACCINE (3 - Booster for Pfizer series) [facility] Start: 07-29-2016 Urine microalbumin profile [facility] Start: 2013 Lipid panel Lipid Screening [facility] Start: 2013 LIPID SCREEN LIPID SCREEN [facility] Start: 1997 Hepatitis B Vaccine (1 of 3 - 19+ 3-dose series) Hepatitis B Vaccine (1 of 3 - 19+ 3-dose series) [facility] Start: 1996 Anxiety Screening Anxiety Screening [facility] Start: 1996 Depression Screening Depression Scre ening [facility] Start: 1996 HEPATITIS C SCREENING HEPATITIS C [facility] Start: 1996 Hepatitis C screening Hepatitis C [facility] Start: 1996 HIV SCREENING HIV SCREENING [facility] Start: 1996 HIV screening HIV Screening [facility] Start: 1990 Adult depression screening assessment DEPRESSION SCREENING [facility] Start: 1978 HEPATITIS B (1 of 3 - 3-dose series) HEPATITIS B (1 of 3 - 3-dose series) [facility] Patient Education [facility] Work Phone: Patient referral [facility] Work Phone: Immunizations Immunization Date Immunization Notes Care Provider Tianna knowles 03-20-2024 influenza, injectabl e, madin eran canine kidney, preservative free Dr. Jass Ching MD Work Phone: [facility] 01-24-2023 influenza, injectabl e, quadrivalent, preservative free Dr. Jass Ching Work Phone: [facility] 04-11-2022 influenza virus vaccine, unspecified formulation Xr Pablo Work Phone: [facility] 10-02-2020 COVID-19 vaccine, ag e 12+ yr (PFIZER-BIONTECH - PURPLE TOP) Radha Farias [employer] Work Phone: [facility] 09-11-2020 COVID-19 vaccine, ag e 12+ yr (PFIZER-BIONTECH - PURPLE TOP) Radha [employer] Work Phone: [facility] 07-29-2006 diphtheria and tetan us toxoids, adsorbed for pediatric use Radha [employer] Work Phone: [facility] Work Phone: Payers Date Payer Category Payer Private Health Insurance [id number] 2024 Private Health Insurance [id number] 2023 Private Health Insurance [id number] 2023 Self-pay [id number] 2023 Unknown [id number] 2021 Private Health Insurance AETNA A ETNA CHOICE POS II [id number] 2021-Present [phone] [address] [place] [address] POS [id number] 2021 Private Health Insurance [id number] 2021 Unknown ANTHEM BLUE CARD PPO OOS [id number] 2021-Present [phone] [address] [place] [address] PPO [id number] 2016 Unknown [id number] 2014 Medicaid [employer] A[employer] MEDICAID [id number] 2014-Present [phone] [address] [place] [address] Medicaid [id number] 2014 Medicaid [id number] Unknown [id number] Unknown [id number] Unknown [id number] Unknown [id number] Unknown [id number] Unknown [id number] Unknown [id number] Social History Date Type Detail Facility Start: 08-12-2021 End: 06-17-2023 Tobacco smoking status NEIS Unknown if ever smoked [facility] Start: 1980 Sex Assigned At Male [facility] Start: 12-13-2015 End: 01-17-2025 Tobacco smoking status NHIS Ex-smoker [facility] End: 11-22-2015 History of tobacco use Current smoker [facility] Start: 12-13-2015 End: 07-04-2020 Tobacco use and exposure Smokeless tobacco non-user [facility] Start: 07-04-2020 End: 04-03-2021 Alcohol intake Current drinker of alcohol (finding) [facility] Start: 08-24-2014 History SDOH Alcohol Comment socially [facility] Start: 1980 Sex Assigned At Not on file [facility] Start: 06-04-2020 End: 09-11-2021 Exposure to SARS-CoV-2 (event) Not sure [facility] Work Phone: End: 11-22-2015 History of tobacco use Cigarette Smoker [facility] Start: 07-04-2020 End: 09-11-2021 History of Social function [facility] Start: 07-04-2020 End: 09-11-2021 Tobacco use panel [facility] National Score (1-100), lower number is lower risk Not on file [facility] Mental Status Date Assessment Result Facility 01-17-2025 Cognitive function [facility] Work Phone: 01-17-2025 Cognitive function Arousable To Voice/Nam e [facility] Work Phone: 08-14-2021 Cognitive function Awake;Alert;A ppropriate;Foll ows Commands [facility] Work Phone: Clinical Notes 07-04-2020 to 02-08-2025 Shashi Melara APRN.GATE MORTISER OPERATOR - 07/05/2022 9:30 AM ESTPatient Rachelle Matta, RT(R) - 09/11/2021 9:30 AM Evaristo Marquez APRN.GATE MORTISER OPERATOR - 09/11/2021 9:11 AM EDT Note Date & Type Note Facility 02-08-2025 Note HNO ID: [id number] Author: KELLI POPE PA-C Service: ? Author Type: Physician Dining Car Conductor Type: Progress Notes Filed: 02/08/2025 15:17 Note Text: Kelli Pope PA-C Department of Orthopaedics Orthopaedics [address] [facility] [address] Dept: [phone] Dept February 08, 2025 CHIEF COMPLAINT: Shoulder [...] anxiety) This note was partially generated using Prim[employer] Power voice recognition system, and there may be some incorrect words, spellings, and punctuation that were not noted in checking the note before saving. Kelli Pope PA-C [facility] 02-08-2025 Note HNO ID: [id number] Author: TRISTA QUEVEDO MA Service: ? Author Type: Wind Energy Engineer Type: Progress Notes Filed: 02/08/2025 15:17 Note Text: AMB ROOMING INTAKE FLOWSHEET DATA Pain Pain Level: 7 Pain Location: Shoulder-Left Description: Sharp, Radiating Duration Amount of Time: 3 Duration Units: Weeks Frequency: Intermittent Intervention/Comfort measure: Heat [facility] 01-22-2025 Note HNO ID: [id number] Author: LUIS ENRIQUE WOO APRN.GATE MORTISER OPERATOR Service: ? Author Type: Nurse Practitioner Type: Progress Notes Filed: 01/22/2025 14:12 Note Text: [facility] Review of Records Patient: Ammon Bower Address: [address] [place], [place] [id number] Impression: Review of records for Ammon Bower, a 44 year old male, being referred by [facility] [[facility]] to Any Epileptologist for further [...] allergies, former smoker, ETOH abuse PRIOR EVALUATIONS: [place] [address] [place] [address] EEG (-): MRI brain wo/w contrast (-): -------- CINDY Recommendations: - Long EEG, consult with an Epileptologist - Additional testing to be considered by epilepsy clinicians Signed: Luis Enrique Woo APRN.GATE MORTISER OPERATOR January 22, [address] Madden for review and recommendations. ------- MD Recommendations (as discussed with Dr. Madden): - Routine EEG and visit with an Epileptologist [facility] 01-21-2025 Note HNO ID: [id number] Author: KELLI POPE PA-C Service: ? Author Type: Physician Dining Car Conductor Type: Progress Notes Filed: 01/21/2025 15:24 Note Text: Kelli Pope PA-C Department of Orthopaedics Orthopaedics [address] [place] [address] Dept: [phone] January 21, 2025 CHIEF COMPLAINT: New and [...] a leave of absence from work at [employer] due to the injury. ASSESSMENT: S43.005A Dislocation [...] hand. Imaging: CT scan right upper extremity [facility] January 17, 2025 Adequate alignment [...] anxiety) This note was partially generated using Prim[employer] Power voice recognition system, and there may be some incorrect words, spellings, and punctuation that were not noted in (more content not included)... [facility] 01-17-2025 Radiology Diagnostic study note [facility] Imaging Services [address] [place] [address] Extremity Upper without Contra MR#: [id number] Acct: [id number] Name: AMMON BOWER Rep #: [id number] : 1980 M 44 From: Loi Garrett MD PCP: Dr. Jass Ching MD Status: [facility] ER Study:Extremity Upper without Contra Date of Exam: 01/17/25 Exam# [id number] Ordering Dr: Jenny Trejo MD PROCEDURE: EXTREMITY [...] Small left shoulder joint effusion. Reading Location: [facility] CC: Dr. Usman Trejo MD; Dr. Jass Ching MD ~ Line Supervisor: Signed [facility] 01-17-2025 Radiology Diagnostic study note [facility] Imaging Services [address] [place], [place] [address] Shoulder min 2 Views MR#: [id number] Acct: [id number] Name: AMMON BOWER Rep #: [id number] : 1980 M 44 From: Loi Garrett MD PCP: Dr. Jass Ching MD Status: R ER Study:Shoulder min 2 Views Date of Exam: 01/17/25 Exam# [id number] Ordering Dr: Jose Harper MD PROCEDURE: SHOULDER [...] left shoulder. No acute fractures. Reading Location: [facility] CC: Dr. Jass Ching MD; Dr. Sofiya Harper MD ~ Line Supervisor: Signed [facility] 01-17-2025 Radiology Diagnostic study note [facility] Imaging Services [address] [place] [address] Brain/Head without Contrast MR#: [id number] Acct: [id number] Name: AMMON BOWER Rep #: [id number] : 1980 M 44 From: Loi Garrett MD PCP: Dr. Jass Ching MD Status: R EG ER Study:Brain/Head without Contrast Date of Exa m: 01/17/25 Exam# [id number] Ordering Dr: Jose Harper MD PROCEDURE: BRAIN/HEAD [...] cervical spine fracture or malalignment. Reading Location: [facility] CC: Dr. Jass Ching MD; Dr. Sofiya Harper MD ~ Line Supervisor: Signed [facility] 01-17-2025 Radiology Diagnostic study note [facility] Imaging Services [address] [place] [id number] Spine Cervical without Contras MR#: [id number] Acct: [id number] Name: AMMON BOWER Rep #: [id number] : 1980 M 44 From: Loi Garrett MD PCP: Dr. Jass Ching MD Status: R EG ER Study:Spine Cervical without Contras Date of Exam: 01/17/25 Exam# [id number] Ordering Dr: Jose Harper MD PROCEDURE: BRAIN/HEAD [...] cervical spine fracture or malalignment. Reading Location: [facility] CC: Dr. Jass Ching MD; Dr. Sofiya Harper MD ~ Line Supervisor: Signed [facility] 01-17-2025 Radiology Diagnostic study note [facility] Imaging Services [address] [facility] [place], [place] [id number] Shoulder min 2 Views MR#: [id number] Acct: [id number] Name: AMMON BOWER Rep #: [id number] : 1980 M 44 From: Mohsen Browne MD PCP: Dr. Jass Ching MD Status: R EG ER Study:Shoulder min 2 Views Date of Exam: 01/17/25 Exam# [id number] Ordering Dr: Jose Harper MD PROCEDURE: SHOULDER [...] posterior dislocation of the humerus Reading Location: [facility] CC: Dr. Jass Ching MD; Dr. Sofiya Harper MD ~ Line Supervisor: Signed [facility] 01-17-2025 Radiology Diagnostic study note [facility] Imaging Services [address] [place], [place] [address] Shoulder min 2 Views MR#: [id number] Acct: [id number] Name: AMMON BOWER Rep #: [id number] : 1980 M 44 From: Mohsen Browne MD PCP: Dr. Jass Ching MD Status: R EG ER Study:Shoulder min 2 Views Date of Exam: 01/17/25 Exam# [id number] Ordering Dr: Jose Harper MD PROCEDURE: SHOULDER MIN 2 VIEWS 01/17/2025 REASON FOR EXAM: DISLOCATION TECHNIQUE: Procedure Code: [facility] Modality: DX Procedure: SHOULDER MIN 2 VIEWS Laterality: Left COMPARISON: None. FINDINGS: Bones: Negative for fractures. Scapula otherwise negative. Proximal humerus negative. Clavicle negative. Joints: Intact. No joint effusion. Soft tissues: Adjacent structures negative. Other: Remainder of the exam negative. RAD/Shoulder min 2 Views IMPRESSION: Negative left shoulder. Reading Location: [id number] CC: Dr. Jass Ching MD; Dr. Sofiya Harper MD ~ Line Supervisor: Signed [facility] 06-01-2024 Note [facility] Medical Records Department [address] [place] [address] History Physical Exam 06/01/24 0956 MR#: [id number] Acct: [id number] Name: AMMON BOWER Rep #: [id number] : 1980 43 From: Kentrell Isbell DO PCP: Dr. Jass Ching MD Status:[facility] Location: [place] [address] HPI - General General Date of Admission: 06/01/24 Date of Service: 06/01/24 Chief Complaint: Screening colonoscopy HPI Narrative AMMON BOWER, is a 43 M who presents today for screening colonoscopy. He is not having any abdominal pain, cramping, chest pain or shortness of breath. He does not take any medicines on daily basis. Overall he is in very good health. [facility] Medical History Eczema Former smoker Blood [...] (if applicable): CC: Dr. Jass Ching MD; Kenrtell Isbell DO Signed [facility] 07-05-2022 History of Present illness [...] Shashi Melara APRN.YAMINI documented in this encounter [facility] 09-11-2021 Instructions Leigha Marquez APRN.YAMINI - 09/11/2021 9:55 AM EDT - RICE therapy - see patient instructions for further recommendations. - F/U with PCP in 5-7 days or before if worse. - Discussed Red Flag signs and when to go to ER. - Reviewed plan of care and DC papers with patient. Verbalized understanding. documented in this encounter [facility] 09-11-2021 History of Present illness Narrative [...] 2021 9:33 AM documented in this encounter [facility] 09-11-2021 History of Present illness Narrative Subjective The history is provided by the patient. No american sign language interpreter was used. Hand Injury ROS Objective Physical [...] No radiographic evidence of acute osseous abnormality. Line Supervisor: ANNA Transcribe Date/Time: Sep 11 2021 9:44A Dictated by : CARMENCITA MATOS MD TECHNIQUE: 3 view radiographic study of the right hand and 4 view radiographic study of the right wrist COMPARISON: None FINDINGS: No acute fracture or dislocation identified. Mild remote posttraumatic bowing deformity of the fifth metacarpal. Joint spaces preserved. IMPRESSION IMPRESSION: No radiographic evidence of acute osseous abnormality. Line Supervisor: ANNA Transcribe Date/Time: Sep 11 2021 9:44A Dictated by : CARMENCITA MATOS MD Patient instructed to rest, ice and alternate ibuprofen and tylenol. patient instructed to give it several more days and follow up with PCP if it does not seem to be getting better. Patient was okay with this care plan. Leigha Marquez APRN.CNP documented in this encounter [facility] 08-14-2021 History of Present illness Narrative Patient presents with [facility] care triage with chest pain and back pain. He was seen in the ED 2 days ago for similar complaints and had a ct flank done which was unremarkable per patient and . He is in severe pain here, recommended he be seen again in the ED. His will take him there across the street to [facility] by personal vehicle. documented in this encounter [facility] 07-04-2020 History of Present illness Narrative [...] 2020 11:04 AM documented in this encounter [facility] Evaluation note No assessment inform ation available [facility] Work Phone: Evaluation note Diagnosis Chest pain, unspecified type- Primary [facility] Diagnosis Pain of right hand- Primary Pain in limb documented in this encounter [facility] note* Diagnosis URI, acute- Primary Acute upper respiratory infections of unspecified site Throat pain Streptococcus exposure Contact with or exposure to other communicable diseases [facility] Diagnosis Onset Date Resolution Status Back pain acute SI (sacroiliac) joint inflammation acute Arthritis acute Low back pain chronic [facility] Work Phone: Evaluation note* Diagnosis Pain of right hand Pain in limb [facility] Diagnosis Upper back pain on right side Pain in thoracic spine Radicular pain in right arm Neuralgia, neuritis, and radiculitis, unspecified [facility] instructions[facility] Instructions Wear the sling at all times. Follow up with the orthopedic doctor below in the next week. No driving until cleared by neurology. If you have another seizure prior to following up with neurology, return to the ER.[facility] Work Phone: Reason for referral (narrative)* Diagnostic Procedure Only (Urgent) - Closed Specialty Diagnoses / Procedures Referred By Christin miller Referred To Contact XR IMAGING Diagnoses Pain of right hand Procedures XR WRIST INJURY 4V PA/LAT/OBL/SCAPH RIGHT RADEX WRIST COMPLETE MINIMUM 3 VIEWS Leihga Marquez APRN.GATE MORTISER OPERATOR [address] [place] [address] Xr Imaging Referral ID Status Reason Start Date Expiration Date V isits Requested Visits Authorized [id number] Closed Auto-Generate d Referral 09/11/2021 10/11/2022 1 1 * Diagnostic Procedure Only (Urgent) - Closed Specialty Diagnoses / Procedures Referred By Contac t Referred To Contact XR IMAGING Diagnoses Pain of right hand Procedures XR HAND GENERAL 3V PA/LAT/OBL RIGHT RADEX HAND MINIMUM 3 VIEWS Leigha Marquez APRN.GATE MORTISER OPERATOR [address] [place] [address] Xr Imaging Referral ID Status Reason Start Date Expiration Date V isits Requested Visits Authorized [id number] Closed Auto-Generate d Referral 09/11/2021 10/11/2022 1 1 [facility] for referral (narrative)* Diagnostic Procedure Only (Urgent) - Closed Specialty Diagnoses / Procedures Referred By Contac t Referred To Contact XR IMAGING Diagnoses Pain of right hand Procedures XR WRIST INJURY 4V PA/LAT/OBL/SCAPH RIGHT RADEX WRIST COMPLETE MINIMUM 3 VIEWS Leigha Marquez APRN.GATE MORTISER OPERATOR [address] [place] [address] [place] [address] Referral ID Status Reason Start Date Expiration Date V isits Requested Visits Authorized [id number] Closed Auto-Generate d Referral 09/11/2021 10/11/2022 1 1 * Diagnostic Procedure Only (Urgent) - Closed Specialty Diagnoses / Procedures Referred By Contac t Referred To Contact XR IMAGING Diagnoses Pain of right hand Procedures XR HAND GENERAL 3V PA/LAT/OBL RIGHT RADEX HAND MINIMUM 3 VIEWS Leigha Marquez APRN.GATE MORTISER OPERATOR [address] [place] [address] [place] [address] Referral ID Status Reason Start Date Expiration Date V isits Requested Visits Authorized [id number] Closed Auto-Generate d Referral 09/11/2021 10/11/2022 1 1 [facility] for referral (narrative)No reason for referral information [facility] Work Phone: Reldlq for visit Narrative* Diagnostic Procedure Only (Urgent) - Closed Specialty Diagnoses / Procedures Referred By Contac t Referred To Contact XR IMAGING Diagnoses Pain of right hand Procedures XR WRIST INJURY 4V PA/LAT/OBL/SCAPH RIGHT RADEX WRIST COMPLETE MINIMUM 3 VIEWS Leigha Marquez APRN.GATE MORTISER OPERATOR [address] [place] [address] [place] [address] Referral ID Status Reason Start Date Expiration Date V isits Requested Visits Authorized [id number] Closed Auto-Generate d Referral 09/11/2021 10/11/2022 1 1 [facility] Chief Complaint and Reason for Visit [...] No August 12, 2021 6:25pm Power of Glass Wool Blanket Machine Feeder No August 12 6:25pm Documents on File Type Date Recorded 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 Advance Directive(s) 12/21/2015 5:53 AM Advance Directive(s) 12/14/2015 10:43 AM Advance Directive Response Recorded Date/ Time Advance Directives No May 17, 2016 8:32pm Living Will No August 14, 2021 3:42pm Power of Glass Wool Blanket Machine Feeder No August 14 3:42pm Documents on File Type Date Recorded 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 No January 17, 2025 5:46am Advance Directives [...] or prosecute any alcohol or drug abuse patient.[facility] the event this information is protected by the Federal Confidentiality of Alcohol and Drug Abuse Patient Records regulations: The Federal rules restrict any use of the information to criminally investigate or prosecute any alcohol or drug abuse patient.[facility] the event this information is protected by the Federal Confidentiality of Alcohol and Drug Abuse Patient Records regulations: The Federal rules restrict any use of the information to criminally investigate or prosecute any alcohol or drug abuse patient.[facility] the event this information is protected by the Federal Confidentiality of Alcohol and Drug Abuse Patient Records regulations: The Federal rules restrict any use of the information to criminally investigate or prosecute any alcohol or drug abuse patient.[facility] the event this information is protected by the Federal Confidentiality of Alcohol and Drug Abuse Patient Records regulations: The Federal rules restrict any use of the information to criminally investigate or prosecute any alcohol or drug abuse patient.[facility] Reason for Visit (unrecogniz ed section [...] section and content) DATE CREATED AUTHOR 01/23/2025 [facility] DATE CREATED AUTHOR AUTHOR'S WENDY HARRIS 02/11/2025 [facility] FOR RECORDS PERTAINING TO PATIENTS WHO [...] BE BASED ON THE PRIMARY CLINICAL RECORDS. [facility] [employer] [facility]. provides no warranty or guarantee of the accuracy or completeness of information in this document.
--- OUTSIDE RECORDS SUMMARY | 2025-02-26 23:17 | XMS RPT_ITS | CCD ---
Author Organization [facility] Care Team Providers Care Roller Gold Leaf Name Role Phone Unavailable Primary Care Provider Dr. Jass Hagen Primary Care Provider [phone] Dr. Jass Ching Referring Provider [phone] NEERAJ Clarke Attending Provider [phone] Dr. Jass Ching Attending Provider [phone] Unavailable [...] sources) tomato allergenic extract Drug Allergy 10-12-2018 [facility] (1 source) tomato allergenic extract Drug Allergy 06-01-2024 [facility] Repository (1 source) tomato allergenic extract; Translations: [TOMATO (SOLANUM LYCOPERSICUM)] Drug Allergy 10-12-2018 [facility] Repository Medications Current Medications Medication Drug [...] Office Visit (ORTHWS ) -------- AMMON BOWER ([id number]) 1980 M Date Time Provider Department 02/08/25 [...] PA-C Department of Orthopaedics Orthopaedics [address] [facility] [address] Dept: [phone] Dept February 08, 2025 CHIEF COMPLAINT: Shoulder [...] anxiety) This note was partially generated using devsisters voice recognition system, and there may be some incorrect words, spellings, and punctuation that were not noted in checking the note before saving. Kelli Pope PA-C Referring Provider: SELF [200] Allergies As of Date: 02/08/2025 Noted Allergy Reaction TOMATO (SOLANUM LYCOPERSICUM) 10/12/2018 4 - Hives Date Reviewed: 02/08/2025 Reviewe (more content not included)... Normal [facility] 01-29-2025 CNPN Telephone (ORTHWS) -------- CHELIAMMON Gramajo ([id number]) 1980 M Date Time Provider Department 01/29/25 KELLI POPE During your visit today, we recorded the following information about you: Taryn Alvares MA 01/29/2025 3:26 PM Signed Type of form: FMLA Form received via walk in on 01/28/2025 When form is completed, Fax form to [employer] at [phone] Form has been completed and waiting for physician signature. Patient needs to come in and sign release so we can send information to [employer]. ZAHEER Cabello Amy M, MA 02/01/2025 4:06 PM Signed Forms signed and faxed back to [employer]. Confirmation received. Copy sent for scanning. Allergies As of Date: 01/29/2025 Noted Allergy Reaction TOMATO (SOLANUM LYCOPERSICUM) 10/12/2018 4 - Hives Date Reviewed: 01/21/2025 Reviewed by: Brianna Rucker MA - Fully Assessed Reason for Visit: FMLA Paperwork [1452] Prescriptions as of 02/01/2025 - LIDOCAINE VISCOUS [...] Status:Closed by TARYN ALVARES on 02/01/25 Normal [facility] CNCONon 01-22-2025 CNCON Consults (NE50MN) -------- AMMON BOWER ([id number]) 1980 M Date Time Provider Department 01/22/25 RAFAEL MADDEN NE50MN During your visit today, we recorded the following information about you: Luis Enrique Woo, MALACHI.SURGICAL TECHNOLOGIST 01/22/2025 2:12 PM Signed [facility] Review of Records Patient: Ammon Bower Address: [address] [place], [place] [id number] Impression: Review of records for Ammon Bower, a 44 year old male, being referred by [facility] to Any Epileptologist for further evaluation and [...] allergies, former smoker, ETOH abuse PRIOR EVALUATIONS: [address] [address] EEG (-): MRI brain wo/w contrast (-): [...] onset seizure (HCC) [R56.9] Order(s):EPIL EEG ROUTINE [[id number]] Order #: [id number]: 1 Prescriptions as of 01/22/2025 - HYDROcodone-acetaminophe [...] Status:Closed by LUIS ENRIQUE WOO on 01/22/25 [facility] CNOVholly 01-21-2025 CNOV Office Visit (ORNA ) -------- AMMON BOWER ([id number]) 1980 M Date Time Provider Department 01/21/25 11:00 AM KELLI POPE During your visit today, we recorded the following information about you: Kelli Pope PA-C 01/21/2025 3:24 PM Signed Kelli Pope PA-C Department of Orthopaedics Orthopaedics [address] [address] Dept: [phone] January 21, 2025 CHIEF COMPLAINT: New and [...] a leave of absence from work at [employer] due to the injury. ASSESSMENT: S43.005A [...] hand. Imaging: CT scan right upper extremity [facility] January 17, 2025 Adequate alignment of the [...] Psych (n (more content not included)... Normal [facility] Absolute lymphocyte countOrd ered By: Sofiya Harper on 01-17-2025 Lymphocytes Auto (Unsp spec) [#/Vol] 5.44 10*3/uL High 0.83-4.51 [facility] Absolute neutrophil countOrd ered By: Sofiya Harper on 01-17-2025 Neutrophils (Bld) [#/Vol] 6.5 10*3/uL 2.0-7.7 [facility] Alcohol, Blood (Medical)-Ser umon 01-17-2025 SERUM ETOH < 10.1 Normal <=10.0 [facility] Comment on above: Result Comment: This test is for medical purposes only. The legal definition of intoxication varies according to local law. Performed By: #### L 503.6005, L500.2500, L505.5000, L501.9100, L100.0100, L501.5200, L501.3620 #### [facility] [address] [place] [address]. [place], [place], [address] Amphetamine detection with 1 000 ng/mL as cutoffOrdered By: Sofiya Harper on 01-17-2025 Amphetamines Screen method >1000 ng/mL Ql (U) Negative < 200 ng/mL [facility] Anion gap in Serum or Plasma Ordered By: Sofiya Harper on 01-17-2025 Anion gap [Moles/Vol] 29 mmol/L High 5-15 [facility] Automated lymphocyte count a s percentage of total leukocytesOrdered By: Sofiya Harper on 01-17-2025 Lymphocytes/100 WBC Auto (Unsp spec) 39.6 % 19- [facility] BUN/creatinine ratioOrdered By: Sofiya Harper on 01-17-2025 Urea nitrogen/Creatinine [Mass ratio] 13.2 mg/mg - [facility] Basic Metabolic Profile (BMP )on 01-17-2025 BUN/CRE 13.2 RATIO Normal 02-22 [facility] Comment on above: Performed By: #### L 503.6005, L500.2500, L505.5000, L501.9100, L100.0100, L501.5200, L501.3620 #### [facility] [address] [place], [address] Calcium [Mass/Vol] 9.1 mg/dL Normal 7.6-11.0 [facility] Comment on above: Performed By: #### L 503.6005, L500.2500, L505.5000, L501.9100, L100.0100, L501.5200, L501.3620 #### [facility] [address] [place], [address] Chloride [Moles/Vol] 100 mmol/L Normal 98-108 [facility] Comment on above: Performed By: #### L 503.6005, L500.2500, L505.5000, L501.9100, L100.0100, L501.5200, L501.3620 #### [facility] [address] [place], [address] CO2 [Moles/Vol] 11.5 mmol/L Low 21.0-32.0 [facility] Comment on above: Performed By: #### L 503.6005, L500.2500, L505.5000, L501.9100, L100.0100, L501.5200, L501.3620 #### [facility] [address] [place], [address] Creatinine [Mass/Vol] 1.22 mg/dL High 0.70-1.20 [facility] Comment on above: Performed By: #### L 503.6005, L500.2500, L505.5000, L501.9100, L100.0100, L501.5200, L501.3620 #### [facility] [address] [place], [address] ECRCL 83.04 ml/min Normal 50-250 [facility] Comment on above: Performed By: #### L 503.6005, L500.2500, L505.5000, L501.9100, L100.0100, L501.5200, L501.3620 #### [facility] [address] [place], [address] GAP 29 High 5-15 [facility] Comment on above: Performed By: #### L 503.6005, L500.2500, L505.5000, L501.9100, L100.0100, L501.5200, L501.3620 #### [facility] [address] [place], [address] GFR/1.73 sq M.predicted among non-blacks MDRD (S/P/Bld) [Vol rate/Area] 74 mL/min/{1.73_m2} Normal >60 [facility] Comment on above: Result Comment: mL/m in/1.73m2 CKD-EPI Creatinine Equation (2020) Performed By: #### L 503.6005, L500.2500, L505.5000, L501.9100, L100.0100, L501.5200, L501.3620 #### [facility] [address] [place], [address] Glucose [Mass/Vol] 181 mg/dL High 70-99 [facility] Comment on above: Performed By: #### L 503.6005, L500.2500, L505.5000, L501.9100, L100.0100, L501.5200, L501.3620 #### [facility] [address] [place], [address] Potassium [Moles/Vol] 3.5 mmol/L Normal 3.3-5.1 [facility] Comment on above: Performed By: #### L 503.6005, L500.2500, L505.5000, L501.9100, L100.0100, L501.5200, L501.3620 #### [facility] [address] [place], [address] Sodium [Moles/Vol] 140 mmol/L Normal 133-145 [facility] Comment on above: Performed By: #### L 503.6005, L500.2500, L505.5000, L501.9100, L100.0100, L501.5200, L501.3620 #### [facility] [address] [place], [address] Urea nitrogen [Mass/Vol] 16 mg/dL Normal 4-19 [facility] Comment on above: Performed By: #### L 503.6005, L500.2500, L505.5000, L501.9100, L100.0100, L501.5200, L501.3620 #### [facility] [address] [place], [address] Basophil percentageOrdered B y: Sofiya Harper on 01-17-2025 Basophils/100 WBC (Bld) 0.6 % 0-1 [facility] Bedside Glucoseon 01-17-2025 FINGERSTICK GLU 169 mg/dL High 74-106 [facility] Comment on above: Result Comment: ROBERT GEMENT OF PATIENT CARE PER NURSING PROTOCOL Performed By: #### L 501.080 ####[facility] [address] [place], [address] Blood manual differential co mment interpretation (narrative result)Ordered By: Sofiya Harper on 01-17-2025 Manual differential comment Luis (Bld) [Interp] SCANNED [facility] Comment on above: LYMPHOCYTOSIS PRESEN T Brain/Head without Contrasto n 01-17-2025 Brain/Head without Contrast [facility] Imaging Services [address] [place] [address] Brain/Head without Contrast MR#: [id number] Acct: [id number] Name: AMMON BOWER Rep #: [id number] : 1980 M 44 From: Loi Garrett MD PCP: Dr. Jass Ching MD Status: REG ER Study: Brain/Head without Contrast Date of Exam: 01/04 08/28 Exam# [id number] Ordering Dr: Sofiya Harper MD PROCEDURE: BRAIN/HEAD [...] cervical spine fracture or malalignment. Reading Location: [facility] CC: Dr. Jass Ching MD; Dr. Sofiya Harper MD Master Chef: Signed Normal [facility] CBC W/Diff, Automatedon 01-04 REACTIVE LYMPH 2+ Normal [facility] Comment on above: Performed By: #### L 503.6005, L500.2500, L505.5000, L501.9100, L100.0100, L501.5200, L501.3620 #### [facility] [address] [place], [place], [address] SMEAR COMMENT SCANNED Normal [facility] Comment on above: Result Comment: LYMP HOCYTOSIS PRESENT Performed By: #### L 503.6005, L500.2500, L505.5000, L501.9100, L100.0100, L501.5200, L501.3620 #### [facility] [address] [place], [address] CPK Total, Creatine Kinaseon 01-17-2025 CPK TOTAL 451 U/L High 24-195 [facility] Comment on above: Performed By: #### L 503.6005, L500.2500, L505.5000, L501.9100, L100.0100, L501.5200, L501.3620 ####[facility] [address] [place], [address] Carbon dioxide, total [Moles /volume] in Central venous bloodOrdered By: Sofiya Harper on 01-17-2025 CO2 [Moles/Vol] 11.5 mmol/L Low 21.0-32.0 [facility] Chloride assayOrdered By: Jose Harper on 01-17-2025 Chloride [Moles/Vol] 100 mmol/L 98-108 [facility] Emergency Department Summary on 01-17-2025 Emergency Department Summary [facility] Medical Records Department [address] [place] [address] Emergency Department Summary 01/17/25 MR#: [id number] Acct: [id number] Name: AMMON BOWER Rep #: [id number] : 1980 44 From: Sofiya Harper MD [...] Blood P (more content not included)... Normal [facility] Eosinophil percentageOrdered By: Sofiya Harper on 01-17-2025 Eosinophils/100 WBC (Bld) 4.2 % 0-5 [facility] Erythrocyte distribution wid th ratioOrdered By: Sofiya Harper on 01-17-2025 Erythrocyte distribution width (RBC) [Ratio] 11.9 % 11.6-14.6 [facility] Erythrocyte distribution wid th standard deviationOrdered By: Sofiya Harper on 01-17-2025 Erythrocyte distribution width (RBC) [Ratio] 45.4 fl High 35.1-43.9 [facility] Extremity Upper without Cont raon 01-17-2025 Extremity Upper without [facility] Imaging Services [address] [facility] [place] [address] Extremity Upper without Contra MR#: [id number] Acct: [id number] Name: AMMON BOWER Rep #: [id number] : 1980 M 44 From: Loi Garrett MD PCP: Dr. Jass Ching MD Status: REG ER Study: Extremity Upper without Contra Date of Exam: 0 01/17/25 Exam# [id number] Ordering Dr: Usman Trejo MD PROCEDURE: EXTREMITY [...] Small left shoulder joint effusion. Reading Location: [facility] CC: Dr. Usman Trejo MD; Dr. Jass Ching MD Master Chef: Signed Normal [facility] Glomerular filtration rate ( GFR) estimation/1.73 sq m using serum, plasma, or whole bOrdered By: Sofiya Harper on 01-17-2025 GFR/1.73 sq M.predicted among non-blacks MDRD (S/P/Bld) [Vol rate/Area] 74 mL/min/{1.73_m2} >60 [facility] Comment on above: mL/min/1.73m2 CKD-EP I Creatinine Equation (2020) [facility] deOrdered By: Sofiya Harper on 01-17-2025 Glucose [Mass/Vol] 169 mg/dL High 74-106 [facility] Comment on above: MANAGEMENT OF PATIEN T CARE PER NURSING PROTOCOL Hematocrit Auto (Bld) [Volum e fraction]Ordered By: Sofiya Harper on 01-17-2025 Hematocrit (Bld) [Volume fraction] 39.2 % Low 40-54 [facility] Hemoglobin measurementOrdere d By: Sofiya Harper on 01-17-2025 Hemoglobin (Bld) [Mass/Vol] 12.8 g/dL Low 13.0-16.5 [facility] Immature granulocytes/100 WB C Auto (Bld)Ordered By: Sofiya Harper on 01-17-2025 Immature granulocytes/100 WBC (Bld) 1.500 % High 0.0-0.9 [facility] Comment on above: IG% - Immature Granu locytes (promyelocytes, myelocytes and metamyelocytes) > 1% indicates that a LEFT SHIFT is Present. Lactic Acidon 01-17-2025 Lactate [Moles/Vol] 1.1 mmol/L Normal 0.0-2.0 [facility] Comment on above: Performed By: #### L 503.6005 ####[facility] [address] [place], [place], [address] Lactate [Moles/Vol] 7.2 mmol/L Invalid Interpretation Code 0.0-2.0 [facility] Comment on above: Order Comment: Y Result Comment: Crit ical Result(s) Called at 01/17/2025-06:40 by Jimmy Crooks to Rosina Truong.??Results read back by same. Performed By: #### L 503.6005, L500.2500, L505.5000, L501.9100, L100.0100, L501.5200, L501.3620 ####[facility] [address] [place], [place], [address] Lactic acid measurementOrder ed By: Sofiya Harper on 01-17-2025 Lactate [Moles/Vol] 1.1 mmol/L 0.0-2.0 [facility] MCV (mean corpuscular volume ) determinationOrdered By: Sofiya Harper on 01-17-2025 MCV (RBC) [Entitic vol] 103.4 fL High 80-94 [facility] Magnesiumon 01-17-2025 Magnesium [Mass/Vol] 2.1 mg/dL Normal 1.5-2.2 [facility] Comment on above: Performed By: #### L 503.6005, L500.2500, L505.5000, L501.9100, L100.0100, L501.5200, L501.3620 #### [facility] [address] [place], [place], [address] Magnesium measurement (mass/ volume)Ordered By: Sofiya Harper on 01-17-2025 Magnesium (Unsp spec) [Mass/Vol] 2.1 mg/dL 1.5-2.2 [facility] Mean corpuscular hemoglobin (MCH) determinationOrdered By: Sofiya Harper on 01-17-2025 MCH (RBC) [Entitic mass] 33.8 pg High 27.0-32.0 [facility] Mean corpuscular hemoglobin concentration (MCHC) determinationOrdered By: Sofiya Harper on 01-17-2025 MCHC (RBC) [Mass/Vol] 32.7 g/dL 32-36 [facility] Mean platelet volume determi nationOrdered By: Sofiya Harper on 01-17-2025 Platelet mean volume (Bld) [Entitic vol] 12.4 fL High 6.2-12.0 [facility] Monocyte percentageOrdered B y: Sofiya Harper on 01-17-2025 Monocytes/100 WBC (Bld) 6.8 % 0-10 [facility] Neutrophil percentageOrdered By: Sofiya Harper on 01-17-2025 Neutrophils/100 WBC (Bld) 47.3 % 47-70 [facility] No Panel InformationOrdered By: Sofiya Campbeller on 01-17-2025 Urine Buprenorphine Qualitative Negative < 200 ng/mL [facility] Urine Oxycodone Screen Negative < 100 ng/mL [facility] Nucleated red blood cell per centageOrdered By: Sofiya Campbeller on 01-17-2025 Nucleated RBC/100 WBC (Bld) [Ratio] 0 % 0-5 [facility] Platelet countOrdered By: Jose Campbeller on 01-17-2025 Platelets (Bld) [#/Vol] 275 10*3/uL 150-450 [facility] Potassium measurement (mass/ volume)Ordered By: Sofiya Campbeller on 01-17-2025 Potassium (Unsp spec) [Mass/Vol] 3.5 mmol/L 3.3-5.1 [facility] Quantitative urine opiates m easurementOrdered By: Sofiya Meredith on 01-17-2025 Opiates Ql (U) Negative < 300 ng/mL [facility] RBC Auto (Bld) [#/Vol]Ordere d By: Sofiya Campbeller on 01-17-2025 RBC (Bld) [#/Vol] 3.79 10*6/uL Low 4.6-6.2 [facility] Screening urine fentanyl lacy surementOrdered By: Sofiya Campbeller on 01-17-2025 fentaNYL Screen Ql (U) Positive <5 ng/mL [facility] Comment on above: CONFIRMATORY TESTING FOR [...] 01-17-2025 Creatinine [Mass/Vol] 1.22 mg/dL High 0.70-1.20 [facility] Serum glucose measurement (m ass/volume)Ordered By: Sofiya Harper on 01-17-2025 Glucose [Mass/Vol] 181 mg/dL High 70-99 [facility] Serum or plasma calcium klarissa urement (mass/volume)Ordered By: Sofiya Harper on 01-17-2025 Calcium [Mass/Vol] 9.1 mg/dL 7.6-11.0 [facility] Serum or plasma creatine kin ase activityOrdered By: Sofiya Harper on 01-17-2025 CK [Catalytic activity/Vol] 451 U/L High 24-195 [facility] Serum or plasma ethanol klarissa urement (mass/volume)Ordered By: Sofiya Harper on 01-17-2025 Ethanol [Mass/Vol] mg/dL <10.1 [facility] Comment on above: This test is for med ical purposes only. The legal definition of intoxication varies according to local law. Serum or plasma urea nitroge n measurement (mass/volume)Ordered By: Sofiya Harper on 01-17-2025 Urea nitrogen [Mass/Vol] 16 mg/dL 4-19 [facility] Shoulder min 2 Viewson 01-17 Shoulder min 2 Views [facility] Imaging Services [address] [place], [place] [address] Shoulder min 2 Views MR#: [id number] Acct: [id number] Name: AMMON BOWER Rep #: [id number] : 1980 M 44 From: Loi Garrett MD PCP: Dr. Jass Ching MD Status: REG ER Study: Shoulder min 2 Views Date of Exam: 01/17/25 Exam# [id number] Ordering Dr: Sofiya Harper MD PROCEDURE: SHOULDER [...] left shoulder. No acute fractures. Reading Location[facility] CC: Dr. Jass Ching MD; Dr. Sofiya Harper MD Master Chef: Signed Normal [facility] Shoulder min 2 Views [facility] Imaging Services [address] [place] [address] Shoulder min 2 Views MR#: [id number] Acct: [id number] Name: AMMON BOWER Rep #: [id number] : 1980 M 44 From: Janes Browne MD PCP: Dr. Jass Ching MD Status: [facility] ER Study: Shoulder min 2 Views Date of Exam: 01/17/25 Exam# [id number] Ordering Dr: Sofiya Harper MD PROCEDURE: SHOULDER MIN 2 VIEWS 01/17/2025 REASON FOR EXAM: POSTERIOR DISLOCATION TECHNIQUE: Procedure Code: [facility] Modality: DX Procedure: SHOULDER MIN 2 VIEWS [...] posterior dislocation of the humerus Reading Location: [id number] CC: Dr. Jass Ching MD; Dr. Sofiya Harper MD Master Chef: Signed Normal [facility] Shoulder min 2 Views [facility] Imaging Services [address] [place], [place] [address] Shoulder min 2 Views MR#: [id number] Acct: [id number] Name: AMMON BOWER Rep #: [id number] : 1980 M 44 From: Janes Browne MD PCP: Dr. Jass Ching MD Status: REG ER Study: Shoulder min 2 Views Date of Exam: 01/17/25 Exam# [id number] Ordering Dr: Sofiya Harper MD PROCEDURE: SHOULDER [...] Views IMPRESSION: Negative left shoulder. Reading Location: [facility] CC: Dr. Jass Ching MD; Dr. Sofiya Harper MD Master Chef: Signed Normal [facility] Sodium levelOrdered By: Edgar Harper on 01-17-2025 Sodium [Moles/Vol] 140 mmol/L 133-145 [facility] Spine Cervical without Contr ason 01-17-2025 Spine Cervical without Contras [facility] Imaging Services [address] [place] [address] Spine Cervical without Contras MR#: [id number] Acct: [id number] Name: AMMON BOWER Rep #: [id number] : 1980 M 44 From: Loi Garrett MD PCP: Dr. Jass Ching MD Status: REG ER Study: Spine Cervical without Contras Date of Exam: 0 01/17/25 Exam# [id number] Ordering Dr: Sofiya Harper MD PROCEDURE: BRAIN/HEAD [...] cervical spine fracture or malalignment. Reading Location: [facility] CC: Dr. Jass Ching MD; Dr. Sofiya Harper MD Master Chef: Signed Normal [facility] Urine Drug Screen (VISTA)on 01-17-2025 AMPHETAMINES Negative Normal <1000 ng/mL [facility] Comment on above: Performed By: #### L 503.6005, L500.2500, L505.5000, L501.9100, L100.0100, L501.5200, L501.3620 ####[facility] [address] [place], [address] BARBITIURATES Negative Normal < 200 ng/mL [facility] Comment on above: Performed By: #### L 503.6005, L500.2500, L505.5000, L501.9100, L100.0100, L501.5200, L501.3620 ####[facility] [address] [place], [address] BENZODIAZIPINE Negative Normal < 200 ng/mL [facility] Comment on above: Performed By: #### L 503.6005, L500.2500, L505.5000, L501.9100, L100.0100, L501.5200, L501.3620 ####[facility] [address] [place], [address] BUP Ur Drug Scr Negative Normal < 200 ng/mL [facility] Comment on above: Performed By: #### L 503.6005, L500.2500, L505.5000, L501.9100, L100.0100, L501.5200, L501.3620 ####[facility] [address] [place], [address] COCAINE Negative Normal < 300 ng/mL [facility] Comment on above: Performed By: #### L 503.6005, L500.2500, L505.5000, L501.9100, L100.0100, L501.5200, L501.3620 ####[facility] [address] [place], [place], [address] Fentanyl Positive Normal <5 ng/mL [facility] Comment on above: Result Comment: CONF IRMATORY [...] 503.6005, L500.2500, L505.5000, L501.9100, L100.0100, L501.5200, L501.3620 ####[facility] [address] [place], [place], [address] METHADONE Negative Normal < 300 ng/mL [facility] Comment on above: Performed By: #### L 503.6005, L500.2500, L505.5000, L501.9100, L100.0100, L501.5200, L501.3620 ####[facility] [address] [place], [address] OPIATES Negative Normal < 300 ng/mL [facility] Comment on above: Performed By: #### L 503.6005, L500.2500, L505.5000, L501.9100, L100.0100, L501.5200, L501.3620 ####[facility] [address] [place], [address] OXYCODONE Negative Normal < 100 ng/mL [facility] Comment on above: Performed By: #### L 503.6005, L500.2500, L505.5000, L501.9100, L100.0100, L501.5200, L501.3620 ####[facility] [address] [place], [address] PCP Negative Normal < 25 ng/mL [facility] Comment on above: Performed By: #### L 503.6005, L500.2500, L505.5000, L501.9100, L100.0100, L501.5200, L501.3620 ####[facility] [address] [place], [address] THC Positive Normal < 50 ng/mL [facility] Comment on above: Result Comment: If c onfirmation testing is needed, a separate order will be required to send out testing to the reference laboratory. Performed By: #### L 503.6005, L500.2500, L505.5000, L501.9100, L100.0100, L501.5200, L501.3620 ####[facility] [address] [place], [address] Urine benzodiazepine levelOr dered By: Sofiya Harper on 01-17-2025 Benzodiazepines Ql (U) Negative < 200 ng/mL [facility] Urine cocaine levelOrdered B y: Sofiya Harper on 01-17-2025 Cocaine Ql (U) Negative < 300 ng/mL [facility] Urine errpp-9-henurqnlfljulo abinol (THC) measurementOrdered By: Sofiya Harper on 01-17-2025 Cannabinoids Screen Ql (U) Positive < 50 ng/mL [facility] Comment on above: If confirmation test ing is needed, a separate order will be required to send out testing to the reference laboratory. Urine phencyclidine (PCP) de tectionOrdered By: Sofiya Harper on 01-17-2025 Phencyclidine Ql (U) Negative < 25 ng/mL [facility] White blood cell (WBC) count Ordered By: Sofiya Harper on 01-17-2025 WBC (Bld) [#/Vol] 13.8 10*3/uL High 4.4-11.0 [facility] Colonoscopy Reporton 025 Colonoscopy Report [facility] Medical Records Department [address] [place] [address] Colonoscopy Report MR#: [id number] Acct: [id number] Name: AMMON BOWER Rep #: [id number] : 1980 43 From: Kentrell Isbell DO PCP: Dr. Jass Ching MD Status:[facility] Patient Name: Ammon Bower Procedure Date: 06/01/2024 [...] pathology results. Procedure Code(s): --- Professional --- 17387, Colonoscopy, flexible; with biopsy, single or multiple CPT copyright 2021 [employer]. All rights reserved. The codes documented in this report are preliminary and upon state comptroller review may be revised to meet current compliance requirements. Kentrell Isbell DO 06/01/2024 11:51:25 AM This report has been signed electronically. Number of Addenda: 0 Note Initiated On: 06/01/2024 11:21 AM 06/01/24 1151 Date Kentrell Izaguirreignjose Signature: Date (if indicated) CC: Dr. Jass Ching MD; Kentrell Isbell DO Date Dictated: 06/01/24 1121 Date Trans (more content not included)... [facility] MR/POSTOP.STAS 06-01-2024 MR/POSTOP.[facility] Medical Records Department [address] [place] [address] Anesthesia Postop Eval I 06/01/24 1153 MR#: [id number] Acct: [id number] Name: AMMON BOWER Rep #: [id number] : 1980 43 From: Brandon Morales PCP: Dr. Jass Ching MD Status:REG SDC Y Race: AA Location: [place] [address] Anesthesia: Postop Eval I Current Vital Signs [...] Brandon Obrien Signature: Date CC: Signed Normal [facility] MR/FETIQETZ9ux 06-01-2024 MR/POSTOPAN2 [facility] Medical Records Department [address] [place] [address] Anesthesia Postop Eval II 06/01/24 1246 MR#: [id number] Acct: [id number] Name: AMMON BOWER Rep #: [id number] : 1980 43 From: Calvin Dillard MD PCP: Dr. Jass Ching MD Status:[facility] Y Race: AA Location: EN Anesthesia [...] Calvin Obrien Signature: Date CC: Signed Normal [facility] Surgery Specimen Level Gemini 06-01-2024 Surgery Specimen Level IV Patient Age/Sex Location Account Attending Physician AMMON BOWER/M EN [id number] Kentrell Isbell DO Specimen: [id number] Received: 06/01/24 Status: BARBARA Salazar Num: [id number] Spec Type: COLON BX Subm Dr: Kentrell [...] submitted in one cassette. Laine 06/02/2024 TC:4 CPT:31255b8 Patient Age/Sex Location Account Attending Physician AMMON BOWER/Marcos EN [id number] Kentrell Friend, DO Signed (signature on file) Dr. Duran Nj MD 06/03/24 1206 Normal [facility] Comment on above: Performed By: #### P SUIV ####[facility] [address] [place], [place], [address] MR/Jung 05-28-2024 MR/[facility] Medical Records Department [address] [place] [address] PAT - Anesthesia 05/28/24 1741 MR#: [id number] Acct: [id number] Name: AMMON BOWER Rep #: [id number] : 1980 43 From: Best Parker MD PCP: Dr. Jass Ching MD Status:PRE [facility] Y Race: AA Location: EN Pre-Assessment Diagnosis/Proposed Procedure Planned Operative Procedure(s): COLONOSCOPY Anesthesia History Anesthesia History - silverer: Anesthesia History - silverer Hx Hospitalization No 05/28/24 14:43 Any Problems [...] take am of surgery PONV PONV - silverer: PONV - silverer Female No 05/28/24 14:43 HX of Motion Sickness No 05/28/24 14:43 HX of N/V After Surgery No 05/28/24 14:43 Non-Smoker Yes 05/28/24 14:43 Duration of Surgery greater No 05/28/24 14:43 than 60 minutes Number of Risk Factors 1 05/28/24 14:43 PONV Score Low Risk 05/28/24 14:43 Height Weight Height Weight: Anesthesia: Height Weight Height 6 ft 03/26/24 12:46 Respiratory Assessment Respiratory Assessment - silverer: Respiratory Tract Infection Hx - silverer Hx Respiratory Tract Infection No 05/28/24 14:43 STOP Sleep Apnea STOP Sleep Apnea - silverer: STOP Sleep Apnea - silverer Hx Hypertension No 05/28/24 14:43 Hx Sleep [...] Tobacco Use History Tobacco Use History - silverer: Tobacco Use History - silverer Tobacco Use Smoking Status Former smoker 05/28/24 14:43 Hx Tobacco Use No 05/28/24 14:43 Years Smoking Packs Smoked per Day Smoking Cessation Date was Yes - quit smoking within 15 05/28/24 14:43 within the last 15 years years Hx Smoking Cessation Date 05/06/21 05/28/24 14:43 Hx Smoking Cessation Counseling Hematologic Medial History Hematologic Hx - silverer: 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 Specify any problems Hx of Preganancy in last 3 N/A 05/28/24 14:43 Months Nurse Filling Out Transfusion [facility] 05/28/24 14:43 Questions: Date: 05/28/24 05/28/24 14:43 Time: 14:49 05/28/24 14:43 Patient unable to answer at this time (ie. confused, unrespo /Reproduction History /Reproductive History - silverer: /Reproductive Hx- silverer Hx Now Gestational Age (in weeks): EDC: [...] members: sp (more content not included)... Normal [facility] CBC W/Diff, Automatedon 03-06 Absolute Lymph 1.77 X10 3/uL Normal 0.83-4.51 [facility] Comment on above: Performed By: #### L 500.4050, L501.9910, L100.0100, L500.4100 ####[facility] [address] [place], [address] Absolute Neut 3.2 X10 3/uL Normal 2.0-7.7 [facility] Comment on above: Performed By: #### L 500.4050, L501.9910, L100.0100, L500.4100 ####[facility] [address] [place], [address] Basophils/100 WBC (Bld) 1.2 % High 0-1 [facility] Comment on above: Performed By: #### L 500.4050, L501.9910, L100.0100, L500.4100 ####[facility] [address] [place], [address] Eosinophils/100 WBC (Bld) 5.5 % High 0-5 [facility] Comment on above: Performed By: #### L 500.4050, L501.9910, L100.0100, L500.4100 ####[facility] [address] [place], [address] Erythrocyte distribution width (RBC) [Ratio] 11.8 % Normal 11.6-14.6 [facility] Comment on above: Performed By: #### L 500.4050, L501.9910, L100.0100, L500.4100 ####[facility] [address] [place], [address] Hematocrit (Bld) [Volume fraction] 38.4 % Low 40-54 [facility] Comment on above: Performed By: #### L 500.4050, L501.9910, L100.0100, L500.4100 ####[facility] [address] [place], [address] Hemoglobin (Bld) [Mass/Vol] 12.7 g/dL Low 13.0-16.5 [facility] Comment on above: Performed By: #### L 500.4050, L501.9910, L100.0100, L500.4100 ####[facility] [address] [place], [address] IG% 0.400 Normal 0.0-0.9 [facility] Comment on above: Result Comment: IG% - Immature Granulocytes (promyelocytes, myelocytes and metamyelocytes) > 1% indicates that a LEFT SHIFT is Present. Performed By: #### L 500.4050, L501.9910, L100.0100, L500.4100 ####[facility] [address] [place], [address] Lymphocytes/100 WBC (Bld) 31.2 % Normal 19-41 [facility] Comment on above: Performed By: #### L 500.4050, L501.9910, L100.0100, L500.4100 ####[facility] [address] [place], [address] MCH (RBC) [Entitic mass] 32.9 pg High 27.0-32.0 [facility] Comment on above: Performed By: #### L 500.4050, L501.9910, L100.0100, L500.4100 ####[facility] [address] [place], [address] MCHC (RBC) [Mass/Vol] 33.1 g/dL Normal 32-36 [facility] Comment on above: Performed By: #### L 500.4050, L501.9910, L100.0100, L500.4100 ####[facility] [address] [place], [address] MCV (RBC) [Entitic vol] 99.5 fL High 80-94 [facility] Comment on above: Performed By: #### L 500.4050, L501.9910, L100.0100, L500.4100 ####[facility] [address] [place], [address] Monocytes/100 WBC (Bld) 5.1 % Normal 0-10 [facility] Comment on above: Performed By: #### L 500.4050, L501.9910, L100.0100, L500.4100 ####[facility] [address] [place], [address] Neutrophils/100 WBC (Bld) 56.6 % Normal 47-70 [facility] Comment on above: Performed By: #### L 500.4050, L501.9910, L100.0100, L500.4100 ####[facility] [address] [place], [address] Nucleated RBC (Bld) [#/Vol] 0 10*3/uL Normal 0-5 [facility] Comment on above: Performed By: #### L 500.4050, L501.9910, L100.0100, L500.4100 ####[facility] [address] [place], [address] Platelet mean volume (Bld) [Entitic vol] 12.7 fL High 6.2-12.0 [facility] Comment on above: Performed By: #### L 500.4050, L501.9910, L100.0100, L500.4100 ####[facility] [address] [place], [address] Platelets (Bld) [#/Vol] 220 10*3/uL Normal 150-450 [facility] Comment on above: Performed By: #### L 500.4050, L501.9910, L100.0100, L500.4100 ####[facility] [address] [place], [address] RBC (Bld) [#/Vol] 3.86 10*6/uL Low 4.6-6.2 [facility] Comment on above: Performed By: #### L 500.4050, L501.9910, L100.0100, L500.4100 ####[facility] [address] [place], [address] RDW SD 43.1 fl Normal 35.1-43.9 [facility] Comment on above: Performed By: #### L 500.4050, L501.9910, L100.0100, L500.4100 ####[facility] [address] [place], [address] WBC (Bld) [#/Vol] 5.7 10*3/uL Normal 4.4-11.0 [facility] Comment on above: Performed By: #### L 500.4050, L501.9910, L100.0100, L500.4100 ####[facility] [address] [place], [address] [facility] 03-20-2024 Albumin [Mass/Vol] 4.2 g/dL Normal 3.2-5.0 [facility] Comment on above: Performed By: #### L 500.4050, L501.9910, L100.0100, L500.4100 ####[facility] [address] [place], [address] Albumin/Globulin [Mass ratio] 1.4 {ratio} Normal 0.9-2.4 [facility] Comment on above: Performed By: #### L 500.4050, L501.9910, L100.0100, L500.4100 ####[facility] [address] [place], [address] ALK P 66 U/L Normal 45-117 [facility] Comment on above: Performed By: #### L 500.4050, L501.9910, L100.0100, L500.4100 ####[facility] [address] [place], [address] ALT [Catalytic activity/Vol] 46 U/L Normal 16-61 [facility] Comment on above: Performed By: #### L 500.4050, L501.9910, L100.0100, L500.4100 ####[facility] [address] [place], [address] AST [Catalytic activity/Vol] 25 U/L Normal 15-37 [facility] Comment on above: Performed By: #### L 500.4050, L501.9910, L100.0100, L500.4100 ####[facility] [address] [place], [address] Bilirubin [Mass/Vol] 1.90 mg/dL High 0.20-1.00 [facility] Comment on above: Result Comment: For patients on eltrombopag therapy, use of Dimension [place] TBIL is not recommended. Performed By: #### L 500.4050, L501.9910, L100.0100, L500.4100 ####[facility] [address] [place], [address] BUN/CRE 12.3 RATIO Normal 10-20 [facility] Comment on above: Performed By: #### L 500.4050, L501.9910, L100.0100, L500.4100 ####[facility] [address] [place], [address] CA,Total 8.4 mg/dL Low 8.5-10.1 [facility] Comment on above: Performed By: #### L 500.4050, L501.9910, L100.0100, L500.4100 ####[facility] [address] [place], [address] Chloride [Moles/Vol] 106 mmol/L Normal 98-107 [facility] Comment on above: Performed By: #### L 500.4050, L501.9910, L100.0100, L500.4100 ####[facility] [address] [place], [address] CO2 [Moles/Vol] 30.0 mmol/L Normal 21.0-32.0 [facility] Comment on above: Performed By: #### L 500.4050, L501.9910, L100.0100, L500.4100 ####[facility] [address] [place], [address] Creatinine [Mass/Vol] 1.06 mg/dL Normal 0.70-1.30 [facility] Comment on above: Result Comment: The validity of the calculated GFR GFRAA in patients over 70 years has not been determined. Clinical correlation is essential. Performed By: #### L 500.4050, L501.9910, L100.0100, L500.4100 ####[facility] [address] [place], [address] EST GFR - AA 97 mL/min Normal >60 [facility] Comment on above: Result Comment: Afri can [place] GFR Calc Performed By: #### L 500.4050, L501.9910, L100.0100, L500.4100 ####[facility] [address] [place], [address] GAP 4 Low 5-15 [facility] Comment on above: Performed By: #### L 500.4050, L501.9910, L100.0100, L500.4100 ####[facility] [address] [place], [address] GFR/1.73 sq M.predicted among non-blacks MDRD (S/P/Bld) [Vol rate/Area] 80 mL/min/{1.73_m2} Normal >60 [facility] Comment on above: Result Comment: Non- GFR Calc Performed By: #### L 500.4050, L501.9910, L100.0100, L500.4100 ####[facility] [address] [place], [address] Globulin (S) [Mass/Vol] 3.0 g/dL Normal 2.2-4.2 [facility] Comment on above: Performed By: #### L 500.4050, L501.9910, L100.0100, L500.4100 ####[facility] [address] [place], [address] Glucose [Mass/Vol] 158 mg/dL High 74-106 [facility] Comment on above: Result Comment: Fast ing Glucose result greater than or equal to 126 mg/dL suggests DIABETES MELLITUS per A.D.A. criteria. Performed By: #### L 500.4050, L501.9910, L100.0100, L500.4100 ####[facility] [address] [place], [address] Potassium [Moles/Vol] 3.9 mmol/L Normal 3.5-5.1 [facility] Comment on above: Performed By: #### L 500.4050, L501.9910, L100.0100, L500.4100 ####[facility] [address] [place], [address] Sodium [Moles/Vol] 140 mmol/L Normal 136-145 [facility] Comment on above: Performed By: #### L 500.4050, L501.9910, L100.0100, L500.4100 ####[facility] [address] [place], [address] T PROT 7.2 g/dL Normal 6.4-8.2 [facility] Comment on above: Performed By: #### L 500.4050, L501.9910, L100.0100, L500.4100 ####[facility] [address] [place], [address] Urea nitrogen [Mass/Vol] 13 mg/dL Normal 7-18 [facility] Comment on above: Performed By: #### L 500.4050, L501.9910, L100.0100, L500.4100 ####[facility] [address] [place], [address] Hemoglobin A1con 03-20-2024 HbA1c (Bld) [Mass fraction] 4.9 % Normal 3.8-5.6 [facility] Comment on above: Result Comment: Norm al < 5.7 % Prediabetic 5.7 - 6.4 % Diabetic >or= 6.5 % Please note range changes. Performed By: #### L 136.9937 ####[facility] [address] [place], [address] Internal Medicine Office Vis iton 03-20-2024 Internal Medicine Office Visit [facility] [address] [place], [place] [address] OFFICE VISIT Date of Service: 03/20/24 MR#: [id number] Acct: [id number] Name: AMMON BOWER Rep #: [id number] : 1980 Provider: Dr. 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 Normal [facility] Lipid Profileon 03-20-2024 Cholesterol [Mass/Vol] 179 mg/dL Normal 200 [facility] Comment on above: Result Comment: <200 mg/dL Desirable 200-240 mg/dL Borderline >240 mg/dL High Risk Performed By: #### L 500.4050, L501.9910, L100.0100, L500.4100 ####[facility] [address] [place], [place], [address] Cholesterol in HDL [Mass/Vol] 74 mg/dL Normal [facility] Comment on above: Result Comment: The drugs N-Acetylcysteine and Metamizole may falsely depress this assay. Reference Range HDL <40 mg/dL Low HDL Cholesterol HDL >or= 60 mg/dL High HDL Cholesterol Performed By: #### L 500.4050, L501.9910, L100.0100, L500.4100 ####[facility] [address] [place], [address] Cholesterol in LDL [Mass/Vol] 91 mg/dL Normal 0-130 [facility] Comment on above: Performed By: #### L 500.4050, L501.9910, L100.0100, L500.4100 ####[facility] [address] [place], [address] Cholesterol in VLDL [Mass/Vol] 14 mg/dL Normal 5-40 [facility] Comment on above: Performed By: #### L 500.4050, L501.9910, L100.0100, L500.4100 ####[facility] [address] [place], [address] Triglyceride [Mass/Vol] 68 mg/dL Normal [facility] Comment on above: Result Comment: The drugs N-Acetylcysteine and Metamizole may falsely depress this assay. Serum Triglycerides Reference Interval Normal <150 mg/dL Borderline high 150 - 199 mg/dL High 200 - 499 mg/dL Very High > or = 500 mg/dL Performed By: #### L 500.4050, L501.9910, L100.0100, L500.4100 ####[facility] [address] [place], [address] PSA,Total - Annual Screenon 03-20-2024 PSA,TOT SCREEN 0.50 ng/mL Normal 0.00-4.00 [facility] Comment on above: Result Comment: This test was performed using the TPSA assay method for the [employer] chemistry system. Values obtained with different assay methods cannot be used interchangably. When changing PSA assays in the course of monitoring a patient, additional sequential testing should be carried out to confirm baseline values. Performed By: #### L 500.4050, L501.9910, L100.0100, L500.4100 ####[facility] [address] [place], [address] Erythrocyte sedimentation ra teOrdered By: Jass Ching on 06-17-2023 ESR (Bld) [Velocity] 10 mm/h 0-20 [facility] No Panel InformationOrdered By: Jass Ching on 06-17-2023 C-Reactive Protein Extended Range < 2.90 mg/L 0.0-3.0 [facility] Comment on above: C-Reactive Protein ( CRP) provides useful information for thediagnosis, therapy and monitoring of inflammatory processesand associated diseases. For the evaluation of Relative Riskfor Cardiovascular Disease, a High Sensitivity CRP (HSCRP)should be ordered. Laboratory - Chemistry and C hemistry - challengeon 05-10-2023 Bilirubin Ql (U) Negative [facility] Glucose Ql (U) Negative [facility] Ketones Ql (U) Negative [facility] pH (U) 7.5 [pH] [facility] Specific gravity (U) [Rel density] 1.010 [facility] Urobilinogen (U) [Mass/Vol] 0.4021612 mg/dL [facility] Laboratory - Hematology and Cell countson 05-10-2023 Hemoglobin Ql (U) Negative [facility] Laboratory - Specimen inform ationon 05-10-2023 Clarity (U) Clear [facility] Color (U) Colorless [facility] Laboratory - Urinalysison Nitrite Ql (U) Negative [facility] Protein Ql (U) Negative [facility] No Panel Informationon 05-10 Urine Leukocytes Negatve [facility] Urine Non-Hemolyzed Blood [facility] STREP A MOLECULAR (POC)on Procedural Control Valid [facility] Strep A (POCT) Negative Negative [facility] No Panel Informationon 09-11 IMPRESSION: No radiographic evidence of acute osseous abnormality. Master Chef: PSCB Transcribe Date/Time: Sep 11 2021 9:44A Dictated by : CARMENCITA MATOS MD This examination was interpreted and the report reviewed and electronically signed by: CARMENCITA MATOS MD on Sep 11 2021 9:46AM EST ZZZ_DO_NOT_ USE_DIVISIO N OF RADIOLOGY Radiology Study observation (narrative) Luis Angel merchant [facility] No Panel InformationOrdered By: Ccf Provider on 09-11-2021 [facility] XR Hand - right PA and [...] preserved. ZZZ_DO_NOT_ USE_DIVISIO N OF RADIOLOGY Provider, [facility] César crandall [place] - 09/11/2021 * * *Final Report* * [...] No radiographic evidence of acute osseous abnormality. Master Chef: ANNA Transcribe Date/Time: Sep 11 2021 9:44A Dictated by : CARMENCITA MATOS MD This examination was interpreted and the report reviewed and electronically signed by: CARMENCITA MATOS MD on Sep 11 2021 9:46AM EST [facility] XR Wrist - right 4 Viewson [...] N OF RADIOLOGY Provider, [facility] César crandall [place] - 09/11/2021 * * *Final Report* * [...] No radiographic evidence of acute osseous abnormality. Master Chef: [facility] Transcribe Date/Time: Sep 11 2021 9:44A Dictated by : CARMENCITA MATOS MD This examination was interpreted and the report reviewed and electronically signed by: CARMENCITA MATOS MD on Sep 11 2021 9:46AM [facility] Absolute lymphocyte counton 08-14-2021 Lymphocytes Auto (Unsp spec) [#/Vol] 1.63 10*3/uL 0.83-4.51 [facility] Work Phone: Activated partial thrombopla stin time (aPTT) in platelet poor plasma by coagulation aon 08-14-2021 aPTT Coag (PPP) [Time] 34.5 s 24.1-36.2 [facility] Work Phone: Basophil percentageon 2021 Basophils/100 WBC (Bld) 0.3 % 0-1 [facility] Work Phone: Chloride [Moles/Vol] 105 mmol/L 98-107 [facility] Work Phone: Eosinophils/100 WBC (Bld) 2.6 % 0-5 [facility] Work Phone: Glucose [Mass/Vol] 109 mg/dL 74-106 [facility] Work Phone: Comment on above: Fasting Glucose resu lt from 100 to 125 mg/dL suggests IMPAIRED HOMEOSTASIS per A.D.A. criteria. Neutrophils (Bld) [#/Vol] 7.5 10*3/uL 2.0-7.7 [facility] [facility] Work Phone: Neutrophils/100 WBC (Bld) 73.9 % 47-70 [facility] Work Phone: Potassium [Moles/Vol] 3.8 mmol/L 3.5-5.1 [facility] Work Phone: Sodium [Moles/Vol] 139 mmol/L 136-145 [facility] Work Phone: WBC (Bld) [#/Vol] 10.2 10*3/uL 4.4-11.0 [facility]: Blood erythrocytes count (nu mber/volume)on 08-14-2021 RBC (Bld) [#/Vol] 3.79 10*6/uL 4.6-6.2 [facility] Work Phone: Blood hemoglobin measurement (mass/volume)on 08-14-2021 Hemoglobin (Bld) [Mass/Vol] 12.9 g/dL 13.0-16.5 [facility] Work Phone: Blood lymphocytes/100 leukoc yteson 08-14-2021 Lymphocytes/100 WBC (Bld) 15.9 % 19-41 [facility] Work Phone: Blood monocytes/100 leukocyt eson 08-14-2021 Monocytes/100 WBC (Bld) 6.9 % 0-10 [facility] Work Phone: Blood platelet mean volumeon 08-14-2021 Platelet mean volume (Bld) [Entitic vol] 12.3 fL 6.2-12.0 [facility] Work Phone: Determination of erythrocyte mean corpuscular volume (MCV)on 08-14-2021 MCV (RBC) [Entitic vol] 103.7 fL 80-94 [facility] Work Phone: Hematocrit Auto (Bld) [Volum e fraction]on 08-14-2021 Hematocrit (Bld) [Volume fraction] 39.3 % 40-54 [facility] Work Phone: INR in Blood by Coagulation assayon 08-14-2021 INR Coag (Bld) [Relative time] 1.1 {INR} [facility] Work Phone: Laboratory - Chemistry and C hemistry - challengeon 08-14-2021 CO2 [Moles/Vol] 32.0 mmol/L 21.0-32.0 [facility] Work Phone: Urea nitrogen/Creatinine [Mass ratio] 14.6 mg/mg 10-20 [facility] Work Phone: Laboratory - Coagulationon 0 08-14-2021 PT Coag (PPP) [Time] 13.3 s 11.7-14.9 [facility] Work Phone: Laboratory - Hematology and Cell countson 08-14-2021 Erythrocyte distribution width (RBC) [Entitic vol] 45.1 fL 35.1-43.9 [facility] Work Phone: Erythrocyte distribution width (RBC) [Ratio] 11.9 % 11.6-14.6 [facility] Work Phone: Immature granulocytes/100 WBC (Bld) 0.400 % 0.0-0.9 [facility] Work Phone: Comment on above: IG% - Immature Granu locytes (promyelocytes, myelocytes and metamyelocytes) > 1% indicates that a LEFT SHIFT is Present. MCH (RBC) [Entitic mass] 34.0 pg 27.0-32.0 [facility] Work Phone: Nucleated RBC/100 WBC (Bld) [Ratio] 0 % 0-5 [facility] Work Phone: MCHC Auto (RBC) [Mass/Vol]on 08-14-2021 MCHC (RBC) [Mass/Vol] 32.8 g/dL 32-36 [facility] Work Phone: No Panel Informationon 08-14 Troponin I High Sensitivity < 3 pg/mL 3.0-78.0 [facility] Work Phone: Comment on above: Please Note: New Leidy t Units and Gender Specific Reference Ranges. For more information see Policy Stat Procedure [place] High Sensitivity Troponin (TNIH) and attachments. D-Dimer Quantitative (PE/DVT) 1.13 FEU/ug/m 0.27-0.49 [facility] Work Phone: Comment on above: D-Dimer ELEVATED (>0 .49): Additional studies and clinicalassessments are indicated to conclude diagnosis of:Deep Vein Thrombosis (DVT) or Pulmonary Embolism (PE)CRITICAL VALUE VERIFIED. CALLED TO CAMILA RONDON08/14/21 1723 Nick Alcazar.RESULTS READ BACK BY SAME . Estimated Creatinine Clearance Calc 102.55 ml/min [facility] Work Phone: Estimated GFR (MDRD) Amer 102 mL/min >60 [facility] Work Phone: Comment on above: GFR Calc Estimated GFR (MDRD) Non-Af Amer 84 mL/min >60 [facility] Work Phone: Comment on above: Non- GFR Calc Platelets bldon 08-14-2021 Platelets (Bld) [#/Vol] 252 10*3/uL 150-450 [facility] Work Phone: Serum or plasma calcium klarissa urement (mass/volume)on 08-14-2021 Calcium [Mass/Vol] 9.2 mg/dL 8.5-10.1 [facility] r [facility] Work Phone: Serum or plasma creatinine m easurement (mass/volume)on 08-14-2021 Creatinine [Mass/Vol] 1.03 mg/dL 0.70-1.30 [facility] Work Phone: Comment on above: The validity of the calculated GFR & GFRAA in patients over 70 years has not been determined. Clinical correlation is essential. Serum or plasma urea nitroge n measurement (mass/volume)on 08-14-2021 Urea nitrogen [Mass/Vol] 15 mg/dL 7-18 [facility] Work Phone: Thin prep Papanicolaou smear with manual screeningon 08-14-2021 Thin prep Papanicolaou smear with manual screening 2 5-15 [facility] Work Phone: Absolute lymphocyte counton 08-12-2021 Lymphocytes Auto (Unsp spec) [#/Vol] 2.65 10*3/uL 0.83-4.51 [facility] Work Phone: Basophil percentageon 2021 Basophil percentage 0-5 SEEN /hpf Wo [facility] Work Phone: Basophils/100 WBC (Bld) 0.7 % 0-1 [facility] Work Phone: Bilirubin [Mass/Vol] 0.90 mg/dL 0.20-1.00 [facility] Work Phone: Comment on above: For patients on eltr ombopag therapy, use of Dimension [place] TBIL is not recommended. Chloride [Moles/Vol] 106 mmol/L 98-107 [facility] Work Phone: Eosinophils/100 WBC (Bld) 5.4 % 0-5 [facility] Work Phone: Glucose [Mass/Vol] 112 mg/dL 74-106 [facility] Work Phone: Comment on above: Fasting Glucose resu lt from 100 to 125 mg/dL suggests IMPAIRED HOMEOSTASIS per A.D.A. criteria. Neutrophils (Bld) [#/Vol] 5.2 10*3/uL 2.0-7.7 [facility] Work Phone: Neutrophils/100 WBC (Bld) 56.2 % 47-70 [facility] Work Phone: Potassium [Moles/Vol] 3.9 mmol/L 3.5-5.1 [facility] Work Phone: Protein [Mass/Vol] 7.9 g/dL 6.4-8.2 [facility] Work Phone: Sodium [Moles/Vol] 140 mmol/L 136-145 [facility] Work Phone: [phone] WBC (Bld) [#/Vol] 9.2 10*3/uL 4.4-11.0 [facility] Work Phone: Bilirubin Test strip Ql (U)o n 08-12-2021 Bilirubin Ql (U) Negative Negative [facility] Work Phone: Blood erythrocytes count (nu mber/volume)on 08-12-2021 RBC (Bld) [#/Vol] 3.98 10*6/uL 4.6-6.2 [facility] Work Phone: Blood hemoglobin measurement (mass/volume)on 08-12-2021 Hemoglobin (Bld) [Mass/Vol] 13.4 g/dL 13.0-16.5 [facility] Work Phone: Blood lymphocytes/100 leukoc yteson 08-12-2021 Lymphocytes/100 WBC (Bld) 28.8 % 19-41 [facility] Work Phone: Blood manual differential co mment interpretation (narrative result)on 08-12-2021 Manual differential comment Luis (Bld) [Interp] SCANNED [facility] Work Phone: Comment on above: AUTO DIFF OK Blood monocytes/100 leukocyt eson 08-12-2021 Monocytes/100 WBC (Bld) 8.4 % 0-10 [facility] Work Phone: Blood platelet mean volumeon 08-12-2021 Platelet mean volume (Bld) [Entitic vol] 11.5 fL 6.2-12.0 [facility] Work Phone: Determination of erythrocyte mean corpuscular volume (MCV)on 08-12-2021 MCV (RBC) [Entitic vol] 101.8 fL 80-94 [facility] Work Phone: Hematocrit Auto (Bld) [Volum e fraction]on 08-12-2021 Hematocrit (Bld) [Volume fraction] 40.5 % 40-54 [facility] Work Phone: Hyaline casts LM.LPF (Urine sed) [#/Area]on 08-12-2021 Hyaline casts (Urine sed) [#/Area] 0 /[LPF] [facility] Work Phone: Ketones Test strip Ql (U)on 08-12-2021 Ketones Ql (U) Negative Negative [facility] Work Phone: Laboratory - Chemistry and C hemistry - challengeon 08-12-2021 ALP [Catalytic activity/Vol] 94 U/L 45-117 [facility] Work Phone: ALT [Catalytic activity/Vol] 34 U/L 16-61 [facility] Work Phone: CO2 [Moles/Vol] 32.0 mmol/L 21.0-32.0 [facility] Work Phone: Globulin (S) [Mass/Vol] 3.8 g/dL 2.2-4.2 [facility] Work Phone: Lipase [Catalytic activity/Vol] 193 U/L 73-393 [facility] Work Phone: Urea nitrogen/Creatinine [Mass ratio] 12.3 mg/mg 10-20 [facility] Work Phone: Laboratory - Hematology and Cell countson 08-12-2021 Erythrocyte distribution width (RBC) [Entitic vol] 45.6 fL 35.1-43.9 [facility] Work Phone: Erythrocyte distribution width (RBC) [Ratio] 12.0 % 11.6-14.6 [facility] Work Phone: Immature granulocytes/100 WBC (Bld) 0.500 % 0.0-0.9 [facility] Work Phone: [phone] Comment on above: IG% - Immature Granu locytes (promyelocytes, myelocytes and metamyelocytes) > 1% indicates that a LEFT SHIFT is Present. MCH (RBC) [Entitic mass] 33.7 pg 27.0-32.0 [facility] Work Phone: Nucleated RBC/100 WBC (Bld) [Ratio] 0 % 0-5 [facility] Work Phone: MCHC Auto (RBC) [Mass/Vol]on 08-12-2021 MCHC (RBC) [Mass/Vol] 33.1 g/dL 32-36 [facility] Work Phone: Mucus LM Ql (Urine sed)on Mucus Ql (Urine sed) 0 SEEN /hpf [facility] Work Phone: Nitrite Test strip Ql (U)on 08-12-2021 Nitrite Ql (U) Negative Negative [facility] Work Phone: No Panel Informationon 08-12 Estimated Creatinine Clearance Calc 92.65 ml/min [facility] Work Phone: Estimated GFR (MDRD) Amer 90 mL/min >60 [facility] Work Phone: Comment on above: GFR Calc Estimated GFR (MDRD) Non-Af Amer 75 mL/min >60 [facility] Work Phone: Comment on above: Non- GFR Calc Platelets bldon 08-12-2021 Platelets (Bld) [#/Vol] 285 10*3/uL 150-450 [facility] Work Phone: Protein Test strip Ql (U)on 08-12-2021 Protein Ql (U) Negative Negative [facility] Work Phone: Serum or plasma albumin klarissa urement (mass/volume)on 08-12-2021 Albumin [Mass/Vol] 4.1 g/dL 3.2-5.0 [facility] Work Phone: Serum or plasma albumin/glob ulin mass ratioon 08-12-2021 Albumin/Globulin [Mass ratio] 1.1 {ratio} 0.9-2.4 [facility] Work Phone: Serum or plasma calcium klarissa urement (mass/volume)on 08-12-2021 Calcium [Mass/Vol] 9.3 mg/dL 8.5-10.1 [facility] Work Phone: Serum or plasma creatinine m easurement (mass/volume)on 08-12-2021 Creatinine [Mass/Vol] 1.14 mg/dL 0.70-1.30 [facility] Work Phone: Comment on above: The validity of the calculated GFR & GFRAA in patients over 70 years has not been determined. Clinical correlation is essential. Serum or plasma urea nitroge n measurement (mass/volume)on 08-12-2021 Urea nitrogen [Mass/Vol] 14 mg/dL 7-18 [facility] Work Phone: Squamous epithelial cells de tection in urine sediment by light microscopyon 08-12-2021 Epithelial cells.squamous LM Ql (Urine sed) 0-5 SEEN /hpf [facility] Work Phone: Thin prep Papanicolaou smear with manual screeningon 08-12-2021 Thin prep Papanicolaou smear with manual screening 14 U/L 15-37 [facility] Work Phone: Thin prep Papanicolaou smear with manual screening 2 5-15 [facility] Work Phone: Urine blood detectionon 04-0 RBC Ql (U) Negative Negative [facility] Work Phone: RBC Ql (U) 0 SEEN /hpf [facility] Work Phone: Urine clarityon 08-12-2021 Clarity (U) Clear Clear [facility] Work Phone: Urine color determinationon 08-12-2021 Color (U) Yellow Yellow [facility] Work Phone: Urine glucose detectionon Glucose Ql (U) Normal mg/dl Normal [facility] Work Phone: Urine leukocyte esterase det ection by dipstickon 08-12-2021 Leukocyte esterase Test strip Ql (U) 25 /ul Negative [facility] Work Phone: Urine pHon 08-12-2021 pH (U) 5.0 [pH] [facility] Work Phone: Urine sediment bacteria coun t by microscopy (number/high power field)on 08-12-2021 Bacteria LM.HPF (Urine sed) [#/Area] 0 /[HPF] None Seen [facility] Work Phone: Urine specific gravity measu rementon 08-12-2021 Specific gravity (U) [Rel density] 1.020 [facility] Work Phone: Urobilinogen Auto test strip Ql (U)on 08-12-2021 Urobilinogen Ql (U) Normal mg/dl Normal [facility] Work Phone: XR Cervical spine AP and Lat eral and obliqueon 07-04-2020 IMPRESSION: Mild spondylosis of the cervical spine. Master Chef: PSCJenny Transcribe Date/Time: Jul 04 2020 3:06P Dictated by : CAPO STRICKLAND MD This examination was interpreted and the report reviewed and electronically signed by: CAPO STRICKLAND MD on Jul 04 2020 3:07PM [facility] DIVISION OF RADIOLOGY * * *Final [...] IMPRESSION: Mild spondylosis of the cervical spine. Master Chef: ANNA Transcribe Date/Time: Jul 04 2020 3:06P Dictated by : CAPO STRICKLAND MD This examination was interpreted and the report reviewed and electronically signed by: CAPO STRICKLAND MD on Jul 04 2020 3:07PM EST [facility] Radiology Study observation (narrative) [facility] XR Cervical spine AP and Lat eral and obliqueOrdered By: Ccf Provider on 07-04-2020 [facility] Vital Signs Date Time Vital Sign Value Performing Clinician Facility 01-17-2025 12:04-0400 Body temperature 98.7 [degF] Dr. Jass Ching MD Work Phone: [facility] 01-17-2025 12:04-0400 Diastolic blood pressure 71 mm[Hg] Dr. Jass Ching MD Work Phone: [facility] 01-17-2025 12:04-0400 Heart rate 61 /min Dr. Jass Ching MD Work Phone: [facility] 01-17-2025 12:04-0400 Respiratory rate 18 /min Dr. Jass Ching MD Work Phone: [facility] 01-17-2025 12:04-0400 SaO2% (BldA) [Mass fraction] 99 % Dr. Jass Ching MD Work Phone: [facility] 01-17-2025 12:04-0400 Systolic blood pressure 134 mm[Hg] Dr. Jass Ching MD Work Phone: [facility] 01-17-2025 08:55-0400 Inhaled oxygen flow rate 100 L/min Dr. Jass Ching MD Work Phone: [facility] 01-17-2025 05:41-0400 Body height 182.[address] Jass Ching MD Work Phone: [facility] 01-17-2025 05:41-0400 Body mass index (BMI) [Ratio] 24.3 kg/m2 Dr. Jass Ching MD Work Phone: [facility] 01-17-2025 05:41-0400 Body weight 81.[address] Jass Ching MD Work Phone: [facility] 06-17-2023 09:13-0500 Body height 182.[address] Jass Ching Work Phone: [facility] 06-17-2023 09:13-0500 Body mass index (BMI) [Ratio] 24.5 kg/m2 Dr. Jass Ching Work Phone: [facility] 06-17-2023 09:13-0500 Body temperature 97.4 [degF] Dr. Jass Ching Work Phone: [facility] 06-17-2023 09:13-0500 Body weight 82.[address] Jass Ching Work Phone: [facility] 06-17-2023 09:13-0500 Diastolic blood pressure 80 mm[Hg] Dr. Jass Ching Work Phone: [facility] 06-17-2023 09:13-0500 Heart rate 87 /min Dr. Jass Ching Work Phone: [facility] 06-17-2023 09:13-0500 Respiratory rate 16 /min Dr. Jass Ching Work Phone: [facility] 06-17-2023 09:13-0500 SaO2% (BldA) [Mass fraction] 97 % Dr. Jass Ching Work Phone: [facility] 06-17-2023 09:13-0500 Systolic blood pressure 138 mm[Hg] Dr. Jass Ching Work Phone: [facility] 05-10-2023 13:31-0500 Body mass index (BMI) [Ratio] 24.8 kg/m2 Dr. Jass Ching Work Phone: [facility] 05-10-2023 13:31-0500 Body temperature 98 [degF] Dr. Jass Ching Work Phone: [facility] 05-10-2023 13:31-0500 Body weight [address] Jass Ching Work Phone: [facility] 05-10-2023 13:31-0500 Diastolic blood pressure 78 mm[Hg] Dr. Jass Ching Work Phone: [facility] 05-10-2023 13:31-0500 Heart rate 87 /min Dr. Jass Ching Work Phone: [facility] 05-10-2023 13:31-0500 Respiratory rate 16 /min Dr. Jass Ching Work Phone: [facility] 05-10-2023 13:31-0500 SaO2% (BldA) [Mass fraction] 97 % Dr. Jass Ching Work Phone: [facility] 05-10-2023 13:31-0500 Systolic blood pressure 118 mm[Hg] Dr. Jass Ching Work Phone: [facility] 07-05-2022 08:57-0500 Body temperature 98.71 [degF] Shashi Melara APRN.SURGICAL TECHNOLOGIST Work Phone: [facility] 07-05-2022 08:57-0500 Body weight 77.38 kg Shashi Kelton DIRECTOR SHIP.SURGICAL TECHNOLOGIST Work Phone: [facility] 07-05-2022 08:57-0500 Diastolic blood pressure 66 mm[Hg] Shashi Melara DIRECTOR SHIP.SURGICAL TECHNOLOGIST Work Phone: [facility] 07-05-2022 08:57-0500 Heart rate 78 /min Shashi Melara DIRECTOR SHIP.SURGICAL TECHNOLOGIST Work Phone: [facility] 07-05-2022 08:57-0500 Respiratory rate 16 /min Shashi Melara DIRECTOR SHIP.SURGICAL TECHNOLOGIST Work Phone: [facility] 07-05-2022 08:57-0500 SaO2% (BldA) [Mass fraction] 100 % Shashi Melara DIRECTOR SHIP.SURGICAL TECHNOLOGIST Work Phone: [facility] 07-05-2022 08:57-0500 Systolic blood pressure 122 mm[Hg] Shashi Melara DIRECTOR SHIP.SURGICAL TECHNOLOGIST Work Phone: [facility] 09-11-2021 08:57-0400 Body temperature 97.7 [degF] Leigha Marquez DIRECTOR SHIP.SURGICAL TECHNOLOGIST Work Phone: [facility] 09-11-2021 08:57-0400 Body weight 77.84 kg Leigha Marquez APRN.SURGICAL TECHNOLOGIST Work Phone: [facility] 09-11-2021 08:57-0400 Diastolic blood pressure 70 mm[Hg] Leigha Marquez DIRECTOR SHIP.SURGICAL TECHNOLOGIST Work Phone: [facility] 09-11-2021 08:57-0400 Heart rate 76 /min Leigha Marquez DIRECTOR SHIP.SURGICAL TECHNOLOGIST Work Phone: [facility] 09-11-2021 08:57-0400 Respiratory rate 16 /min Leigha Marquez DIRECTOR SHIP.SURGICAL TECHNOLOGIST Work Phone: [facility] 09-11-2021 08:57-0400 SaO2% (BldA) [Mass fraction] 98 % Leigha Marquez DIRECTOR SHIP.SURGICAL TECHNOLOGIST Work Phone: [facility] 09-11-2021 08:57-0400 Systolic blood pressure 126 mm[Hg] Leigha Marquez APRN.[facility] Work Phone: [facility] 08-14-2021 19:29-0400 Diastolic blood pressure 73 mm[Hg] [facility] Work Phone: 08-14-2021 19:29-0400 Heart rate 86 /min [facility] Work Phone: 08-14-2021 19:29-0400 Respiratory rate 23 /min [facility] Work Phone: 08-14-2021 19:29-0400 SaO2% (BldA) [Mass fraction] 98 % [facility] Work Phone: 08-14-2021 19:29-0400 Systolic blood pressure 135 mm[Hg] [facility] Work Phone: 08-14-2021 15:21-0400 Body height 182.88 cm [facility] Work Phone: 08-14-2021 15:21-0400 Body mass index (BMI) [Ratio] 23.7 kg/m2 [facility] Work Phone: 08-14-2021 15:21-0400 Body temperature 98.8 [degF] [facility] Work Phone: 08-14-2021 15:21-0400 Body weight 79.37 kg [facility] Work Phone: 08-12-2021 20:31-0400 Heart rate 74 /min [facility] Work Phone: 08-12-2021 20:31-0400 Respiratory rate 18 /min [facility] Work Phone: 08-12-2021 18:14-0400 Body height 182.88 cm [facility] Work Phone: 08-12-2021 18:14-0400 Body mass index (BMI) [Ratio] 23.7 kg/m2 [facility] Work Phone: 08-12-2021 18:14-0400 Body temperature 98.5 [degF] [facility] Work Phone: 08-12-2021 18:14-0400 Body weight 79.37 kg [facility] Work Phone: 08-12-2021 18:14-0400 Diastolic blood pressure 88 mm[Hg] [facility] Work Phone: 08-12-2021 18:14-0400 SaO2% (BldA) [Mass fraction] 98 % [facility] Work Phone: 08-12-2021 18:14-0400 Systolic blood pressure 131 mm[Hg] [facility] Work Phone: Encounters Encounter Date Encounter Type Care Provider Facility Start: 02-08-2025 End: 02-08-2025 ambulatory SELF Facility:[facility] Start: 01-21-2025 End: 01-21-2025 ambulatory KELLI POPE Facility:[facility] Start: 01-17-2025 End: 01-17-2025 Emergency department patient visit Dr. Jass Ching MD Work Phone: -Emergency Department Work Phone: Start: 06-01-2024 End: 06-01-2024 ambulatory Kentrell Isbell Facility:[facility] Start: 05-01-2024 Encounter for genera l adult medical examination without abnormal findings Jass Ching [facility] Start: 03-26-2024 ambulatory Jass Ching Facili ty:[facility] Start: 03-20-2024 End: 03-20-2024 ambulatory Jass Ching Facility:[facility] Start: 03-20-2024 End: 03-20-2024 ambulatory Jass Ching Facility:[facility] Start: 01-27-2024 ambulatory Jass Ching Facili ty:[facility] Start: 06-17-2023 End: 06-17-[address] Jass Ching Work Phone: [facility] Work Phone: Start: 06-17-2023 End: 06-17-[address] Jass Ching Work Phone: [facility] Internal [facility] Work Phone: Start: 05-10-2023 End: 05-10-[address] Jass Ching Work Phone: [facility] Internal [facility] Work Phone: Start: 07-05-2022 End: 07-05-2022 Patient encounter procedure Shashi Melara APRN.SURGICAL TECHNOLOGIST Work Phone: [facility] Comment on above: URI, acute (Primary Dx); Throat pain; Streptococcus exposure Start: 10-16-[address] Jass Ching Work Phone: [facility] Start: 09-11-2021 End: 09-11-2021 Subsequent hospital visit by physician Ayah [facility] Work Phone: Radiology Comment on above: Pain of right hand [ M79.641] Start: 09-11-2021 End: 09-11-2021 Patient encounter procedure Leigha Marquez APRN.SURGICAL TECHNOLOGIST Work Phone: [facility] Comment on above: Pain of right hand ( Primary Dx) Start: 08-14-2021 End: 08-14-2021 [facility] Start: 08-14-2021 End: 08-14-2021 Patient encounter procedure Radha Farias PA-C Work Phone: [facility] Comment on above: Chest pain, unspecif ied type (Primary Dx) Start: 08-12-2021 End: 08-12-2021 [facility] Start: 07-04-2020 End: 07-04-2020 Subsequent hospital visit by physician Ayah [facility] Work Phone: Radiology Comment on above: [...] 07-05-2022 STREP A MOLECULAR (POC) Shashi Melara DIRECTOR SHIP.SURGICAL TECHNOLOGIST Work Phone: Start: 09-11-2021 Radex hand minimum 3 views Leigha Marquez DIRECTOR SHIP.SURGICAL TECHNOLOGIST Work Phone: Start: 08-14-2021 CT angiography of ch est with contrast Start: 08-14-2021 Plain chest X-ray Start: 08-12-2021 CT of abdomen and pe lvis without contrast Start: 07-04-2020 Radex spine cervical 4 or 5 views Matthieu Clark MD Work Phone: Start: 08-17-2016 Lorie Farias PA-C Work Phone: Plan of Treatment Date Care Activity Detail Author Start: 12-20-2025 Colonoscopy COLONOSCOPY [facility] Start: 12-20-2025 COLORECTAL CANCER SCREENING COLORECTAL CANCER SCREENING [facility] Start: 12-20-2025 Screening for malign ant neoplasm of colon [facility] Start: 01-17-2025 Catarino Adams [facility] Start: 01-17-2025 Seizure precautions [facility] Start: 01-05-2024 Covid-19 Vaccine ( season) Covid-19 Vaccine ( season) [facility] Start: 01-05-2024 Influenza vaccination Influenza Vacc ine (#1) [facility] Start: 12-30-2023 Diabetes Screening Diabetes Screenin g [facility] Start: 12-30-2023 Screening for malign ant neoplasm of colon [facility] Start: 05-06-2022 DEPRESSION ASSESSMENT DEPRESSION ASS ESSMENT [facility] Start: 01-04-2022 Influenza vaccination INFLUENZ A (Season Ended) [facility] Start: 03-04-2021 COVID-19 VACCINE (3 - Booster for Pfizer series) COVID-19 VACCINE (3 - Booster for Pfizer series) [facility] Start: 07-29-2016 Urine microalbumin profile [facility] Start: 2013 Lipid panel Lipid Screening [facility] Start: 2013 LIPID SCREEN LIPID SCREEN [facility] Start: 1997 Hepatitis B Vaccine (1 of 3 - 19+ 3-dose series) Hepatitis B Vaccine (1 of 3 - 19+ 3-dose series) [facility] Start: 1996 Anxiety Screening Anxiety Screening [facility] Start: 1996 Depression Screening Depression Scre ening [facility] Start: 1996 HEPATITIS C SCREENING HEPATITIS C [facility] Start: 1996 Hepatitis C screening Hepatitis C [facility] Start: 1996 HIV SCREENING HIV SCREENING [facility] Start: 1996 HIV screening HIV Screening [facility] Start: 1990 Adult depression screening assessment DEPRESSION SCREENING [facility] Start: 1978 HEPATITIS B (1 of 3 - 3-dose series) HEPATITIS B (1 of 3 - 3-dose series) [facility] Patient Education [facility] Work Phone: Patient referral [facility] Work Phone: Immunizations Immunization Date Immunization Notes Care Provider Tianna knowles 03-20-2024 influenza, injectabl e, madin eran canine kidney, preservative free Dr. Jass Ching MD Work Phone: [facility] 01-24-2023 influenza, injectabl e, quadrivalent, preservative free Dr. Jass Ching Work Phone: [facility] 04-11-2022 influenza virus vaccine, unspecified formulation Xr [place] Work Phone: [facility] 10-02-2020 COVID-19 vaccine, ag e 12+ yr (PFIZER-BIONTECH - PURPLE TOP) Radha Farias [employer] Work Phone: [facility] 09-11-2020 COVID-19 vaccine, ag e 12+ yr (PFIZER-BIONTECH - PURPLE TOP) Radha [employer] Work Phone: [facility] 07-29-2006 diphtheria and tetan us toxoids, adsorbed for pediatric use Radha [employer] Work Phone: [facility] Work Phone: Payers Date Payer Category Payer Private Health Insurance [id number] 2024 Private Health Insurance [id number] 2023 Private Health Insurance [id number] 2023 Self-pay [id number] 2023 Unknown [id number] 2021 Private Health Insurance AETNA A ETNA CHOICE POS II [id number] 2021-Present [phone] [address] [place] [address] POS [id number] 2021 Private Health Insurance [id number] 2021 Unknown ANTHEM BLUE CARD PPO OOS [id number] 2021-Present [phone] [address] [place] [address] PPO [id number] 2016 Unknown [id number] 2014 Medicaid [employer] A[employer] MEDICAID [id number] 2014-Present [phone] [address] [place] [address] Medicaid [id number] 2014 Medicaid [id number] Unknown [id number] Unknown [id number] Unknown [id number] Unknown [id number] Unknown [id number] Unknown [id number] Unknown [id number] Social History Date Type Detail Facility Start: 08-12-2021 End: 06-17-2023 Tobacco smoking status UTIS Unknown if ever smoked [facility] Start: 1980 Sex Assigned At Male [facility] Start: 12-13-2015 End: 01-17-2025 Tobacco smoking status NHIS Ex-smoker [facility] End: 11-22-2015 History of tobacco use Current smoker [facility] Start: 12-13-2015 End: 07-04-2020 Tobacco use and exposure Smokeless tobacco non-user [facility] Start: 07-04-2020 End: 04-03-2021 Alcohol intake Current drinker of alcohol (finding) [facility] Start: 08-24-2014 History SDOH Alcohol Comment socially [facility] Start: 1980 Sex Assigned At Not on file [facility] Start: 06-04-2020 End: 09-11-2021 Exposure to SARS-CoV-2 (event) Not sure [facility] Work Phone: End: 11-22-2015 History of tobacco use Cigarette Smoker [facility] Start: 07-04-2020 End: 09-11-2021 History of Social function [facility] Start: 07-04-2020 End: 09-11-2021 Tobacco use panel [facility] National Score (1-100), lower number is lower risk Not on file [facility] Mental Status Date Assessment Result Facility 01-17-2025 Cognitive function Drowsy [facility] Work Phone: 01-17-2025 Cognitive function Arousable To Voice/Nam e [facility] Work Phone: 08-14-2021 Cognitive function Awake;Alert;A ppropriate;Foll ows Commands [facility] Work Phone: Clinical Notes 07-04-2020 to 02-08-2025 Shashi Melara APRN.SURGICAL TECHNOLOGIST - 07/05/2022 9:30 AM ESTPatient Rahcelle Matta, RT(R) - 09/11/2021 9:30 AM Evaristo Marquez APRN.SURGICAL TECHNOLOGIST - 09/11/2021 9:11 AM EDT Note Date & Type Note Facility 02-08-2025 Note HNO ID: [id number] Author: KELLI POPE PA-C Service: ? Author Type: Physician Oracle Programmer Type: Progress Notes Filed: 02/08/2025 15:17 Note Text: Kelli Pope PA-C Department of Orthopaedics Orthopaedics [address] [facility] [address] Dept: [phone] Dept February 08, 2025 CHIEF COMPLAINT: Shoulder [...] anxiety) This note was partially generated using devsisters voice recognition system, and there may be some incorrect words, spellings, and punctuation that were not noted in checking the note before saving. Kelli Pope PA-C [facility] 02-08-2025 Note HNO ID: [id number] Author: TRISTA QUEVEDO MA Service: ? Author Type: Build And Release Manager Type: Progress Notes Filed: 02/08/2025 15:17 Note Text: AMB ROOMING INTAKE FLOWSHEET DATA Pain Pain Level: 7 Pain Location: Shoulder-Left Description: Sharp, Radiating Duration Amount of Time: 3 Duration Units: Weeks Frequency: Intermittent Intervention/Comfort measure: Heat [facility] 01-22-2025 Note HNO ID: [id number] Author: LUIS ENRIQUE WOO APRN.SURGICAL TECHNOLOGIST Service: ? Author Type: Nurse Practitioner Type: Progress Notes Filed: 01/22/2025 14:12 Note Text: [facility] Epilepsy Center Review of Records Patient: Ammon Bower Address: [address] [place], [place] [id number] Impression: Review of records for Ammon Bower, a 44 year old male, being referred by [facility] to Any Epileptologist for further evaluation and [...] allergies, former smoker, ETOH abuse PRIOR EVALUATIONS: [place] [address] [place] [address] EEG (-): MRI brain wo/w contrast (-): -------- CINDY Recommendations: - Long EEG, consult with an Epileptologist - Additional testing to be considered by epilepsy clinicians Signed: Luis Enrique Woo APRN.SURGICAL TECHNOLOGIST January 22, [address] Madden for review and recommendations. ------- MD Recommendations (as discussed with Dr. Madden): - Routine EEG and visit with an Epileptologist [facility] 01-21-2025 Note HNO ID: [id number] Author: KELLI POPE PA-C Service: ? Author Type: Physician Oracle Programmer Type: Progress Notes Filed: 01/21/2025 15:24 Note Text: Kelli Pope PA-C Department of Orthopaedics Orthopaedics [address] [place] [address] Dept: [phone] January 21, 2025 CHIEF COMPLAINT: New and [...] a leave of absence from work at [employer] due to the injury. ASSESSMENT: S43.005A [...] hand. Imaging: CT scan right upper extremity [facility] January 17, 2025 Adequate alignment of the [...] anxiety) This note was partially generated using devsisters voice recognition system, and there may be some incorrect words, spellings, and punctuation that were not noted in (more content not included)... [facility] 01-17-2025 Radiology Diagnostic study note [facility] Imaging Services [address] [place] [address] Extremity Upper without Contra MR#: [id number] Acct: [id number] Name: AMMON BOWER Rep #: [id number] : 1980 M 44 From: Loi Garrett MD PCP: Dr. Jass Ching MD Status: [facility] ER Study:Extremity Upper without Contra Date of Exam: 01/17/25 Exam# [id number] Ordering Dr: Jenny Trejo MD PROCEDURE: EXTREMITY [...] Small left shoulder joint effusion. Reading Location: [facility] CC: Dr. Usman Trejo MD; Dr. Jass Ching MD ~ Master Chef: Signed [facility] 01-17-2025 Radiology Diagnostic study note [facility] Imaging Services [address] [place], [place] [address] Shoulder min 2 Views MR#: [id number] Acct: [id number] Name: AMMON BOWER Rep #: [id number] : 1980 M 44 From: Loi Garrett MD PCP: Dr. Jass Ching MD Status: R ER Study:Shoulder min 2 Views Date of Exam: 01/17/25 Exam# [id number] Ordering Dr: Jose Harper MD PROCEDURE: SHOULDER [...] left shoulder. No acute fractures. Reading Location: [facility] CC: Dr. Jass Ching MD; Dr. Sofiya Harper MD ~ Master Chef: Signed [facility] 01-17-2025 Radiology Diagnostic study note [facility] Imaging Services [address] [place] [address] Brain/Head without Contrast MR#: [id number] Acct: [id number] Name: AMMON BOWER Rep #: [id number] : 1980 M 44 From: Loi Garrett MD PCP: Dr. Jass Ching MD Status: R EG ER Study:Brain/Head without Contrast Date of Exa m: 01/17/25 Exam# [id number] Ordering Dr: Jose Harper MD PROCEDURE: BRAIN/HEAD [...] cervical spine fracture or malalignment. Reading Location: [facility] CC: Dr. Jass Ching MD; Dr. Sofiya Harper MD ~ Master Chef: Signed [facility] 01-17-2025 Radiology Diagnostic study note [facility] Imaging Services [address] [place] [place] [id number] Spine Cervical without Contras MR#: [id number] Acct: [id number] Name: AMMON BOWER Rep #: [id number] : 1980 M 44 From: Loi Garrett MD PCP: Dr. Jass Ching MD Status: R EG ER Study:Spine Cervical without Contras Date of Exam: 01/17/25 Exam# [id number] Ordering Dr: Jose Harper MD PROCEDURE: BRAIN/HEAD [...] cervical spine fracture or malalignment. Reading Location: [facility] CC: Dr. Jass Ching MD; Dr. Sofiya Harper MD ~ Master Chef: Signed [facility] 01-17-2025 Radiology Diagnostic study note [facility] Imaging Services [address] [facility] [place] [place] [id number] Shoulder min 2 Views MR#: [id number] Acct: [id number] Name: AMMON BOWER Rep #: [id number] : 1980 M 44 From: Mohsen Browne MD PCP: Dr. Jass Ching MD Status: R EG ER Study:Shoulder min 2 Views Date of Exam: 01/17/25 Exam# [id number] Ordering Dr: Jose Harper MD PROCEDURE: SHOULDER [...] posterior dislocation of the humerus Reading Location: [facility] CC: Dr. Jass Ching MD; Dr. Sofiya Harper MD ~ Master Chef: Signed [facility] 01-17-2025 Radiology Diagnostic study note [facility] Imaging Services [address] [place], [place] [address] Shoulder min 2 Views MR#: [id number] Acct: [id number] Name: AMMON BOWER Rep #: [id number] : 1980 M 44 From: Mohsen Browne MD PCP: Dr. Jass Ching MD Status: R EG ER Study:Shoulder min 2 Views Date of Exam: 01/17/25 Exam# [id number] Ordering Dr: Jose Harper MD PROCEDURE: SHOULDER MIN 2 VIEWS 01/17/2025 REASON FOR EXAM: DISLOCATION TECHNIQUE: Procedure Code: [facility] Modality: DX Procedure: SHOULDER MIN 2 VIEWS Laterality: Left COMPARISON: None. FINDINGS: Bones: Negative for fractures. Scapula otherwise negative. Proximal humerus negative. Clavicle negative. Joints: Intact. No joint effusion. Soft tissues: Adjacent structures negative. Other: Remainder of the exam negative. RAD/Shoulder min 2 Views IMPRESSION: Negative left shoulder. Reading Location: [id number] CC: Dr. Jass Ching MD; Dr. Sofiya Harper MD ~ Master Chef: Signed [facility] 06-01-2024 Note [facility] Medical Records Department [address] [place] [address] History Physical Exam 06/01/24 0956 MR#: [id number] Acct: [id number] Name: AMMON BOWER Rep #: [id number] : 1980 43 From: Kentrell Isbell DO PCP: Dr. Jass Ching MD Status:[facility] Location: [place] [address] HPI - General General Date of Admission: 06/01/24 Date of Service: 06/01/24 Chief Complaint: Screening colonoscopy HPI Narrative AMMON BOWER, is a 43 M who presents today for screening colonoscopy. He is not having any abdominal pain, cramping, chest pain or shortness of breath. He does not take any medicines on daily basis. Overall he is in very good health. [facility] Medical History Eczema Former smoker Blood [...] Jass Ching MD; Kentrell Isbell DO Signed [facility] 07-05-2022 History of Present illness Narrative Subjective [...] Shashi Melara APRN.YAMINI documented in this encounter [facility] 09-11-2021 Instructions Leigha Marquez APRN.YAMINI - 09/11/2021 9:55 AM EDT - RICE therapy - see patient instructions for further recommendations. - F/U with PCP in 5-7 days or before if worse. - Discussed Red Flag signs and when to go to ER. - Reviewed plan of care and DC papers with patient. Verbalized understanding. documented in this encounter [facility] 09-11-2021 History of Present illness Narrative [...] 2021 9:33 AM documented in this encounter [facility] 09-11-2021 History of Present illness Narrative [...] No radiographic evidence of acute osseous abnormality. Master Chef: ANNA Transcribe Date/Time: Sep 11 2021 9:44A Dictated by : CARMENCITA MATOS MD TECHNIQUE: 3 view radiographic study of the right hand and 4 view radiographic study of the right wrist COMPARISON: None FINDINGS: No acute fracture or dislocation identified. Mild remote posttraumatic bowing deformity of the fifth metacarpal. Joint spaces preserved. IMPRESSION IMPRESSION: No radiographic evidence of acute osseous abnormality. Master Chef: ANNA Transcribe Date/Time: Sep 11 2021 9:44A Dictated by : CARMENCITA MATOS MD Patient instructed to rest, ice and alternate ibuprofen and tylenol. patient instructed to give it several more days and follow up with PCP if it does not seem to be getting better. Patient was okay with this care plan. Leigha Marquez APRN.CNP documented in this encounter [facility] 08-14-2021 History of Present illness Narrative Patient presents with [facility] care triage with chest pain and back pain. He was seen in the ED 2 days ago for similar complaints and had a ct flank done which was unremarkable per patient and . He is in severe pain here, recommended he be seen again in the ED. His will take him there across the street to [facility] by personal vehicle. documented in this encounter [facility] 07-04-2020 History of Present illness Narrative [...] 2020 11:04 AM documented in this encounter [facility] Evaluation note No assessment inform ation available [facility] Work Phone: Evaluation note Diagnosis Chest pain, unspecified type- Primary [facility] Diagnosis Pain of right hand- Primary Pain in limb documented in this encounter [facility] note* Diagnosis URI, acute- Primary Acute upper respiratory infections of unspecified site Throat pain Streptococcus exposure Contact with or exposure to other communicable diseases [facility] Diagnosis Onset Date Resolution Status Back pain acute SI (sacroiliac) joint inflammation acute Arthritis acute Low back pain chronic [facility] Work Phone: Evaluation note* Diagnosis Pain of right hand Pain in limb [facility] Diagnosis Upper back pain on right side Pain in thoracic spine Radicular pain in right arm Neuralgia, neuritis, and radiculitis, unspecified [facility] instructions[facility] Instructions Wear the sling at all times. Follow up with the orthopedic doctor below in the next week. No driving until cleared by neurology. If you have another seizure prior to following up with neurology, return to the ER.[facility] Work Phone: Reason for referral (narrative)* Diagnostic Procedure Only (Urgent) - Closed Specialty Diagnoses / Procedures Referred By Christin miller Referred To Contact XR IMAGING Diagnoses Pain of right hand Procedures XR WRIST INJURY 4V PA/LAT/OBL/SCAPH RIGHT RADEX WRIST COMPLETE MINIMUM 3 VIEWS Leigha Marquez APRN.SURGICAL TECHNOLOGIST [address] [place] [address] Xr Imaging Referral ID Status Reason Start Date Expiration Date V isits Requested Visits Authorized [id number] Closed Auto-Generate d Referral 09/11/2021 10/11/2022 1 1 * Diagnostic Procedure Only (Urgent) - Closed Specialty Diagnoses / Procedures Referred By Contac t Referred To Contact XR IMAGING Diagnoses Pain of right hand Procedures XR HAND GENERAL 3V PA/LAT/OBL RIGHT RADEX HAND MINIMUM 3 VIEWS Leigha Marquez APRN.SURGICAL TECHNOLOGIST [address] [place] [address] Xr Imaging Referral ID Status Reason Start Date Expiration Date V isits Requested Visits Authorized [id number] Closed Auto-Generate d Referral 09/11/2021 10/11/2022 1 1 [facility] for referral (narrative)* Diagnostic Procedure Only (Urgent) - Closed Specialty Diagnoses / Procedures Referred By Contac t Referred To Contact XR IMAGING Diagnoses Pain of right hand Procedures XR WRIST INJURY 4V PA/LAT/OBL/SCAPH RIGHT RADEX WRIST COMPLETE MINIMUM 3 VIEWS Leigha Marquez APRN.SURGICAL TECHNOLOGIST [address] [place] [address] [place] [address] Referral ID Status Reason Start Date Expiration Date V isits Requested Visits Authorized [id number] Closed Auto-Generate d Referral 09/11/2021 10/11/2022 1 1 * Diagnostic Procedure Only (Urgent) - Closed Specialty Diagnoses / Procedures Referred By Contac t Referred To Contact XR IMAGING Diagnoses Pain of right hand Procedures XR HAND GENERAL 3V PA/LAT/OBL RIGHT RADEX HAND MINIMUM 3 VIEWS Leigha Marquez APRN.SURGICAL TECHNOLOGIST [address] [place] [address] [place] [address] Referral ID Status Reason Start Date Expiration Date V isits Requested Visits Authorized [id number] Closed Auto-Generate d Referral 09/11/2021 10/11/2022 1 1 [facility] for referral (narrative)No [facility] referral [facility] Work Phone: Rejqcq for visit Narrative* Diagnostic Procedure Only (Urgent) - Closed Specialty Diagnoses / Procedures Referred By Contac t Referred To Contact XR IMAGING Diagnoses Pain of right hand Procedures XR WRIST INJURY 4V PA/LAT/OBL/SCAPH RIGHT RADEX WRIST COMPLETE MINIMUM 3 VIEWS Leigha Marquez APRN.SURGICAL TECHNOLOGIST [address] [place] [address] [place] [address] Referral ID Status Reason Start Date Expiration Date V isits Requested Visits Authorized [id number] Closed Auto-Generate d Referral 09/11/2021 10/11/2022 1 1 [facility] Chief Complaint and Reason for Visit [...] No August 12, 2021 6:25pm Power of Mixing Machine Attendant No August 12 6:25pm Documents on File Type Date Recorded Patient Pie Cutter Expl anation Advance Directive(s) 12/21/2015 5:53 AM Advance Directive(s) 12/14/2015 10:43 AM Advance Directive Response Recorded Date/ Time Advance Directives No May 17, 2016 8:32pm Living Will No August 14, 2021 3:42pm Power of Mixing Machine Attendant No August 14 3:42pm Documents on File Type Date Recorded Patient Pie Cutter Expl anation Advance Directive(s) 12/21/2015 5:53 AM Advance Directive(s) 12/14/2015 10:43 AM Advance Directive Response Recorded Date/ Time Advance Directives No May 17, 2016 7:32pm Living Will No August 14, 2021 2:42pm Power of Mixing Machine Attendant No August 14 2:42pm Advance Directive Response Recorded Date/ Time Do you have a Healthcare Power of Mixing Machine Attendant? No January 17, 2025 5:46am Advance Directives [...] or prosecute any alcohol or drug abuse patient.[facility] the event this information is protected by the Federal Confidentiality of Alcohol and Drug Abuse Patient Records regulations: The Federal rules restrict any use of the information to criminally investigate or prosecute any alcohol or drug abuse patient.[facility] the event this information is protected by the Federal Confidentiality of Alcohol and Drug Abuse Patient Records regulations: The Federal rules restrict any use of the information to criminally investigate or prosecute any alcohol or drug abuse patient.[facility] the event this information is protected by the Federal Confidentiality of Alcohol and Drug Abuse Patient Records regulations: The Federal rules restrict any use of the information to criminally investigate or prosecute any alcohol or drug abuse patient.[facility] the event this information is protected by the Federal Confidentiality of Alcohol and Drug Abuse Patient Records regulations: The Federal rules restrict any use of the information to criminally investigate or prosecute any alcohol or drug abuse patient.[facility] Reason for Visit (unrecogniz ed section and content) Reason Comments Hand Injury right, hit on dish s atellite while starting mower x 1 day Reason Comments Throat Problem Pt reported +strep e xposure throat pain x2 days. Care Teams (unrecognized sec tion and content) Team Status: Active Member Role Status Dates No Primary Care Physician Family Provider Active Dr. Jass hCing MD Primary Care Provider Active Team Status: [...] content) DATE CREATED AUTHOR 01/23/2025 [facility] DATE CREATED AUTHOR AUTHOR'S WENDY HARRIS 02/11/2025 [facility] FOR RECORDS PERTAINING TO PATIENTS WHO ARE [...] ON THE PRIMARY CLINICAL RECORDS. [facility] [employer] [facility]. provides no warranty or guarantee of the accuracy or completeness of information in this document.
[2025-02-26 23:18] VITALS: BMI 23.8
[2025-02-26] MEDS: 0.9% Normal Saline (1000mL) 1,000 ML 150 ML IV (23:44)
[2025-02-26] MEDS: Pantoprazole Sodium 80 MG in 0.9% Normal Saline (100mL Bag) 80 ML 10 MG CONT INF (23:45)
[2025-02-27 00:20] LABS: Ferritin 189 ng/mL (37-417); Iron 31 ug/dL (65-175); Iron Binding Capacity,Total 281 ug/dL (250-450); Iron Binding Capacity,Unsat 250 ug/dL (228-428); Magnesium 1.9 mg/dL (1.5-2.2); Vitamin B12 766 pg/mL (180-914)
[2025-02-27 04:07] VITALS: BP 130/95; PULSE 64; RESP 16; TEMP 36.8; O2SAT 100
[2025-02-27 06:00] VITALS: BMI 24.0
[2025-02-27 06:41] LABS: Hematocrit 31.1 % (40-54); Hemoglobin 10.3 g/dL (13.0-16.5); Immature Granulocytes Count 0.030 X10^3/uL (0.0-0.0); Mean Corp Hgb Conc 33.1 g/dL (32-36); Mean Corpuscular Volume 100.6 fL (80-94); Mean Platelet Vol. 11.9 fl (6.2-12.0); NRBC Flagged by Analyzer 0 % (0-5); Platelet Count 230 K/mm3 (150-450); RBC Distribution Width CV 11.9 % (11.6-14.6); RBC Distribution Width SD 43.0 fl (35.1-43.9); Red Blood Count 3.09 M/mm3 (4.6-6.2); White Blood Count 7.6 K/mm3 (4.4-11.0)
[2025-02-27 07:11] LABS: AST(SGOT) 15 U/L (<=37); Alanine Aminotransfer ALT/SGPT 16 U/L (<=46); Albumin, Serum 3.7 g/dL (3.5-5.0); Alkaline Phosphatase 53 U/L (40-129); Anion Gap 7 (5-15); BUN 15 mg/dL (4-19); BUN/Creat Ratio 17.1 RATIO (10-20); Calcium,Total 8.2 mg/dL (7.6-11.0); Carbon Dioxide 24.0 mmol/L (21.0-32.0); Chloride 109 mmol/L (98-108); Estimated Creatinine Clearance 113.83 ml/min (50-250); Globulin 2.1 g/dL (2.2-4.2); Glucose 104 mg/dL (70-99); Potassium 4.1 mmol/L (3.3-5.1)
[2025-02-27 07:23] LABS: FOLATES,SERUM (FOLIC ACID) 11.80 ng/mL (4.60-34.80)
[2025-02-27] MEDS: 0.9% Normal Saline (1000mL) 1,000 ML 150 ML IV (09:28)
[2025-02-27 10:00] VITALS: BP 135/95; PULSE 65; RESP 14; TEMP 36.1; O2SAT 100
[2025-02-27] MEDS: Pantoprazole Sodium 40 MG in 0.9% Normal Saline (100mL MB+) 100 ML 300 MG IV (10:04)
[2025-02-27 11:08] LABS: Hematocrit 32.9 % (40-54); Hemoglobin 11.0 g/dL (13.0-16.5); POSITIVE MORPHOLOGY YES
--- NOTE | 2025-02-27 11:42 | CASEMGMT ---
ADI RAM Assessment Face to Face with patient for initial transition planning/care coordination assessment. ADI RAM introduced self and role at [facility], pt voices understanding. Pt is A&Ox4 and is resting comfortably in bed and is calm. Care providers, pharmacy, and demographics verified. Admitting dx: UGIB with Melena after NSAID Overuse LACE Strata: 1 PCP: Jeane Specialists: Rachel Argueta ([place] - Ortho) Preferred Pharmacy: [facility] Insurance: Cign[employer] Prescription Benefit: Yes LNOK: Gricelda (W) Living Arrangements: Pt lives with his and 2 kids (Ages 15, 10) in a 2 story home with a flat entrance ADLs/IADLs: Indep. 6-Click is 24 Transportation: Self, DME: Denies HHC/SNF: Denies Pt’s goal: Home Plan: Per rounds, pts Hgb has improved and the pt will DC today and follow up with GI as an OP. Pt states that he feels safe with this plan and denies any further questions, concerns, or DC needs. Jenny Blanco RN, CM
--- NOTE | 2025-02-27 14:07 | DCINST_ITS ---
Discharge Instructions DC O2, CPAP, BIPAP needs Home O2 Discharge instructions: No Dressing / Incision Discharge Activity: Return to Normal Activity Weight Bearing Status: Full weight bearing Follow Up Care Test Results: Test results from this visit will be discussed in further detail at your follow- up appointment, if applicable. Discharge Plan Admission Admit Date/Time: 02/26/25 23:01 Primary Reason for Your Visit: anemia, melena Attending Provider: Ludin Ewing Primary Care Provider: Jass Ching Consulting Providers: Frankie Mcmillan Discharge Orders/Prescriptions Prescriptions: No Action ibuprofen 800 mg tablet 800 mg PO Q8H PRN PRN (Reason: pain) Referrals / Follow Up: Jass Ching MD [Primary Care Provider, Internal Medicine]
--- NOTE | 2025-02-27 15:04 | DCINST_ITS ---
Discharge Instructions DC O2, CPAP, BIPAP needs Home O2 Discharge instructions: No Dressing / Incision Discharge Activity: Return to Normal Activity Weight Bearing Status: Full weight bearing Follow Up Care Test Results: Test results from this visit will be discussed in further detail at your follow- up appointment, if applicable. Discharge Plan Admission Admit Date/Time: 02/26/25 23:01 Primary Reason for Your Visit: anemia, melena Attending Provider: Ludin Ewing Primary Care Provider: Jass Ching Consulting Providers: Frankie Mcmillan Instructions Additional Instructions / Restrictions: Avoid use of ibuprofen, Aleve, or aspirin Discharge Orders/Prescriptions Prescriptions: New tramadol 100 mg tablet 100 mg PO Q6H PRN (Reason: pain) 5 Days Qty: 20 0RF pantoprazole 40 mg tablet,delayed release (DR/EC) 40 mg PO DAILY Qty: 30 0RF Discontinued ibuprofen 800 mg tablet 800 mg PO Q8H PRN PRN (Reason: pain) Referrals / Follow Up: Jass Ching MD [Primary Care Provider, Internal Medicine] - Within 1 Week Disposition Disposition (needs filled in before D/C Order can be placed): Against Medical Advice
--- NOTE | 2025-02-27 15:12 | DS.PCM_ITS ---
Providers Date of Admission: 02/26/25 Date of Discharge: 02/27/25 Primary Care Physician: Dr. Jass Ching MD Reason For Visit: UGIB WITH MELENA AFTER NSAID OVERUSE Diagnosis Discharge Diagnosis (1) Upper GI bleed: Status: Acute Code(s): K92.2 - Gastrointestinal hemorrhage, unspecified (2) Melanotic stools: Status: Acute Code(s): K92.1 - Melena (3) Adverse drug reaction: Status: Acute Code(s): T50.905A - Adverse effect of unspecified drugs, medicaments and biological substances, initial encounter Qualifiers: Encounter type: initial encounter Qualified Code(s): T50.905A - Adverse effect of unspecified drugs, medicaments and biological substances, initial encounter (4) Hyperglycemia: Status: Acute Code(s): R73.9 - Hyperglycemia, unspecified Plan 1. Melena #2 acute blood loss anemia #3 noncompliance with medical advice Medications at Discharge Home Medications pantoprazole 40 mg tablet,delayed release 40 mg PO DAILY #30 tabs 02/27/25 tramadol 100 mg tablet 100 mg PO Q6H PRN pain 5 days #20 tabs 02/27/25 Hospital Course Operations None Procedures None Summary of Care Provided Minutes Spent on Discharge: 30 Hospital Course: This 44-year-old black male was seen in the emergency room at [facility] with complaints of black stool, he had been taking ibuprofen for a shoulder injury. Workup in the emergency room included a hemoglobin which was low at 11.1 as compared with the hemoglobin and [place] of this year at 12.8. Emergency room physician did not Hemoccult his stool, patient was admitted to PCU and repeat hemoglobin in the next morning was 10.3. I talked with the patient on 02/27/2025 and told him I would like to repeat his hemoglobin at 11 AM and that if it was stable or it had declined just slightly he would be discharged on medications and he was not to take any ibuprofen. In the afternoon of 02/27/2025, patient contacted nursing and expressed his desire to sign out AMA, I offered to send medications to his pharmacy but he declined, I decided to send these medications anyway. On 02/27/2025, patient was seen and examined: On examination he appeared in good health and spirits. Vital signs as documented. Skin warm and dry and without overt rashes. Neck without JVD, neck was supple, trachea midline, thyroid was normal. Lungs clear bilaterally, normal air movement was noted. Heart exam notable for regular rhythm, normal sounds and absence of murmurs, rubs or gallops. Abdomen unremarkable and without evidence of organomegaly, masses, or abdominal aortic enlargement. Bowel sounds are present, abdomen is not distended. Extremities nonedematous, no cyanosis was noted, no clubbing was noted. Neuro: Cranial nerves II through XII are grossly intact, no focal motor deficits were noted, sensation to light touch and pinprick intact, motor exam 5/5 throughout. Psych: Patient is alert and oriented x3, he does not appear anxious or depressed, he does not appear agitated. Patient was discharged AGAINST MEDICAL ADVICE on 02/27/2025. Weight / BMI Weight Weight: 80.6 kg Body Mass Index (BMI) 24.0 ABG / Lab / Microbiology Data 02/27/25 11:01 02/27/25 05:59 Laboratory: Laboratory Results - last 24 hr 02/26/25 21:31: Lactic Acid 1.2 02/26/25 21:32: WBC 10.1, RBC 3.21 L, Hgb 11.1 L, Hct 31.4 L, MCV 97.8 H, MCH 34.6 H, MCHC 35.4, RDW Std Deviation 42.5, RDW Coeff of Jamar 11.9, Plt Count 270, MPV 11.7, Immature Gran % (Auto) 0.400, Neut % (Auto) 64.8, Lymph % (Auto) 24.4, Wood % (Auto) 4.9, Eos % (Auto) 4.9, Baso % (Auto) 0.6, Absolute Neuts (auto) 6.5, Absolute Lymphs (auto) 2.46, Nucleated RBC % 0, Sodium 139, Potassium 3.7, Chloride 105, Carbon Dioxide 23.0, Anion Gap 11, BUN 17, Creatinine 0.93, Estim Creat Clear Calc 108.94, Est GFR (MDRD) Non-Af 103, BUN/Creatinine Ratio 18.8, G lucose 173 H, Hemoglobin A1c 4.8, Calcium 8.7, Magnesium 1.9, Iron 31 L, TIBC 281, Iron Saturation 11.1, Unsaturated IBC 250, Ferritin 189, Vitamin B12 766, TSH 0.695, Blood Type O POSITIVE, Antibody Screen NEGATIVE 02/27/25 05:59: WBC 7.6, RBC 3.09 L, Hgb 10.3 L, Hct 31.1 L, MCV 100.6 H, MCH 33.3 H, MCHC 33.1 D, RDW Std Deviation 43.0, RDW Coeff of Jamar 11.9, Plt Count 230, MPV 11.9, Immature Gran % (Auto) 0.400, Neut % (Auto) 62.8, Lymph % (Auto) 23.7, Wood % (Auto) 6.5, Eos % (Auto) 5.7 H, Baso % (Auto) 0.9, Absolute Neuts (auto) 4.8, Absolute Lymphs (auto) 1.80, Nucleated RBC % 0, Sodium 140, Potassium 4.1, Chloride 109 H, Carbon Dioxide 24.0, Anion Gap 7, BUN 15, Creatinine 0.89, Estim Creat Clear Calc 113.83, Est GFR (MDRD) Non-Af 107, BUN/Creatinine Ratio 17.1, Glucose 104 H, Calcium 8.2, Phosphorus 2.8, Total Bilirubin 1.04, AST 15, ALT 16, Alkaline Phosphatase 53, Total Protein 5.7 L, Albumin 3.7, Globulin 2.1 L, Albumin/Globulin Ratio 1.8, Serum Folate 11.80 02/27/25 11:01: Hgb 11.0 L, Hct 32.9 L D/C Instructions Weight Bearing Status: Full weight bearing DC O2, CPAP, BIPAP Needs Home O2 Discharge instructions: No Meaningful Use Info Meaningful Use Meaningful Use Diagnoses (Choose all that apply): None applicable Discharge Plan Admission Admit Date/Time: 02/26/25 23:01 Primary Reason for Your Visit: anemia, melena Attending Provider: Ludin Ewing Primary Care Provider: Jass Ching Consulting Providers: Frankie Mcmillan Instructions Additional Instructions / Restrictions: Avoid use of ibuprofen, Aleve, or aspirin Discharge Orders/Prescriptions Prescriptions: New tramadol 100 mg tablet 100 mg PO Q6H PRN (Reason: pain) 5 Days Qty: 20 0RF pantoprazole 40 mg tablet,delayed release (DR/EC) 40 mg PO DAILY Qty: 30 0RF Discontinued ibuprofen 800 mg tablet 800 mg PO Q8H PRN PRN (Reason: pain) Referrals / Follow Up: Jass Ching MD [Primary Care Provider, Internal Medicine] - Within 1 Week Disposition Disposition (needs filled in before D/C Order can be placed): Against Medical Advice Charges/Coding Visit Charges Inpatient E&M: [id number] Disch Hosp
== END 2025-02-27 14:14 | disposition left against medical advice (07) ==
LOC: ED 22:20 → PCU 23:15
PROVIDERS: Admitting Provider Internal Medicine; Emergency Provider Emergency Medicine; PCP Internal Medicine; Visit Provider Internal Medicine
DX: K92.1 Melena (principal); Z79.1 Long term (current) use of non-steroidal anti-inflammatories (NSAID); R73.9 Hyperglycemia, unspecified; R03.0 Elevated blood-pressure reading, without diagnosis of hypertension; T39.395A Adverse effect of other nonsteroidal anti-inflammatory drugs [NSAID], initial encounter; D62 Acute posthemorrhagic anemia; Z87.891 Personal history of nicotine dependence; Z91.199 Patient's noncompliance with other medical treatment and regimen due to unspecified reason
CPT/HCPCS: 36415; 80048; 80053; 82607; 82728; 82746; 83036; 83540; 83550; 83605; 83735; 84100; 84443; 85014; 85018; 85025; 86850; 86900; 86901; 94668; 96361; 96365; 96375; 96376; 99221; 99285; A4216; G0378

== ENCOUNTER 2025-03-30 07:26 | Emergency (ER) | payer OTHER, SELFPAY ==
[2025-03-30 07:26] VITALS: BP 157/95; PULSE 65; RESP 14; TEMP 36.8; O2SAT 98; BMI 24.3
--- NOTE | 2025-03-30 07:43 | EDS_ITS ---
HPI History of Present Illness Chief Complaint: Dental Detail of Chief Complaint: Dental pain facial swelling Informant: patient Narrative Narrative: Patient presents with facial swelling and dental pain. Patient states he woke up this morning with swelling to the left upper face. He denies fevers or chills or sweats. He denies any trauma to his face. He has no medical history. PFSH PFSH Medical History Eczema Former smoker Blood glucose elevated Colon cancer screening Arthritis Low back pain Anemia Encounter to establish care Preventative health care History of pneumonia Seasonal allergies Alcohol abuse Home Medications Medication Instructions Recorded Last Taken Type pantoprazole 40 mg tablet,delayed 40 mg PO DAILY #30 t abs 02/27/25 Unknown Rx release tramadol 100 mg tablet 100 mg PO Q6H PRN pain 5 day s #20 02/27/25 Unknown Rx tabs clindamycin HCl 300 mg capsule 300 mg PO Q6H #40 CAPSU LES 03/30/25 Unknown Rx (Cleocin HCl) hydrocodone-acetaminophen 5-325mg 1 tab PO Q4H PRN PRN Pain 2 days 03/30/25 Unknown Rx 5mg-325mg #10 TABLETS Allergy/AdvReac Type Severity Reaction Status Date / Time tomato Allergy Hives Verified 03/30/25 07:29 Family History Unknown Colon polyps Father Pancreatic cancer Other Cancer Diabetes Hypertension Surgical History History of wisdom tooth extraction Hx of colonoscopy Social History household members: spouse current occupational status: employed Smoking Status: Former smoker alcohol intake: current substance use type: does not use what type of physical activity do you participate in: none ROS ROS ED ROS Narrative Left upper facial swelling, dental pain Review of Systems ROS Unobtainable: other Constitutional Constitutional ED: Reports lethargy; Denies chills, fever(s), sweats or weight loss Eyes Eyes: Denies blurry vision, change in vision or diplopia ENT ENT ED: Denies rhinorrhea or sore throat Cardiovascular Cardiovascular: Denies chest pain, orthopnea or racing heartbeat Respiratory/Chest Respiratory/Chest: Denies cough, dyspnea, dyspnea on exertion, orthopnea or sputum Gastrointestinal Gastrointestinal: Denies abdominal pain, diarrhea, nausea or vomiting Genitourinary Genitourinary ED: Denies dysuria, hematuria or urinary frequency Musculoskeletal Musculoskeletal: Denies arthralgias, back pain, myalgias or neck pain Integumentary Denies abscess, Abrasions or rash Neurologic Neurologic: Denies headache(s) or weakness Psychiatric Psychiatric: Denies anxiety, depression or suicidal thoughts Endocrine Endocrinology: Denies polydipsia, polyphagia or polyuria Hematologic/Lymphatic Hematologic/Lymphatic: Denies easy bleeding, easy bruising or lymphadenopathy Allergic/Immunologic Allergic/Immunologic ED: Denies mouth swelling, tongue swelling or urticaria EXAM Physical Exam Const Vital Signs: 03/30/25 07:26 03/30/25 07:52 Temperature 98.3 F 98.3 F Temperature Source Temporal Pulse Rate 65 65 Respiratory Rate 14 14 Blood Pressure 157/95 H 157/95 H Blood Pressure Mean 115 115 Pulse Ox 98 98 Oxygen Delivery Method Room Air Positive well nourished and well developed General Appearance ED: well developed and NAD HEENT Reports TM's clear and moist mucous membranes HEENT Narrative: Dentition-patient has tenderness palpation over tooth #14. Tooth appears to be broken and. He does have facial swelling left upper face. No fluctuance noted to the gingiva. No facial erythema or cellulitis. Uvula midline without sarah mus normocephalic and atraumatic; Negative for trauma or tenderness Tympanic Membrane ED: Yes TM's clear Eyes PERRL and EOMs intact bilaterally General Eye ED: Negative for pale conjunctiva or scleral icterus Neck no lymphadenopathy, supple and no JVD General: Negative for tenderness Chest Wall inspection of chest normal and palpation of chest normal Chest: Negative for tenderness Resp normal respiratory effort and clear to auscultation bilaterally Effort and Inspection: Negative for respiratory distress or pain with movement Auscultation: Negative for rhonchi, wheezes or diminished lung sounds Cardio regular rate, regular rhythm, S1 normal heart sound, S2 normal heart sound and no murmurs Peripheral Pulses: pulses 2+ throughout GI normal to inspection, nondistended, normoactive bowel sounds, soft to palpation, non-tender, non-distended and no masses Back/Spine no CVA tenderness and no thoracic nor lumbar tenderness Extremity normal to inspection General Extremety ED: Negative for edema General Extremity: Negative for edema Neuro oriented x3, CN's II-XII intact bilaterally, no sensory deficits noted and gait normal Sensorium / Orientation: awake, alert, oriented to person, oriented to place and oriented to time Motor Exam: strength 5/5 throughout and strength abnormal Psych mental status grossly normal Skin no rashes or lesions noted and no wounds MDM MDM MDM Narrative Medical decision making narrative: Patient presents with dental pain and facial swelling. Suspect early developing abscess. Nothing amenable to incision and drainage at this time. Will start him on clindamycin and give him a few [place] for pain. Will refer to dentist for follow-up. Discharge Plan Triage Chief Complaint: Dental ED Provider: Jen Knight Dx/Rx/DC Orders Clinical Impression: Pain, dental, Abscess, dental Instructions: Dental Abscess, ED Dental Pain Prescriptions: New clindamycin HCl [Cleocin HCl] 300 mg capsule 300 mg PO Q6H Qty: 40 0RF hydrocodone-acetaminophen 5-325 mg tablet 1 tab PO Q4H PRN PRN (Reason: Pain) 2 Days Qty: 10 0RF No Action tramadol 100 mg tablet 100 mg PO Q6H PRN (Reason: pain) 5 Days Qty: 20 0RF pantoprazole 40 mg tablet,delayed release (DR/EC) 40 mg PO DAILY Qty: 30 0RF Primary Care Provider: Jass Ching Referrals: Jass Ching MD [Primary Care Provider, Internal Medicine] - 3-5 Days Print Language: Burmese Disposition Disposition: Home, Self Care
[2025-03-30 07:52] VITALS: BP 157/95; PULSE 65; RESP 14; TEMP 36.8; O2SAT 98
--- OUTSIDE RECORDS SUMMARY | 2025-03-30 08:02 | XMS RPT_ITS | CCD ---
Author Organization [facility] Care Team Providers Care Wax Molder Name Role Phone Unavailable Primary Care Provider UnavailDr. Jass Shaw Primary Care Provider [phone] Dr. Jass Ching Referring Provider [phone] NEERAJ Clarke Attending Provider [phone] Dr. Jass Ching Attending Provider [phone] Primary Care Provider UnavailDr. Jass Shaw MD Primary Care Provider Meredith DIGGS, Dr. Arriaza Emergency Provider Unavailab Sofiya Mckoy Attending Unavailable Oleghe, Efewongbe Primary Care Unavailable Oleghe, Efewongbe Referring Unavailable Oleghe, Efewongbe Primary Care Unavailable Oleghe, Efewongbe Attending Unavailable Oleghe, Efewongbe Referring Unavailable Oleghe, Efewongbe Primary Care Unavailable Oleghe, Efewongbe Attending Unavailable Frankie Mcmillan Attending Unavailable Oleghe, Efewongbe Primary Care Unavailable Frankie Mcmillan Admitting Unavailable Frankie Mcmillan Consulting Unavailable Oleghe, Efewongbe Primary Care Unavailable Friend, Kentrell Attending Unavailable Oleghe, Efewongbe Referring Unavailable Ludin Ewing Attending Unavailable Ludin Ewing Consulting Unavailable Oleghe, Efewongbe Primary Care Unavailable Friend, Kentrell Consulting Unavailable Friend, Kentrell Attending Unavailable Oleghe, Efewongbe Referring Unavailable Oleghe, Efewongbe Primary Care Unavailable Lorin Melara Attending Unavailable Ludin Ewing Attending Unavailable Oleghe, Efewongbe Primary Care Unavailable de Magdi, Frankie Admitting Unavailable Frankie Mcmillan Consulting Unavailable KELLI POPE Attending Unavailable KELLI POPE Referring Unavailable SELF Referring Unavailable KELLI POPE Attending Unavailable SELF Referring Unavailable KELLI POPE Attending Unavailable Allergies Allergy Classification Reported Allergen(s) Allergy Type Date of Onset Reaction(s) Facility (5 sources) tomato allergenic extract Drug Allergy 10-12-2018 [facility] (1 source) tomato allergenic extract Drug Allergy 02-26-2025 [facility] Repository (1 source) tomato allergenic extract; Translations: [TOMATO (SOLANUM LYCOPERSICUM)] Drug Allergy 10-12-2018 [facility] Repository Medications Current Medications Medication Drug [...] on above: Take 1 tablet by aston every 4 hours as needed. acetaminophen 325 [...] 500 mg PO TWICE A DAY 20 0 May 15, 2016 1:00am August 08, 2016 2:56pm cyclobenzaprine hydrochloride 10 mg oral tablet (10 sources) Muscle Relaxant Start: 05-10-2023 End: 03-20-2024 Cyclobenzaprine 10 mg tablet Discontinued 10 mg PO BEDTIME as needed for muscle spasm 10 0 May 10, 2023 1:00am March 20, 2024 2:18pm Back pain Dorsalgia, unspecified may cause drowsniess take at night do not drive or operate machinery Start: 07-04-2020 End: 09-28-2021 take 1 tablet by mouth three times daily as needed for muscle spasms Cyclobenzaprine 10 mg tablet Discontinued 10 mg PO THREE TIMES A DAY as needed for Muscle Spasm 20 0 August 12, 2021 12:00am September 28, 2021 [...] PO DAILY as needed for pain 90 1 June 17, 2023 1:00am March 20, 2024 [...] tablet Discontinued 40 mg PO DAILY 10 5 May 10, 2023 1:00am May 14, 2023 [...] Active Problems Problem Classification Problem Date Documented Da te Episodic/Chronic Abdominal pain (9 sources) Abdominal pain; Translations: [Unspecified abdominal pain] Onset: 8 05-08-2007 Episodic Administrative/social admission (1 source) First encounter by subject; Translations: [Persons encountering health services in other specified circumstances] 10-16-2021 Episodic Contraceptive and procreative management (7 sources) Patient encounter status; Translations: [Encounter for sterilization] Onset: 5 10-08-2014 Episodic Deficiency and other anemia (7 sources) Anemia; Translations: [Anemia, unspecified] Onset: 7 03-14-2007 Episodic Diabetes mellitus without complication (3 sources) Hyperglycemia; Translations: [Hyperglycemia, unspecified] Onset: 5 03-20-2024 Episodic Diverticulosis and diverticulitis (10 sources) Diverticulitis of large intestine without perforation or abscess without bleeding; Translations: [Diverticulitis of colon (without mention of hemorrhage)] Onset: 7 05-13-2007 Chronic E Codes: Adverse effects of medical drugs (2 sources) Adverse effect of unspecified drugs, medicaments and biological substances, initial encounter; Translations: [Adverse effect of unspecified drugs, medicaments and biological substances, initial encounter] Onset: 5 Episodic Epilepsy; convulsions (2 sources) Seizure; Translations: [Unspecified convulsions] Onset: 5 01-17-2025 Episodic Gastrointestinal hemorrhage (4 sources) Gastrointestinal hemorrhage, unspecified; Translations: [Melena] Onset: 5 Episodic Genitourinary symptoms and ill-defined conditions (4 sources) Dysuria; Translations: [Dysuria] 08-06-2016 Episodic Joint disorders and dislocations; trauma-related (2 sources) Posterior dislocation of left humerus, initial encounter; Translations: [Closed posterior dislocation of left shoulder] Onset: 5 01-17-2025 Episodic Nonspecific chest pain (1 source) Chest pain; Translations: [Chest pain, unspecified] Episodic Osteoarthritis (3 sources) Arthritis; Translations: [Unspecified osteoarthritis, unspecified site] 06-17-2023 Chronic Other connective tissue disease (5 sources) Radicular pain; Translations: [Neuralgia and neuritis, unspecified] Onset: 1 07-13-2020 Episodic Other connective tissue disease (2 [...] penis] 08-06-2016 Chronic Other non-traumatic joint disorders (2 sources) Pain in unspecified shoulder; Translations: [Pain in unspecified shoulder] Onset: 5 Episodic Other non-traumatic joint disorders (1 source) Pain in left shoulder; Translations: [Pain in left shoulder] Onset: 5 Episodic Other upper respiratory disease (2 sources) [...] Brachial neuritis; Translations: [Radiculopathy, cervical region] Onset: 2 01-25-2012 Episodic Comment on above: Tenderness on palpat ion to Right SI joint region without evidence of sciatica symptomsno red flag sx history of diverticulitis-states sx were previously to RLQ , no abdominal tenderness on exam and no GI sx, suscipion for recurrent diverticulitis is low at this time Unclassified (1 source) New Onset: Past or Other Problems Problem Classification Problem [...] Test Name Value Interpretation Reference Range Facility CNCOon 03-15-[address] 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 Kelli Pope PA-C 03/15/2025 8:40 AM Signed Kelli Pope PA-C Department of Orthopaedics Orthopaedics [address] [place] [id number] Dept: [phone] Dept March 15, 2025 CHIEF COMPLAINT: Follow Up and Dislocation of the Left Shoulder (8 weeks post Left shoulder dislocation - Needs clearance for work) Mr. Ammon Bower is a 44 year old male status post left shoulder dislocation. The patient experienced a dislocation of the shoulder. He did use a sling for a few weeks following the injury, we transitioned him out of the sling and got him on an oral anti-inflammatory. Unfortunately the patient had discontinued the entire laboratory secondary to GI upset. The patient did not participate in physical therapy and he notes great improvement in the range of motion in his shoulder, no longer having any pain. Was able to carry some items from his basement up the stairs without any issue. He feels ready to return to work, some aspects of his job requires him to lift 50 pounds overhead, he is asking to not do any overhead lifting for the next days. He is fine with returning to work full duty after that. ASSESSMENT: S43.005D Dislocation of left shoulder joint, subsequent encounter (primary encounter diagnosis) R56.9 Seizure (HCC) PLAN: Patient will return to work tomorrow with restrictions in place for the next 8 days. Return to work full duty thereafter. He can follow-up on an as needed basis. Mr. Ammon Bower was advised as to [...] x 3, good mood and affect. Musculoskeletal: Supple range of motion of the cervical spine without pain. Spurling signs are negative. No atrophy of the deltoid and shoulder musculature. left shoulder is nontender to palpation over the SC joint, clavicle and AC joint. no tenderness to palpation over the posterior shoulder, nontender at anterior lateral corner of the shoulder and greater tuberosity. Nontender at the bicipital groove and coracoid. Active range of motion is 165 degrees of forward elevation, 50 degrees external rotation, and internal rotation to the upper lumbar spine. Passive range of motion is 170 degrees, 55 degrees, , respectively. No laxity with anterior and posterior stress. Negative Neer and negative Joyce impingement signs. 5/5 strength with supraspinatus, infraspinatus and subscapularis. Sensation is intact in the axillary, radial, median and ulnar nerve distribution Imaging: Deferred today Supporting Subjective Information Below: Past Surgical History: PAST SURGICAL HISTORY Procedure Laterality Date COLONOSCOPY FLX DX W/COLLJ SPEC WHEN PFRMD 05/13/2007 Colonoscopy SIGMOIDOSCOPY FLX W/BIOPSY SINGLE/MULTIPLE 08/08/2016 VASECTOMY UNI/BI SPX W/POSTOP SEMEN EXAMS 09/17/14 Medications: Current Outpatient Medications Medication Sig ibuprofen (MOTRIN) 800 mg tablet Take 1 tablet by mouth every 8 hours as needed (for pain.). (Patient not taking: Reported on 03/15/2025) No current facility-administered medications for this visit. Allergies: Tomato (Solanum Lycopersicum) ROS: General (negative for fatigue, malaise, weight loss/gain) HEENT (negative for headache, earache, recent vision changes, sinus pain, sore throat) Respiratory (no recent shortness of breath, hemoptysis) CV (negative for chest tightness, palpitations) Musculoskeletal (see HPI) Psych (no depression, anxiety) This note was partially generated using [employer] voice recognition system, and there may be some incorrect words, spellings, and punctuation that were not noted in checking the note before saving. Kelli Pope PA-C Referring Provider: SELF [200] Allergies As of Date: 03/15/2025 Noted Allergy Reaction TOMATO (SOLANUM LYCOPERSICUM) 10/12/2018 4 - Hives Date Reviewed: 03/15/2025 Reviewed by: Ludivina Oliva MA - Fully Assessed Reason (more content not included)... Normal [facility] CBC W/Diff, Automatedon 10-2 Absolute Lymph 1.80 X10 3/uL Normal 0.83-4.51 [facility] Comment on above: Performed By: #### L 100.0100, L500.4050, L501.2300 #### [facility] [address] [place], [address] Absolute Neut 4.8 X10 3/uL Normal 2.0-7.7 [facility] Comment on above: Performed By: #### L 100.0100, L500.4050, L501.2300 #### [facility] [address] [place], [address] Basophils/100 WBC (Bld) 0.9 % Normal 0-1 [facility] Comment on above: Performed By: #### L 100.0100, L500.4050, L501.2300 #### [facility] [address] [place], [address] Eosinophils/100 WBC (Bld) 5.7 % High 0-5 [facility] Comment on above: Performed By: #### L 100.0100, L500.4050, L501.2300 #### [facility] [address] [place], [address] Erythrocyte distribution width (RBC) [Ratio] 11.9 % Normal 11.6-14.6 [facility] Comment on above: Performed By: #### L 100.0100, L500.4050, L501.2300 #### [facility] [address] [place], [address] Hematocrit (Bld) [Volume fraction] 31.1 % Low 40-54 [facility] Comment on above: Performed By: #### L 100.0100, L500.4050, L501.2300 #### [facility] [address] [place], [address] Hemoglobin (Bld) [Mass/Vol] 10.3 g/dL Low 13.0-16.5 [facility] Comment on above: Performed By: #### L 100.0100, L500.4050, L501.2300 #### [facility] [address] [place], [address] IG% 0.400 Normal 0.0-0.9 [facility] Comment on above: Result Comment: IG% - Immature Granulocytes (promyelocytes, myelocytes and metamyelocytes) > 1% indicates that a LEFT SHIFT is Present. Performed By: #### L 100.0100, L500.4050, L501.2300 #### [facility] [address] [place], [address] Lymphocytes/100 WBC (Bld) 23.7 % Normal 19-41 [facility] Comment on above: Performed By: #### L 100.0100, L500.4050, L501.2300 #### [facility] [address] [place], [address] MCH (RBC) [Entitic mass] 33.3 pg High 27.0-32.0 [facility] Comment on above: Performed By: #### L 100.0100, L500.4050, L501.2300 #### [facility] [address] [place], [address] MCHC (RBC) [Mass/Vol] 33.1 g/dL Normal 32-36 [facility] Comment on above: Performed By: #### L 100.0100, L500.4050, L501.2300 #### [facility] [address] [place], [address] MCV (RBC) [Entitic vol] 100.6 fL High 80-94 [facility] Comment on above: Performed By: #### L 100.0100, L500.4050, L501.2300 #### [facility] [address] [place], [address] Monocytes/100 WBC (Bld) 6.5 % Normal 0-10 [facility] Comment on above: Performed By: #### L 100.0100, L500.4050, L501.2300 #### [facility] [address] [place], [address] Neutrophils/100 WBC (Bld) 62.8 % Normal 47-70 [facility] Comment on above: Performed By: #### L 100.0100, L500.4050, L501.2300 #### [facility] [address] [place], [address] Nucleated RBC (Bld) [#/Vol] 0 10*3/uL Normal 0-5 [facility] Comment on above: Performed By: #### L 100.0100, L500.4050, L501.2300 #### [facility] [address] [place], [address] Platelet mean volume (Bld) [Entitic vol] 11.9 fL Normal 6.2-12.0 [facility] Comment on above: Performed By: #### L 100.0100, L500.4050, L501.2300 #### [facility] [address] [place], [address] Platelets (Bld) [#/Vol] 230 10*3/uL Normal 150-450 [facility] Comment on above: Performed By: #### L 100.0100, L500.4050, L501.2300 #### [facility] [address] [place], [address] RBC (Bld) [#/Vol] 3.09 10*6/uL Low 4.6-6.2 [facility] Comment on above: Performed By: #### L 100.0100, L500.4050, L501.2300 #### [facility] [address] [place], [address] RDW SD 43.0 fl Normal 35.1-43.9 [facility] Comment on above: Performed By: #### L 100.0100, L500.4050, L501.2300 #### [facility] [address] [place], [address] WBC (Bld) [#/Vol] 7.6 10*3/uL Normal 4.4-11.0 [facility] Comment on above: Performed By: #### L 100.0100, L500.4050, L501.2300 #### [facility] [address] [place], [address] Comprehensive Metabolic [facility] ilon 02-27-2025 Albumin [Mass/Vol] 3.7 g/dL Normal 3.5-5.0 [facility] Comment on above: Performed By: #### L 100.0100, L500.4050, L501.2300 #### [facility] [address] [place], [address] Albumin/Globulin [Mass ratio] 1.8 {ratio} Normal 0.9-2.4 [facility] Comment on above: Performed By: #### L 100.0100, L500.4050, L501.2300 #### [facility] [address] [place], [address] ALK PHOS 53 U/L Normal 40-129 [facility] Comment on above: Performed By: #### L 100.0100, L500.4050, L501.2300 #### [facility] [address] [place], [address] ALT [Catalytic activity/Vol] 16 U/L Normal <=46 [facility] Comment on above: Performed By: #### L 100.0100, L500.4050, L501.2300 #### [facility] [address] [place], [address] AST [Catalytic activity/Vol] 15 U/L Normal <=37 [facility] Comment on above: Performed By: #### L 100.0100, L500.4050, L501.2300 #### [facility] [address] [place], [address] Bilirubin [Mass/Vol] 1.04 mg/dL Normal 0.00-1.30 [facility] Comment on above: Performed By: #### L 100.0100, L500.4050, L501.2300 #### [facility] [address] [place], [address] BUN/CRE 17.1 RATIO Normal 10-20 [facility] Comment on above: Performed By: #### L 100.0100, L500.4050, L501.2300 #### [facility] [address] [place], [address] Calcium [Mass/Vol] 8.2 mg/dL Normal 7.6-11.0 [facility] Comment on above: Performed By: #### L 100.0100, L500.4050, L501.2300 #### [facility] [address] [place], [address] Chloride [Moles/Vol] 109 mmol/L High 98-108 [facility] Comment on above: Performed By: #### L 100.0100, L500.4050, L501.2300 #### [facility] [address] [place], [address] CO2 [Moles/Vol] 24.0 mmol/L Normal 21.0-32.0 [facility] Comment on above: Performed By: #### L 100.0100, L500.4050, L501.2300 #### [facility] [address] [place], [address] Creatinine [Mass/Vol] 0.89 mg/dL Normal 0.70-1.20 [facility] Comment on above: Performed By: #### L 100.0100, L500.4050, L501.2300 #### [facility] [address] [place], [address] ECRCL 113.83 ml/min Normal 50-250 [facility] Comment on above: Performed By: #### L 100.0100, L500.4050, L501.2300 #### [facility] [address] [place], [address] GAP 7 Normal 5-15 [facility] Comment on above: Performed By: #### L 100.0100, L500.4050, L501.2300 #### [facility] [address] [place], [address] GFR/1.73 sq M.predicted among non-blacks MDRD (S/P/Bld) [Vol rate/Area] 107 mL/min/{1.73_m2} Normal >60 [facility] Comment on above: Result Comment: mL/m in/1.73m2 CKD-EPI Creatinine Equation (2020) Performed By: #### L 100.0100, L500.4050, L501.2300 #### [facility] [address] [place], [address] Globulin (S) [Mass/Vol] 2.1 g/dL Low 2.2-4.2 [facility] Comment on above: Performed By: #### L 100.0100, L500.4050, L501.2300 #### [facility] [address] [place], [address] Glucose [Mass/Vol] 104 mg/dL High 70-99 [facility] Comment on above: Performed By: #### L 100.0100, L500.4050, L501.2300 #### [facility] [address] [place], [address] Potassium [Moles/Vol] 4.1 mmol/L Normal 3.3-5.1 [facility] Comment on above: Performed By: #### L 100.0100, L500.4050, L501.2300 #### [facility] [address] [place], [address] Sodium [Moles/Vol] 140 mmol/L Normal 133-145 [facility] Comment on above: Performed By: #### L 100.0100, L500.4050, L501.2300 #### [facility] [address] [place], [address] T PROT 5.7 g/dL Low 5.9-8.4 [facility] Comment on above: Performed By: #### L 100.0100, L500.4050, L501.2300 #### [facility] [address] [place], [address] Urea nitrogen [Mass/Vol] 15 mg/dL Normal 4-19 [facility] Comment on above: Performed By: #### L 100.0100, L500.4050, L501.2300 #### [facility] [address] [place], [address] Discharge Instructionon 02-[address] [facility] Medical Records Department [address] [place] [address] Instructions for Home/Discharge Instructions 02/27/25 1504 MR#: [id number] Acct: [id number] Name: AMMON BOWER Rep #: [id number] : 1980 44 From: Ludin Ewing DO PCP: Dr. Jass Ching MD Status:DIS IN Discharge Instructions DC O2, CPAP, BIPAP needs Home O2 Discharge instructions: No Dressing / Incision Discharge Activity: Return to Normal Activity Weight Bearing Status: Full weight bearing Follow Up Care Test Results: Test results from this visit will be discussed in further detail at your follow-up appointment, if applicable. Discharge Plan Admission Admit Date/Time: 02/26/25 23:01 Primary Reason for Your Visit: anemia, melena Attending Provider: Ludin Ewing Primary Care Provider: Jass Ching Consulting Providers: Frankie Mcmillan Instructions Additional Instructions / Restrictions: Avoid use of ibuprofen, Aleve, or aspirin Discharge Orders/Prescriptions Prescriptions: New tramadol 100 mg tablet 100 mg PO Q6H PRN (Reason: pain) 5 Days Qty: 20 0RF pantoprazole 40 mg tablet,delayed release (DR/EC) 40 mg PO DAILY Qty: 30 0RF Discontinued ibuprofen 800 mg tablet 800 mg PO Q8H PRN PRN (Reason: pain) Referrals / Follow Up: Jass Ching MD [Primary Care Provider, Internal Medicine] - Within 1 Week Disposition Disposition (needs filled in before D/C Order can be placed): Against Medical Advice 02/27/25 Leo1 Ludin Ewing DO CC: Dr. Frankie Mcmillan DO; Dr. Jass Ching MD Signed Normal [facility] Ferritinon 02-27-2025 Ferritin [Mass/Vol] 189 ng/mL Normal 37-417 [facility] Comment on above: Performed By: #### L 503.0106, L506.0200, L501.9520, L503.6030, L503.6550, L501.9985, L501.5200 ####[facility] [id number] [place], [address] Folates,Serum (Folic Acid)on 02-27-2025 FOLATES,SERUM 11.80 ng/mL Normal 4.60-34.80 [facility] Comment on above: Performed By: #### L 503.0106, L506.0200, L501.9520, L503.6030, L503.6550, L501.9985, L501.5200 ####[facility] [id number] [place], [address] HH, Hemoglobin AND Hematocri ton 02-27-2025 Hematocrit (Bld) [Volume fraction] 32.9 % Low 40-54 [facility] Comment on above: Performed By: #### L 100.0600 #### [facility] [address] [place], [address] Hemoglobin (Bld) [Mass/Vol] 11.0 g/dL Low 13.0-16.5 [facility] Comment on above: Performed By: #### L 100.0600 #### [facility] [address] [place], [address] Iron+Iron Binding Capacityon 02-27-2025 Iron [Mass/Vol] 31 ug/dL Low 65-175 [facility] Comment on above: Performed By: #### L 503.0106, L506.0200, L501.9520, L503.6030, L503.6550, L501.9985, L501.5200 ####[facility] [address] [place], [address] IRON SATURATION 11.1 Normal 9-55 [facility] Comment on above: Performed By: #### L 503.0106, L506.0200, L501.9520, L503.6030, L503.6550, L501.9985, L501.5200 ####[facility] [address] [place], [address] TIBC 281 ug/dL Normal 250-450 [facility] Comment on above: Performed By: #### L 503.0106, L506.0200, L501.9520, L503.6030, L503.6550, L501.9985, L501.5200 ####[facility] [address] [place], [address] UIBC 250 ug/dL Normal 228-428 [facility] Comment on above: Performed By: #### L 503.0106, L506.0200, L501.9520, L503.6030, L503.6550, L501.9985, L501.5200 ####[facility] [address] [place], [address] Magnesiumon 02-27-2025 Magnesium [Mass/Vol] 1.9 mg/dL Normal 1.5-2.2 [facility] Comment on above: Performed By: #### L 503.0106, L506.0200, L501.9520, L503.6030, L503.6550, L501.9985, L501.5200 #### [facility] [address] [place], [address] Phosphoruson 02-27-2025 Phosphate [Mass/Vol] 2.8 mg/dL Normal 2.7-4.5 [facility] Comment on above: Performed By: #### L 100.0100, L500.4050, L501.2300 #### [facility] [address] [place], [address] Thyroid Stim Hormone (TSH)on 02-27-2025 TSH 0.695 uIU/mL Normal 0.300-4.200 [facility] Comment on above: Performed By: #### L 503.0106, L506.0200, L501.9520, L503.6030, L503.6550, L501.9985, L501.5200 #### [facility] [address] [place], [address] Vitamin B12on 02-27-2025 Cobalamin (Vitamin B12) [Mass/Vol] 766 pg/mL Normal 180-914 [facility] Comment on above: Performed By: #### L 503.0106, L506.0200, L501.9520, L503.6030, L503.6550, L501.9985, L501.5200 #### [facility] [address] [place], [address] Basic Metabolic Profile (BMP )on 02-26-2025 BUN/CRE 18.8 RATIO Normal -20 [facility] Comment on above: Performed By: #### L 100.0600 #### [facility] [address] [place], [address] Calcium [Mass/Vol] 8.7 mg/dL Normal 7.6-11.0 [facility] Comment on above: Performed By: #### L 100.0600 #### [facility] [address] [place], [address] Chloride [Moles/Vol] 105 mmol/L Normal 98-108 [facility] Comment on above: Performed By: #### L 100.0600 #### [facility] [address] [place], [address] CO2 [Moles/Vol] 23.0 mmol/L Normal 21.0-32.0 [facility] Comment on above: Performed By: #### L 100.0600 #### [facility] [address] [place], [address] Creatinine [Mass/Vol] 0.93 mg/dL Normal 0.70-1.20 [facility] Comment on above: Performed By: #### L 100.0600 #### [facility] [address] [place], [address] ECRCL 108.94 ml/min Normal 50-250 [facility] Comment on above: Performed By: #### L 100.0600 #### [facility] [address] [place], [address] GAP 11 Normal 5-15 [facility] Comment on above: Performed By: #### L 100.0600 #### [facility] [address] [place], [address] GFR/1.73 sq M.predicted among non-blacks MDRD (S/P/Bld) [Vol rate/Area] 103 mL/min/{1.73_m2} Normal >60 [facility] Comment on above: Result Comment: mL/m in/1.73m2 CKD-EPI Creatinine Equation (2020) Performed By: #### L 100.0600 #### [facility] [address] [place], [address] Glucose [Mass/Vol] 173 mg/dL High 70-99 [facility] Comment on above: Performed By: #### L 100.0600 #### [facility] [address] [place], [address] Potassium [Moles/Vol] 3.7 mmol/L Normal 3.3-5.1 [facility] Comment on above: Performed By: #### L 100.0600 #### [facility] [address] [place], [address] Sodium [Moles/Vol] 139 mmol/L Normal 133-145 [facility] Comment on above: Performed By: #### L 100.0600 #### [facility] [address] [place], [address] Urea nitrogen [Mass/Vol] 17 mg/dL Normal 4-19 [facility] Comment on above: Performed By: #### L 100.0600 #### [facility] [address] [place], [address] CBC W/Diff, Automatedon 10-2 -2024 Absolute Lymph 2.46 X10 3/uL Normal 0.83-4.51 [facility] Comment on above: Performed By: #### L 100.0600 #### [facility] [address] [place], [address] Absolute Neut 6.5 X10 3/uL Normal 2.0-7.7 [facility] Comment on above: Performed By: #### L 100.0600 #### [facility] [address] [place], [address] Basophils/100 WBC (Bld) 0.6 % Normal 0-1 [facility] Comment on above: Performed By: #### L 100.0600 #### [facility] [address] [place], [address] Eosinophils/100 WBC (Bld) 4.9 % Normal 0-5 [facility] Comment on above: Performed By: #### L 100.0600 #### [facility] [address] [place], [address] Erythrocyte distribution width (RBC) [Ratio] 11.9 % Normal 11.6-14.6 [facility] Comment on above: Performed By: #### L 100.0600 #### [facility] [address] [place], [address] Hematocrit (Bld) [Volume fraction] 31.4 % Low 40-54 [facility] Comment on above: Performed By: #### L 100.0600 #### [facility] [address] [place], [address] Hemoglobin (Bld) [Mass/Vol] 11.1 g/dL Low 13.0-16.5 [facility] Comment on above: Performed By: #### L 100.0600 #### [facility] [address] [place], [address] IG% 0.400 Normal 0.0-0.9 [facility] Comment on above: Result Comment: IG% - Immature Granulocytes (promyelocytes, myelocytes and metamyelocytes) > 1% indicates that a LEFT SHIFT is Present. Performed By: #### L 100.0600 #### [facility] [address] [place], [address] Lymphocytes/100 WBC (Bld) 24.4 % Normal 19-41 [facility] Comment on above: Performed By: #### L 100.0600 #### [facility] [address] [place], [address] MCH (RBC) [Entitic mass] 34.6 pg High 27.0-32.0 [facility] Comment on above: Performed By: #### L 100.0600 #### [facility] [address] [place], [address] MCHC (RBC) [Mass/Vol] 35.4 g/dL Normal 32-36 [facility] Comment on above: Performed By: #### L 100.0600 #### [facility] [address] [place], [address] MCV (RBC) [Entitic vol] 97.8 fL High 80-94 [facility] Comment on above: Performed By: #### L 100.0600 #### [facility] [address] [place], [address] Monocytes/100 WBC (Bld) 4.9 % Normal 0-10 [facility] Comment on above: Performed By: #### L 100.0600 #### [facility] [address] [place], [address] Neutrophils/100 WBC (Bld) 64.8 % Normal 47-70 [facility] Comment on above: Performed By: #### L 100.0600 #### [facility] [place], [address] Nucleated RBC (Bld) [#/Vol] 0 10*3/uL Normal 0-5 [facility] Comment on above: Performed By: #### L 100.0600 #### [facility] [address] [place], [address] Platelet mean volume (Bld) [Entitic vol] 11.7 fL Normal 6.2-12.0 [facility] Comment on above: Performed By: #### L 100.0600 #### [facility] [address] [place], [address] Platelets (Bld) [#/Vol] 270 10*3/uL Normal 150-450 [facility] Comment on above: Performed By: #### L 100.0600 #### [facility] [address] [place], [address] RBC (Bld) [#/Vol] 3.21 10*6/uL Low 4.6-6.2 [facility] Comment on above: Performed By: #### L 100.0600 #### [facility] [address] [place], [address] RDW SD 42.5 fl Normal 35.1-43.9 [facility] Comment on above: Performed By: #### L 100.0600 #### [facility] [address] [place], [address] WBC (Bld) [#/Vol] 10.1 10*3/uL Normal 4.4-11.0 [facility] Comment on above: Performed By: #### L 100.0600 #### [facility] [address] [place], [address] Emergency Department Summary on 02-26-2025 Emergency Department Summary [facility] Medical Records Department [address] [place] [address] Emergency Department Summary 02/26/25 MR#: [id number] Acct: [id number] Name: AMMON BOWER Rep #: [id number] : 1980 44 From: Agustín Awad MD PCP: Dr. Jass Ching MD Status:REG ER Location: ED HPI History of Present Illness Chief Complaint: GI Bleed Detail of Chief Complaint: Dark red-black stool Informant: patient Onset/Context/Timing Onset: Days (First noted 2 to 3 days ago) Context: Sudden Onset Timing: Continuous Quality: Soft watery dark black stool Location: GI bleed due to ibuprofen Current Severity: Moderate Maximum Severity: Moderate Worsened by: Patient states he has been taking a lot of ibuprofen". Relieved by: Not applicable Associated Symptoms Associated Symptoms: Lightheadedness Narrative Narrative: Patient is a 44-year-old male. He has been take ibuprofen due to a left AC separation. This occurred mid January. He denies history of peptic ulcers, reflux or hiatal hernia. He denies hematemesis or coffee-ground emesis. He denies vomiting. He reports dark black maroon-colored stool that he first noted to maybe 3 days ago. He does endorse lightheadedness with standing quickly. He denies bruising easily. He is on no anticoagulant. He has no significant past medical history. He denies tobacco use. He does not have an alcoholic beverage in greater than a month. He does smoke marijuana. Prior similar symptoms: No Recent Illness/Hospitalization: No PFSH PFSH Medical History Eczema Former smoker Blood glucose elevated Colon cancer screening Arthritis Low back pain Anemia Encounter to establish care Preventative health care History of pneumonia Seasonal allergies Alcohol abuse Home Medications ???Medication ???Instructions ???Recorded ???Last Taken ???Type ibuprofen 800 mg tablet 800 mg PO Q8H PRN PRN pain 5 02/26/25 History Allergy/AdvReac Type Severity Reaction Status Date / Time tomato Allergy Hives Verified 02/26/25 21:05 Family History Unknown Colon polyps Father Pancreatic cancer Other Cancer Diabetes Hypertension Surgical History History of wisdom tooth extraction Hx of colonoscopy Social History household members: spouse current occupational status: employed Smoking Status: Former smoker alcohol intake: current substance use type: does not use what type of physical activity do you participate in: none ROS ROS ED Constitutional Constitutional ED: Denies chills, fever(s), subjective or sweats Eyes Eyes: Denies blurry vision or change in vision ENT ENT ED: Denies ear pain, rhinorrhea or sore throat Cardiovascular Cardiovascular: Denies chest pain, orthopnea, palpitations, paroxysmal nocturnal dyspnea or racing heartbeat Respiratory/Chest Respiratory/Chest: Denies cough, dyspnea, dyspnea on exertion, orthopnea or paroxysmal nocturnal dyspnea Gastrointestinal Gastrointestinal: Reports melena; Denies abdominal pain, constipation, diarrhea, nausea or vomiting Genitourinary Genitourinary ED: Denies dysuria, hematuria or urinary frequency Musculoskeletal Musculoskeletal: Denies arthralgias or myalgias Integumentary Denies rash Neurologic Neurologic: Denies paresthesias or weakness Endocrine Endocrinology: Denies cold intolerance or heat intolerance Hematologic/Lymphatic Hematologic/Lymphatic: Reports systems reviewed and no addt'l complaints, except as documented EXAM Physical Exam Const Vital Signs: 02/26/25 21:05 02/26/25 21:23 Temperature 98.1 F Temperature Source Oral Pulse Rate 83 Pulse Rate [Lying] 72 Pulse Rate [Sitting (for 1 minute prior to obtaining)] 73 Pulse Rate [Standing (for 1 minute prior to obtaining)] 78 Respiratory Rate 16 Blood Pressure 157/83 H Blood Pressure [Lying] 126/80 H Blood Pressure [Sitting (for 1 minute prior to obtaining)] 121/84 H Blood Pressure [Standing (for 1 minute prior to obtaining)] 127/95 H Blood Pressure Mean 107 Blood Pressure Mean [Lying] 95 Blood Pressure Mean [Sitting (for 1 minute prior to obtaining)] 96 Blood Pressure Mean [Standing (for 1 minute prior to obtaining)] 105 Pulse Ox 99 Oxygen Delivery Method Room Air Positive well nourished and well developed General Appearance ED: well developed and NAD; Negative for cyanotic, diaphoretic or pallor HEENT Reports moist mucous membranes HEENT Narrative: Head is atraumatic normocephalic. Ears normal. Nares patent. Posterior pharynx is normal. Eyes PERRL and EOMs intact bilaterally General Eye ED: Negative for pale conjunctiva or scleral icterus Ne (more content not included)... Normal [facility] H AND P Exam - Hospitaliston 02-26-2025 H&P Exam - Hospitalist [facility] Medical Records Department [address] [place] [address] H P Exam - Hospitalist 02/26/254 MR#: [id number] Acct: [id number] Name: AMMON BOWER Rep #: [id number] : 1980 44 From: Frankie Mcmillan DO PCP: Dr. Jass Ching MD Status:ADM IN Location: [facility] [id number] HPI - General General Date of Admission: 02/26/25 Date of Service: 02/26/25 Chief Complaint: Dark Stools after NSAID overuse. HPI Narrative AMMON BOWER, is a 44 M with a past medical history of former tobacco abuse (quit 2021), history of EtOH abuse, history of pneumonia, eczema, history of colitis; s/p colonoscopy done by Dr. Isbell of gastroenterology June 01, 2024 that revealed patchy moderate inflammation in the rectosigmoid colon with Left-sided colitis and mild inflammation found in the ileum due to ileitis in addition to diverticulosis in the entire examined colon and recent Left AC joint separation on January 17, 2025 due to alleged seizure activity in the setting of EtOH abuse; with patient taking several doses of ibuprofen daily who presents to [facility] ER complaining of dark stools. Mr. Bower reports his symptoms began 2-3 days prior to admission when he first noted dark maroon-colored stool with lightheadedness when standing up quickly. He states he has not been drinking alcohol in more than a month but he does smoke cannabis. He denies a history of coffee- ground emesis, hematemesis, peptic ulcer disease, GERD or hiatal hernia. There was no report of associated fever, chills, changes in vision, discharge from eyes, runny nose, sore throat, ear pain, chest pain, palpitations, heart racing, lower extremity edema, shortness of breath, cough, dysuria, hematuria, headache or rash. In the ER he was noted to have relative anemia with a hemoglobin of 11.1 g/dL (down from previous baseline of 12.8 g/dL on January 17, 2025) with a slightly elevated MCV of 97.8 fL in the setting of suspected Upper GI Bleed with Melanotic Stools due to Adverse Drug Reaction to overuse of ibuprofen complicated by additional laboratory evidence of Hyperglycemia of 173 mg/dL present on admission. He was then admitted to the PCU for ongoing care for stated is expected to extend beyond 2 midnights. PFSH Medical History Eczema Former smoker Blood glucose elevated Colon cancer screening Arthritis Low back pain Anemia Encounter to establish care Preventative health care History of pneumonia Seasonal allergies Alcohol abuse Home Medications ???Medication ???Instructions ???Recorded ???Last Taken ???Type ibuprofen 800 mg tablet 800 mg PO Q8H PRN PRN pain 5 02/26/25 History Allergy/AdvReac Type Severity Reaction Status Date / Time tomato Allergy Hives Verified 02/26/25 21:05 Family History Unknown Colon polyps Father Pancreatic cancer Other Cancer Diabetes Hypertension Surgical History History of wisdom tooth extraction Hx of colonoscopy Social History household members: spouse current occupational status: employed Smoking Status: Former smoker alcohol intake: current substance use type: does not use what type of physical activity do you participate in: none ROS ROS Narrative Review of Systems: Constitutional: Patient denies fever or chills. Eyes: Patient denies changes in vision or discharge from eyes. ENT: Patient denies runny nose, sore throat or ear pain. Resp: Patient denies shortness of breath or cough. CV: Patient denies chest pain, palpitations, heart racing or lower extremity edema. GI: Patient admits to melanotic stools but he denies abdominal pain, constipation, diarrhea, nausea or vomiting. : Patient denies dysuria or hematuria. MSK: Patient admits to chronic pain from his relatively recent Left AC separation as per HPI. Skin: Patient denies rash, abscess, wounds or jaundice. Psych: Patient denies symptoms of uncontrolled depression or anxiety. Neuro: Patient denies headache, paresthesias, seizures or focal neurologic deficits. Allergy: Patient denies lip swelling, tongue swelling or urticaria. Hematology: Patient admits to melanotic stools after heavy NSAID use as per HPI. Endocrinology: Patient denies polyuria, polydipsia, polyphagia or heat/cold intolerance. 14 point ROS otherwise negative except for positives noted above in HPI. Vital Signs Vital Signs Vital Signs: 02/26/25 21:05 02/26/25 21:23 Temperature 98.1 F Temperature Source Oral Pulse Rate 83 Pulse Rate [Lying] 72 Pulse Rate [Sitting (for 1 minute prior to obtaining)] 73 Pulse Rate [Standing (for 1 minute prior to obtaining)] 78 (more content not included)... Normal [facility] Hemoglobin A1con 02-26-2025 HbA1c (Bld) [Mass fraction] 4.8 % Normal <=5.6 [facility] Comment on above: Result Comment: Norm al < 5.7 % Prediabetic 5.7 - 6.4 % Diabetic >or= 6.5 % Please note range changes. Performed By: #### L 503.0106, L506.0200, L501.9520, L503.6030, L503.6550, L501.9985, L501.5200 #### [facility] [address] [place], [place], [address] Lactic Acidon 02-26-2025 Lactate [Moles/Vol] 1.2 mmol/L Normal 0.0-2.0 [facility] Comment on above: Order Comment: Y Performed By: #### L 100.0600 #### [facility] [address] [place], [place], [address] Type AND Screenon 02-26-2025 Ab SCREEN GEL Negative Normal [facility] Comment on above: Order Comment: HGI Performed By: #### L 100.0600 #### [facility] [address] [place], [place], [address] CNOVon 02-08-2025 CNOV Office Visit (ORTHWS ) -------- AMMON BOWER ([id number]) 1980 M Date Time Provider Department 02/08/25 [...] Kelli Pope PA-C Department of Orthopaedics Orthopaedics [address] [facility] [address] Dept: [phone] Dept February 08, 2025 CHIEF COMPLAINT: Shoulder [...] anxiety) This note was partially generated using [employer] voice recognition system, and there may be some incorrect words, spellings, and punctuation that were not noted in checking the note before saving. Kelli Pope PA-C Referring Provider: SELF [[id number]] Allergies As of Date: 02/08/2025 Noted Allergy Reaction TOMATO (SOLANUM LYCOPERSICUM) 10/12/2018 4 - Hives Date Reviewed: 02/08/2025 Reviewe (more content not included)... Normal [facility] 01-29-2025 [facility] Telephone (SWAPNA) -------- AMMON BOWER ([id number]) 1980 M Date Time Provider Department 01/29/25 KELLI POPE During your visit today, we recorded the following information about you: Taryn Alvares MA 01/29/2025 3:26 PM Signed Type of form: [facility] Form received via walk in on 01/28/2025 When form is completed, Fax form to [place] at [phone] Form has been completed and waiting for physician signature. Patient needs to come in and sign release so we can send information to [place]. ZAHEER Cabello Amy M, MA 02/01/2025 4:06 PM Signed Forms signed and faxed back to [place]. Confirmation received. Copy sent for scanning. Allergies As of Date: 01/29/2025 Noted Allergy Reaction TOMATO (SOLANUM LYCOPERSICUM) 10/12/2018 4 - Hives Date Reviewed: 01/21/2025 Reviewed by: Brianna Rucker MA - Fully Assessed Reason for Visit: [facility] Paperwork [[id number]] Prescriptions as of 02/01/2025 - LIDOCAINE VISCOUS [...] Encounter Status:Closed by TARYN ALVARES on 02/01/25 [facility] CNCONon 01-22-2025 CNCON Consults (NE50MN) -------- AMMON BOWER ([id number]) 1980 M Date Time Provider Department 01/22/25 CHANO, IMAD NE50MN During your visit today, we recorded the following information about you: Luis Enrique Woo APRN.YAMINI 01/22/2025 2:12 PM Signed [facility] Review of Records Patient: Ammon Bower Address: [address] [place] [address] Impression: Review of records for Ammon Bower, a 44 year old male, being referred by [facility] [[facility]] to Any Epileptologist for further evaluation and [...] allergies, former smoker, ETOH abuse PRIOR EVALUATIONS: [facility] [place] [address] EEG (-): MRI brain wo/w contrast (-): -- CINDY Recommendations: - Long EEG, consult with an Epileptologist - Additional testing to be considered by epilepsy clinicians Signed: Luis Enrique Woo APRN.MOLD CHECKER January 22, [address] Shah for review and recommendations. - MD Recommendations (as discussed with Dr. Shah): - Routine EEG and visit with an Epileptologist Allergies As of Date: 01/22/2025 Noted Allergy Reaction TOMATO (SOLANUM LYCOPERSICUM) 10/12/2018 4 - Hives Date Reviewed: 01/21/2025 Reviewed by: Brianna Rucker MA - Fully Assessed Primary Visit Diagnosis:New onset seizure (HCC) [R56.9] Order(s):EPIL EEG ROUTINE [8440322] Order #: [id number]: 1 Prescriptions as of 01/22/2025 - HYDROcodone-acetaminophe [...] Status:Closed by LUIS ENRIQUE WOO on 01/22/25 [facility] CNOVon 01-21-2025 CNOV Office Visit (ORMDNA ) -------- AMMON BOWER ([id number]) 1980 M Date Time Provider Department 01/21/25 11:00 AM KELLI POPE ORJOSEF During your visit today, we recorded the following information about you: Kelli Pope PA-C 01/21/2025 3:24 PM Signed Kelli Pope PA-C Department of Orthopaedics Orthopaedics [address] [id number] Dept: [phone] January 21, 2025 CHIEF COMPLAINT: New and Pain of the Left Shoulder Left Shoulder Pain: - Severe left shoulder pain following a seizure on Saturday, jake was sleeping. - Shoulder was dislocated [...] a leave of absence from work at [employer] due to the injury. ASSESSMENT: S43.005A Dislocation [...] Imaging: CT scan right upper extremity [facility] January 17, 2025 Adequate alignment of the [...] Psych (n (more content not included)... Normal [facility] Absolute lymphocyte countOrd ered By: Sofiya Harper on 01-17-2025 Lymphocytes Auto (Unsp spec) [#/Vol] 5.44 10*3/uL High 0.83-4.51 [facility] Absolute neutrophil countOrd ered By: Sofiya Harper on 01-17-2025 Neutrophils (Bld) [#/Vol] 6.5 10*3/uL 2.0-7.7 [facility] Alcohol, Blood (Medical)-Ser umon 01-17-2025 SERUM ETOH < 10.1 Normal <=10.0 [facility] Comment on above: Result Comment: This test is for medical purposes only. The legal definition of intoxication varies according to local law. Performed By: #### L 100.0600 #### [facility] [place], [address] Amphetamine detection with 1 000 ng/mL as cutoffOrdered By: Sofiya Harper on 01-17-2025 Amphetamines Screen method >1000 ng/mL Ql (U) Negative < 200 ng/mL [facility] Anion gap in Serum or Plasma Ordered By: Sofiya Harper on 01-17-2025 Anion gap [Moles/Vol] 29 mmol/L High 5-15 [facility] Automated lymphocyte count a s percentage of total leukocytesOrdered By: Sofiya Harper on 01-17-2025 Lymphocytes/100 WBC Auto (Unsp spec) 39.6 % - [facility] BUN/creatinine ratioOrdered By: Sofiya Harper on 01-17-2025 Urea nitrogen/Creatinine [Mass ratio] 13.2 mg/mg - [facility] Basic Metabolic Profile (BMP )on 01-17-2025 BUN/CRE 13.2 RATIO Normal - [facility] Comment on above: Performed By: #### L 100.0600 #### [facility] [address] [place], [address] Calcium [Mass/Vol] 9.1 mg/dL Normal 7.6-11.0 [facility] Comment on above: Performed By: #### L 100.0600 #### [facility] [address] [place], [address] Chloride [Moles/Vol] 100 mmol/L Normal 98-108 [facility] Comment on above: Performed By: #### L 100.0600 #### [facility] [address] [place], [address] CO2 [Moles/Vol] 11.5 mmol/L Low 21.0-32.0 [facility] Comment on above: Performed By: #### L 100.0600 #### [facility] [facility] [address] [place], [address] Creatinine [Mass/Vol] 1.22 mg/dL High 0.70-1.20 [facility] Comment on above: Performed By: #### L 100.0600 #### [facility] [address] [place], [address] ECRCL 83.04 ml/min Normal 50-250 [facility] Comment on above: Performed By: #### L 100.0600 #### [facility] [address] [place], [address] GAP 29 High 5-15 [facility] Comment on above: Performed By: #### L 100.0600 #### [facility] [address] [place], [address] GFR/1.73 sq M.predicted among non-blacks MDRD (S/P/Bld) [Vol rate/Area] 74 mL/min/{1.73_m2} Normal >60 [facility] Comment on above: Result Comment: mL/m in/1.73m2 CKD-EPI Creatinine Equation (2020) Performed By: #### L 100.0600 #### [facility] [address] [place], [address] Glucose [Mass/Vol] 181 mg/dL High 70-99 [facility] Comment on above: Performed By: #### L 100.0600 #### [facility] [address] [place], [address] Potassium [Moles/Vol] 3.5 mmol/L Normal 3.3-5.1 [facility] Comment on above: Performed By: #### L 100.0600 #### [facility] [address] [place], [address] Sodium [Moles/Vol] 140 mmol/L Normal 133-145 [facility] Comment on above: Performed By: #### L 100.0600 #### [facility] [address] [place], [address] Urea nitrogen [Mass/Vol] 16 mg/dL Normal 4-19 [facility] Comment on above: Performed By: #### L 100.0600 #### [facility] [address] [place], [address] Basophil percentageOrdered B y: Sofiya Harper on 01-17-2025 Basophils/100 WBC (Bld) 0.6 % 0-1 [facility] Bedside Glucoseon 01-17-2025 FINGERSTICK GLU 169 mg/dL High 74-106 [facility] Comment on above: Result Comment: ROBERT BROWNE OF PATIENT CARE PER NURSING PROTOCOL Performed By: #### L 501.080 ####[facility] [address] [place], [address] Blood manual differential co mment interpretation (narrative result)Ordered By: Sofiya Harper on 01-17-2025 Manual differential comment Luis (Bld) [Interp] SCANNED [facility] Comment on above: LYMPHOCYTOSIS PRESEN T Brain/Head without Contrasto n 01-17-2025 Brain/Head without Contrast [facility] Imaging Services [address] [place], [place] [address] Brain/Head without Contrast MR#: [id number] Acct: [id number] Name: AMMON BOWER Rep #: [id number] : 1980 M 44 From: Loi Garrett MD PCP: Dr. Jass Ching MD Status: REG ER Study: Brain/Head without Contrast Date of Exam: 01/04 08/28 Exam# [id number] Ordering Dr: Sofiya Harper MD PROCEDURE: BRAIN/HEAD [...] cervical spine fracture or malalignment. Reading Location: [facility] CC: Dr. Jass Ching MD; Dr. Sofiya Harper MD Event Planning Intern: Signed Normal [facility] CBC W/Diff, Automatedon 01-04 REACTIVE LYMPH 2+ Normal [facility] Comment on above: Performed By: #### L 100.0600 #### [facility] [address] [place], [address] SMEAR COMMENT SCANNED Normal [facility] Comment on above: Result Comment: LYMP HOCYTOSIS PRESENT Performed By: #### L 100.0600 #### [facility] [address] [place], [address] CPK Total, Creatine Kinaseon 01-17-2025 CPK TOTAL 451 U/L High 24-195 [facility] Comment on above: Performed By: #### L 100.0100, L500.4050, L501.2300 #### [facility] [address] [place], [address] Carbon dioxide, total [Moles /volume] in Central venous bloodOrdered By: Sofiya Harper on 01-17-2025 CO2 [Moles/Vol] 11.5 mmol/L Low 21.0-32.0 [facility] Chloride assayOrdered By: Jose Harper on 01-17-2025 Chloride [Moles/Vol] 100 mmol/L 98-108 [facility] Emergency Department Summary on 01-17-2025 Emergency Department Summary [facility] Medical Records Department [address] [place] [address] Emergency Department Summary 01/17/25 MR#: [id number] Acct: [id number] Name: AMMON BOWER Rep #: [id number] : 1980 44 From: Sofiya Harper MD [...] P (more content not included)... Normal [facility] Eosinophil percentageOrdered By: Sofiya Harper on 01-17-2025 Eosinophils/100 WBC (Bld) 4.2 % 0-5 [facility] Erythrocyte distribution wid th ratioOrdered By: Sofiya Harper on 01-17-2025 Erythrocyte distribution width (RBC) [Ratio] 11.9 % 11.6-14.6 [facility] Erythrocyte distribution wid th standard deviationOrdered By: Sofiyaangel Harper on 01-17-2025 Erythrocyte distribution width (RBC) [Ratio] 45.4 fl High 35.1-43.9 [facility] Extremity Upper without Cont raon 01-17-2025 Extremity Upper without Contra [facility] Imaging Services [facility] [place] [address] Extremity Upper without Contra MR#: [id number] Acct: [id number] Name: AMMON BOWER Rep #: [id number] : 1980 M 44 From: Loi Garrett MD PCP: Dr. Jass Ching MD Status: REG ER Study: Extremity Upper without Contra Date of Exam: 0 01/17/25 Exam# [id number] Ordering Dr: Usman Trejo MD PROCEDURE: EXTREMITY [...] Small left shoulder joint effusion. Reading Location: [facility] CC: Dr. Usman Trejo MD; Dr. Jass Ching MD Event Planning Intern: Signed Normal [facility] Glomerular filtration rate ( GFR) estimation/1.73 sq m using serum, plasma, or whole bOrdered By: Sofiya Harper on 01-17-2025 GFR/1.73 sq M.predicted among non-blacks MDRD (S/P/Bld) [Vol rate/Area] 74 mL/min/{1.73_m2} >60 [facility] Comment on above: mL/min/1.73m2 CKD-EP I Creatinine Equation (2020) [facility] deOrdered By: Sofiya Harper on 01-17-2025 Glucose [Mass/Vol] 169 mg/dL High 74-106 [facility] Comment on above: MANAGEMENT OF PATIEN T CARE PER NURSING PROTOCOL Hematocrit Auto (Bld) [Volum e fraction]Ordered By: Sofiya Harper on 01-17-2025 Hematocrit (Bld) [Volume fraction] 39.2 % Low 40-54 [facility] Hemoglobin measurementOrdere d By: Sofiya Harper on 01-17-2025 Hemoglobin (Bld) [Mass/Vol] 12.8 g/dL Low 13.0-16.5 [facility] Immature granulocytes/100 WB C Auto (Bld)Ordered By: Sofiya Harper on 01-17-2025 Immature granulocytes/100 WBC (Bld) 1.500 % High 0.0-0.9 [facility] Comment on above: IG% - Immature Granu locytes (promyelocytes, myelocytes and metamyelocytes) > 1% indicates that a LEFT SHIFT is Present. Lactic Acidon 01-17-2025 Lactate [Moles/Vol] 1.1 mmol/L Normal 0.0-2.0 [facility] Comment on above: Performed By: #### L 503.6005 ####[facility] [address] [place], [address] Lactate [Moles/Vol] 7.2 mmol/L Invalid Interpretation Code 0.0-2.0 [facility] Comment on above: Order Comment: Y Result Comment: Crit ical Result(s) Called at 01/17/2025-06:40 by Jimmy Crooks to Rosina Truong.??Results read back by same. Performed By: #### L 100.0100, L500.4050, L501.2300 #### [facility] [address] [place], [place], [address] Lactic acid measurementOrder ed By: Sofiya Harper on 01-17-2025 Lactate [Moles/Vol] 1.1 mmol/L 0.0-2.0 [facility] MCV (mean corpuscular volume ) determinationOrdered By: Sofiya Harper on 01-17-2025 MCV (RBC) [Entitic vol] 103.4 fL High 80-94 [facility] Magnesiumon 01-17-2025 Magnesium [Mass/Vol] 2.1 mg/dL Normal 1.5-2.2 [facility] Comment on above: Performed By: #### L 100.0100, L500.4050, L501.2300 #### [facility] [address] [place], [place], [address] Magnesium measurement (mass/ volume)Ordered By: Sofiya Harper on 01-17-2025 Magnesium (Unsp spec) [Mass/Vol] 2.1 mg/dL 1.5-2.2 [facility] Mean corpuscular hemoglobin (MCH) determinationOrdered By: Sofiya Harper on 01-17-2025 MCH (RBC) [Entitic mass] 33.8 pg High 27.0-32.0 [facility] Mean corpuscular hemoglobin concentration (MCHC) determinationOrdered By: Sofiya Harper on 01-17-2025 MCHC (RBC) [Mass/Vol] 32.7 g/dL 32-36 [facility] Mean platelet volume determi nationOrdered By: Sofiya Harper on 01-17-2025 Platelet mean volume (Bld) [Entitic vol] 12.4 fL High 6.2-12.0 [facility] Monocyte percentageOrdered B y: Sofiya Harper on 01-17-2025 Monocytes/100 WBC (Bld) 6.8 % 0-10 [facility] Neutrophil percentageOrdered By: Sofiya Harper on 01-17-2025 Neutrophils/100 WBC (Bld) 47.3 % 47-70 [facility] No Panel InformationOrdered By: Sofiya Harper on 01-17-2025 Urine Buprenorphine Qualitative Negative < 200 ng/mL [facility] Urine Oxycodone Screen Negative < 100 ng/mL [facility] Nucleated red blood cell per centageOrdered By: Sofiya Harper on 01-17-2025 Nucleated RBC/100 WBC (Bld) [Ratio] 0 % 0-5 [facility] Platelet countOrdered By: Jose Harper on 01-17-2025 Platelets (Bld) [#/Vol] 275 10*3/uL 150-450 [facility] Potassium measurement (mass/ volume)Ordered By: Sofiya Harper on 01-17-2025 Potassium (Unsp spec) [Mass/Vol] 3.5 mmol/L 3.3-5.1 [facility] Quantitative urine opiates m easurementOrdered By: Sofiya Harper on 01-17-2025 Opiates Ql (U) Negative < 300 ng/mL [facility] RBC Auto (Bld) [#/Vol]Ordere d By: Sofiya Harper on 01-17-2025 RBC (Bld) [#/Vol] 3.79 10*6/uL Low 4.6-6.2 [facility] Screening urine fentanyl lacy surementOrdered By: Sofiya Harper on 01-17-2025 fentaNYL Screen Ql (U) Positive <5 ng/mL [facility] Comment on above: CONFIRMATORY TESTING FOR [...] laboratory. Serum creatinine measurement (mass/volume)Ordered By: Sofiya Harper on 01-17-2025 Creatinine [Mass/Vol] 1.22 mg/dL High 0.70-1.20 [facility] Serum glucose measurement (m ass/volume)Ordered By: Sofiya Harper on 01-17-2025 Glucose [Mass/Vol] 181 mg/dL High 70-99 [facility] Serum or plasma calcium klarissa urement (mass/volume)Ordered By: Sofiya Harper on 01-17-2025 Calcium [Mass/Vol] 9.1 mg/dL 7.6-11.0 [facility] Serum or plasma creatine kin ase activityOrdered By: [facility] Meredith on 01-17-2025 CK [Catalytic activity/Vol] 451 U/L High 24-195 [facility] Serum or plasma ethanol klarisas urement (mass/volume)Ordered By: Sofiyaangel Harper on 01-17-2025 Ethanol [Mass/Vol] mg/dL <10.1 [facility] Comment on above: This test is for med ical purposes only. The legal definition of intoxication varies according to local law. Serum or plasma urea nitroge n measurement (mass/volume)Ordered By: Sofiya Harper on 01-17-2025 Urea nitrogen [Mass/Vol] 16 mg/dL 4-19 [facility] Shoulder min 2 Viewson 01-17 Shoulder min 2 Views [facility] Imaging Services [address] [place] [address] Shoulder min 2 Views MR#: [id number] Acct: [id number] Name: AMMON BOWER Rep #: [id number] : 1980 M 44 From: Loi Garrett MD PCP: Dr. Jass Ching MD Status: REG ER Study: Shoulder min 2 Views Date of Exam: 01/17/25 Exam# [id number] Ordering Dr: Sofiya Harper MD PROCEDURE: SHOULDER [...] left shoulder. No acute fractures. Reading Location: [facility] CC: Dr. Jass Ching MD; Dr. Sofiya Harper MD Event Planning Intern: Signed Normal [facility] Shoulder min 2 Views [facility] Imaging Services [address] [place] [address] Shoulder min 2 Views MR#: [id number] Acct: [id number] Name: AMMON BOWER Rep #: [id number] : 1980 M 44 From: Janes Browne MD PCP: Dr. Jass Ching MD Status: REG ER Study: Shoulder min 2 Views Date of Exam: 01/17/25 Exam# [id number] Ordering Dr: Sofiya Harper MD PROCEDURE: SHOULDER MIN 2 VIEWS 01/17/2025 REASON FOR EXAM: POSTERIOR DISLOCATION TECHNIQUE: Procedure Code: RADSH Modality: DX [...] posterior dislocation of the humerus Reading Location: [facility] CC: Dr. Jass Ching MD; Dr. Sofiya Harper MD Event Planning Intern: Signed Normal [facility] Shoulder min 2 Views [facility] Imaging Services [address] [place], [place] [address] Shoulder min 2 Views MR#: [id number] Acct: [id number] Name: AMMON BOWER Rep #: [id number] : 1980 M 44 From: Janes Browne MD PCP: Dr. Jass Ching MD Status: REG ER Study: Shoulder min 2 Views Date of Exam: 01/17/25 Exam# [id number] Ordering Dr: Sofiya Harper MD PROCEDURE: SHOULDER MIN 2 VIEWS 01/17/2025 REASON FOR EXAM: DISLOCATION TECHNIQUE: Procedure Code: [facility] Modality: DX Procedure: SHOULDER MIN 2 VIEWS Laterality: Left COMPARISON: None. FINDINGS: Bones: Negative for fractures. Scapula otherwise negative. Proximal humerus negative. Clavicle negative. Joints: Intact. No joint effusion. Soft tissues: Adjacent structures negative. Other: Remainder of the exam negative. RAD/Shoulder min 2 Views IMPRESSION: Negative left shoulder. Reading Location: [facility] CC: Dr. Jass Ching MD; Dr. Sofiya Harper MD Event Planning Intern: Signed Normal [facility] Sodium levelOrdered By: Edgar Harper on 01-17-2025 Sodium [Moles/Vol] 140 mmol/L 133-145 [facility] Spine Cervical without Contr ason 01-17-2025 Spine Cervical without Contras [facility] Imaging Services [address] [place], [place] [address] Spine Cervical without Contras MR#: [id number] Acct: [id number] Name: AMMON BOWER Rep #: [id number] : 1980 M 44 From: Loi Garrett MD PCP: Dr. Jass Ching MD Status: REG ER Study: Spine Cervical without Contras Date of Exam: 0 01/17/25 Exam# [id number] Ordering Dr: Sofiya Harper MD PROCEDURE: BRAIN/HEAD [...] cervical spine fracture or malalignment. Reading Location: [facility] CC: Dr. Jass Ching MD; Dr. Sofiya Harper MD Event Planning Intern: Signed Normal [facility] Urine Drug Screen (VISTA)on 01-17-2025 AMPHETAMINES Negative Normal <1000 ng/mL [facility] Comment on above: Performed By: #### L 100.0100, L500.4050, L501.2300 #### [facility] [place], [address] BARBITIURATES Negative Normal < 200 ng/mL [facility] Comment on above: Performed By: #### L 100.0100, L500.4050, L501.2300 #### [facility] [address] [place], [address] BENZODIAZIPINE Negative Normal < 200 ng/mL [facility] Comment on above: Performed By: #### L 100.0100, L500.4050, L501.2300 #### [facility] [address] [place], [address] BUP Ur Drug Scr Negative Normal < 200 ng/mL [facility] Comment on above: Performed By: #### L 100.0100, L500.4050, L501.2300 #### [facility] [address] [place], [address] COCAINE Negative Normal < 300 ng/mL [facility] Comment on above: Performed By: #### L 100.0100, L500.4050, L501.2300 #### [facility] [address] [place], [address] Fentanyl Positive Normal <5 ng/mL [facility] Comment on above: Result Comment: CONF IRMATORY [...] the reference laboratory. Performed By: #### L 100.0100, L500.4050, L501.2300 #### [facility] [address] [place], [address] METHADONE Negative Normal < 300 ng/mL [facility] Comment on above: Performed By: #### L 100.0100, L500.4050, L501.2300 #### [facility] [address] [place], [address] OPIATES Negative Normal < 300 ng/mL [facility] Comment on above: Performed By: #### L 100.0100, L500.4050, L501.2300 #### [facility] [address] [facility] [address] OXYCODONE Negative Normal < 100 ng/mL [facility] Comment on above: Performed By: #### L 100.0100, L500.4050, L501.2300 #### [facility] [address] [facility] [address] PCP Negative Normal < 25 ng/mL [facility] Comment on above: Performed By: #### L 100.0100, L500.4050, L501.2300 #### [facility] [address] [place], [address] THC Positive Normal < 50 ng/mL [facility] Comment on above: Result Comment: If c onfirmation testing is needed, a separate order will be required to send out testing to the reference laboratory. Performed By: #### L 100.0100, L500.4050, L501.2300 #### [facility] [address] [place], [address] Urine benzodiazepine levelOr dered By: Sofiya Harper on 01-17-2025 Benzodiazepines Ql (U) Negative < 200 ng/mL [facility] Urine cocaine levelOrdered B y: Sofiya Harper on 01-17-2025 Cocaine Ql (U) Negative < 300 ng/mL [facility] Urine xggtc-7-iykkrjhofgrogp abinol (THC) measurementOrdered By: Sofiya Harper on 01-17-2025 Cannabinoids Screen Ql (U) Positive < 50 ng/mL [facility] Comment on above: If confirmation test ing is needed, a separate order will be required to send out testing to the reference laboratory. Urine phencyclidine (PCP) de tectionOrdered By: Sofiya Harper on 01-17-2025 Phencyclidine Ql (U) Negative < 25 ng/mL [facility] White blood cell (WBC) count Ordered By: Sofiya Harper on 01-17-2025 WBC (Bld) [#/Vol] 13.8 10*3/uL High 4.4-11.0 [facility] Colonoscopy Reporton 025 Colonoscopy Report [facility] Medical Records Department [address] [place] [address] Colonoscopy Report MR#: [id number] Acct: [id number] Name: AMMON BOWER Rep #: [id number] : 1980 43 From: Kentrell Isbell DO PCP: Dr. Jass Ching MD Status:REG [facility] Patient Name: Ammon Bower Procedure Date: 06/01/2024 [...] pathology results. Procedure Code(s): --- Professional --- 80211, Colonoscopy, flexible; with biopsy, single or multiple CPT copyright 2021 [employer]. All rights reserved. The codes documented in this report are preliminary and upon crystal slicer review may be revised to meet current compliance requirements. Kentrell Isbell DO 06/01/2024 11:51:25 AM This report has been signed electronically. Number of Addenda: 0 Note Initiated On: 06/01/2024 11:21 AM 06/01/24 1151 Date Kentrell Castellon Signature: Date (if indicated) CC: Dr. Jass Ching MD; Kentrell Isbell DO Date Dictated: 06/01/24 1121 Date Trans (more content not included)... [facility] MR/POSTOP.[facility] 06-01-2024 MR/POSTOP.[facility] Medical Records Department [address] [place] [address] Anesthesia Postop Eval I 06/01/24 1153 MR#: [id number] Acct: [id number] Name: AMMON BOWER Rep #: [id number] : 1980 43 From: Brandon Morales PCP: Dr. Jass Ching MD Status:REG SD Y Race: AA Location: [place] [address] Anesthesia: Postop Eval I Current Vital Signs [...] Obrien Signature: Date CC: Signed Normal [facility] MR/[id number] 06-01-2024 MR/POSTOPAN2 [facility] Medical Records Department [address] [place] [address] Anesthesia Postop Eval II 06/01/24 1246 MR#: [id number] Acct: [id number] Name: AMMON BOWER Rep #: [id number] : 1980 43 From: Calvin Dillard MD PCP: Dr. Jass Ching MD Status:DEP [facility] Y Race: AA Location: EN Anesthesia Postop [...] Anesthesia Complication: No 06/01/24 1247 Date Calvin Dillard MD Cosigner Signature: Date CC: Signed Normal [facility] Surgery Specimen Level Gemini 06-01-2024 Surgery Specimen Level IV Patient Age/Sex Location Account Attending Physician AMMON BOWER/M EN [id number] Kentrell Isbell DO Specimen: [id number] Received: 06/01/24 Status: BARBARA Salazar Num: [id number] Spec Type: COLON BX Subm Dr: Kentrell Friend, DO HEADER OPERATION: Colonoscopy with biopsy PRE-OP [...] specimen is totally submitted in one cassette. . 06/02/2024 TC:4 CPT:32871a0 Patient Age/Sex Location Account Attending Physician AMMON BOWER/Marcos EN [id number] Kentrell Isbell DO Signed (signature on file) Dr. Duran Nj MD 06/03/24 1206 Normal [facility] Comment on above: Performed By: #### L 100.0600 #### [facility] [address] [place], [address] MR/Jung 05-28-2024 MR/PATSIOMARA [facility] Medical Records Department [address] [place] [address] PAT - Anesthesia 05/28/24 1741 MR#: [id number] Acct: [id number] Name: AMMON BOWER Rep #: [id number] : 1980 43 From: Best Parker MD PCP: Dr. 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 History - machine bender Hx Hospitalization No 05/28/24 14:43 Any Problems [...] take am of surgery PONV PONV - machine bender: PONV - machine bender Female No 05/28/24 14:43 HX of Motion Sickness No 05/28/24 14:43 HX of N/V After Surgery No 05/28/24 14:43 Non-Smoker Yes 05/28/24 14:43 Duration of Surgery greater No 05/28/24 14:43 than 60 minutes Number of Risk Factors 1 05/28/24 14:43 PONV Score Low Risk 05/28/24 14:43 Height Weight Height Weight: Anesthesia: Height Weight Height 6 ft 03/26/24 12:46 Respiratory Assessment Respiratory Assessment - machine bender: Respiratory Tract Infection Hx - machine bender Hx Respiratory Tract Infection No 05/28/24 14:43 STOP Sleep Apnea STOP Sleep Apnea - machine bender: STOP Sleep Apnea - machine bender Hx Hypertension No 05/28/24 14:43 Hx Sleep [...] Tobacco Use History Tobacco Use History - machine bender: Tobacco Use History - machine bender Tobacco Use Smoking Status Former smoker 05/28/24 14:43 Hx Tobacco Use No 05/28/24 14:43 Years Smoking Packs Smoked per Day Smoking Cessation Date was Yes - quit smoking within 15 05/28/24 14:43 within the last 15 years years Hx Smoking Cessation Date 05/06/21 05/28/24 14:43 Hx Smoking Cessation Counseling Hematologic Medial History Hematologic Hx - 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 Specify any problems Hx of Preganancy in last 3 N/A 05/28/24 14:43 Months Nurse Filling Out Transfusion RAIN 05/28/24 14:43 Questions: Date: 05/28/24 05/28/24 14:43 Time: 14:49 05/28/24 14:43 Patient unable to answer at this time (ie. confused, unrespo /Reproduction History /Reproductive History - machine bender: /Reproductive Hx- machine bender Hx Now Gestational Age (in weeks): EDC: [...] sp (more content not included)... Normal [facility] CBC W/Diff, Automatedon 03-06 Absolute Lymph 1.77 X10 3/uL Normal 0.83-4.51 [facility] Comment on above: Performed By: #### L 100.0100, L500.4050, L501.9910, L500.4100 ####[facility] [address] [place], [address] Absolute Neut 3.2 X10 3/uL Normal 2.0-7.7 [facility] Comment on above: Performed By: #### L 100.0100, L500.4050, L501.9910, L500.4100 ####[facility] [address] [place], [address] Basophils/100 WBC (Bld) 1.2 % High 0-1 [facility] Comment on above: Performed By: #### L 100.0100, L500.4050, L501.9910, L500.4100 ####[facility] [address] [place], [address] Eosinophils/100 WBC (Bld) 5.5 % High 0-5 [facility] Comment on above: Performed By: #### L 100.0100, L500.4050, L501.9910, L500.4100 ####[facility] [address] [place], [address] Erythrocyte distribution width (RBC) [Ratio] 11.8 % Normal 11.6-14.6 [facility] Comment on above: Performed By: #### L 100.0100, L500.4050, L501.9910, L500.4100 ####[facility] [address] [place], [address] Hematocrit (Bld) [Volume fraction] 38.4 % Low 40-54 [facility] Comment on above: Performed By: #### L 100.0100, L500.4050, L501.9910, L500.4100 ####[facility] [address] [place], [address] Hemoglobin (Bld) [Mass/Vol] 12.7 g/dL Low 13.0-16.5 [facility] Comment on above: Performed By: #### L 100.0100, L500.4050, L501.9910, L500.4100 ####[facility] [address] [place], [address] IG% 0.400 Normal 0.0-0.9 [facility] Comment on above: Result Comment: IG% - Immature Granulocytes (promyelocytes, myelocytes and metamyelocytes) > 1% indicates that a LEFT SHIFT is Present. Performed By: #### L 100.0100, L500.4050, L501.9910, L500.4100 ####[facility] [address] [place], [address] Lymphocytes/100 WBC (Bld) 31.2 % Normal 19-41 [facility] Comment on above: Performed By: #### L 100.0100, L500.4050, L501.9910, L500.4100 ####[facility] [address] [place], [address] MCH (RBC) [Entitic mass] 32.9 pg High 27.0-32.0 [facility] Comment on above: Performed By: #### L 100.0100, L500.4050, L501.9910, L500.4100 ####[facility] [address] [place], [address] MCHC (RBC) [Mass/Vol] 33.1 g/dL Normal 32-36 [facility] Comment on above: Performed By: #### L 100.0100, L500.4050, L501.9910, L500.4100 ####[facility] [address] [place], [address] MCV (RBC) [Entitic vol] 99.5 fL High 80-94 [facility] Comment on above: Performed By: #### L 100.0100, L500.4050, L501.9910, L500.4100 ####[facility] [address] [place], [address] Monocytes/100 WBC (Bld) 5.1 % Normal 0-10 [facility] Comment on above: Performed By: #### L 100.0100, L500.4050, L501.9910, L500.4100 ####[facility] [address] [place], [address] Neutrophils/100 WBC (Bld) 56.6 % Normal 47-70 [facility] Comment on above: Performed By: #### L 100.0100, L500.4050, L501.9910, L500.4100 ####[facility] [address] [place], [address] Nucleated RBC (Bld) [#/Vol] 0 10*3/uL Normal 0-5 [facility] Comment on above: Performed By: #### L 100.0100, L500.4050, L501.9910, L500.4100 ####[facility] [address] [place], [address] Platelet mean volume (Bld) [Entitic vol] 12.7 fL High 6.2-12.0 [facility] Comment on above: Performed By: #### L 100.0100, L500.4050, L501.9910, L500.4100 ####[facility] [address] [place], [address] Platelets (Bld) [#/Vol] 220 10*3/uL Normal 150-450 [facility] Comment on above: Performed By: #### L 100.0100, L500.4050, L501.9910, L500.4100 ####[facility] [address] [place], [address] RBC (Bld) [#/Vol] 3.86 10*6/uL Low 4.6-6.2 [facility] Comment on above: Performed By: #### L 100.0100, L500.4050, L501.9910, L500.4100 ####[facility] [address] [place], [address] RDW SD 43.1 fl Normal 35.1-43.9 [facility] Comment on above: Performed By: #### L 100.0100, L500.4050, L501.9910, L500.4100 ####[facility] [address] [place], [address] WBC (Bld) [#/Vol] 5.7 10*3/uL Normal 4.4-11.0 [facility] Comment on above: Performed By: #### L 100.0100, L500.4050, L501.9910, L500.4100 ####[facility] [address] [place], [address] Comprehensive Metabolic [facility] ilon 03-20-2024 Albumin [Mass/Vol] 4.2 g/dL Normal 3.2-5.0 [facility] Comment on above: Performed By: #### L 100.0100, L500.4050, L501.9910, L500.4100 ####[facility] [address] [place], [address] Albumin/Globulin [Mass ratio] 1.4 {ratio} Normal 0.9-2.4 [facility] Comment on above: Performed By: #### L 100.0100, L500.4050, L501.9910, L500.4100 ####[facility] [address] [place], [address] ALK P 66 U/L Normal 45-117 [facility] Comment on above: Performed By: #### L 100.0100, L500.4050, L501.9910, L500.4100 ####[facility] [address] [place], [address] ALT [Catalytic activity/Vol] 46 U/L Normal 16-61 [facility] Comment on above: Performed By: #### L 100.0100, L500.4050, L501.9910, L500.4100 ####[facility] [address] [place], [address] AST [Catalytic activity/Vol] 25 U/L Normal 15-37 [facility] Comment on above: Performed By: #### L 100.0100, L500.4050, L501.9910, L500.4100 ####[facility] [address] [place], [address] Bilirubin [Mass/Vol] 1.90 mg/dL High 0.20-1.00 [facility] Comment on above: Result Comment: For patients on eltrombopag therapy, use of Dimension [place] TBIL is not recommended. Performed By: #### L 100.0100, L500.4050, L501.9910, L500.4100 ####[facility] [address] [place], [address] BUN/CRE 12.3 RATIO Normal 10-20 [facility] Comment on above: Performed By: #### L 100.0100, L500.4050, L501.9910, L500.4100 ####[facility] [address] [place], [address] CA,Total 8.4 mg/dL Low 8.5-10.1 [facility] Comment on above: Performed By: #### L 100.0100, L500.4050, L501.9910, L500.4100 ####[facility] [address] [place], [address] Chloride [Moles/Vol] 106 mmol/L Normal 98-107 [facility] Comment on above: Performed By: #### L 100.0100, L500.4050, L501.9910, L500.4100 ####[facility] [address] [place], [address] CO2 [Moles/Vol] 30.0 mmol/L Normal 21.0-32.0 [facility] Comment on above: Performed By: #### L 100.0100, L500.4050, L501.9910, L500.4100 ####[facility] [address] [place], [address] Creatinine [Mass/Vol] 1.06 mg/dL Normal 0.70-1.30 [facility] Comment on above: Result Comment: The validity of the calculated GFR GFRAA in patients over 70 years has not been determined. Clinical correlation is essential. Performed By: #### L 100.0100, L500.4050, L501.9910, L500.4100 ####[facility] [address] [place], [address] EST GFR - AA 97 mL/min Normal >60 [facility] Comment on above: Result Comment: Afri can Cameroonian GFR Calc Performed By: #### L 100.0100, L500.4050, L501.9910, L500.4100 ####[facility] [address] [place], [address] GAP 4 Low 5-15 [facility] Comment on above: Performed By: #### L 100.0100, L500.4050, L501.9910, L500.4100 ####[facility] [address] [place], [address] GFR/1.73 sq M.predicted among non-blacks MDRD (S/P/Bld) [Vol rate/Area] 80 mL/min/{1.73_m2} Normal >60 [facility] Comment on above: Result Comment: Non- GFR Calc Performed By: #### L 100.0100, L500.4050, L501.9910, L500.4100 ####[facility] [address] [place], [address] Globulin (S) [Mass/Vol] 3.0 g/dL Normal 2.2-4.2 [facility] Comment on above: Performed By: #### L 100.0100, L500.4050, L501.9910, L500.4100 ####[facility] [address] [place], [address] Glucose [Mass/Vol] 158 mg/dL High 74-106 [facility] Comment on above: Result Comment: Fast ing Glucose result greater than or equal to 126 mg/dL suggests DIABETES MELLITUS per A.D.A. criteria. Performed By: #### L 100.0100, L500.4050, L501.9910, L500.4100 ####[facility] [address] [place], [address] Potassium [Moles/Vol] 3.9 mmol/L Normal 3.5-5.1 [facility] Comment on above: Performed By: #### L 100.0100, L500.4050, L501.9910, L500.4100 ####[facility] [address] [place], [address] Sodium [Moles/Vol] 140 mmol/L Normal 136-145 [facility] Comment on above: Performed By: #### L 100.0100, L500.4050, L501.9910, L500.4100 ####[facility] [address] [place], [address] T PROT 7.2 g/dL Normal 6.4-8.2 [facility] Comment on above: Performed By: #### L 100.0100, L500.4050, L501.9910, L500.4100 ####[facility] [address] [place], [address] Urea nitrogen [Mass/Vol] 13 mg/dL Normal 7-18 [facility] Comment on above: Performed By: #### L 100.0100, L500.4050, L501.9910, L500.4100 ####[facility] [address] [place], [address] Hemoglobin A1con 03-20-2024 HbA1c (Bld) [Mass fraction] 4.9 % Normal 3.8-5.6 [facility] Comment on above: Result Comment: Norm al < 5.7 % Prediabetic 5.7 - 6.4 % Diabetic >or= 6.5 % Please note range changes. Performed By: #### L 501.9985 ####[facility] [address] [place], [address] Internal Medicine Office Vis iton 03-20-2024 Internal Medicine Office Visit [facility] [address] [place] [address] [place] [address] OFFICE VISIT Date of Service: 03/20/24 MR#: [id number] Acct: [id number] Name: AMMON BOWER Rep #: [id number] : 1980 Provider: Dr. Jass ceballos MD Age/Sex: 43/M Location: [facility] Status: Signed Intake Vital Signs 06/17/23 09:13 03/20/24 13:19 Height 6 ft 6 ft Weight: 181 lb BMI 24.5 BP 126/80 H Blood Pressure Location Lt brachial Position Sitting Respiration 16 Pulse 92 Pulse Source Monitor Temp 97.1 F L Temp Source Temporal Pulse Oximetry (%) 97 Oxygen Delivery Method room air Intake Visit Reasons: YEARLY Chief Complaint: yearly Mushroom Packer Required: No Accompanied by: Self Is patient [...] distress Orientation: alert, awake and oriented x3 HENWV Head: normal to inspection, normocephalic and atraumatic [...] Mental (more content not included)... Normal [facility] Lipid Profileon 03-20-2024 Cholesterol [Mass/Vol] 179 mg/dL Normal 200 [facility] Comment on above: Result Comment: <200 mg/dL Desirable 200-240 mg/dL Borderline >240 mg/dL High Risk Performed By: #### L 100.0100, L500.4050, L501.9910, L500.4100 ####[facility] [address] [place], [address] Cholesterol in HDL [Mass/Vol] 74 mg/dL Normal [facility] Comment on above: Result Comment: The drugs N-Acetylcysteine and Metamizole may falsely depress this assay. Reference Range HDL <40 mg/dL Low HDL Cholesterol HDL >or= 60 mg/dL High HDL Cholesterol Performed By: #### L 100.0100, L500.4050, L501.9910, L500.4100 ####[facility] [address] [place], [address] Cholesterol in LDL [Mass/Vol] 91 mg/dL Normal 0-130 [facility] Comment on above: Performed By: #### L 100.0100, L500.4050, L501.9910, L500.4100 ####[facility] [address] [place], [address] Cholesterol in VLDL [Mass/Vol] 14 mg/dL Normal 5-40 [facility] Comment on above: Performed By: #### L 100.0100, L500.4050, L501.9910, L500.4100 ####[facility] [address] [place], [address] Triglyceride [Mass/Vol] 68 mg/dL Normal [facility] Comment on above: Result Comment: The drugs N-Acetylcysteine and Metamizole may falsely depress this assay. Serum Triglycerides Reference Interval Normal <150 mg/dL Borderline high 150 - 199 mg/dL High 200 - 499 mg/dL Very High > or = 500 mg/dL Performed By: #### L 100.0100, L500.4050, L501.9910, L500.4100 ####[facility] [address] [place], [address] PSA,Total - Annual Screenon 03-20-2024 PSA,TOT SCREEN 0.50 ng/mL Normal 0.00-4.00 [facility] Comment on above: Result Comment: This test was performed using the TPSA assay method for the [employer] chemistry system. Values obtained with different assay methods cannot be used interchangably. When changing PSA assays in the course of monitoring a patient, additional sequential testing should be carried out to confirm baseline values. Performed By: #### L 100.0100, L500.4050, L501.9910, L500.4100 ####[facility] [address] [place], [address] Erythrocyte sedimentation ra teOrdered By: Jass Ching on 06-17-2023 ESR (Bld) [Velocity] 10 mm/h 0-20 [facility] No Panel InformationOrdered By: Jass Ching on 06-17-2023 C-Reactive Protein Extended Range < 2.90 mg/L 0.0-3.0 [facility] Comment on above: C-Reactive Protein ( CRP) provides useful information for thediagnosis, therapy and monitoring of inflammatory processesand associated diseases. For the evaluation of Relative Riskfor Cardiovascular Disease, a High Sensitivity CRP (HSCRP)should be ordered. Laboratory - Chemistry and C hemistry - challengeon 05-10-2023 Bilirubin Ql (U) Negative [facility] Glucose Ql (U) Negative [facility] Ketones Ql (U) Negative [facility] pH (U) 7.5 [pH] [facility] Specific gravity (U) [Rel density] 1.010 [facility] Urobilinogen (U) [Mass/Vol] 0.6225742 mg/dL [facility] Laboratory - Hematology and Cell countson 05-10-2023 Hemoglobin Ql (U) Negative [facility] Laboratory - Specimen inform ationon 05-10-2023 Clarity (U) Clear [facility] Color (U) Colorless [facility] Laboratory - Urinalysison Nitrite Ql (U) Negative [facility] Protein Ql (U) Negative [facility] No Panel Informationon 05-10 Urine Leukocytes Negatve [facility] Urine Non-Hemolyzed Blood [facility] STREP A MOLECULAR (POC)on Procedural Control Valid [facility] Strep A (POCT) Negative Negative [facility] No Panel Informationon 09-11 IMPRESSION: No radiographic evidence of acute osseous abnormality. Event Planning Intern: ANNA Transcribe Date/Time: Sep 11 2021 9:44A Dictated by : CARMENCITA MATOS MD This examination was interpreted and the report reviewed and electronically signed by: CARMENCITA MATOS MD on Sep 11 2021 9:46AM EST ZZZ_DO_NOT_ USE_DIVISIO N OF RADIOLOGY Radiology Study observation (narrative) Luis [facility] No Panel InformationOrdered By: Ccf Provider on 09-11-2021 [facility] XR Hand - right PA and [...] preserved. ZZZ_DO_NOT_ USE_DIVISIO N OF RADIOLOGY Provider, [facility] - 09/11/2021 * * *Final Report* [...] radiographic evidence of acute osseous abnormality. Event Planning Intern: [facility] Transcribe Date/Time: Sep 11 2021 9:44A Dictated by : CARMENCITA MATOS MD This examination was interpreted and the report reviewed and electronically signed by: CARMENCITA MATOS MD on Sep 11 2021 9:46AM EST [facility] XR Wrist - right 4 Viewson [...] preserved. ZZZ_DO_NOT_ USE_DIVISIO N OF RADIOLOGY Provider, [facility] - 09/11/2021 * * *Final Report* [...] radiographic evidence of acute osseous abnormality. Event Planning Intern: ANNA Transcribe Date/Time: Sep 11 2021 9:44A Dictated by : CARMENCITA MATOS MD This examination was interpreted and the report reviewed and electronically signed by: CARMENCITA MATOS MD on Sep 11 2021 9:46AM EST [facility] Absolute lymphocyte counton 08-14-2021 Lymphocytes Auto (Unsp spec) [#/Vol] 1.63 10*3/uL 0.83-4.51 [facility] Work Phone: Activated partial thrombopla stin time (aPTT) in platelet poor plasma by coagulation aon 08-14-2021 aPTT Coag (PPP) [Time] 34.5 s 24.1-36.2 [facility] Work Phone: Basophil percentageon 2021 Basophils/100 WBC (Bld) 0.3 % 0-1 [facility] Work Phone: Chloride [Moles/Vol] 105 mmol/L 98-107 [facility] Work Phone: Eosinophils/100 WBC (Bld) 2.6 % 0-5 [facility] Work Phone: Glucose [Mass/Vol] 109 mg/dL 74-106 [facility] Work Phone: Comment on above: Fasting Glucose resu lt from 100 to 125 mg/dL suggests IMPAIRED HOMEOSTASIS per A.D.A. criteria. Neutrophils (Bld) [#/Vol] 7.5 10*3/uL 2.0-7.7 [facility] Work Phone: Neutrophils/100 WBC (Bld) 73.9 % 47-70 [facility] Work Phone: Potassium [Moles/Vol] 3.8 mmol/L 3.5-5.1 [facility] Work Phone: Sodium [Moles/Vol] 139 mmol/L 136-145 [facility] Work Phone: WBC (Bld) [#/Vol] 10.2 10*3/uL 4.4-11.0 [facility] Work Phone: Blood erythrocytes count (nu mber/volume)on 08-14-2021 RBC (Bld) [#/Vol] 3.79 10*6/uL 4.6-6.2 [facility] Work Phone: Blood hemoglobin measurement (mass/volume)on 08-14-2021 Hemoglobin (Bld) [Mass/Vol] 12.9 g/dL 13.0-16.5 [facility] Work Phone: Blood lymphocytes/100 leukoc yteson 08-14-2021 Lymphocytes/100 WBC (Bld) 15.9 % 19-41 [facility] Work Phone: Blood monocytes/100 leukocyt eson 08-14-2021 Monocytes/100 WBC (Bld) 6.9 % 0-10 [facility] Work Phone: Blood platelet mean volumeon 08-14-2021 Platelet mean volume (Bld) [Entitic vol] 12.3 fL 6.2-12.0 [facility] Work Phone: Determination of erythrocyte mean corpuscular volume (MCV)on 08-14-2021 MCV (RBC) [Entitic vol] 103.7 fL 80-94 [facility] Work Phone: Hematocrit Auto (Bld) [Volum e fraction]on 08-14-2021 Hematocrit (Bld) [Volume fraction] 39.3 % 40-54 [facility] Work Phone: [phone] INR in Blood by Coagulation assayon 08-14-2021 INR Coag (Bld) [Relative time] 1.1 {INR} [facility] Work Phone: Laboratory - Chemistry and C hemistry - challengeon 08-14-2021 CO2 [Moles/Vol] 32.0 mmol/L 21.0-32.0 [facility] Work Phone: Urea nitrogen/Creatinine [Mass ratio] 14.6 mg/mg 10-20 [facility] Work Phone: Laboratory - Coagulationon 0 08-14-2021 PT Coag (PPP) [Time] 13.3 s 11.7-14.9 [facility] Work Phone: Laboratory - Hematology and Cell countson 08-14-2021 Erythrocyte distribution width (RBC) [Entitic vol] 45.1 fL 35.1-43.9 [facility] Work Phone: Erythrocyte distribution width (RBC) [Ratio] 11.9 % 11.6-14.6 [facility] Work Phone: Immature granulocytes/100 WBC (Bld) 0.400 % 0.0-0.9 [facility] Work Phone: Comment on above: IG% - Immature Granu locytes (promyelocytes, myelocytes and metamyelocytes) > 1% indicates that a LEFT SHIFT is Present. MCH (RBC) [Entitic mass] 34.0 pg 27.0-32.0 [facility] Work Phone: Nucleated RBC/100 WBC (Bld) [Ratio] 0 % 0-5 [facility] Work Phone: MCHC Auto (RBC) [Mass/Vol]on 08-14-2021 MCHC (RBC) [Mass/Vol] 32.8 g/dL 32-36 [facility] Work Phone: No Panel Informationon 08-14 Troponin I High Sensitivity < 3 pg/mL 3.0-78.0 [facility] Work Phone: Comment on above: Please Note: New Leidy t Units and Gender Specific Reference Ranges. For more information see Policy Stat Procedure [place] High Sensitivity Troponin (TNIH) and attachments. D-Dimer Quantitative (PE/DVT) 1.13 FEU/ug/m 0.27-0.49 [facility] Work Phone: Comment on above: D-Dimer ELEVATED (>0 .49): Additional studies and clinicalassessments are indicated to conclude diagnosis of:Deep Vein Thrombosis (DVT) or Pulmonary Embolism (PE)CRITICAL VALUE VERIFIED. CALLED TO CAMILA RONDON08/14/21 1723 Nick Ottoniel.RESULTS READ BACK BY SAME . Estimated Creatinine Clearance Calc 102.55 ml/min [facility] Work Phone: Estimated GFR (MDRD) Amer 102 mL/min >60 [facility] Work Phone: Comment on above: GFR Calc Estimated GFR (MDRD) Non-Af Amer 84 mL/min >60 [facility] Work Phone: Comment on above: Non- GFR Calc Platelets bldon 08-14-2021 Platelets (Bld) [#/Vol] 252 10*3/uL 150-450 [facility] Work Phone: Serum or plasma calcium klarissa urement (mass/volume)on 08-14-2021 Calcium [Mass/Vol] 9.2 mg/dL 8.5-10.1 [facility] Work Phone: Serum or plasma creatinine m easurement (mass/volume)on 08-14-2021 Creatinine [Mass/Vol] 1.03 mg/dL 0.70-1.30 [facility] Work Phone: Comment on above: The validity of the calculated GFR & GFRAA in patients over 70 years has not been determined. Clinical correlation is essential. Serum or plasma urea nitroge n measurement (mass/volume)on 08-14-2021 Urea nitrogen [Mass/Vol] 15 mg/dL 7-18 [facility] Work Phone: Thin prep Papanicolaou smear with manual screeningon 08-14-2021 Thin prep Papanicolaou smear with manual screening 2 5-15 [facility] Work Phone: Absolute lymphocyte counton 08-12-2021 Lymphocytes Auto (Unsp spec) [#/Vol] 2.65 10*3/uL 0.83-4.51 [facility] Work Phone: Basophil percentageon 2021 Basophil percentage 0-5 SEEN /hpf [facility] Work Phone: [phone] Basophils/100 WBC (Bld) 0.7 % 0-1 [facility] Work Phone: [phone] Bilirubin [Mass/Vol] 0.90 mg/dL 0.20-1.00 [facility] Work Phone: Comment on above: For patients on eltr ombopag therapy, use of Dimension [place] TBIL is not recommended. Chloride [Moles/Vol] 106 mmol/L 98-107 [facility] Work Phone: Eosinophils/100 WBC (Bld) 5.4 % 0-5 [facility] Work Phone: Glucose [Mass/Vol] 112 mg/dL 74-106 [facility] Work Phone: Comment on above: Fasting Glucose resu lt from 100 to 125 mg/dL suggests IMPAIRED HOMEOSTASIS per A.D.A. criteria. Neutrophils (Bld) [#/Vol] 5.2 10*3/uL 2.0-7.7 [facility] Work Phone: Neutrophils/100 WBC (Bld) 56.2 % 47-70 [facility] Work Phone: Potassium [Moles/Vol] 3.9 mmol/L 3.5-5.1 [facility] Work Phone: Protein [Mass/Vol] 7.9 g/dL 6.4-8.2 [facility] Work Phone: Sodium [Moles/Vol] 140 mmol/L 136-145 [facility] Work Phone: WBC (Bld) [#/Vol] 9.2 10*3/uL 4.4-11.0 [facility] Work Phone: Bilirubin Test strip Ql (U)o n 08-12-2021 Bilirubin Ql (U) Negative Negative [facility] Work Phone: Blood erythrocytes count (nu mber/volume)on 08-12-2021 RBC (Bld) [#/Vol] 3.98 10*6/uL 4.6-6.2 [facility] Work Phone: Blood hemoglobin measurement (mass/volume)on 08-12-2021 Hemoglobin (Bld) [Mass/Vol] 13.4 g/dL 13.0-16.5 [facility] Work Phone: Blood lymphocytes/100 leukoc yteson 08-12-2021 Lymphocytes/100 WBC (Bld) 28.8 % 19-41 [facility] Work Phone: Blood manual differential co mment interpretation (narrative result)on 08-12-2021 Manual differential comment Luis (Bld) [Interp] SCANNED [facility] Work Phone: Comment on above: AUTO DIFF [place] Blood monocytes/100 leukocyt eson 08-12-2021 Monocytes/100 WBC (Bld) 8.4 % 0-10 [facility] Work Phone: Blood platelet mean volumeon 08-12-2021 Platelet mean volume (Bld) [Entitic vol] 11.5 fL 6.2-12.0 [facility] Work Phone: Determination of erythrocyte mean corpuscular volume (MCV)on 08-12-2021 MCV (RBC) [Entitic vol] 101.8 fL 80-94 [facility] Work Phone: Hematocrit Auto (Bld) [Volum e fraction]on 08-12-2021 Hematocrit (Bld) [Volume fraction] 40.5 % 40-54 [facility] Work Phone: Hyaline casts LM.LPF (Urine sed) [#/Area]on 08-12-2021 Hyaline casts (Urine sed) [#/Area] 0 /[LPF] [facility] Work Phone: Ketones Test strip Ql (U)on 08-12-2021 Ketones Ql (U) Negative Negative [facility] Work Phone: Laboratory - Chemistry and C hemistry - challengeon 08-12-2021 ALP [Catalytic activity/Vol] 94 U/L 45-117 [facility] Work Phone: ALT [Catalytic activity/Vol] 34 U/L 16-61 [facility] Work Phone: CO2 [Moles/Vol] 32.0 mmol/L 21.0-32.0 [facility] Work Phone: Globulin (S) [Mass/Vol] 3.8 g/dL 2.2-4.2 [facility] Work Phone: Lipase [Catalytic activity/Vol] 193 U/L 73-393 [facility] Work Phone: Urea nitrogen/Creatinine [Mass ratio] 12.3 mg/mg 10-20 [facility] Work Phone: Laboratory - Hematology and Cell countson 08-12-2021 Erythrocyte distribution width (RBC) [Entitic vol] 45.6 fL 35.1-43.9 [facility] Work Phone: Erythrocyte distribution width (RBC) [Ratio] 12.0 % 11.6-14.6 [facility] Work Phone: Immature granulocytes/100 WBC (Bld) 0.500 % 0.0-0.9 [facility] Work Phone: Comment on above: IG% - Immature Granu locytes (promyelocytes, myelocytes and metamyelocytes) > 1% indicates that a LEFT SHIFT is Present. MCH (RBC) [Entitic mass] 33.7 pg 27.0-32.0 [facility] Work Phone: Nucleated RBC/100 WBC (Bld) [Ratio] 0 % 0-5 [facility] Work Phone: MCHC Auto (RBC) [Mass/Vol]on 08-12-2021 MCHC (RBC) [Mass/Vol] 33.1 g/dL 32-36 [facility] Work Phone: Mucus LM Ql (Urine sed)on Mucus Ql (Urine sed) 0 SEEN /hpf [facility] Work Phone: Nitrite Test strip Ql (U)on 08-12-2021 Nitrite Ql (U) Negative Negative [facility] Work Phone: No Panel Informationon 08-12 Estimated Creatinine Clearance Calc 92.65 ml/min [facility] Work Phone: Estimated GFR (MDRD) Amer 90 mL/min >60 [facility] Work Phone: Comment on above: GFR Calc Estimated GFR (MDRD) Non-Af Amer 75 mL/min >60 [facility] Work Phone: Comment on above: Non- GFR Calc Platelets bldon 08-12-2021 Platelets (Bld) [#/Vol] 285 10*3/uL 150-450 [facility] Work Phone: Protein Test strip Ql (U)on 08-12-2021 Protein Ql (U) Negative Negative [facility] Work Phone: Serum or plasma albumin klarissa urement (mass/volume)on 08-12-2021 Albumin [Mass/Vol] 4.1 g/dL 3.2-5.0 [facility] Work Phone: Serum or plasma albumin/glob ulin mass ratioon 08-12-2021 Albumin/Globulin [Mass ratio] 1.1 {ratio} 0.9-2.4 [facility] Work Phone: Serum or plasma calcium klarissa urement (mass/volume)on 08-12-2021 Calcium [Mass/Vol] 9.3 mg/dL 8.5-10.1 [facility] Work Phone: Serum or plasma creatinine m easurement (mass/volume)on 08-12-2021 Creatinine [Mass/Vol] 1.14 mg/dL 0.70-1.30 [facility] Work Phone: Comment on above: The validity of the calculated GFR & GFRAA in patients over 70 years has not been determined. Clinical correlation is essential. Serum or plasma urea nitroge n measurement (mass/volume)on 08-12-2021 Urea nitrogen [Mass/Vol] 14 mg/dL 7-18 [facility] Work Phone: Squamous epithelial cells de tection in urine sediment by light microscopyon 08-12-2021 Epithelial cells.squamous LM Ql (Urine sed) 0-5 SEEN /hpf [facility] Work Phone: Thin prep Papanicolaou smear with manual screeningon 08-12-2021 Thin prep Papanicolaou smear with manual screening 14 U/L 15-37 [facility] Work Phone: Thin prep Papanicolaou smear with manual screening 2 5-15 [facility] Work Phone: Urine blood detectionon RBC Ql (U) Negative Negative [facility] Work Phone: RBC Ql (U) 0 SEEN /hpf [facility] Work Phone: Urine clarityon 08-12-2021 Clarity (U) Clear Clear [facility] Work Phone: Urine color determinationon 08-12-2021 Color (U) Yellow Yellow [facility] Work Phone: Urine glucose detectionon Glucose Ql (U) Normal mg/dl Normal [facility] Work Phone: Urine leukocyte esterase det ection by dipstickon 08-12-2021 Leukocyte esterase Test strip Ql (U) 25 /ul Negative [facility] Work Phone: Urine pHon 08-12-2021 pH (U) 5.0 [pH] [facility] Work Phone: Urine sediment bacteria coun t by microscopy (number/high power field)on 08-12-2021 Bacteria LM.HPF (Urine sed) [#/Area] 0 /[HPF] None Seen [facility] Work Phone: Urine specific gravity measu rementon 08-12-2021 Specific gravity (U) [Rel density] 1.020 [facility] Work Phone: Urobilinogen Auto test strip Ql (U)on 08-12-2021 Urobilinogen Ql (U) Normal mg/dl Normal [facility] Work Phone: XR Cervical spine AP and Lat eral and obliqueon 07-04-2020 IMPRESSION: Mild spondylosis of the cervical spine. Event Planning Intern: ANNA Transcribe Date/Time: Jul 04 2020 3:06P Dictated by : CAPO STRICKLAND MD This examination was interpreted and the report reviewed and electronically signed by: CAPO STRICKLAND MD on Jul 04 2020 3:07PM [facility] DIVISION OF RADIOLOGY * * *Final Report* [...] apices are clear. DIVISION OF RADIOLOGY Provider, [facility] - 07/04/2020 * * *Final Report* * [...] Mild spondylosis of the cervical spine. Event Planning Intern: PSCJenny Transcribe Date/Time: Jul 04 2020 3:06P Dictated by : CAPO STRICKLAND MD This examination was interpreted and the report reviewed and electronically signed by: CAPO STRICKLAND MD on Jul 04 2020 3:07PM EST [facility] Radiology Study observation (narrative) [facility] XR Cervical spine AP and Lat eral and obliqueOrdered By: Ccf Provider on 07-04-2020 [facility] Vital Signs Date Time Vital Sign Value Performing Clinician Facility 01-17-2025 12:04-0400 Body temperature 98.7 [degF] Dr. Jass Ching MD Work Phone: [facility] 01-17-2025 12:04-0400 Diastolic blood pressure 71 mm[Hg] Dr. Jass Ching MD Work Phone: [facility] 01-17-2025 12:04-0400 Heart rate 61 /min Dr. Jass Ching MD Work Phone: [facility] 01-17-2025 12:04-0400 Respiratory rate 18 /min Dr. Jass Ching MD Work Phone: [facility] 01-17-2025 12:04-0400 SaO2% (BldA) [Mass fraction] 99 % Dr. Jass Ching MD Work Phone: [facility] 01-17-2025 12:04-0400 Systolic blood pressure 134 mm[Hg] Dr. Jass Ching MD Work Phone: [facility] 01-17-2025 08:55-0400 Inhaled oxygen flow rate 100 L/min Dr. Jass Ching MD Work Phone: [facility] 01-17-2025 05:41-0400 Body height 182.[address] Jass Ching MD Work Phone: [facility] 01-17-2025 05:41-0400 Body mass index (BMI) [Ratio] 24.3 kg/m2 Dr. Jass Ching MD Work Phone: [facility] 01-17-2025 05:41-0400 Body weight 81.[address] Jass Ching MD Work Phone: [facility] 06-17-2023 09:13-0500 Body height 182.[address] Jass Ching Work Phone: [facility] 06-17-2023 09:13-0500 Body mass index (BMI) [Ratio] 24.5 kg/m2 Dr. Jass Ching Work Phone: [facility] 06-17-2023 09:13-0500 Body temperature 97.4 [degF] Dr. Jass Ching Work Phone: [facility] 06-17-2023 09:13-0500 Body weight 82.[address] Jass Ching Work Phone: [facility] 06-17-2023 09:13-0500 Diastolic blood pressure 80 mm[Hg] Dr. Jass Ching Work Phone: [facility] 06-17-2023 09:13-0500 Heart rate 87 /min Dr. Jass Ching Work Phone: [facility] 06-17-2023 09:13-0500 Respiratory rate 16 /min Dr. Jass Ching Work Phone: [facility] 06-17-2023 09:13-0500 SaO2% (BldA) [Mass fraction] 97 % Dr. Jass Ching Work Phone: [facility] 06-17-2023 09:13-0500 Systolic blood pressure 138 mm[Hg] Dr. Jass Ching Work Phone: [facility] 05-10-2023 13:31-0500 Body mass index (BMI) [Ratio] 24.8 kg/m2 Dr. Jass Ching Work Phone: [facility] 05-10-2023 13:31-0500 Body temperature 98 [degF] Dr. Jass Ching Work Phone: [facility] 05-10-2023 13:31-0500 Body weight [address] Jass Ching Work Phone: [facility] 05-10-2023 13:31-0500 Diastolic blood pressure 78 mm[Hg] Dr. Jass Ching Work Phone: [facility] 05-10-2023 13:31-0500 Heart rate 87 /min Dr. Jass Ching Work Phone: [facility] 05-10-2023 13:31-0500 Respiratory rate 16 /min Dr. Jass Ching Work Phone: [facility] 05-10-2023 13:31-0500 SaO2% (BldA) [Mass fraction] 97 % Dr. Jass Ching Work Phone: [facility] 05-10-2023 13:31-0500 Systolic blood pressure 118 mm[Hg] Dr. Jass Ching Work Phone: [facility] 07-05-2022 08:57-0500 Body temperature 98.71 [degF] Shashi Melara APRN.MOLD CHECKER Work Phone: [facility] 07-05-2022 08:57-0500 Body weight 77.38 kg Shashi Melara APRN.MOLD CHECKER Work Phone: [facility] 07-05-2022 08:57-0500 Diastolic blood pressure 66 mm[Hg] Shashi Melara APRN.MOLD CHECKER Work Phone: [facility] 07-05-2022 08:57-0500 Heart rate 78 /min Shashi Melara APRN.MOLD CHECKER Work Phone: [facility] 07-05-2022 08:57-0500 Respiratory rate 16 /min Shashi Melara APRN.MOLD CHECKER Work Phone: [facility] 07-05-2022 08:57-0500 SaO2% (BldA) [Mass fraction] 100 % Shashi Melara APRN.MOLD CHECKER Work Phone: [facility] 07-05-2022 08:57-0500 Systolic blood pressure 122 mm[Hg] Shashi Melara APRN.MOLD CHECKER Work Phone: [facility] 09-11-2021 08:57-0400 Body temperature 97.7 [degF] Leigha Marquez APRN.MOLD CHECKER Work Phone: [facility] 09-11-2021 08:57-0400 Body weight 77.84 kg Leigha Marquez APRN.MOLD CHECKER Work Phone: [facility] 09-11-2021 08:57-0400 Diastolic blood pressure 70 mm[Hg] Leigha Marquez APRN.MOLD CHECKER Work Phone: [facility] 09-11-2021 08:57-0400 Heart rate 76 /min Leigha Marquez APRN.MOLD CHECKER Work Phone: [facility] 09-11-2021 08:57-0400 Respiratory rate 16 /min Leigha Marquez APRN.MOLD CHECKER Work Phone: [facility] 09-11-2021 08:57-0400 SaO2% (BldA) [Mass fraction] 98 % Leigha Marquez APRN.MOLD CHECKER Work Phone: [facility] 09-11-2021 08:57-0400 Systolic blood pressure 126 mm[Hg] Leigha Marquez APRN.MOLD CHECKER Work Phone: [facility] 08-14-2021 19:29-0400 Diastolic blood pressure 73 mm[Hg] [facility] Work Phone: 08-14-2021 19:29-0400 Heart rate 86 /min [facility] Work Phone: 08-14-2021 19:29-0400 Respiratory rate 23 /min [facility] Work Phone: 08-14-2021 19:29-0400 SaO2% (BldA) [Mass fraction] 98 % [facility] Work Phone: 08-14-2021 19:29-0400 Systolic blood pressure 135 mm[Hg] [facility] Work Phone: 08-14-2021 15:21-0400 Body height 182.88 cm [facility] Work Phone: 08-14-2021 15:21-0400 Body mass index (BMI) [Ratio] 23.7 kg/m2 [facility] Work Phone: 08-14-2021 15:21-0400 Body temperature 98.8 [degF] [facility] Work Phone: 08-14-2021 15:21-0400 Body weight 79.37 kg [facility] Work Phone: 08-12-2021 20:31-0400 Heart rate 74 /min [facility] Work Phone: 08-12-2021 20:31-0400 Respiratory rate 18 /min [facility] Work Phone: 08-12-2021 18:14-0400 Body height 182.88 cm [facility] Work Phone: 08-12-2021 18:14-0400 Body mass index (BMI) [Ratio] 23.7 kg/m2 [facility] Work Phone: 08-12-2021 18:14-0400 Body temperature 98.5 [degF] [facility] Work Phone: 08-12-2021 18:14-0400 Body weight 79.37 kg [facility] Work Phone: 08-12-2021 18:14-0400 Diastolic blood pressure 88 mm[Hg] [facility] Work Phone: 08-12-2021 18:14-0400 SaO2% (BldA) [Mass fraction] 98 % [facility] Work Phone: 08-12-2021 18:14-0400 Systolic blood pressure 131 mm[Hg] [facility] Work Phone: Encounters Encounter Date Encounter Type Care Provider Facility Start: 03-15-2025 End: 03-15-2025 ambulatory SELF Facility:[facility] Start: 02-26-2025 End: 02-27-2025 ambulatory Ludin Ewing Facility:[facility] Start: 02-08-2025 End: 02-08-2025 ambulatory SELF Facility:[facility] Start: 01-21-2025 End: 01-21-2025 ambulatory KELLI POPE Facility:[facility] Start: 01-17-2025 End: 01-17-2025 Emergency department patient visit Dr. Jass Ching MD Work Phone: -Emergency Department Work Phone: Start: 06-01-2024 End: 06-01-2024 ambulatory [facility] Facility:[facility] Start: 05-01-2024 Encounter for genera l adult medical examination [facility] Start: 03-26-2024 ambulatory Mark[place]itts hillyumiko Ching Facili ty:[facility] Start: 03-20-2024 End: 03-20-2024 [facility] Start: 03-20-2024 End: 03-20-2024 [facility] Start: 06-17-2023 End: 06-17-[address] Jass Ching Work Phone: [facility] Work Phone: Start: 06-17-2023 End: 06-17-[address] Jass Ching Work Phone: [facility] Work Phone: Start: 05-10-2023 End: 05-10-[address] Jass Ching Work Phone: [facility] Work Phone: Start: 07-05-2022 End: 07-05-2022 Patient encounter procedure Shashi King WEIMOLD CHECKER Work Phone: [facility] Comment on above: URI, acute (Primary Dx); Throat pain; Streptococcus exposure Start: 10-16-[address] Jass Ching Work Phone: [facility] Start: 09-11-2021 End: 09-11-2021 Subsequent hospital visit by physician [facility] Work Phone: Radiology Comment on above: Pain of right hand [ M79.641] Start: 09-11-2021 End: 09-11-2021 Patient encounter procedure Leigha Jimmy CARVAJALMOLD CHECKER Work Phone: [facility] Comment on above: Pain of right hand ( Primary Dx) Start: 08-14-2021 End: 08-14-2021 [facility] Start: 08-14-2021 End: 08-14-2021 Patient encounter procedure Radha Farias PA-C Work Phone: [facility] Comment on above: Chest pain, unspecif ied type (Primary Dx) Start: 08-12-2021 End: 08-12-2021 [facility] Start: 07-04-2020 End: 07-04-2020 Subsequent hospital visit by physician [facility] Work Phone: Radiology Comment on above: [...] Start: 07-05-2022 STREP A MOLECULAR (POC) Shashi eMlara APRN.MOLD CHECKER Work Phone: Start: 09-11-2021 Radex hand minimum 3 views Leigha Marquez APRN.MOLD CHECKER Work Phone: Start: 08-14-2021 CT angiography of ch est with contrast Start: 08-14-2021 Plain chest X-ray Start: 08-12-2021 CT of abdomen and pe lvis without contrast Start: 07-04-2020 Radex spine cervical 4 or 5 views Matthieu Clark MD Work Phone: Start: 12-21-2015 Colonoscopy Radha Farias PA-C Work Phone: Plan of Treatment Date Care Activity Detail Author Start: 12-20-2025 Colonoscopy COLONOSCOPY [facility] Start: 12-20-2025 COLORECTAL CANCER SCREENING COLORECTAL CANCER SCREENING [facility] Start: 12-20-2025 Screening for malign ant neoplasm of colon [facility] Start: 01-17-2025 [facility] Start: 01-17-2025 Seizure precautions [facility] Start: 01-05-2024 Covid-19 Vaccine ( season) Covid-19 Vaccine ( season) [facility] Start: 01-05-2024 Influenza vaccination Influenza Vacc ine (#1) [facility] Start: 12-30-2023 Diabetes Screening Diabetes Screenin g [facility] Start: 12-30-2023 Screening for malign ant neoplasm of colon [facility] Start: 05-06-2022 DEPRESSION ASSESSMENT DEPRESSION ASS ESSMENT [facility] Start: 01-04-2022 Influenza vaccination INFLUENZ A (Season Ended) [facility] Start: 03-04-2021 COVID-19 VACCINE (3 - Booster for Pfizer series) COVID-19 VACCINE (3 - Booster for Pfizer series) [facility] Start: 07-29-2016 Urine microalbumin profile [facility] Start: 2013 Lipid panel Lipid Screening [facility] Start: 2013 LIPID SCREEN LIPID SCREEN [facility] Start: 1997 Hepatitis B Vaccine (1 of 3 - 19+ 3-dose series) Hepatitis B Vaccine (1 of 3 - 19+ 3-dose series) [facility] Start: 1996 Anxiety Screening Anxiety Screening [facility] Start: 1996 Depression Screening Depression Scre ening [facility] Start: 1996 HEPATITIS C SCREENING HEPATITIS C [facility] Start: 1996 Hepatitis C screening Hepatitis C [facility] Start: 1996 HIV SCREENING HIV SCREENING [facility] Start: 1996 HIV screening HIV Screening [facility] Start: 1990 Adult depression screening assessment DEPRESSION SCREENING [facility] Start: 1978 HEPATITIS B (1 of 3 - 3-dose series) HEPATITIS B (1 of 3 - 3-dose series) [facility] Patient Education [facility] Work Phone: Patient referral [facility] Work Phone: Immunizations Immunization Date Immunization Notes Care Provider Tianna knowles 03-20-2024 influenza, injectabl e, madin eran canine kidney, preservative free Dr. Jass Ching MD Work Phone: [facility] 01-24-2023 influenza, injectabl e, quadrivalent, preservative free Dr. Jass Ching Work Phone: [facility] 04-11-2022 influenza virus vaccine, unspecified formulation [facility] [place] Work Phone: [facility] 10-02-2020 COVID-19 vaccine, ag e 12+ yr (PFIZER-BIONTECH - PURPLE TOP) Radha Farias PA-C Work Phone: [facility] 09-11-2020 COVID-19 vaccine, ag e 12+ yr (PFIZER-BIONTECH - PURPLE TOP) Radha Farias PA-C Work Phone: [facility] 07-29-2006 diphtheria and tetan us toxoids, adsorbed for pediatric use Radha Farias PA-C Work Phone: [facility] Work Phone: Payers Date Payer Category Payer Private Health Insurance U [id number] 2024 Self-pay [id number] 2024 Private Health Insurance [id number] 2024 Unknown [id number] 2021 Private Health Insurance AET[employer] A ETNA CHOICE POS II [id number] 2021-Present [phone] [address] [place] [address] POS [id number] 2021 Private Health Insurance [id number] 2021 Unknown [employer] BLUE CARD PPO OOS [id number] 2021-Present [phone] [address] [place] [address] PPO [id number] 2016 Unknown [id number] 2014 Medicaid [employer] [id number] 2014-Present [phone] [address] [place] [address] Medicaid [id number] 2014 Medicaid [id number] Private Health Insurance [id number] Unknown [id number] Unknown [id number] Unknown [id number] Unknown [id number] Unknown [id number] Unknown [id number] Unknown [id number] Unknown [id number] Unknown [id number] Social History Date Type Detail Facility Start: 08-12-2021 End: 06-17-2023 Tobacco smoking status MEIS Unknown if ever smoked [facility] Start: 1980 Sex Assigned At Male [facility] Start: 12-13-2015 End: 01-17-2025 Tobacco smoking status NHIS Ex-smoker [facility] End: 11-22-2015 History of tobacco use Current smoker [facility] Start: 12-13-2015 End: 07-04-2020 Tobacco use and exposure Smokeless tobacco non-user [facility] Start: 07-04-2020 End: 04-03-2021 Alcohol intake Current drinker of alcohol (finding) [facility] Start: 08-24-2014 History SDOH Alcohol Comment socially [facility] Start: 1980 Sex Assigned At Not on file [facility] Start: 06-04-2020 End: 09-11-2021 Exposure to SARS-CoV-2 (event) Not sure [facility] Work Phone: End: 11-22-2015 History of tobacco use Cigarette Smoker [facility] Start: 07-04-2020 End: 09-11-2021 History of Social function [facility] Start: 07-04-2020 End: 09-11-2021 Tobacco use panel [facility] National Score (1-100), lower number is lower risk Not on file [facility] Mental Status Date Assessment Result Facility 01-17-2025 Cognitive function Drowsy [facility] Work Phone: 01-17-2025 Cognitive function Arousable To Voice/Nam e [facility] Work Phone: 08-14-2021 Cognitive function Awake;Alert;A ppropriate;Foll ows Commands [facility] Work Phone: Clinical Notes 07-04-2020 to 03-15-2025 Shashi Melara APRN.[facility] - 07/05/2022 9:30 AM ESTPatient Rachelle Matta RT(R) - 09/11/2021 9:30 AM Evaristo Marquez APRN.MOLD CHECKER - 09/11/2021 9:11 AM EDT Note Date & Type Note Facility 03-15-2025 Note HNO ID: [id number] Author: KELLI POPE PA-C Service: ? Author Type: Physician Hearing Aid Consultant Type: Progress Notes Filed: 03/15/2025 08:40 Note Text: Kelli Pope PA-C Department of Orthopaedics Orthopaedics [address] [facility] [address] Dept: [phone] Dept March 15, 2025 CHIEF COMPLAINT: Follow Up and Dislocation of the Left Shoulder (8 weeks post Left shoulder dislocation - Needs clearance for work) Mr. Ammon Bower is a 44 year old male status post left shoulder dislocation. The patient experienced a dislocation of the shoulder. He did use a sling for a few weeks following the injury, we transitioned him out of the sling and got him on an oral anti-inflammatory. Unfortunately the patient had discontinued the entire laboratory secondary to GI upset. The patient did not participate in physical therapy and he notes great improvement in the range of motion in his shoulder, no longer having any pain. Was able to carry some items from his basement up the stairs without any issue. He feels ready to return to work, some aspects of his job requires him to lift 50 pounds overhead, he is asking to not do any overhead lifting for the next days. He is fine with returning to work full duty after that. ASSESSMENT: S43.005D Dislocation of left shoulder joint, subsequent encounter (primary encounter diagnosis) R56.9 Seizure (HCC) PLAN: Patient will return to work tomorrow with restrictions in place for the next 8 days. Return to work full duty thereafter. He can follow-up on an as needed basis. Mr. Ammon Bower was advised as to [...] x 3, good mood and affect. Musculoskeletal: Supple range of motion of the cervical spine without pain. Spurling signs are negative. No atrophy of the deltoid and shoulder musculature. left shoulder is nontender to palpation over the SC joint, clavicle and AC joint. no tenderness to palpation over the posterior shoulder, nontender at anterior lateral corner of the shoulder and greater tuberosity. Nontender at the bicipital groove and coracoid. Active range of motion is 165 degrees of forward elevation, 50 degrees external rotation, and internal rotation to the upper lumbar spine. Passive range of motion is 170 degrees, 55 degrees, , respectively. No laxity with anterior and posterior stress. Negative Neer and negative Joyce impingement signs. 5/5 strength with supraspinatus, infraspinatus and subscapularis. Sensation is intact in the axillary, radial, median and ulnar nerve distribution Imaging: Deferred today Supporting Subjective Information Below: Past Surgical History: PAST SURGICAL HISTORY Procedure Laterality Date COLONOSCOPY FLX DX W/COLLJ SPEC WHEN PFRMD 05/13/2007 Colonoscopy SIGMOIDOSCOPY FLX W/BIOPSY SINGLE/MULTIPLE 08/08/2016 VASECTOMY UNI/BI SPX W/POSTOP SEMEN EXAMS 09/17/14 Medications: Current Outpatient Medications Medication Sig ibuprofen (MOTRIN) 800 mg tablet Take 1 tablet by mouth every 8 hours as needed (for pain.). (Patient not taking: Reported on 03/15/2025) No current facility-administered medications for this visit. Allergies: Tomato (Solanum Lycopersicum) ROS: General (negative for fatigue, malaise, weight loss/gain) HEENT (negative for headache, earache, recent vision changes, sinus pain, sore throat) Respiratory (no recent shortness of breath, hemoptysis) CV (negative for chest tightness, palpitations) Musculoskeletal (see HPI) Psych (no depression, anxiety) This note was partially generated using Codoon voice recognition system, and there may be some incorrect words, spellings, and punctuation that were not noted in checking the note before saving. Kelli Pope PA-C [facility] 03-15-2025 Note HNO ID: [id number] Author: LUDIVINA OLIVA MA Service: ? Author Type: Cultural Historian Type: Progress Notes Filed: 03/15/2025 08:40 Note Text: Patient presents with: Left Shoulder - Follow Up, Dislocation: 8 weeks post Left shoulder dislocation - Needs clearance for work AMB ROOMING INTAKE FLOWSHEET DATA Patient denies any pain. [facility] 02-27-2025 Note [facility] Medical Records Department [address] [place] [address] Discharge Summary 02/27/25 1512 MR#: [id number] Acct: [id number] Name: AMMON BOWER Rep #: [id number] : 1980 44 From: Ludin Ewing DO PCP: Dr. Jass Ching MD Status:DIS [id number] Prov[facility] Date of Admission: 02/26/25 Date of Discharge: 02/27/25 Primary Care Physician: Dr. Jass Ching MD Reason For Visit: UGIB WITH MELENA AFTER NSAID OVERUSE Diagnosis Discharge Diagnosis (1) Upper GI bleed: Status: Acute Code(s): K92.2 - Gastrointestinal hemorrhage, unspecified (2) Melanotic stools: Status: Acute Code(s): K92.1 - Melena (3) Adverse drug reaction: Status: Acute Code(s): T50.905A - Adverse effect of unspecified drugs, medicaments and biological substances, initial encounter Qualifiers: Encounter type: initial encounter Qualified Code(s): T50.905A - Adverse effect of unspecified drugs, medicaments and biological substances, initial encounter (4) Hyperglycemia: Status: Acute Code(s): R73.9 - Hyperglycemia, unspecified Plan 1. Melena #2 acute blood loss anemia #3 noncompliance with medical advice Medications at Discharge Home Medications pantoprazole 40 mg tablet,delayed release 40 mg PO DAILY #30 tabs 02/27/25 tramadol 100 mg tablet 100 mg PO Q6H PRN pain 5 days #20 tabs 02/27/25 Hospital Course Operations None Procedures None Summary of Care Provided Minutes Spent on Discharge: 30 Hospital Course: This 44-year-old black male was seen in the emergency room at [facility] with complaints of black stool, he had been taking ibuprofen for a shoulder injury. Workup in the emergency room included a hemoglobin which was low at 11.1 as compared with the hemoglobin and Xochitl of this year at 12.8. Emergency room physician did not Hemoccult his stool, patient was admitted to PCU and repeat hemoglobin in the next morning was 10.3. I talked with the patient on 02/27/2025 and told him I would like to repeat his hemoglobin at 11 AM and that if it was stable or it had declined just slightly he would be discharged on medications and he was not to take any ibuprofen. In the afternoon of 02/27/2025, patient contacted nursing and expressed his desire to sign out AMA, I offered to send medications to his pharmacy but he declined, I decided to send these medications anyway. On 02/27/2025, patient was seen and examined: On examination he appeared in good health and spirits. Vital signs as documented. Skin warm and dry and without overt rashes. Neck without JVD, neck was supple, trachea midline, thyroid was normal. Lungs clear bilaterally, normal air movement was noted. Heart exam notable for regular rhythm, normal sounds and absence of murmurs, rubs or gallops. Abdomen unremarkable and without evidence of organomegaly, masses, or abdominal aortic enlargement. Bowel sounds are present, abdomen is not distended. Extremities nonedematous, no cyanosis was noted, no clubbing was noted. Neuro: Cranial nerves II through XII are grossly intact, no focal motor deficits were noted, sensation to light touch and pinprick intact, motor exam 5/5 throughout. Psych: Patient is alert and oriented x3, he does not appear anxious or depressed, he does not appear agitated. Patient was discharged AGAINST MEDICAL ADVICE on 02/27/2025. Weight / BMI Weight Weight: 80.6 kg Body Mass Index (BMI) 24.0 ABG / Lab / Microbiology Data 02/27/25 11:01 02/27/25 05:59 Laboratory: Laboratory Results - last 24 hr 02/26/25 21:31: Lactic Acid 1.2 02/26/25 21:32: WBC 10.1, RBC 3.21 L, Hgb 11.1 L, Hct 31.4 L, MCV 97.8 H, MCH 34.6 H, MCHC 35.4, RDW Std Deviation 42.5, RDW Coeff of Jamar 11.9, Plt Count 270, MPV 11.7, Immature Gran % (Auto) 0.400, Neut % (Auto) 64.8, Lymph % (Auto) 24.4, Luna % (Auto) 4.9, Eos % (Auto) 4.9, Baso % (Auto) 0.6, Absolute Neuts (auto) 6.5, Absolute Lymphs (auto) 2.46, Nucleated RBC % 0, Sodium 139, Potassium 3.7, Chloride 105, Carbon Dioxide 23.0, Anion Gap 11, BUN 17, Creatinine 0.93, Estim Creat Clear Calc 108.94, Est GFR (MDRD) Non-Af 103, BUN/Creatinine Ratio 18.8, Glucose 173 H, Hemoglobin A1c 4.8, Calcium 8.7, Magnesium 1.9, Iron 31 L, TIBC 281, Iron Saturation 11.1, Unsaturated IBC 250, Ferritin 189, Vitamin B12 766, TSH 0.695, Blood Type O POSITIVE, Antibody Screen NEGATIVE 02/27/25 05:59: WBC 7.6, RBC 3.09 L, Hgb 10.3 L, Hct 31.1 L, MCV 100.6 H, MCH 33.3 H, MCHC 33.1 D, RDW Std Deviation 43.0, RDW Coeff of Jamar 11.9, Plt Count 230, MPV 11.9, Immature Gran % (Auto) 0.400, Neut % (Auto) 62.8, Lymph % (Auto) 23.7, Luna % (Auto) 6.5, Eos % (Auto) 5.7 H, Baso % (Auto) 0.9, Absolute Neuts (auto) 4.8, Absolute Lymphs (auto) 1.80, Nucleated RBC % 0, Sodium 140, Potassium 4.1, Chloride 109 H, Carbon Dioxide 24.0, Anion Gap 7, (more content not included)... [facility] 02-08-2025 Note HNO ID: [id number] Author: KELLI POPE PA-C Service: ? Author Type: Physician Hearing Aid Consultant Type: Progress Notes Filed: 02/08/2025 15:17 Note Text: Kelli oPpe PA-C Department of Orthopaedics Orthopaedics [address] [facility] [address] Dept: [phone] Dept February 08, 2025 CHIEF COMPLAINT: Shoulder [...] anxiety) This note was partially generated using Codoon voice recognition system, and there may be some incorrect words, spellings, and punctuation that were not noted in checking the note before saving. Kelli Pope PA-C [facility] 02-08-2025 Note HNO ID: [id number] Author: TRISTA QUEVEDO MA Service: ? Author Type: Cultural Historian Type: Progress Notes Filed: 02/08/2025 15:17 Note Text: AMB ROOMING INTAKE FLOWSHEET DATA Pain Pain Level: 7 Pain Location: Shoulder-Left Description: Sharp, Radiating Duration Amount of Time: 3 Duration Units: Weeks Frequency: Intermittent Intervention/Comfort measure: Heat [facility] 01-22-2025 Note HNO ID: [id number] Author: LUIS ENRIQUE WOO APRN.CNP Service: ? Author Type: Nurse Practitioner Type: Progress Notes Filed: 01/22/2025 14:12 Note Text: [facility] Review of Records Patient: Ammon Bower Address: [facility] [place] [facility] [address] Impression: Review of records for Ammon Bower, a 44 year old male, being referred by [facility] [[facility]] to Any Epileptologist for further evaluation and [...] allergies, former smoker, ETOH abuse PRIOR EVALUATIONS: [place] [address] [place] [address] EEG (-): MRI brain wo/w contrast (-): -------- CINDY Recommendations: - Long EEG, consult with an Epileptologist - Additional testing to be considered by epilepsy clinicians Signed: Luis Enrique Woo APRN.MOLD CHECKER January 22, [address] Shah for review and recommendations. ------- MD Recommendations (as discussed with Dr. Shah): - Routine EEG and visit with an Epileptologist [facility] 01-21-2025 Note HNO ID: [id number] Author: KELLI POPE PA-C Service: ? Author Type: Physician Hearing Aid Consultant Type: Progress Notes Filed: 01/21/2025 15:24 Note Text: Kelli Pope PA-C Department of Orthopaedics Orthopaedics [address] [address] Dept: [phone] January 21, 2025 CHIEF COMPLAINT: New and Pain of the Left Shoulder Left Shoulder Pain: - Severe left shoulder pain following a seizure on Saturday, patinet was sleeping. - Shoulder was dislocated during [...] a leave of absence from work at [employer] due to the injury. ASSESSMENT: S43.005A [...] Imaging: CT scan right upper extremity [facility] January 17, 2025 Adequate alignment of the [...] anxiety) This note was partially generated using Codoon voice recognition system, and there may be some incorrect words, spellings, and punctuation that were not noted in (more content not included)... [facility] 01-17-2025 Radiology Diagnostic study note [facility] Imaging Services [address] [place], [place] [address] Extremity Upper without Contra MR#: [id number] Acct: [id number] Name: AMMON BOWER Rep #: [id number] : 1980 M 44 From: Loi Garrett MD PCP: Dr. Jass Ching MD Status: R ER Study:Extremity Upper without Contra Date of Exam: 01/17/25 Exam# [id number] Ordering Dr: Jenny Trejo MD PROCEDURE: EXTREMITY [...] Small left shoulder joint effusion. Reading Location: [facility] CC: Dr. Usman Trejo MD; Dr. Jass Ching MD ~ Event Planning Intern: Signed [facility] 01-17-2025 Radiology Diagnostic study note [facility] Imaging Services [address] [place] [address] Shoulder min 2 Views MR#: [id number] Acct: [id number] Name: AMMON BOWERRALPH Rep #: [id number] : 1980 M 44 From: Loi Garrett MD PCP: Dr. Jass Ching MD Status: [facility] ER Study:Shoulder min 2 Views Date of Exam: 01/17/25 Exam# [id number] Ordering Dr: Jose Harper MD PROCEDURE: SHOULDER [...] left shoulder. No acute fractures. Reading Location: [facility] CC: Dr. Jass Ching MD; Dr. Sofiya Harper MD ~ Event Planning Intern: Signed [facility] 01-17-2025 Radiology Diagnostic study note [facility] Imaging Services [address] [place], [place] [address] [phone] Brain/Head without Contrast MR#: [id number] Acct: [id number] Name: AMMON BOWER VALERIO Rep #: [id number] : 1980 M 44 From: Loi Garrett MD PCP: Dr. Jass Ching MD Status: R EG ER Study:Brain/Head without Contrast Date of Exa m: 01/17/25 Exam# [id number] Ordering Dr: Jose Harper MD PROCEDURE: BRAIN/HEAD [...] cervical spine fracture or malalignment. Reading Location: [facility] CC: Dr. Jass Ching MD; Dr. Sofiya Harper MD ~ Event Planning Intern: Signed [facility] 01-17-2025 Radiology Diagnostic study note [facility] Imaging Services [address] [place] [address] Spine Cervical without Contras MR#: [id number] Acct: [id number] Name: AMMON BOWER Rep #: [id number] : 1980 M 44 From: Loi Garrett MD PCP: Dr. Jass Ching MD Status: R EG ER Study:Spine Cervical without Contras Date of Exam: 01/17/25 Exam# [id number] Ordering Dr: Jose Harper MD PROCEDURE: BRAIN/HEAD [...] cervical spine fracture or malalignment. Reading Location: [facility] CC: Dr. Jass Ching MD; Dr. Sofiya Harper MD ~ Event Planning Intern: Signed [facility] 01-17-2025 Radiology Diagnostic study note [facility] Imaging Services [address] [place] [address] Shoulder min 2 Views MR#: [id number] Acct: [id number] Name: AMMON BOWER Rep #: [id number] : 1980 M 44 From: Mohsen Browne MD PCP: Dr. Jass Ching MD Status: R EG ER Study:Shoulder min 2 Views Date of Exam: 01/17/25 Exam# [id number] Ordering Dr: Jose Harper MD PROCEDURE: SHOULDER MIN 2 VIEWS 01/17/2025 REASON FOR EXAM: POSTERIOR DISLOCATION TECHNIQUE: Procedure Code: RADSH Modality: DX [...] posterior dislocation of the humerus Reading Location: [id number] CC: Dr. Jass Ching MD; Dr. Sofiya Harper MD ~ Event Planning Intern: Signed [facility] 01-17-2025 Radiology Diagnostic study note [facility] Imaging Services [address] [place], [place] [address] Shoulder min 2 Views MR#: [id number] Acct: [id number] Name: AMMON BOWER Rep #: [id number] : 1980 M 44 From: Mohsen Browne MD PCP: Dr. Jass Ching MD Status: R EG ER Study:Shoulder min 2 Views Date of Exam: 01/17/25 Exam# [id number] Ordering Dr: Jose Harper MD PROCEDURE: SHOULDER [...] Views IMPRESSION: Negative left shoulder. Reading Location: [id number] CC: Dr. Jass Ching MD; Dr. Sofiya Harper MD ~ Event Planning Intern: Signed [facility] 06-01-2024 Note [facility] Medical Records Department [address] [place] [address] History Physical Exam 06/01/24 0956 MR#: [id number] Acct: [id number] Name: AMMON BOWER Rep #: [id number] : 1980 43 From: Kentrell Isbell DO PCP: Dr. Jass Ching MD Status:[facility] Location: [place] [address] HPI - General General Date of Admission: 06/01/24 Date of Service: 06/01/24 Chief Complaint: Screening colonoscopy HPI Narrative AMMON BOWER, is a 43 M who presents today for screening colonoscopy. He is not having any abdominal pain, cramping, chest pain or shortness of breath. He does not take any medicines on daily basis. Overall he is in very good health. [facility] Eczema Former smoker Blood glucose [...] applicable): CC: Dr. Jass Ching MD; Kentrell Friend, Signed [facility] 07-05-2022 History of Present illness Narrative Subjective [...] Shashi Melara APRN.CNP documented in this encounter [facility] 09-11-2021 Instructions Leigha Marquez APRN.YAMINI - 09/11/2021 9:55 AM EDT - RICE therapy - see patient instructions for further recommendations. - F/U with PCP in 5-7 days or before if worse. - Discussed Red Flag signs and when to go to ER. - Reviewed plan of care and DC papers with patient. Verbalized understanding. documented in this encounter [facility] 09-11-2021 History of Present illness Narrative [...] 2021 9:33 AM documented in this encounter [facility] 09-11-2021 History of Present illness Narrative Subjective The history is provided by the patient. No computer systems consultant was used. Hand Injury ROS Objective Physical [...] radiographic evidence of acute osseous abnormality. Event Planning Intern: ANNA Transcribe Date/Time: Sep 11 2021 9:44A Dictated by : CARMENCITA MATOS MD TECHNIQUE: 3 view radiographic study of the right hand and 4 view radiographic study of the right wrist COMPARISON: None FINDINGS: No acute fracture or dislocation identified. Mild remote posttraumatic bowing deformity of the fifth metacarpal. Joint spaces preserved. IMPRESSION IMPRESSION: No radiographic evidence of acute osseous abnormality. Event Planning Intern: ANNA Transcribe Date/Time: Sep 11 2021 9:44A Dictated by : CARMENCITA MATOS MD Patient instructed to rest, ice and alternate ibuprofen and tylenol. patient instructed to give it several more days and follow up with PCP if it does not seem to be getting better. Patient was okay with this care plan. Leigha Marquez APRN.YAMINI documented in this encounter [facility] 08-14-2021 History of Present illness Narrative Patient presents with express care triage with chest pain and back pain. He was seen in the ED 2 days ago for similar complaints and had a ct flank done which was unremarkable per patient and . He is in severe pain here, recommended he be seen again in the ED. His will take him there across the street to [facility] by personal vehicle. documented in this encounter [facility] 07-04-2020 History of Present illness Narrative [...] 2020 11:04 AM documented in this encounter [facility] Evaluation note No assessment inform ation available [facility] Work Phone: Evaluation note Diagnosis Chest pain, unspecified type- Primary [facility] Diagnosis Pain of right hand- Primary Pain in limb [facility] Diagnosis URI, acute- Primary Acute upper respiratory infections of unspecified site Throat pain Streptococcus exposure Contact with or exposure to other communicable diseases [facility] Diagnosis Onset Date Resolution Status Back pain acute SI (sacroiliac) joint inflammation acute Arthritis acute Low back pain chronic [facility] Work Phone: Evaluation note* Diagnosis Pain of right hand Pain in limb [facility] Diagnosis Upper back pain on right side Pain in thoracic spine Radicular pain in right arm Neuralgia, neuritis, and radiculitis, unspecified [facility] Discharge instructionsAdditional Instructions Wear the sling at all times. Follow up with the orthopedic doctor below in the next week. No driving until cleared by neurology. If you have another seizure prior to following up with neurology, return to the ER.[facility] Work Phone: Reason for referral (narrative)* Diagnostic Procedure Only (Urgent) - Closed Specialty Diagnoses / Procedures Referred By Contac t Referred To Contact XR IMAGING Diagnoses Pain of right hand Procedures XR WRIST INJURY 4V PA/LAT/OBL/SCAPH RIGHT RADEX WRIST COMPLETE MINIMUM 3 VIEWS Leigha Marquez APRN.MOLD CHECKER [address] [place] [address] Xr Imaging Referral ID Status Reason Start Date Expiration Date V isits Requested Visits Authorized [id number] Closed Auto-Generate d Referral 09/11/2021 10/11/2022 1 1 * Diagnostic Procedure Only (Urgent) - Closed Specialty Diagnoses / Procedures Referred By Contac t Referred To Contact XR IMAGING Diagnoses Pain of right hand Procedures XR HAND GENERAL 3V PA/LAT/OBL RIGHT RADEX HAND MINIMUM 3 VIEWS Leigha Marquez APRN.MOLD CHECKER [address] [place] [address] Xr Imaging Referral ID Status Reason Start Date Expiration Date V isits Requested Visits Authorized [id number] Closed Auto-Generate d Referral 09/11/2021 10/11/2022 1 1 [facility] for referral (narrative)* Diagnostic Procedure Only (Urgent) - Closed Specialty Diagnoses / Procedures Referred By Contac t Referred To Contact XR IMAGING Diagnoses Pain of right hand Procedures XR WRIST INJURY 4V PA/LAT/OBL/SCAPH RIGHT RADEX WRIST COMPLETE MINIMUM 3 VIEWS Leigha Marquez APRN.MOLD CHECKER [address] [place] [address] [place] [address] Referral ID Status Reason Start Date Expiration Date V isits Requested Visits Authorized Closed Auto-Generate d Referral 09/11/2021 10/11/2022 1 1 * Diagnostic Procedure Only (Urgent) - Closed Specialty Diagnoses / Procedures Referred By Contac t Referred To Contact XR IMAGING Diagnoses Pain of right hand Procedures XR HAND GENERAL 3V PA/LAT/OBL RIGHT RADEX HAND MINIMUM 3 VIEWS Leigha Marquez APRN.MOLD CHECKER [address] [place] [address] [place] [address] Referral ID Status Reason Start Date Expiration Date V isits Requested Visits Authorized Closed Auto-Generate d Referral 09/11/2021 10/11/2022 1 1 [facility] (narrative)No reason for referral information availableWTrinity [facility] Work Phone: Reason for visit Narrative* Diagnostic Procedure Only (Urgent) - Closed Specialty Diagnoses / Procedures Referred By Contac t Referred To Contact XR IMAGING Diagnoses Pain of right hand Procedures XR WRIST INJURY 4V PA/LAT/OBL/SCAPH RIGHT RADEX WRIST COMPLETE MINIMUM 3 VIEWS Leigha Marquez APRN.MOLD CHECKER [address] [place] [address] [place] [address] Referral ID Status Reason Start Date Expiration Date V isits Requested Visits Authorized [id number] Closed Auto-Generate d Referral 09/11/2021 10/11/2022 1 1 [facility] Chief Complaint and Reason for Visit [...] No August 12, 2021 6:25pm Power of Mdm Sr No August 12 6:25pm Documents on File Type Date 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 Advance Directive(s) 12/21/2015 5:53 AM Advance Directive(s) 12/14/2015 10:43 AM Advance Directive Response Recorded Date/ Time Advance Directives No May 17, 2016 8:32pm Living Will No August 14, 2021 3:42pm Power of Mdm Sr No August 14 3:42pm Documents on File Type Date 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 No January 17, 2025 5:46am Advance Directives [...] or prosecute any alcohol or drug abuse patient.[facility] the event this information is protected by the Federal Confidentiality of Alcohol and Drug Abuse Patient Records regulations: The Federal rules restrict any use of the information to criminally investigate or prosecute any alcohol or drug abuse patient.[facility] the event this information is protected by the Federal Confidentiality of Alcohol and Drug Abuse Patient Records regulations: The Federal rules restrict any use of the information to criminally investigate or prosecute any alcohol or drug abuse patient.[facility] the event this information is protected by the Federal Confidentiality of Alcohol and Drug Abuse Patient Records regulations: The Federal rules restrict any use of the information to criminally investigate or prosecute any alcohol or drug abuse patient.[facility] the event this information is protected by the Federal Confidentiality of Alcohol and Drug Abuse Patient Records regulations: The Federal rules restrict any use of the information to criminally investigate or prosecute any alcohol or drug abuse patient.[facility] Reason for Visit (unrecogniz ed section [...] Primary Care Provider, Refer ring Provider Active KIRSTEN BishopC Attending Provider Active Team Status: Inactive Member Role Status Dates Dr. Jass Ching MD Primary Care P jesse, Attending Provider, Referring Provider Active Team Status: [...] ized section and content) DATE CREATED AUTHOR 03/05/2025 [facility] DATE CREATED AUTHOR AUTHOR'S WENDY HARRIS 03/15/[address]25 [facility] FOR RECORDS PERTAINING TO PATIENTS WHO [...] BE BASED ON THE PRIMARY CLINICAL RECORDS. [facility] [employer] [place] [email or web address] [phone] no warranty or guarantee [id number] the accuracy [phone] completeness of information in this [id number]
== END 2025-03-30 07:59 | disposition home or self-care (01) ==
PROVIDERS: Emergency Provider Emergency Medicine; PCP Internal Medicine; Visit Provider Emergency Medicine
DX: K04.7 Periapical abscess without sinus (principal); Z87.891 Personal history of nicotine dependence
CPT/HCPCS: 99282